=== PATIENT | female | born 1935 | race Two or more races ===

== ENCOUNTER 2019-05-01 09:58 | Inpatient (IN) | payer MEDICARE, OTHER ==
[2019-05-01] VITALS (34 sets, daily range): BP systolic 58–146; BP diastolic 19–108
[~2019-05-01] VITALS: Ht 165.1 cm; Wt 49.0 kg
--- NOTE | 2019-05-01 10:00 | NUR ---
ED Nurse Note: patient brought in by ambulance from [facility] due to abnormal labs. patient is awake, non verbal at this time, placed patient on the monitor. sacral pressure ulcer and left, right trochanter redness noted, unable to take picture at this time due to camera issue. notified charge nurse.
[2019-05-01] MEDS ORDERED: VITAMIN C500 M1 ORAL (10:13)
[2019-05-01] MEDS ORDERED: BENAZEPRIL HCL10 MG ORAL (10:13)
[2019-05-01] MEDS ORDERED: CIPRO500 MG PO (10:13)
[2019-05-01] MEDS ORDERED: MULTIVITAMINS1 EAC8 ORAL (10:13)
[2019-05-01] MEDS ORDERED: ACETAMINOPHEN325 M1 ORAL (10:13)
[2019-05-01] MEDS ORDERED: DOCUSATE SODIU100 MG ORAL (10:13)
[2019-05-01] MEDS ORDERED: AMLODIPINE BESYL5 MG ORAL (10:13)
[2019-05-01] MEDS ORDERED: ASPIR 8181 MG ORAL (10:13)
--- NOTE | 2019-05-01 10:30 | NUR ---
ED Nurse Note: daughter at bedside.
[2019-05-01 10:43] LABS: APPEARANCE,URINE VERY CLOUDY; BILIRUBIN, URINE NEGATIVE (NEGATIVE); GLUCOSE, URINE (UA) NEGATIVE (NEGATIVE); KETONES,URINE NEGATIVE (NEGATIVE); LEUKOCYTE ESTERASE ,URINE 3+ (NEGATIVE); NITRITE,URINE NEGATIVE (NEGATIVE); PH,URINE 8 (4.5-8.0); PROTEIN,URINE 3+ (NEGATIVE); UROBILINOGEN,URINE NORMAL MG/DL (0.0-1.0)
[2019-05-01 10:50] LABS: COLOR,URINE YELLOW
[2019-05-01 10:57] LABS: HEMOGLOBIN 11.2 G/DL (12.0-16.0); MEAN CORPUSCULAR VOLUME 99 FL (80-99); PLATELET COUNT 243 K/UL (150-450); RED BLOOD COUNT 3.53 M/UL (4.20-5.40); WHITE BLOOD COUNT 20.8 K/UL (4.8-10.8)
[2019-05-01 10:59] LABS: ANION GAP 11 mmol/L (5-15); BLOOD UREA NITROGEN 102 mg/dL (7-18); CALCIUM 9.5 MG/DL (8.5-10.1); CARBON DIOXIDE 26 MMOL/L (21-32); CHLORIDE 115 MMOL/L (98-107); CREATININE 1.5 MG/DL (0.55-1.30); POTASSIUM 4.8 MMOL/L (3.5-5.1); SODIUM 151 MMOL/L (136-145)
[2019-05-01] MEDS: cefTRIAXone 1 GM in NS 55 ML IVPB ONE ×2 (11:15→11:18)
[2019-05-01 11:18] LABS: ALANINE AMINOTRANSFERASE 45 U/L (12-78); ALBUMIN 2.6 G/DL (3.4-5.0); ALBUMIN/GLOBULIN RATIO 0.7 (1.0-2.7); ALKALINE PHOSPHATASE 65 U/L (46-116); ASPARTATE AMINO TRANSFERASE 31 U/L (15-37); BILIRUBIN,TOTAL 0.2 MG/DL (0.2-1.0); CKMB 0.5 NG/ML (0.0-3.6); CREATINE KINASE 56 U/L (26-308)
[2019-05-01] MEDS ORDERED: Zolpidem 5mg tab ORAL PRN (12:00)
[2019-05-01] MEDS ORDERED: Morphine Sulfate 2mg/ml Inj(IV/IM USE ONLY) IVP PRN (12:00)
[2019-05-01] MEDS ORDERED: Miralax 17gm pkt ORAL PRN (12:00)
[2019-05-01] MEDS ORDERED: LORazepam Inj 2mg/ml 1ml IV PRN (12:00)
--- NOTE | 2019-05-01 12:29 | Diagnostic Imaging Report ---
Indication: Dyspnea Comparison: None A single view chest radiograph was obtained. Findings: Lungs are clear. No airspace opacities identified. Aorta is enlarged and ectatic. Heart size is normal. Bones are osteopenic. IMPRESSION: No acute findings
[2019-05-01] MEDS ORDERED: LORazepam Inj 2mg/ml 1ml IV ONE (12:30)
--- NOTE | 2019-05-01 14:14 | Diagnostic Imaging Report ---
Indication: Dyspnea Comparison: 05/01/2019 at 10:25 A single view chest radiograph was obtained. Findings: Cardiomediastinal appearance is within normal limits for age. Calcifications in the left aspect of the mediastinum noted once again. The lungs are clear. Pulmonary vascularity is appropriate. Impression: No acute findings. No change
--- NOTE | 2019-05-01 14:25 | NUR ---
ED Nurse Note: patient's BP 102/87, DR. Potter to hold Levophed drip for now.
--- NOTE | 2019-05-01 14:25 | NUR ---
ED Nurse Note: Unable to take wound care photo due to camera issue. KEVIN MARRUFO made aware
--- NOTE | 2019-05-01 14:32 | NUR ---
ED Nurse Note: report given to Rosi RN, endorsed all plan of care to Rosi BOND
--- NOTE | 2019-05-01 14:36 | Emergency Room Report ---
History of Present Illness General Chief Complaint: Abnormal Labs Source: Family Member, Medical Record Present Illness HPI 83-year-old female presents ED for evaluation. Brought in by EMS from [facility] facility for abnormal labs. Had recent blood work which showed elevated BUN/creatinine and elevated white cell count. Patient nonverbal and unable to provide any additional history at this time. No reported chest pain or shortness of breath. No reported nausea or vomiting. No other aggravating relieving factors. No other associated symptoms Allergies: Coded Allergies: No Known Allergies (Unverified , 05/01/19) Patient History Past Medical History: HTN, other - hemiplagia Past Surgical History: none Pertinent Family History: none Social History: Denies: smoking, alcohol use, drug use Now: No Immunizations: UTD Reviewed Nursing Documentation: PMH: Agreed; PSxH: Agreed Nursing Documentation-PMH Hx Hypertension: Yes Hx Cerebrovascular Accident: Yes - hemiplegia,dysphagia Review of Systems All Other Systems: limited Physical Exam Vital Signs Date Time Temp Pulse Resp B/P (MAP) Pulse Ox O2 Delivery O2 Flow Rate FiO2 05/01/19 09:54 97.3 96 16 78/54 (62) 98 Room Air Sp02 EP Interpretation: reviewed, normal General Appearance: cachetic, lethargic Head: normocephalic Eyes: bilateral eye normal inspection, bilateral eye PERRL ENT: normal ENT inspection Neck: normal inspection Respiratory: chest non-tender, lungs clear, normal breath sounds, speaking full sentences Cardiovascular #1: regular rate, rhythm, no edema Gastrointestinal: normal bowel sounds, non tender, soft, non-distended, no guarding, no rebound Rectal: deferred Genitourinary: no CVA tenderness Musculoskeletal: other - contracted extremities Neurologic: other - nonverbal Psychiatric: other - nonverbal Skin: normal color Lymphatic: normal inspection Procedures Critical Care Time Critical Care Time i. I feel this is a highly complex case requiring extensive working including EKG/Rhythm strip, Xray/CT/US, Blood/urine lab work, repeat exams while in ED, and administration of strong opiates/narcotics for pain control, admission to hospital or close patient follow up. Total time: 75 min bedside evaluation and treatment excludes procedures (EKG). Reason for critical care: hypotensive septic shock Possible complications: hypotension, hypertension, MS, shock, arrhythmias, metabolic acidosis, end organ damage, respiratory failure. Interventions: labs, IVFs, EKG, CXR, antibiotics, central line, pressors Course: And brought in for abnormal labs. High white cell count. BUN/ creatinine elevated, lactic elevated. Has UTI. Despite 30 cc/kg fluid bolus patient remains hypotensive. Central line placed. Pressors ordered. Consultations: nursing staff, EMS, family Performed by: Dr Potter Tolerated well condition = critical j. because of unstable vital signs this patient had a condition that could potentially threaten life or limb. I feel this is a critical patient who required my full attention while patient was considered critical. Total Critical Care Time excluding procedures was greater than 75 minutes Central Line Central Line : Consent: Written Central Line Lumen: triple Maximal Sterile Barrier Tech: yes cap, yes mask, yes sterile gown, yes sterile gloves, yes large sterile sheet, yes hand hygiene, yes chlorhexidine prep Central Line Postion: femoral (L) Anesthesia: Lidocaine Complications: none Central Line Post Position: sutured, good blood return, position confirmed w / CXR Attempts: One Patient Tolerated: Well Complications: None Medical Decision Making Diagnostic Impression: Primary Impression: Septic shock Additional Impressions: UTI (urinary tract infection) Qualified Codes: N39.0 - Urinary tract infection, site not specified Renal insufficiency ER Course Hospital Course 83-year-old female presenting to ED with abnormal labs Differential diagnoses include: Pneumonia, UTI, sepsis, dehydration, MS/ unstable angina Clinical course Patient placed on stretcher. On manager monitoring with stable vitals are ED course. After initial history and physical, I ordered labs, IV fluids, EKG, chest x-ray, blood cultures, UA. Labs - BUN/Cr elevated, marked leukocytosis, lactic elevated, UA grossly positive for UTI EKG - NSR, no acute ischemic changes interpreted by me CXR - no acute process Abx given. 30 cc/kg fluid bolus patient remains hypotensive. Initial attempt made for right IJ but unsuccessful. Chest x-ray confirms no pneumothorax. Left femoral central line placed. Pressors started. Case discussed with Dr Macdonald and they agreed to admit patient to their service for further care and support I feel this is a highly complex case requiring extensive working including EKG/ Rhythm strip, Xray/CT/US, Blood/urine lab work, repeat exams while in ED, and administration of strong opiates/narcotics for pain control, admission to hospital or close patient follow up. Diagnosis -septic shock, UTI, renal insufficiency Patient admitted to ICU in critical condition Labs Test 05/01/19 10:14 05/01/19 10:15 05/01/19 11:13 Sodium Level 151 MMOL/L (136-145) Potassium Level 4.8 MMOL/L (3.5-5.1) Chloride Level 115 MMOL/L (98-107) Carbon Dioxide Level 26 MMOL/L (21-32) Anion Gap 11 mmol/L (5-15) Blood Urea Nitrogen 102 mg/dL (7-18) Creatinine 1.5 MG/DL (0.55-1.30) Estimat Glomerular Filtration Rate mL/min (>60) Glucose Level 124 MG/DL (74-106) Lactic Acid Level 2.40 mmol/L (0.4-2.0) 1.90 mmol/L (0.66-2.22) Calcium Level 9.5 MG/DL (8.5-10.1) Total Bilirubin 0.2 MG/DL (0.2-1.0) Aspartate Amino Transf (AST/SGOT) 31 U/L (15-37) Alanine Aminotransferase (ALT/SGPT) 45 U/L (12-78) Alkaline Phosphatase 65 U/L (46-116) Total Creatine Kinase 56 U/L (26-308) Creatine Kinase MB 0.5 NG/ML (0.0-3.6) Creatine Kinase MB Relative Index 0.8 Troponin I 0.014 ng/mL (0.000-0.056) Pro-B-Type Natriuretic Peptide 1425 pg/mL (0-125) Total Protein 6.5 G/DL (6.4-8.2) Albumin 2.6 G/DL (3.4-5.0) Globulin 3.9 g/dL Albumin/Globulin Ratio 0.7 (1.0-2.7) White Blood Count 20.8 K/UL (4.8-10.8) Red Blood Count 3.53 M/UL (4.20-5.40) Hemoglobin 11.2 G/DL (12.0-16.0) Hematocrit 35.0 % (37.0-47.0) Mean Corpuscular Volume 99 FL (80-99) Mean Corpuscular Hemoglobin 31.6 PG (27.0-31.0) Mean Corpuscular Hemoglobin Concent 31.9 G/DL (32.0-36.0) Red Cell Distribution Width 13.0 % (11.6-14.8) Platelet Count 243 K/UL (150-450) Mean Platelet Volume 5.8 FL (6.5-10.1) Neutrophils (%) (Auto) % (45.0-75.0) Lymphocytes (%) (Auto) % (20.0-45.0) Monocytes (%) (Auto) % (1.0-10.0) Eosinophils (%) (Auto) % (0.0-3.0) Basophils (%) (Auto) % (0.0-2.0) Differential Total Cells Counted 100 Neutrophils % (Manual) 76 % (45-75) Lymphocytes % (Manual) 16 % (20-45) Monocytes % (Manual) 7 % (1-10) Eosinophils % (Manual) 0 % (0-3) Basophils % (Manual) 1 % (0-2) Band Neutrophils 0 % (0-8) Platelet Estimate Adequate Platelet Morphology Normal Hypochromasia 1+ Anisocytosis 1+ Erythrocyte Sedimentation Rate 85 MM/HR (0-30) Reticulocyte Count 2.0 % (0.5-2.0) Urine Color Yellow Urine Appearance Very cloudy Urine pH 8 (4.5-8.0) Urine Specific [place] 1.010 (1.005-1.035) Urine Protein 3+ (NEGATIVE) Urine Glucose (UA) Negative (NEGATIVE) Urine Ketones Negative (NEGATIVE) Urine Blood 4+ (NEGATIVE) Urine Nitrite Negative (NEGATIVE) Urine Bilirubin Negative (NEGATIVE) Urine Urobilinogen Normal MG/DL (0.0-1.0) Urine Leukocyte Esterase 3+ (NEGATIVE) Urine RBC 5-10 /HPF (0 - 2) Urine WBC Tntc /HPF (0 - 2) Urine Squamous Epithelial Cells None /LPF (NONE/OCC) Urine Bacteria Many /HPF (NONE) EKG Diagnostic Results Rate: normal Rhythm: NSR ST Segments: no acute changes ASA given to the pt in ED: No Rhythm Strip Diag. Results EP Interpretation: yes Rhythm: NSR, no PVC's, no ectopy Chest X-Ray Diagnostic Results Chest X-Ray Diagnostic Results : Chest X-Ray Ordered: Yes # of Views/Limited/Complete: 1 View Indication: Chest Pain EP Interpretation: Yes Interpretation: no consolidation, no effusion, no pneumothorax, no acute cardiopulmonary disease Impression: No acute disease Electronically Signed by: Electronically signed by Mario Potter MD Last Vital Signs Date Time Temp Pulse Resp B/P (MAP) Pulse Ox O2 Delivery O2 Flow Rate FiO2 05/01/19 10:57 97.3 74 16 98/56 95 Room Air Status: improved Disposition: ADMITTED INPATIENT Condition: Critical Referrals: NON PHYSICIAN (PCP) Mario Potter MD May 01, 2019 14:36
--- NOTE | 2019-05-01 14:37 | NUR ---
ED Nurse Note: DR POON BY THE BEDSIDE
--- NOTE | 2019-05-01 14:51 | Emergency Room Report ---
Sepsis Event Note Evaluation Current Stage of Sepsis: Septic Shock Possible Source: Genitourinary Focused Exam Allergies: Coded Allergies: No Known Allergies (Unverified , 05/01/19) Date Exam Occurred: May 01, 2019 Time Exam Occurred: 10:00 Laboratory Studies Laboratory Tests Test 05/01/19 10:14 05/01/19 10:15 05/01/19 11:13 Sodium Level 151 MMOL/L (136-145) H Potassium Level 4.8 MMOL/L (3.5-5.1) Chloride Level 115 MMOL/L (98-107) H Carbon Dioxide Level 26 MMOL/L (21-32) Anion Gap 11 mmol/L (5-15) Blood Urea Nitrogen 102 mg/dL (7-18) H Creatinine 1.5 MG/DL (0.55-1.30) H Estimat Glomerular Filtration Rate mL/min (>60) Glucose Level 124 MG/DL (74-106) H Lactic Acid Level 2.40 mmol/L (0.4-2.0) H 1.90 mmol/L (0.66-2.22) Calcium Level 9.5 MG/DL (8.5-10.1) Total Bilirubin 0.2 MG/DL (0.2-1.0) Aspartate Amino Transf (AST/SGOT) 31 U/L (15-37) Alanine Aminotransferase (ALT/SGPT) 45 U/L (12-78) Alkaline Phosphatase 65 U/L (46-116) Total Creatine Kinase 56 U/L (26-308) Creatine Kinase MB 0.5 NG/ML (0.0-3.6) Creatine Kinase MB Relative Index 0.8 Troponin I 0.014 ng/mL (0.000-0.056) Pro-B-Type Natriuretic Peptide 1425 pg/mL (0-125) H Total Protein 6.5 G/DL (6.4-8.2) Albumin 2.6 G/DL (3.4-5.0) L Globulin 3.9 g/dL Albumin/Globulin Ratio 0.7 (1.0-2.7) L White Blood Count 20.8 K/UL (4.8-10.8) H Red Blood Count 3.53 M/UL (4.20-5.40) L Hemoglobin 11.2 G/DL (12.0-16.0) L Hematocrit 35.0 % (37.0-47.0) L Mean Corpuscular Volume 99 FL (80-99) Mean Corpuscular Hemoglobin 31.6 PG (27.0-31.0) H Mean Corpuscular Hemoglobin Concent 31.9 G/DL (32.0-36.0) L Red Cell Distribution Width 13.0 % (11.6-14.8) Platelet Count 243 K/UL (150-450) Mean Platelet Volume 5.8 FL (6.5-10.1) L Neutrophils (%) (Auto) % (45.0-75.0) Lymphocytes (%) (Auto) % (20.0-45.0) Monocytes (%) (Auto) % (1.0-10.0) Eosinophils (%) (Auto) % (0.0-3.0) Basophils (%) (Auto) % (0.0-2.0) Differential Total Cells Counted 100 Neutrophils % (Manual) 76 % (45-75) H Lymphocytes % (Manual) 16 % (20-45) L Monocytes % (Manual) 7 % (1-10) Eosinophils % (Manual) 0 % (0-3) Basophils % (Manual) 1 % (0-2) Band Neutrophils 0 % (0-8) Platelet Estimate Adequate Platelet Morphology Normal Hypochromasia 1+ Anisocytosis 1+ Erythrocyte Sedimentation Rate 85 MM/HR (0-30) H Reticulocyte Count 2.0 % (0.5-2.0) Urine Color Yellow Urine Appearance Very cloudy Urine pH 8 (4.5-8.0) Urine Specific [place] 1.010 (1.005-1.035) Urine Protein 3+ (NEGATIVE) H Urine Glucose (UA) Negative (NEGATIVE) Urine Ketones Negative (NEGATIVE) Urine Blood 4+ (NEGATIVE) H Urine Nitrite Negative (NEGATIVE) Urine Bilirubin Negative (NEGATIVE) Urine Urobilinogen Normal MG/DL (0.0-1.0) Urine Leukocyte Esterase 3+ (NEGATIVE) H Urine RBC 5-10 /HPF (0 - 2) H Urine WBC Tntc /HPF (0 - 2) H Urine Squamous Epithelial Cells None /LPF (NONE/OCC) Urine Bacteria Many /HPF (NONE) H Vital Signs Last 24 Hour Vital Signs Date Time Temp Pulse Resp B/P (MAP) Pulse Ox O2 Delivery O2 Flow Rate FiO2 7/5/19 14:30 97.3 80 18 102/87 99 Room Air 05/01/19 10:57 97.3 74 16 98/56 95 Room Air 05/01/19 10:47 97.3 75 16 137/104 94 Room Air 05/01/19 09:54 97.3 96 16 78/54 (62) 98 Room Air Respiratory Exam: No Wheezes Cardiovascular Exam: RRR Capillary Refill: Less Than 2 Seconds Peripheral Pulse: Strong Pulse Location: Femoral Skin Exam: Unremarkable Bedside Monitoring Date bedside monitoring occur: May 01, 2019 Time bedside monitoring occur: 14:50 Passive Leg Raise/Fluid Bolus: Not Fluid Responsive - central line with pressors started Mario Potter MD May 01, 2019 14:51
--- NOTE | 2019-05-01 15:00 | NUR ---
ED Nurse Note: patient transferred to ICU with RN/ KEMAR, patient endorsed to FRANSISCO RN in stable condition. daughter waiting in the waiting room.
--- NOTE | 2019-05-01 15:02 | History & Physical ---
History and Physical History & Physicial Solo Macdonald MD May 01, 2019 15:02
--- NOTE | 2019-05-01 15:15 | NUR ---
NURSE NOTES: received patient form VARUN Calixto. Patient blood pressure 89/62, temp 97.6, SpO2 100% on RA. Patient is alert and oriented times one. She startles to her name but does not respond. Patient bedbound with contracture of the legs and arms. Patient has multiple wounds. Will assess them with wound care nurse. Patient admitted for sepsis secondary to UTI. Mujica was inserted in chcf and replaced with new mjuica at this time using aseptic technique. Patient has right forearm 22G PIV and left forearm 20G PIV that are patent and asymptomatic at this time. Patient has left femoral triple lumen catheter that is patent and saline locked at this time. Dressing change done at this time. Patient has an order for D5W at 150mL/hr, will administer as ordered. Patient's family reported that the patient's mentation is her normal. She is at her baseline at this time. They also reported that the patient is able to take food by mouth in the chcf. Will follow up with speech therapy for swallow evaluation. Patient has history of CVA and could be a silent aspiration risk. Patient not asking for food at this time. Will monitor and stabilize patient and endorse to follow up with speech therapy in the morning. Bed in low position with bed alarm on and call light in reach.
--- NOTE | 2019-05-01 15:25 | Consultation ---
History of Present Illness General Date patient seen: May 01, 2019 Chief Complaint: Abnormal Labs Present Illness HPI 83-year-old female with hx of CVA, hemiplegia, bed bound, custodial resident presented ED for evaluation of abnormal labs. Had recent blood work showed elevated BUN/creatinine and elevated white cell count. Patient nonverbal and unable to provide any additional history at this time. No reported chest pain or shortness of breath. No reported nausea or vomiting. No other aggravating relieving factors. No other associated symptoms. Pt was hypotensive in Er and was started on pressors and transferred to ICU. Allergies: Coded Allergies: No Known Allergies (Unverified , 05/01/19) Medication History Scheduled Amlodipine Besylate* (Amlodipine Besylate*), 5 MG ORAL DAILY, (Reported) Ascorbic Acid* (Vitamin C*), 500 MG ORAL DAILY, (Reported) Aspirin* (Aspir 81*), 81 MG ORAL DAILY, (Reported) Benazepril Hcl* (Benazepril Hcl*), 20 MG ORAL DAILY, (Reported) Ciprofloxacin* (Cipro*), 500 MG PO BID, (Reported) Docusate Sodium* (Docusate Sodium*), 100 MG ORAL TWICE A DAY, (Reported) Multivitamin With Minerals (Multivitamins With Minerals*), 1 TAB ORAL DAILY, ( Reported) Scheduled PRN Acetaminophen* (Acetaminophen 325MG Tablet*), 650 MG ORAL Q6H PRN for Pain Scale (3-5), (Reported) Patient History Healthcare decision maker Resuscitation status Advanced Directive on File No Past Medical/Surgical History Past Medical/Surgical History: (1) History of hypertension (2) History of CVA with residual deficit (3) Advanced dementia (4) Severe malnutrition (5) Decubitus ulcer of sacral region, stage 4 Review of Systems All Other Systems: negative except mentioned in HPI Physical Exam General Appearance: cachetic, thin Lines, tubes and drains: peripheral HEENT: normocephalic, atraumatic Neck: non-tender, normal alignment Respiratory/Chest: chest wall non-tender, lungs clear Cardiovascular/Chest: normal peripheral pulses, normal rate Abdomen: normal bowel sounds, non tender Genitourinary/Rectal: normal genital exam, normal prostate exam Extremities: normal range of motion 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: 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 normal Last 24 Hour Vital Signs Date Time Temp Pulse Resp B/P (MAP) Pulse Ox O2 Delivery O2 Flow Rate FiO2 05/01/19 15:00 97.3 80 18 102/87 99 Room Air 05/01/19 14:30 97.3 80 18 102/87 99 Room Air 05/01/19 10:57 97.3 74 16 98/56 95 Room Air 05/01/19 10:47 97.3 75 16 137/104 94 Room Air 05/01/19 09:54 97.3 96 16 78/54 (62) 98 Room Air Laboratory Tests Test 05/01/19 10:14 05/01/19 10:15 05/01/19 11:13 Sodium Level 151 MMOL/L (136-145) H Potassium Level 4.8 MMOL/L (3.5-5.1) Chloride Level 115 MMOL/L (98-107) H Carbon Dioxide Level 26 MMOL/L (21-32) Anion Gap 11 mmol/L (5-15) Blood Urea Nitrogen 102 mg/dL (7-18) H Creatinine 1.5 MG/DL (0.55-1.30) H Estimat Glomerular Filtration Rate mL/min (>60) Glucose Level 124 MG/DL (74-106) H Lactic Acid Level 2.40 mmol/L (0.4-2.0) H 1.90 mmol/L (0.66-2.22) Calcium Level 9.5 MG/DL (8.5-10.1) Total Bilirubin 0.2 MG/DL (0.2-1.0) Aspartate Amino Transf (AST/SGOT) 31 U/L (15-37) Alanine Aminotransferase (ALT/SGPT) 45 U/L (12-78) Alkaline Phosphatase 65 U/L (46-116) Total Creatine Kinase 56 U/L (26-308) Creatine Kinase MB 0.5 NG/ML (0.0-3.6) Creatine Kinase MB Relative Index 0.8 Troponin I 0.014 ng/mL (0.000-0.056) Pro-B-Type Natriuretic Peptide 1425 pg/mL (0-125) H Total Protein 6.5 G/DL (6.4-8.2) Albumin 2.6 G/DL (3.4-5.0) L Globulin 3.9 g/dL Albumin/Globulin Ratio 0.7 (1.0-2.7) L White Blood Count 20.8 K/UL (4.8-10.8) H Red Blood Count 3.53 M/UL (4.20-5.40) L Hemoglobin 11.2 G/DL (12.0-16.0) L Hematocrit 35.0 % (37.0-47.0) L Mean Corpuscular Volume 99 FL (80-99) Mean Corpuscular Hemoglobin 31.6 PG (27.0-31.0) H Mean Corpuscular Hemoglobin Concent 31.9 G/DL (32.0-36.0) L Red Cell Distribution Width 13.0 % (11.6-14.8) Platelet Count 243 K/UL (150-450) Mean Platelet Volume 5.8 FL (6.5-10.1) L Neutrophils (%) (Auto) % (45.0-75.0) Lymphocytes (%) (Auto) % (20.0-45.0) Monocytes (%) (Auto) % (1.0-10.0) Eosinophils (%) (Auto) % (0.0-3.0) Basophils (%) (Auto) % (0.0-2.0) Differential Total Cells Counted 100 Neutrophils % (Manual) 76 % (45-75) H Lymphocytes % (Manual) 16 % (20-45) L Monocytes % (Manual) 7 % (1-10) Eosinophils % (Manual) 0 % (0-3) Basophils % (Manual) 1 % (0-2) Band Neutrophils 0 % (0-8) Platelet Estimate Adequate Platelet Morphology Normal Hypochromasia 1+ Anisocytosis 1+ Erythrocyte Sedimentation Rate 85 MM/HR (0-30) H Reticulocyte Count 2.0 % (0.5-2.0) Urine Color Yellow Urine Appearance Very cloudy Urine pH 8 (4.5-8.0) Urine Specific [place] 1.010 (1.005-1.035) Urine Protein 3+ (NEGATIVE) H Urine Glucose (UA) Negative (NEGATIVE) Urine Ketones Negative (NEGATIVE) Urine Blood 4+ (NEGATIVE) H Urine Nitrite Negative (NEGATIVE) Urine Bilirubin Negative (NEGATIVE) Urine Urobilinogen Normal MG/DL (0.0-1.0) Urine Leukocyte Esterase 3+ (NEGATIVE) H Urine RBC 5-10 /HPF (0 - 2) H Urine WBC Tntc /HPF (0 - 2) H Urine Squamous Epithelial Cells None /LPF (NONE/OCC) Urine Bacteria Many /HPF (NONE) H Height (Feet): 5 Height (Inches): 2.00 Weight (Pounds): 145 Medications Current Medications Medications (Trade) Dose Ordered Sig/Familia Route PRN Reason Start Time Stop Time Status Last Admin Dose Admin Acetaminophen (Tylenol) 650 mg Q4H PRN ORAL fever 05/01/19 12:00 05/31/19 11:59 Cefepime HCl 500 mg/Dextrose 55 ml @ 110 mls/hr EVERY 12 HOURS IVPB 05/01/19 16:00 05/08/19 15:59 Dextrose 1,000 ml @ 150 mls/hr Q6H40M IV 05/01/19 12:15 05/31/19 12:14 Dextrose (Dextrose 50%) 25 ml Q30M PRN IV Hypoglycemia 05/01/19 12:00 05/31/19 11:59 Dextrose (Dextrose 50%) 50 ml Q30M PRN IV Hypoglycemia 05/01/19 12:15 05/31/19 12:14 Heparin Sodium (Porcine) (Heparin 5000 units/ml) 5,000 units EVERY 12 HOURS SUBQ 05/01/19 21:00 05/31/19 20:59 Lorazepam (Ativan 2mg/ml 1ml) 0.5 mg Q4H PRN IV For Anxiety 05/01/19 12:00 05/08/19 11:59 Morphine Sulfate (Morphine Sulfate) 1 mg Q4H PRN IVP For Pain 05/01/19 12:00 05/08/19 11:59 Norepinephrine Bitartrate 4 mg/ Dextrose 250 ml @ 0 mls/hr Q24H IV 05/01/19 14:00 05/31/19 13:59 Ondansetron HCl (Zofran) 4 mg Q6H PRN IVP Nausea & Vomiting 05/01/19 12:00 05/31/19 11:59 Polyethylene Glycol (Miralax) 17 gm HSPRN PRN ORAL Constipation 05/01/19 12:00 05/31/19 11:59 Zolpidem Tartrate (Ambien) 5 mg HSPRN PRN ORAL Insomnia 05/01/19 12:00 05/08/19 11:59 Assessment/Plan Problem List: (1) Septic shock ICD Codes: A41.9 - Sepsis, unspecified organism; R65.21 - Severe sepsis with septic shock SNOMED: 88001159 (2) ATN (acute tubular necrosis) ICD Codes: N17.0 - Acute kidney failure with tubular necrosis SNOMED: 03529392 (3) Hemiparesis ICD Codes: G81.90 - Hemiplegia, unspecified affecting unspecified side SNOMED: 06048009 (4) History of hypertension ICD Codes: Z86.79 - Personal history of other diseases of the circulatory system SNOMED: 478942553 (5) History of CVA with residual deficit ICD Codes: I69.30 - Unspecified sequelae of cerebral infarction SNOMED: 467109552 (6) Advanced dementia ICD Codes: F03.90 - Unspecified dementia without behavioral disturbance SNOMED: 49567309 Assessment/Plan: IV fluids IV abx check cultures check electrolytes swallow study when better custodial meds reviewed Adilene Nash MD May 01, 2019 15:25
[2019-05-01] MEDS ORDERED: Amikacin Rx to dose MISC PRN (15:30)
--- NOTE | 2019-05-01 15:54 | NUR ---
NURSE NOTES:WOUND CARE N0TES:Pt presented on admission with contractures and multiple pressure injuries. Full thickness sacral pressure injury with undermining .Beefy red granulation at base of wound with an area of 20% soft necrosis along borders and undermined area.No odor noted. Small amt sanguineous exudate noted(L)2cm x (W)2.5cm x (D)1.9cm, undermining clockwise 12-12 by 1.9cm @12 o'clock. Resolving pressure injury R elbow .Base of wound epithelialized -pink and dry.(L)1.5cm x (W)1.6cm. Resolving pressure injury R trochanter .Base of wound has dry ,pink epithelial.edges adherent and flat without erythema or induration(L)2cm x (W)4cm. hyperpigmentation periwound. Hyperpigmentation from previous wound L trochanter. Non-blanchable erythema with fluctuance noted to lateral L heel (L)2.5cm x (W)2.5cm.Periwound without erythema induration or fluctuance. R heel is pink and blanchable. Non-blanchable erythema without fluctuance /induration L lateral 1st metatarsal.(L)0.5cm x (W)1cm Non-blanchable erythema without fluctuance /induration noted L hallux. (L)1cm x (w)1cm. Non-blanchable erythema without induration/fluctuance lateral R foot. Tx.Plan: Cleanse Sacral wound with Saline. Loosely pack with Hydrogel impregnated Plain packing strip.Apply Triad periwound Cover with Optifoam Daily and PRN. Apply Moisture Barrier Paste to R and L trochanters. Cover each site with Optifoam drsg. Change every 3 days and prn. Apply Cavilon Skin Barrier to R and L heels. Cover each heel with Optifoam drsgs. Change every 7 days and prn. Apply Cavilon Skin Barrier to L hallux and L 1st metatarsal. Cover with Optifoam drsg. Change every 7 days and prn. Apply Cavilon Skin Barrier to lateral R foot. Cover with Optifoam drsg. Change every 7 days and prn. APM/YO mattress overlay. Reposition at least every 2hours or as tolerated. Off-load heels with pillow.
[2019-05-01] MEDS: Cefepime HCl 500 MG in D5W 55 ML IVPB SCH (16:25)
[2019-05-01] MEDS ORDERED: Vancomycin 1.25gm Premix IVPB ONE (16:30)
[2019-05-01] MEDS ORDERED: DOPamine 400mg/250ml 250 ML IV SCH (16:45)
--- NOTE | 2019-05-01 16:57 | NUR ---
NURSE NOTES: Dr Nash notified that patient blood pressure was 53/34 and he ordered 2 liter bolus with dopamine drip per protocol. Dopamine started at 20mcg/kg/min.
[2019-05-01 17:43] LABS: APPEARANCE,URINE CLEAR; BILIRUBIN, URINE NEGATIVE (NEGATIVE); COLOR,URINE PALE YELLOW; GLUCOSE, URINE (UA) NEGATIVE (NEGATIVE); KETONES,URINE NEGATIVE (NEGATIVE); LEUKOCYTE ESTERASE ,URINE 3+ (NEGATIVE); NITRITE,URINE NEGATIVE (NEGATIVE); PH,URINE 6 (4.5-8.0); PROTEIN,URINE 1+ (NEGATIVE); UROBILINOGEN,URINE NORMAL MG/DL (0.0-1.0)
--- NOTE | 2019-05-01 17:47 | NUR ---
NURSE NOTES: Dr Macdonald ordered Levophed drip for the patient. Patient went into SVT on dopamine drip. Dopamine stopped immediately. Levophed started at 20mcg/hr.
[2019-05-01 17:53] LABS: INR 1.1 (0.9-1.1)
[2019-05-01 17:59] LABS: % IRON SATURATION 30 % (15-50); IRON 22 ug/dL (50-175); TOTAL IRON BINDING CAPACITY 74 ug/dL (250-450)
--- NOTE | 2019-05-01 18:15 | NUR ---
NURSE NOTES: Levophed decreased to 15mcg/hr. Blood pressure 146/47. Will continue to monitor blood pressure and titrate per protocol.
[2019-05-01] MEDS ORDERED: AMIKACIN IV SCH (18:30)
[2019-05-01] MEDS ORDERED: NS IV SCH (18:30)
[2019-05-01] MEDS: Hydrocortisone 100mg Inj IV SCH (18:33)
[2019-05-01 18:37] LABS: LACTATE DEHYDROGENASE 126 U/L (81-234)
--- NOTE | 2019-05-01 19:00 | NUR ---
HAND-OFF: Report given to VARUN Ruggiero. Patient renal ultrasond just performed. Endorsed to follow up with result. Patient blood pressure 133/71 at this time. Patient not showing any sign of acute distress.
--- NOTE | 2019-05-01 19:00 | NUR ---
NURSE NOTES: Endorsement received from Rosi Stewart RN. Patient on 2 LPM nasal cannula. No SOB.Sinus rhythm on the monitor. Withdraws to pain, no verbal response. With Left femoral TLC, left forearm g20, right forearm g22. On D5W 150ml/hr, Levophed 15mcg/min. Dressings dry and intact.. Head of bed elevated. Bed alarm on. Call light within reach.
--- NOTE | 2019-05-01 20:00 | History and Physical Report ---
DATE OF ADMISSION: 05/01/2019 CHIEF COMPLAINT: Abnormal labs as well as hypotension. HISTORY OF PRESENT ILLNESS: This is an 83-year-old female with past medical history significant for sepsis, urinary tract infection, hemiplegia , acute kidney failure, primary hypertension. She also had cellulitis in the past , cognitive communication deficit, anemia, dementia, weakness who presented to the hospital from nursing facility, [facility] after was noted to have abnormal laboratory with elevated BUN and creatinine. The patient's history is very limited secondary to mental status. She is alert and oriented x0. She is nonverbal and unable to follow commands. Mostly history is taken from the ER chart as well as [facility] diagnosis paperwork. Shortly after initial evaluation in the emergency room, the patient was noted to be severely hypotensive with a blood pressure of 78/54 and WBC of 20.8 and subsequently the patient was admitted to the ICU with septic shock as well as severe hypotension and acute kidney injury with ATN. PAST MEDICAL HISTORY/PAST SURGICAL HISTORY: As above. History of sepsis, functional quadriplegia with a history of hemiplegia in the past, acute kidney failure, cognitive commenting deficit, dysphagia, anemia, dementia, weakness, gait or mobility disorder. MEDICATIONS: Medications at [facility], please refer to medication reconciliation. ALLERGIES: No known drug allergies. SOCIAL HISTORY: long term resident. No smoking, alcohol, or drugs. FAMILY HISTORY: Noncontributory. REVIEW OF SYSTEMS: Mostly limited secondary to the patient's status. No fever or chills was reported. No loss of consciousness. No fall or head trauma. PHYSICAL EXAMINATION: VITAL SIGNS: On admission from the ER, temperature 97.3, pulse of 96, respirations 16, blood pressure 78/54, repeat one was 137/104, again 98/56, saturation is 98. GENERAL: The patient is awake, opens her mouth, responsive to painful stimuli, opens her eyes, however, cannot follow commands. HEAD AND NECK: Pupils are equal and reactive to light. Anicteric. Neck was supple. No JVD. LUNGS: Good air entry. No wheezing or rhonchi. HEART: S1, S2. Regular rhythm. No murmur or gallops. ABDOMEN: Soft, nondistended, nontender. Positive bowel sounds. EXTREMITIES: No cyanosis, clubbing, edema. The patient has muscle atrophy in bilateral lower extremity and cachexia. NEUROLOGIC: Cranial nerves II through XII grossly intact. The patient has contracted lower extremity. Moving upper extremity, left side more than right side. SKIN: Bilateral trochanter stage I ulceration as well as sacral decubitus ulcer stage IV. No discharge was noted. LABORATORY DATA: On admission WBC of 20, hemoglobin 11, hematocrit 35, platelets 245. ESR is 85, reticulocyte count is 2.0. Sodium 151, potassium 4.8, chloride 115, bicarb 26, BUN 102, creatinine 1.5, glucose 124. Lactic acid 2.40, repeat one is 1.9. First troponin 0.014. ProBNP of 1425. Urinalysis, +3 urine protein, +4 blood, negative nitrite, +3 leukocyte, wbc, 5 to 10 rbc, many bacteria. The patient had a chest x-ray showed no acute finding. Lungs are clear. ASSESSMENT: 1. Septic shock, most likely secondary to acute sepsis due to urinary tract infection. 2. Severe cachexia, Severe protein calori malnutrition. 3. Stage IV sacral decubitus ulcer presented on admission. 4. History of essential hypertension, presently hypotensive. 5. Acute kidney injury on chronic renal insufficiency, most likely secondary to severe dehydration and hypovolemia. 6. Advanced dementia. 7. Severe Hypotension most likely combination of septic shock and Dehydration / Hypovolemia. PLAN: Admit the patient to ICU. We will follow up laboratory. Aggressive IV hydration broad-spectrum antibiotics with cefepime. Follow up with culture. DVT prophylaxis, heparin subcutaneous. Consider wound culture as well as wound care consultation. Monitor laboratory in the morning with wound culture. Code status at this time is Full Code per POL. Solo Macdonald M.D. DR: LEYDI JOB#: [id number] CC: ZAK
--- NOTE | 2019-05-01 21:00 | NUR ---
NURSE NOTES: Patient with eyes closed. Appears comfortable. On Levophed 8mcg/min.
[2019-05-01] MEDS: Heparin 5000 units/ml inj SUBQ SCH (21:09)
--- NOTE | 2019-05-01 21:17 | Diagnostic Imaging Report ---
EXAM: US Abdomen Complete CLINICAL HISTORY: ABN LABS, elevated renal function tests TECHNIQUE: Real-time ultrasound of the abdomen (complete) with image documentation. COMPARISON: none FINDINGS: Liver: Unremarkable. No mass. No intrahepatic bile duct dilation. Gallbladder: Unremarkable. No gallstones. Common bile duct: Unremarkable as visualized. No stones. No dilation. Pancreas: Unremarkable as visualized. Kidneys: Right kidney measures 8 x 4.3 x 5.4 cm. There are punctate foci of echogenicity in the right renal cortex that could represent stones. Left kidney measures 9.9 x 5.3 x 5.0 cm. Mild left hydronephrosis and hydroureter.. Spleen: Unremarkable. No splenomegaly. Aorta: Unremarkable. No aneurysm. Inferior vena cava: Unremarkable. Tubes, lines and devices: Urinary bladder contains a Villagomez catheter but bilateral ureteral jets were identified. There is some thickening of the urinary bladder wall and there is any congestive neck curvilinear structure of the right posterolateral urinary bladder that could represent a bladder stone. IMPRESSION: 1. 1. Mild left hydronephrosis and urinary bladder stone with wall thickening of bladder that could represent cystitis or evidence of chronic bladder outlet obstruction. 2. 2. Right nephrolithiasis is also suspected..
--- NOTE | 2019-05-01 23:00 | NUR ---
NURSE NOTES: Patient non verbal, responds to pain. Repositioned as scheduled and PRN
[2019-05-02] VITALS (77 sets, daily range): BP systolic 70–134; BP diastolic 39–81
--- NOTE | 2019-05-02 | NUR ---
NURSE NOTES: SBP at 110mmHg, on Levo 2mcg/min. Turned off at this time. Will continue to monitor.
--- NOTE | 2019-05-02 01:00 | NUR ---
NURSE NOTES: SBP 82 mmHg. Levophed restarted at 2mcg/min
--- NOTE | 2019-05-02 02:00 | NUR ---
NURSE NOTES: Patient on room air, no shortness of breath.
--- NOTE | 2019-05-02 02:30 | NUR ---
NURSE NOTES: With episodes of bradycardia, 50s while asleep. Patient arousable and heart rate goes to 60s.
--- NOTE | 2019-05-02 04:00 | NUR ---
NURSE NOTES: Patient arousable to touch. Able to repeat short words such as "Hi", but mostly mumbles to pain. Bed bath, change of linen done.
--- NOTE | 2019-05-02 05:22 | Pulmonolgy Critical Care Note ---
Critical Care - Asmt/Plan Problems: (1) Septic shock (2) ATN (acute tubular necrosis) (3) History of hypertension (4) UTI (urinary tract infection) (5) Advanced dementia (6) History of CVA with residual deficit (7) Hemiparesis Respiratory: monitor respiratory rate, adjust FIO2 Cardiac: continue to monitor HR/BP Renal: F/U I&O, check electrolytes Infectious Disease: check cultures, continue antibiotics Gastrointestinal: hold feedings Endocrine: monitor blood sugar Hematologic: monitor H/H, transfuse if hgb<8.5 Neurologic: PRN Ativan, PRN Morphine, keep patient comfortable Affect: PRN ativan Notes 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, 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 Discussed with: nurses, consultants, 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 caserclerical manager - Objective Last 24 Hour Vital Signs Date Time Temp Pulse Resp B/P (MAP) Pulse Ox O2 Delivery O2 Flow Rate FiO2 05/02/19 05:11 73/43 05/02/19 04:00 Room Air 05/02/19 04:00 92/50 05/02/19 03:45 58 16 95/46 (62) 100 05/02/19 03:30 63 20 70/39 (49) 100 05/02/19 03:15 67 20 99/58 (72) 99 05/02/19 03:00 53 19 103/57 (72) 99 05/02/19 03:00 103/57 05/02/19 02:45 55 18 96/68 (77) 99 05/02/19 02:30 54 16 86/53 (64) 98 05/02/19 02:15 58 16 85/57 (66) 98 05/02/19 02:00 58 17 100/62 (75) 99 05/02/19 02:00 100/62 05/02/19 01:45 53 16 88/52 (64) 98 05/02/19 01:30 60 18 89/51 (64) 99 05/02/19 01:30 60 18 89/51 (64) 99 05/02/19 01:15 59 19 103/66 (78) 99 05/02/19 01:00 55 16 91/51 (64) 100 05/02/19 00:45 54 15 82/53 (63) 100 05/02/19 00:30 57 15 82/50 (61) 100 7/6/19 00:15 57 15 97/53 (68) 100 05/02/19 00:00 114/51 05/02/19 00:00 97.7 59 16 88/55 (66) 100 05/02/19 00:00 Nasal Cannula 2.0 05/01/19 23:45 57 17 114/51 (72) 100 05/01/19 23:30 57 17 93/58 (70) 100 05/01/19 23:15 59 16 95/56 (69) 100 05/01/19 23:00 59 17 93/51 (65) 100 05/01/19 23:00 93/51 05/01/19 22:45 65 15 99/63 (75) 100 05/01/19 22:30 55 17 107/64 (78) 100 05/01/19 22:15 60 18 104/62 (76) 100 05/01/19 22:00 112/62 05/01/19 22:00 59 18 112/62 (79) 100 05/01/19 21:45 61 17 113/63 (80) 100 05/01/19 21:30 62 16 110/64 (79) 100 05/01/19 21:15 64 15 107/65 (79) 100 05/01/19 21:00 98/66 05/01/19 21:00 66 15 98/66 (77) 100 05/01/19 20:45 61 18 131/65 (87) 100 05/01/19 20:30 60 18 116/52 (73) 99 05/01/19 20:15 64 18 121/63 (82) 99 05/01/19 20:00 Nasal Cannula 2.0 05/01/19 20:00 123/57 05/01/19 20:00 69 05/01/19 20:00 97.9 67 17 123/57 (79) 99 05/01/19 19:45 67 15 113/69 (84) 100 05/01/19 19:30 68 16 111/62 (78) 100 05/01/19 19:15 71 16 106/59 (75) 100 05/01/19 19:00 133/71 05/01/19 19:00 69 16 133/71 (91) 100 69 05/01/19 18:45 73 16 109/46 (67) 100 73 7/5/19 18:30 81 16 83/43 (56) 100 81 05/01/19 18:15 73 15 146/47 (80) 100 73 05/01/19 18:00 145/108 05/01/19 18:00 73 15 130/38 (68) 100 73 05/01/19 17:47 80/49 05/01/19 17:45 78 15 145/108 (120) 100 78 05/01/19 17:30 75 15 58/49 (52) 100 75 05/01/19 17:15 75 15 58/49 (52) 100 75 05/01/19 17:00 85 14 75/19 (37) 100 85 05/01/19 16:57 80/54 05/01/19 16:30 63 14 79/40 (53) 100 63 05/01/19 16:00 68 18 62/41 (48) 100 68 05/01/19 15:30 97.6 76 18 94/57 (69) 100 76 05/01/19 15:30 Room Air 05/01/19 15:00 97.3 80 18 102/87 99 Room Air 05/01/19 14:30 97.3 80 18 102/87 99 Room Air 05/01/19 10:57 97.3 74 16 98/56 95 Room Air 05/01/19 10:47 97.3 75 16 137/104 94 Room Air 05/01/19 09:54 97.3 96 16 78/54 (62) 98 Room Air Status: awake HEENT: atraumatic Neck: full ROM Lungs: clear Heart: HR/BP stable, HR/BP unstable Abdomen: soft, active bowel sounds Extremities: edema Critical Care - Subjective ROS Limited/Unobtainable: Yes Interval Events: on levophed drip Condition: critical I&O: Intake and Output 05/01/19 05/02/19 19:00 07:00 Intake Total 450.00 ml 1458.75 ml Output Total 1125 ml 950 ml Balance -675.00 ml 508.75 ml Intake IV Total 450.00 ml 1458.75 ml Output Urine Total 1125 ml 950 ml CXR: YARED Labs: Laboratory Tests Test 05/01/19 10:14 05/01/19 10:15 05/01/19 11:13 05/01/19 17:14 Sodium Level 151 MMOL/L (136-145) H Potassium Level 4.8 MMOL/L (3.5-5.1) Chloride Level 115 MMOL/L (98-107) H Carbon Dioxide Level 26 MMOL/L (21-32) Anion Gap 11 mmol/L (5-15) Blood Urea Nitrogen 102 mg/dL (7-18) H Creatinine 1.5 MG/DL (0.55-1.30) H Estimat Glomerular Filtration Rate mL/min (>60) Glucose Level 124 MG/DL (74-106) H Lactic Acid Level 2.40 mmol/L (0.4-2.0) H 1.90 mmol/L (0.66-2.22) Calcium Level 9.5 MG/DL (8.5-10.1) Total Bilirubin 0.2 MG/DL (0.2-1.0) Aspartate Amino Transf (AST/SGOT) 31 U/L (15-37) Alanine Aminotransferase (ALT/SGPT) 45 U/L (12-78) Alkaline Phosphatase 65 U/L (46-116) Total Creatine Kinase 56 U/L (26-308) Creatine Kinase MB 0.5 NG/ML (0.0-3.6) Creatine Kinase MB Relative Index 0.8 Troponin I 0.014 ng/mL (0.000-0.056) Pro-B-Type Natriuretic Peptide 1425 pg/mL (0-125) H Total Protein 6.5 G/DL (6.4-8.2) Albumin 2.6 G/DL (3.4-5.0) L Globulin 3.9 g/dL Albumin/Globulin Ratio 0.7 (1.0-2.7) L White Blood Count 20.8 K/UL (4.8-10.8) H Red Blood Count 3.53 M/UL (4.20-5.40) L Hemoglobin 11.2 G/DL (12.0-16.0) L Hematocrit 35.0 % (37.0-47.0) L Mean Corpuscular Volume 99 FL (80-99) Mean Corpuscular Hemoglobin 31.6 PG (27.0-31.0) H Mean Corpuscular Hemoglobin Concent 31.9 G/DL (32.0-36.0) L Red Cell Distribution Width 13.0 % (11.6-14.8) Platelet Count 243 K/UL (150-450) Mean Platelet Volume 5.8 FL (6.5-10.1) L Neutrophils (%) (Auto) % (45.0-75.0) Lymphocytes (%) (Auto) % (20.0-45.0) Monocytes (%) (Auto) % (1.0-10.0) Eosinophils (%) (Auto) % (0.0-3.0) Basophils (%) (Auto) % (0.0-2.0) Differential Total Cells Counted 100 Neutrophils % (Manual) 76 % (45-75) H Lymphocytes % (Manual) 16 % (20-45) L Monocytes % (Manual) 7 % (1-10) Eosinophils % (Manual) 0 % (0-3) Basophils % (Manual) 1 % (0-2) Band Neutrophils 0 % (0-8) Platelet Estimate Adequate Platelet Morphology Normal Hypochromasia 1+ Anisocytosis 1+ Erythrocyte Sedimentation Rate 85 MM/HR (0-30) H Reticulocyte Count 2.0 % (0.5-2.0) Urine Color Yellow Urine Appearance Very cloudy Urine pH 8 (4.5-8.0) Urine Specific [place] 1.010 (1.005-1.035) Urine Protein 3+ (NEGATIVE) H Urine Glucose (UA) Negative (NEGATIVE) Urine Ketones Negative (NEGATIVE) Urine Blood 4+ (NEGATIVE) H Urine Nitrite Negative (NEGATIVE) Urine Bilirubin Negative (NEGATIVE) Urine Urobilinogen Normal MG/DL (0.0-1.0) Urine Leukocyte Esterase 3+ (NEGATIVE) H Urine RBC 5-10 /HPF (0 - 2) H Urine WBC Tntc /HPF (0 - 2) H Urine Squamous Epithelial Cells None /LPF (NONE/OCC) Urine Bacteria Many /HPF (NONE) H Prothrombin Time 11.2 SEC (9.30-11.50) Prothromb Time International Ratio 1.1 (0.9-1.1) Activated Partial Thromboplast Time 98 SEC (23-33) H Uric Acid 3.7 MG/DL (2.6-7.2) Iron Level 22 ug/dL (50-175) L Total Iron Binding Capacity 74 ug/dL (250-450) L Percent Iron Saturation 30 % (15-50) Unsaturated Iron Binding 52 ug/dL (112-346) L Lactate Dehydrogenase 126 U/L (81-234) Carcinoembryonic Antigen Pending Vitamin B12 Level 495 PG/ML (193-986) Folate 5.2 NG/ML (8.6-58.9) L Test 05/01/19 17:18 Urine Color Pale yellow Urine Appearance Clear Urine pH 6 (4.5-8.0) Urine Specific [place] 1.010 (1.005-1.035) Urine Protein 1+ (NEGATIVE) H Urine Glucose (UA) Negative (NEGATIVE) Urine Ketones Negative (NEGATIVE) Urine Blood 4+ (NEGATIVE) H Urine Nitrite Negative (NEGATIVE) Urine Bilirubin Negative (NEGATIVE) Urine Urobilinogen Normal MG/DL (0.0-1.0) Urine Leukocyte Esterase 3+ (NEGATIVE) H Urine RBC 10-15 /HPF (0 - 2) H Urine WBC 5-10 /HPF (0 - 2) H Urine Squamous Epithelial Cells Few /LPF (NONE/OCC) Urine Bacteria Moderate /HPF (NONE) H Urine Eosinophils None seen (NONE SEEN) Urine Osmolality 579 mOsm/kg (429-449) H Urine Random Creatinine Pending Urine Random Microalbumin Pending Urine Random Sodium 51 mmol/L (20-110) Urine Microalbumin/Creatinine Ratio Pending Adilene Nash MD May 02, 2019 05:22
--- NOTE | 2019-05-02 05:29 | NUR ---
NURSE NOTES: Patient was seen and examined by Dr. Nash. Morning lab results seen by the MD. Informed him that patient had an episode of SVT yesterday morning shift while she was on dopamine, now on levophed. With new orders for labs for tomorrow, Deborah rogers. As per him to hold feedings until ST eval was done. Addendum: 05/02/19 at 0535 by EDUARDA TORRES RN NURSE NOTES: Correction: Morning lab results not yet available at this time
[2019-05-02] MEDS ORDERED: Iron Sucrose 200 MG in NS 110 ML IV ONE ×2 (05:30→07:30)
[2019-05-02 05:50] LABS: HEMATOCRIT 26.1 % (37.0-47.0); HEMOGLOBIN 8.3 G/DL (12.0-16.0); MEAN CORPUSCULAR VOLUME 99 FL (80-99); PLATELET COUNT 174 K/UL (150-450); RED BLOOD COUNT 2.65 M/UL (4.20-5.40); RED CELL DISTRIBUTION WIDTH 12.9 % (11.6-14.8); WHITE BLOOD COUNT 11.2 K/UL (4.8-10.8)
[2019-05-02] MEDS: Hydrocortisone 100mg Inj IV SCH ×2 (05:51→14:09)
[2019-05-02 06:07] LABS: PHOSPHORUS 2.3 MG/DL (2.5-4.9)
[2019-05-02 06:33] LABS: ALANINE AMINOTRANSFERASE 31 U/L (12-78); ALBUMIN 1.9 G/DL (3.4-5.0); ALBUMIN/GLOBULIN RATIO 0.7 (1.0-2.7); ALKALINE PHOSPHATASE 51 U/L (46-116); ANION GAP 10 mmol/L (5-15); ASPARTATE AMINO TRANSFERASE 22 U/L (15-37); BILIRUBIN,TOTAL 0.2 MG/DL (0.2-1.0); BLOOD UREA NITROGEN 39 mg/dL (7-18); CALCIUM 7.8 MG/DL (8.5-10.1); CARBON DIOXIDE 22 MMOL/L (21-32); CHLORIDE 115 MMOL/L (98-107); CHOLESTEROL 110 MG/DL (< 200); CREATININE 0.5 MG/DL (0.55-1.30); HDL CHOLESTEROL 22 MG/DL (40-60); POTASSIUM 3.7 MMOL/L (3.5-5.1); SODIUM 147 MMOL/L (136-145); TRIGLYCERIDES 82 MG/DL (30-150)
--- NOTE | 2019-05-02 07:32 | NUR ---
HAND-OFF: Report given to abo Braswell.
--- NOTE | 2019-05-02 07:33 | NUR ---
NURSE NOTES: Patient received lying in bed, asleep, arousable to touch, able to say "Hi". No signs of pain noted. On room air, saturating 100%, no acute respiratory distress, respirations even and unlabored. Right femoral line running D5W at 150 ml/hr, Levophed at 2 mcg/min, asymptomatic, infusing well. Sinus bradycardia on the monitor. Pending 2Decho today. Will continue to monitor the patient.
--- NOTE | 2019-05-02 08:20 | NUR ---
NURSE NOTES: Dr. Nash made aware of hemoglobin from 11.2 to 8.[address] MD [address] in orders. Venofer IV x1 dose was already administered.
[2019-05-02] MEDS: Heparin 5000 units/ml inj SUBQ SCH ×2 (08:35→20:34)
[2019-05-02] MEDS: Cefepime HCl 500 MG in D5W 55 ML IVPB SCH ×2 (08:35→20:32)
--- NOTE | 2019-05-02 08:59 | NUR ---
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 ER CC:ABNORMAL LABS SI:SEPTIC SHOCK . RENAL INSUFFICIENCY VS: BP 137/104, P 96, T 97.4, RR 16, SpO2 94 WBC 20.8, RBC 3.53, H7H 11.2/35.0, Na 151, BUN 102, Cr 1.5, Lactic Acid 2.40 US RENAL: Mild left hydronephrosis and urinary bladder stone. Right nephrolithiasis is also suspected. IS:CEFTRIAXONE 55ml IVPB NS x1L IV LORAZEPAM 1mg IV ADMITTED TO ICU DCP: RETURN TO [facility]
--- NOTE | 2019-05-02 09:00 | NUR ---
NURSE NOTES: Patient fed with breakfast, ate about 40% total of meal, tolerated well.
--- NOTE | 2019-05-02 09:08 | NUR ---
RD ASSESSMENT & RECOMMENDATIONS SEE CARE ACTIVITY FOR COMPLETE ASSESSMENT DAILY ESTIMATED NEEDS: Needs based on Wound, underweight, sepsis/ 43kg 35-40 kcals/kg 9314-8559 total kcals 1.5-2.0 g protein/kg 65-86 g total protein 25-30 mL/kg 3949-6312 total fluid mLs NUTRITION DIAGNOSIS: * Increased kcal/prot intake needs R/T wound healing, underweight status as evidenced by pt admitted w/ stage 4 sacral wound, resolving pressure injury at R elbow and R trochanter, non-blanchable erythema at lateral L heel, L lateral 1st metatarsal, L hallux, lateral R foot, w/pt at 86% IBW, low BMI per guidelines. * Swallowing difficulty R/T dysphagia, h/o CVA as evidenced by pt on pureed moist texture diet, RAMP LEAD eval pending. CURRENT DIET:REGULAR, pureed moist PO DIET RECOMMENDATIONS: Liberalized REGULAR/ texture per RAMP LEAD + Ensure Enlive TID ADDITIONAL RECOMMENDATIONS: * CALIBRATED bedscale wt for accurate CBW, weekly wt monitoring * Wound healing: add MVI w/ min 1 tab QD, Vit C 500mg BID add ZnSO4 220mg QD x 10 days add Jeronimo 1pkt BID * F/up w/ calorie count x 48 hrs * Monitor BGs closely w/ steroidal med, need fo NISS. * Low Na diet w/ PO intake consistently >50% and once BP improved
[2019-05-02] MEDS ORDERED: Iron Sucrose 200 MG in NS 110 ML IVPB ONE (09:45)
[2019-05-02] MEDS ORDERED: D5W IV SCH (11:00)
[2019-05-02] MEDS ORDERED: AMIKACIN IV SCH (11:00)
--- NOTE | 2019-05-02 12:00 | NUR ---
NURSE NOTES: Patient refused to eat lunch at this time. Repositioned. No complains of pain. Will continue to monitor.
[2019-05-02] MEDS ORDERED: Sodium Phosphate 30 MM in NS 275 ML IV ONE (12:45)
--- NOTE | 2019-05-02 12:48 | Consultation ---
Consult Note Consult Note # [id number] Vic Larson MD May 02, 2019 12:48
--- NOTE | 2019-05-02 13:26 | NUR ---
PT Note PT eval completed. Patient is at baseline level of function No skilled PT services recommended at this time. Addendum: 05/02/19 at 1327 by CHAKA APPIAH PT Amended: Links added.
--- NOTE | 2019-05-02 14:55 | NUR ---
NURSE NOTES: Received orders from Dr. Ross to discontinue Levophed and start dopamine MD leanne aware that patient went in SVT previously on medication. Will monitor patient as medication will be initiated.
--- NOTE | 2019-05-02 15:04 | Internal Med Progress Note ---
Subjective Physician Name Solo Macdonald Attending Physician Solo Macdonald MD Current Medications Medications (Trade) Dose Ordered Sig/Familia Route PRN Reason Start Time Stop Time Status Last Admin Dose Admin Acetaminophen (Tylenol) 650 mg Q4H PRN ORAL fever 05/01/19 12:00 05/31/19 11:59 Cefepime HCl 500 mg/Dextrose 55 ml @ 110 mls/hr EVERY 12 HOURS IVPB 05/01/19 16:00 05/08/19 15:59 05/02/19 08:35 Chlorhexidine Gluconate ([place]-Hex 2%) 1 applic DAILY@2000 TOPIC 05/02/19 20:00 06/01/19 19:59 Dextrose 1,000 ml @ 75 mls/hr [id number] IV 05/02/19 12:15 05/31/19 12:14 05/02/19 11:03 Dextrose (Dextrose 50%) 25 ml Q30M PRN IV Hypoglycemia 05/01/19 12:00 05/31/19 11:59 Dextrose (Dextrose 50%) 50 ml Q30M PRN IV Hypoglycemia 05/01/19 12:15 05/31/19 12:14 Dopamine HCl/ Dextrose 250 ml @ 0 mls/hr Q24H IV 05/01/19 16:45 05/31/19 16:44 05/01/19 16:57 Heparin Sodium (Porcine) (Heparin 5000 units/ml) 5,000 units EVERY 12 HOURS SUBQ 05/01/19 21:00 05/31/19 20:59 05/01/19 21:09 Lorazepam (Ativan 2mg/ml 1ml) 0.5 mg Q4H PRN IV For Anxiety 05/01/19 12:00 05/08/19 11:59 Magnesium Sulfate 100 ml @ 100 mls/hr Q1H IVPB 05/02/19 12:45 05/02/19 14:44 05/02/19 14:09 Morphine Sulfate (Morphine Sulfate) 1 mg Q4H PRN IVP For Pain 05/01/19 12:00 05/08/19 11:59 Norepinephrine Bitartrate 4 mg/ Dextrose 250 ml @ 0 mls/hr Q24H IV 05/01/19 18:00 05/31/19 17:59 05/02/19 05:11 Ondansetron HCl (Zofran) 4 mg Q6H PRN IVP Nausea & Vomiting 05/01/19 12:00 05/31/19 11:59 Polyethylene Glycol (Miralax) 17 gm HSPRN PRN ORAL Constipation 05/01/19 12:00 05/31/19 11:59 Sodium Phosphate 30 mm/Sodium Chloride 285 ml @ 47.5 mls/hr ONCE ONCE IV 05/02/19 12:45 05/02/19 18:44 05/02/19 12:01 Zolpidem Tartrate (Ambien) 5 mg HSPRN PRN ORAL Insomnia 05/01/19 12:00 05/08/19 11:59 Allergies: Coded Allergies: No Known Allergies (Unverified , 05/01/19) Subjective In ICU, more Responsive, awake, NAD, bradycardia, WBC: 11.2 Objective Last Vital Signs Date Time Temp Pulse Resp B/P (MAP) Pulse Ox O2 Delivery O2 Flow Rate FiO2 05/02/19 12:00 Room Air 05/02/19 10:00 53 16 96/54 (68) 100 05/02/19 07:30 97.3 05/02/19 00:00 2.0 Laboratory Tests Test 05/01/19 17:14 05/01/19 17:18 05/02/19 04:30 Prothrombin Time 11.2 SEC (9.30-11.50) Prothromb Time International Ratio 1.1 (0.9-1.1) Activated Partial Thromboplast Time 98 SEC (23-33) H Uric Acid 3.7 MG/DL (2.6-7.2) Iron Level 22 ug/dL (50-175) L Total Iron Binding Capacity 74 ug/dL (250-450) L Percent Iron Saturation 30 % (15-50) Unsaturated Iron Binding 52 ug/dL (112-346) L Lactate Dehydrogenase 126 U/L (81-234) Carcinoembryonic Antigen 1.6 ng/mL (0.0-4.7) Vitamin B12 Level 495 PG/ML (193-986) Folate 5.2 NG/ML (8.6-58.9) L Urine Color Pale yellow Urine Appearance Clear Urine pH 6 (4.5-8.0) Urine Specific [place] 1.010 (1.005-1.035) Urine Protein 1+ (NEGATIVE) H Urine Glucose (UA) Negative (NEGATIVE) Urine Ketones Negative (NEGATIVE) Urine Blood 4+ (NEGATIVE) H Urine Nitrite Negative (NEGATIVE) Urine Bilirubin Negative (NEGATIVE) Urine Urobilinogen Normal MG/DL (0.0-1.0) Urine Leukocyte Esterase 3+ (NEGATIVE) H Urine RBC 10-15 /HPF (0 - 2) H Urine WBC 5-10 /HPF (0 - 2) H Urine Squamous Epithelial Cells Few /LPF (NONE/OCC) Urine Bacteria Moderate /HPF (NONE) H Urine Eosinophils None seen (NONE SEEN) Urine Osmolality 579 mOsm/kg (429-449) H Urine Random Creatinine Pending Urine Random Microalbumin Pending Urine Random Sodium 51 mmol/L (20-110) Urine Microalbumin/Creatinine Ratio Pending White Blood Count 11.2 K/UL (4.8-10.8) H Red Blood Count 2.65 M/UL (4.20-5.40) L Hemoglobin 8.3 G/DL (12.0-16.0) L Hematocrit 26.1 % (37.0-47.0) L Mean Corpuscular Volume 99 FL (80-99) Mean Corpuscular Hemoglobin 31.5 PG (27.0-31.0) H Mean Corpuscular Hemoglobin Concent 31.9 G/DL (32.0-36.0) L Red Cell Distribution Width 12.9 % (11.6-14.8) Platelet Count 174 K/UL (150-450) Mean Platelet Volume 5.8 FL (6.5-10.1) L Neutrophils (%) (Auto) % (45.0-75.0) Lymphocytes (%) (Auto) % (20.0-45.0) Monocytes (%) (Auto) % (1.0-10.0) Eosinophils (%) (Auto) % (0.0-3.0) Basophils (%) (Auto) % (0.0-2.0) Differential Total Cells Counted 100 Neutrophils % (Manual) 84 % (45-75) H Lymphocytes % (Manual) 8 % (20-45) L Monocytes % (Manual) 7 % (1-10) Eosinophils % (Manual) 1 % (0-3) Basophils % (Manual) 0 % (0-2) Band Neutrophils 0 % (0-8) Platelet Estimate Adequate Platelet Morphology Normal Macrocytosis 1+ Erythrocyte Sedimentation Rate 34 MM/HR (0-30) H Sodium Level 147 MMOL/L (136-145) H Potassium Level 3.7 MMOL/L (3.5-5.1) Chloride Level 115 MMOL/L (98-107) H Carbon Dioxide Level 22 MMOL/L (21-32) Anion Gap 10 mmol/L (5-15) Blood Urea Nitrogen 39 mg/dL (7-18) H Creatinine 0.5 MG/DL (0.55-1.30) #L Estimat Glomerular Filtration Rate mL/min (>60) Glucose Level 188 MG/DL (74-106) H Hemoglobin A1c 5.5 % (4.3-6.0) Calcium Level 7.8 MG/DL (8.5-10.1) L Phosphorus Level 2.3 MG/DL (2.5-4.9) L Magnesium Level 1.7 MG/DL (1.8-2.4) L Total Bilirubin 0.2 MG/DL (0.2-1.0) Aspartate Amino Transf (AST/SGOT) 22 U/L (15-37) Alanine Aminotransferase (ALT/SGPT) 31 U/L (12-78) Alkaline Phosphatase 51 U/L (46-116) Troponin I 0.013 ng/mL (0.000-0.056) C-Reactive Protein, Quantitative 7.9 mg/dL (0.00-0.90) H Total Protein 4.6 G/DL (6.4-8.2) L Albumin 1.9 G/DL (3.4-5.0) L Globulin 2.7 g/dL Albumin/Globulin Ratio 0.7 (1.0-2.7) L Triglycerides Level 82 MG/DL (30-150) Cholesterol Level 110 MG/DL (< 200) LDL Cholesterol 62 mg/dL (<100) HDL Cholesterol 22 MG/DL (40-60) L Cholesterol/HDL Ratio 5.0 (3.3-4.4) H Thyroid Stimulating Hormone (TSH) 2.135 uiU/mL (0.358-3.740) Microbiology Date/Time Source Procedure Growth Status 05/01/19 17:18 Urine,Clean Catch Urine Culture - Preliminary NO GROWTH Resulted Intake and Output 05/01/19 05/02/19 18:59 06:59 Intake Total 243.75 ml 1683.75 ml Output Total 1000 ml 1275 ml Balance -756.25 ml 408.75 ml IV Total 243.75 ml 1683.75 ml Output Urine Total 1000 ml 1275 ml Objective GENERAL: Awake, opens her mouth, responsive, Cachexia. stimuli, opens her eyes, however, cannot follow commands. HEAD AND NECK: Pupils are equal and reactive to light. Anicteric. Neck supple. No JVD. LUNGS: Good air entry. decrease air at bases, No wheezing or rhonchi. HEART: S1, S2. Regular rhythm. No murmur or gallops. ABDOMEN: Soft, nondistended, nontender. Positive bowel sounds. EXTREMITIES: No cyanosis, clubbing, edema. The patient has muscle atrophy in bilateral lower extremity. Left femoral TLC. NEUROLOGIC: Cranial nerves II through XII grossly intact. contracted lower extremity. Moving upper extremity, right side weakness. SKIN: Bilateral trochanter stage I ulceration as well as sacral decubitus ulcer stage IV. No discharge was noted. Assessment/Plan Assessment/Plan ASSESSMENT: 1. Septic shock, most likely secondary to acute sepsis due to urinary tract infection. 2. Severe cachexia, Severe protein calori malnutrition. 3. Stage IV sacral decubitus ulcer presented on admission. 4. History of essential hypertension, presently hypotensive. 5. Acute kidney injury on chronic renal insufficiency, most likely secondary to severe dehydration and hypovolemia. 6. Advanced dementia. 7. Severe Hypotension most likely combination of septic shock and Dehydration / Hypovolemia. 8. Bilateral hydronephrosis. PLAN: In ICU. Monitor laboratory and cultures IV hydration Antibiotics with cefepime, Amikacin, Vanco IV DVT prophylaxis: heparin subcutaneous. Code status at this time is Full Code per POLST. switch Levophed drip to dopamine Drip. Cardiology consult with Dr. Ross Pulmonary consult Dr. Nash Urology consult with Solo Sierra MD May 02, 2019 15:04
--- NOTE | 2019-05-02 15:05 | Cardiac Electrophysiology PN ---
Subjective Subjective [id number] Objective Last 24 Hour Vital Signs Date Time Temp Pulse Resp B/P (MAP) Pulse Ox O2 Delivery O2 Flow Rate FiO2 05/02/19 12:00 Room Air 05/02/19 10:00 53 16 96/54 (68) 100 05/02/19 10:00 96/54 05/02/19 09:30 56 16 104/67 (79) 99 05/02/19 09:00 117/73 05/02/19 09:00 59 19 117/73 (88) 100 05/02/19 08:30 61 18 124/61 (82) 100 05/02/19 08:00 60 05/02/19 08:00 62 14 118/56 (76) 100 05/02/19 08:00 118/56 05/02/19 08:00 Room Air 05/02/19 07:30 97.3 59 16 117/51 (73) 100 05/02/19 07:15 58 17 95/59 (71) 100 05/02/19 07:00 110/58 05/02/19 07:00 56 15 110/68 (82) 100 05/02/19 06:45 60 16 115/77 (90) 100 05/02/19 06:30 61 16 132/60 (84) 100 05/02/19 06:15 57 16 127/62 (83) 99 05/02/19 06:00 89/54 05/02/19 06:00 56 17 89/54 (66) 99 05/02/19 05:45 59 16 117/55 (75) 100 05/02/19 05:30 54 15 114/56 (75) 100 05/02/19 05:15 52 16 84/50 (61) 100 05/02/19 05:11 73/43 05/02/19 05:00 88/43 05/02/19 05:00 48 16 73/43 (53) 100 05/02/19 04:45 52 15 88/43 (58) 100 05/02/19 04:30 53 15 98/46 (63) 100 05/02/19 04:15 55 19 78/53 (61) 100 05/02/19 04:00 Room Air 05/02/19 04:00 92/50 05/02/19 04:00 98.0 53 17 92/50 (64) 100 05/02/19 04:00 56 05/02/19 03:45 58 16 95/46 (62) 100 05/02/19 03:30 63 20 70/39 (49) 100 05/02/19 03:15 67 20 99/58 (72) 99 05/02/19 03:00 53 19 103/57 (72) 99 05/02/19 03:00 103/57 05/02/19 02:45 55 18 96/68 (77) 99 05/02/19 02:30 54 16 86/53 (64) 98 05/02/19 02:15 58 16 85/57 (66) 98 05/02/19 02:00 58 17 100/62 (75) 99 05/02/19 02:00 100/05/02/19 01:45 53 16 88/52 (64) 98 05/02/19 01:30 60 18 89/51 (64) 99 05/02/19 01:30 60 18 89/51 (64) 99 05/02/19 01:15 59 19 103/66 (78) 99 05/02/19 01:00 55 16 91/51 (64) 100 05/02/19 00:45 54 15 82/53 (63) 100 05/02/19 00:30 57 15 82/50 (61) 100 05/02/19 00:15 57 15 97/53 (68) 100 05/02/19 00:00 114/51 05/02/19 00:00 58 05/02/19 00:00 97.7 59 16 88/55 (66) 100 05/02/19 00:00 Nasal Cannula 2.0 05/01/19 23:45 57 17 114/51 (72) 100 05/01/19 23:30 57 17 93/58 (70) 100 05/01/19 23:15 59 16 95/56 (69) 100 05/01/19 23:00 59 17 93/51 (65) 100 05/01/19 23:00 93/51 05/01/19 22:45 65 15 99/63 (75) 100 05/01/19 22:30 55 17 107/64 (78) 100 05/01/19 22:15 60 18 104/62 (76) 100 05/01/19 22:00 112/62 05/01/19 22:00 59 18 112/62 (79) 100 05/01/19 21:45 61 17 113/63 (80) 100 05/01/19 21:30 62 16 110/64 (79) 100 05/01/19 21:15 64 15 107/65 (79) 100 05/01/19 21:00 98/66 05/01/19 21:00 66 15 98/66 (77) 100 05/01/19 20:45 61 18 131/65 (87) 100 05/01/19 20:30 60 18 116/52 (73) 99 05/01/19 20:15 64 18 121/63 (82) 99 05/01/19 20:00 Nasal Cannula 2.0 05/01/19 20:00 123/57 05/01/19 20:00 69 05/01/19 20:00 97.9 67 17 123/57 (79) 99 05/01/19 19:45 67 15 113/69 (84) 100 05/01/19 19:30 68 16 111/62 (78) 100 05/01/19 19:15 71 16 106/59 (75) 100 05/01/19 19:00 133/71 05/01/19 19:00 69 16 133/71 (91) 100 69 05/01/19 18:45 73 16 109/46 (67) 100 73 05/01/19 18:30 81 16 83/43 (56) 100 81 05/01/19 18:15 73 15 146/47 (80) 100 73 05/01/19 18:00 145/108 05/01/19 18:00 73 15 130/38 (68) 100 73 05/01/19 17:47 80/49 05/01/19 17:45 78 15 145/108 (120) 100 78 05/01/19 17:30 75 15 58/49 (52) 100 75 05/01/19 17:15 75 15 58/49 (52) 100 75 05/01/19 17:00 85 14 75/19 (37) 100 85 05/01/19 16:57 80/54 05/01/19 16:30 63 14 79/40 (53) 100 63 05/01/19 16:00 68 18 62/41 (48) 100 68 05/01/19 15:30 97.6 76 18 94/57 (69) 100 76 05/01/19 15:30 Room Air Intake and Output 05/01/19 05/02/19 18:59 06:59 Intake Total 243.75 ml 1683.75 ml Output Total 1000 ml 1275 ml Balance -756.25 ml 408.75 ml IV Total 243.75 ml 1683.75 ml Output Urine Total 1000 ml 1275 ml Laboratory Tests Test 05/01/19 17:14 05/01/19 17:18 05/02/19 04:30 Prothrombin Time 11.2 SEC (9.30-11.50) Prothromb Time International Ratio 1.1 (0.9-1.1) Activated Partial Thromboplast Time 98 SEC (23-33) H Uric Acid 3.7 MG/DL (2.6-7.2) Iron Level 22 ug/dL (50-175) L Total Iron Binding Capacity 74 ug/dL (250-450) L Percent Iron Saturation 30 % (15-50) Unsaturated Iron Binding 52 ug/dL (112-346) L Lactate Dehydrogenase 126 U/L (81-234) Carcinoembryonic Antigen 1.6 ng/mL (0.0-4.7) Vitamin B12 Level 495 PG/ML (193-986) Folate 5.2 NG/ML (8.6-58.9) L Urine Color Pale yellow Urine Appearance Clear Urine pH 6 (4.5-8.0) Urine Specific [place] 1.010 (1.005-1.035) Urine Protein 1+ (NEGATIVE) H Urine Glucose (UA) Negative (NEGATIVE) Urine Ketones Negative (NEGATIVE) Urine Blood 4+ (NEGATIVE) H Urine Nitrite Negative (NEGATIVE) Urine Bilirubin Negative (NEGATIVE) Urine Urobilinogen Normal MG/DL (0.0-1.0) Urine Leukocyte Esterase 3+ (NEGATIVE) H Urine RBC 10-15 /HPF (0 - 2) H Urine WBC 5-10 /HPF (0 - 2) H Urine Squamous Epithelial Cells Few /LPF (NONE/OCC) Urine Bacteria Moderate /HPF (NONE) H Urine Eosinophils None seen (NONE SEEN) Urine Osmolality 579 mOsm/kg (429-449) H Urine Random Creatinine Pending Urine Random Microalbumin Pending Urine Random Sodium 51 mmol/L (20-110) Urine Microalbumin/Creatinine Ratio Pending White Blood Count 11.2 K/UL (4.8-10.8) H Red Blood Count 2.65 M/UL (4.20-5.40) L Hemoglobin 8.3 G/DL (12.0-16.0) L Hematocrit 26.1 % (37.0-47.0) L Mean Corpuscular Volume 99 FL (80-99) Mean Corpuscular Hemoglobin 31.5 PG (27.0-31.0) H Mean Corpuscular Hemoglobin Concent 31.9 G/DL (32.0-36.0) L Red Cell Distribution Width 12.9 % (11.6-14.8) Platelet Count 174 K/UL (150-450) Mean Platelet Volume 5.8 FL (6.5-10.1) L Neutrophils (%) (Auto) % (45.0-75.0) Lymphocytes (%) (Auto) % (20.0-45.0) Monocytes (%) (Auto) % (1.0-10.0) Eosinophils (%) (Auto) % (0.0-3.0) Basophils (%) (Auto) % (0.0-2.0) Differential Total Cells Counted 100 Neutrophils % (Manual) 84 % (45-75) H Lymphocytes % (Manual) 8 % (20-45) L Monocytes % (Manual) 7 % (1-10) Eosinophils % (Manual) 1 % (0-3) Basophils % (Manual) 0 % (0-2) Band Neutrophils 0 % (0-8) Platelet Estimate Adequate Platelet Morphology Normal Macrocytosis 1+ Erythrocyte Sedimentation Rate 34 MM/HR (0-30) H Sodium Level 147 MMOL/L (136-145) H Potassium Level 3.7 MMOL/L (3.5-5.1) Chloride Level 115 MMOL/L (98-107) H Carbon Dioxide Level 22 MMOL/L (21-32) Anion Gap 10 mmol/L (5-15) Blood Urea Nitrogen 39 mg/dL (7-18) H Creatinine 0.5 MG/DL (0.55-1.30) #L Estimat Glomerular Filtration Rate mL/min (>60) Glucose Level 188 MG/DL (74-106) H Hemoglobin A1c 5.5 % (4.3-6.0) Calcium Level 7.8 MG/DL (8.5-10.1) L Phosphorus Level 2.3 MG/DL (2.5-4.9) L Magnesium Level 1.7 MG/DL (1.8-2.4) L Total Bilirubin 0.2 MG/DL (0.2-1.0) Aspartate Amino Transf (AST/SGOT) 22 U/L (15-37) Alanine Aminotransferase (ALT/SGPT) 31 U/L (12-78) Alkaline Phosphatase 51 U/L (46-116) Troponin I 0.013 ng/mL (0.000-0.056) C-Reactive Protein, Quantitative 7.9 mg/dL (0.00-0.90) H Total Protein 4.6 G/DL (6.4-8.2) L Albumin 1.9 G/DL (3.4-5.0) L Globulin 2.7 g/dL Albumin/Globulin Ratio 0.7 (1.0-2.7) L Triglycerides Level 82 MG/DL (30-150) Cholesterol Level 110 MG/DL (< 200) LDL Cholesterol 62 mg/dL (<100) HDL Cholesterol 22 MG/DL (40-60) L Cholesterol/HDL Ratio 5.0 (3.3-4.4) H Thyroid Stimulating Hormone (TSH) 2.135 uiU/mL (0.358-3.740) Microbiology Date/Time Source Procedure Growth Status 05/01/19 17:18 Urine,Clean Catch Urine Culture - Preliminary NO GROWTH Resulted Florencio Ross MD May 02, 2019 15:04
[2019-05-02] MEDS: DOPamine 400mg/250ml 250 ML IV SCH (15:10)
--- NOTE | 2019-05-02 16:00 | NUR ---
NURSE NOTES: Perineal care provided and wound care done. Patient repositioned and comfortable. placed on sylvester's position for dinner. Patient's family at bedside feeding patient. Aspiration precaution implemented.
--- NOTE | 2019-05-02 16:39 | Consultation ---
History of Present Illness General Date patient seen: May 02, 2019 Chief Complaint: Abnormal Labs Present Illness HPI This is a 83-year-old female with multiple medical abilities who is a [facility] resident that presented with abnormal labs and sepsis. Patient admitted to the intensive care unit for care and management given her sepsis. On admission identified to have multiple wounds requiring care and management. Surgery called to evaluate and assist with care. Patient seen, patient evaluated, chart reviewed. Patient a poor historian and with advanced age unable to cooperate examination. Allergies: Coded Allergies: No Known Allergies (Unverified , 05/01/19) Medication History Scheduled Amlodipine Besylate* (Amlodipine Besylate*), 5 MG ORAL DAILY, (Reported) Ascorbic Acid* (Vitamin C*), 500 MG ORAL DAILY, (Reported) Aspirin* (Aspir 81*), 81 MG ORAL DAILY, (Reported) Benazepril Hcl* (Benazepril Hcl*), 20 MG ORAL DAILY, (Reported) Ciprofloxacin* (Cipro*), 500 MG PO BID, (Reported) Docusate Sodium* (Docusate Sodium*), 100 MG ORAL TWICE A DAY, (Reported) Multivitamin With Minerals (Multivitamins With Minerals*), 1 TAB ORAL DAILY, ( Reported) Scheduled PRN Acetaminophen* (Acetaminophen 325MG Tablet*), 650 MG ORAL Q6H PRN for Pain Scale (3-5), (Reported) Patient History Limited by: medical condition History Provided By: Medical Record, PMD Healthcare decision maker Resuscitation status Full Code Advanced Directive on File No Past Medical/Surgical History Past Medical/Surgical History: (1) Renal insufficiency (2) UTI (urinary tract infection) (3) Septic shock (4) ATN (acute tubular necrosis) (5) Advanced dementia (6) History of CVA with residual deficit (7) Hemiparesis (8) History of hypertension Review of Systems ROS Narrative Unable to obtain given patient's medical condition. Physical Exam General Appearance: mild distress Lines, tubes and drains: peripheral HEENT: atraumatic, anicteric Neck: normal inspection Respiratory/Chest: no respiratory distress, decreased breath sounds Cardiovascular/Chest: tachycardia Abdomen: soft, no organomegaly, no mass Extremities: normal inspection Skin Exam: warm/dry Neurologic: other Last 24 Hour Vital Signs Date Time Temp Pulse Resp B/P (MAP) Pulse Ox O2 Delivery O2 Flow Rate FiO2 05/02/19 16:15 79 19 108/68 (81) 100 05/02/19 16:00 83 20 111/53 (72) 100 05/02/19 16:00 Room Air 05/02/19 15:45 82 21 116/68 (84) 100 05/02/19 15:30 79 20 134/66 (88) 100 05/02/19 15:15 55 19 119/81 (94) 98 05/02/19 15:10 117/68 05/02/19 15:00 57 20 117/68 (84) 100 05/02/19 14:45 60 17 123/59 (80) 99 05/02/19 14:30 53 16 85/51 (62) 100 05/02/19 14:16 59 20 96/63 (74) 98 05/02/19 14:00 58 16 118/57 (77) 100 05/02/19 13:30 63 19 113/65 (81) 100 05/02/19 13:00 62 16 107/66 (80) 95 05/02/19 12:30 60 18 119/54 (75) 100 05/02/19 12:00 97.0 62 19 113/66 (82) 100 05/02/19 12:00 Room Air 05/02/19 12:00 61 05/02/19 11:30 60 18 116/55 (75) 100 05/02/19 11:00 62 20 113/65 (81) 100 05/02/19 10:30 61 17 110/56 (74) 99 05/02/19 10:00 53 16 96/54 (68) 100 05/02/19 10:00 96/54 05/02/19 09:30 56 16 104/67 (79) 99 05/02/19 09:00 117/73 05/02/19 09:00 59 19 117/73 (88) 100 05/02/19 08:30 61 18 124/61 (82) 100 05/02/19 08:00 60 05/02/19 08:00 62 14 118/56 (76) 100 05/02/19 08:00 118/56 05/02/19 08:00 Room Air 05/02/19 07:30 97.3 59 16 117/51 (73) 100 05/02/19 07:15 58 17 95/59 (71) 100 05/02/19 07:00 110/58 05/02/19 07:00 56 15 110/68 (82) 100 05/02/19 06:45 60 16 115/77 (90) 100 05/02/19 06:30 61 16 132/60 (84) 100 05/02/19 06:15 57 16 127/62 (83) 99 05/02/19 06:00 89/54 05/02/19 06:00 56 17 89/54 (66) 99 05/02/19 05:45 59 16 117/55 (75) 100 05/02/19 05:30 54 15 114/56 (75) 100 05/02/19 05:15 52 16 84/50 (61) 100 05/02/19 05:11 73/43 05/02/19 05:00 88/43 05/02/19 05:00 48 16 73/43 (53) 100 05/02/19 04:45 52 15 88/43 (58) 100 05/02/19 04:30 53 15 98/46 (63) 100 05/02/19 04:15 55 19 78/53 (61) 100 05/02/19 04:00 Room Air 05/02/19 04:00 92/50 05/02/19 04:00 98.0 53 17 92/50 (64) 100 05/02/19 04:00 56 05/02/19 03:45 58 16 95/46 (62) 100 05/02/19 03:30 63 20 70/39 (49) 100 05/02/19 03:15 67 20 99/58 (72) 99 05/02/19 03:00 53 19 103/57 (72) 99 05/02/19 03:00 103/57 05/02/19 02:45 55 18 96/68 (77) 99 05/02/19 02:30 54 16 86/53 (64) 98 05/02/19 02:15 58 16 85/57 (66) 98 05/02/19 02:00 58 17 100/62 (75) 99 05/02/19 02:00 100/62 05/02/19 01:45 53 16 88/52 (64) 98 05/02/19 01:30 60 18 89/51 (64) 99 05/02/19 01:30 60 18 89/51 (64) 99 05/02/19 01:15 59 19 103/66 (78) 99 05/02/19 01:00 55 16 91/51 (64) 100 05/02/19 00:45 54 15 82/53 (63) 100 05/02/19 00:30 57 15 82/50 (61) 100 05/02/19 00:15 57 15 97/53 (68) 100 05/02/19 00:00 114/51 05/02/19 00:00 58 05/02/19 00:00 97.7 59 16 88/55 (66) 100 05/02/19 00:00 Nasal Cannula 2.0 05/01/19 23:45 57 17 114/51 (72) 100 05/01/19 23:30 57 17 93/58 (70) 100 05/01/19 23:15 59 16 95/56 (69) 100 05/01/19 23:00 59 17 93/51 (65) 100 05/01/19 23:00 93/51 05/01/19 22:45 65 15 99/63 (75) 100 05/01/19 22:30 55 17 107/64 (78) 100 05/01/19 22:15 60 18 104/62 (76) 100 05/01/19 22:00 112/62 05/01/19 22:00 59 18 112/62 (79) 100 05/01/19 21:45 61 17 113/63 (80) 100 05/01/19 21:30 62 16 110/64 (79) 100 05/01/19 21:15 64 15 107/65 (79) 100 05/01/19 21:00 98/66 05/01/19 21:00 66 15 98/66 (77) 100 05/01/19 20:45 61 18 131/65 (87) 100 05/01/19 20:30 60 18 116/52 (73) 99 05/01/19 20:15 64 18 121/63 (82) 99 05/01/19 20:00 Nasal Cannula 2.0 05/01/19 20:00 123/57 05/01/19 20:00 69 05/01/19 20:00 97.9 67 17 123/57 (79) 99 05/01/19 19:45 67 15 113/69 (84) 100 05/01/19 19:30 68 16 111/62 (78) 100 05/01/19 19:15 71 16 106/59 (75) 100 05/01/19 19:00 133/71 05/01/19 19:00 69 16 133/71 (91) 100 69 05/01/19 18:45 73 16 109/46 (67) 100 73 05/01/19 18:30 81 16 83/43 (56) 100 81 05/01/19 18:15 73 15 146/47 (80) 100 73 05/01/19 18:00 145/108 05/01/19 18:00 73 15 130/38 (68) 100 73 05/01/19 17:47 80/49 05/01/19 17:45 78 15 145/108 (120) 100 78 05/01/19 17:30 75 15 58/49 (52) 100 75 05/01/19 17:15 75 15 58/49 (52) 100 75 05/01/19 17:00 85 14 75/19 (37) 100 85 05/01/19 16:57 80/54 Intake and Output 05/01/19 05/02/19 18:59 06:59 Intake Total 243.75 ml 1683.75 ml Output Total 1000 ml 1275 ml Balance -756.25 ml 408.75 ml IV Total 243.75 ml 1683.75 ml Output Urine Total 1000 ml 1275 ml Laboratory Tests Test 05/01/19 17:14 05/01/19 17:18 05/02/19 04:30 Prothrombin Time 11.2 SEC (9.30-11.50) Prothromb Time International Ratio 1.1 (0.9-1.1) Activated Partial Thromboplast Time 98 SEC (23-33) H Uric Acid 3.7 MG/DL (2.6-7.2) Iron Level 22 ug/dL (50-175) L Total Iron Binding Capacity 74 ug/dL (250-450) L Percent Iron Saturation 30 % (15-50) Unsaturated Iron Binding 52 ug/dL (112-346) L Lactate Dehydrogenase 126 U/L (81-234) Carcinoembryonic Antigen 1.6 ng/mL (0.0-4.7) Vitamin B12 Level 495 PG/ML (193-986) Folate 5.2 NG/ML (8.6-58.9) L Urine Color Pale yellow Urine Appearance Clear Urine pH 6 (4.5-8.0) Urine Specific [place] 1.010 (1.005-1.035) Urine Protein 1+ (NEGATIVE) H Urine Glucose (UA) Negative (NEGATIVE) Urine Ketones Negative (NEGATIVE) Urine Blood 4+ (NEGATIVE) H Urine Nitrite Negative (NEGATIVE) Urine Bilirubin Negative (NEGATIVE) Urine Urobilinogen Normal MG/DL (0.0-1.0) Urine Leukocyte Esterase 3+ (NEGATIVE) H Urine RBC 10-15 /HPF (0 - 2) H Urine WBC 5-10 /HPF (0 - 2) H Urine Squamous Epithelial Cells Few /LPF (NONE/OCC) Urine Bacteria Moderate /HPF (NONE) H Urine Eosinophils None seen (NONE SEEN) Urine Osmolality 579 mOsm/kg (429-449) H Urine Random Creatinine Pending Urine Random Microalbumin Pending Urine Random Sodium 51 mmol/L (20-110) Urine Microalbumin/Creatinine Ratio Pending White Blood Count 11.2 K/UL (4.8-10.8) H Red Blood Count 2.65 M/UL (4.20-5.40) L Hemoglobin 8.3 G/DL (12.0-16.0) L Hematocrit 26.1 % (37.0-47.0) L Mean Corpuscular Volume 99 FL (80-99) Mean Corpuscular Hemoglobin 31.5 PG (27.0-31.0) H Mean Corpuscular Hemoglobin Concent 31.9 G/DL (32.0-36.0) L Red Cell Distribution Width 12.9 % (11.6-14.8) Platelet Count 174 K/UL (150-450) Mean Platelet Volume 5.8 FL (6.5-10.1) L Neutrophils (%) (Auto) % (45.0-75.0) Lymphocytes (%) (Auto) % (20.0-45.0) Monocytes (%) (Auto) % (1.0-10.0) Eosinophils (%) (Auto) % (0.0-3.0) Basophils (%) (Auto) % (0.0-2.0) Differential Total Cells Counted 100 Neutrophils % (Manual) 84 % (45-75) H Lymphocytes % (Manual) 8 % (20-45) L Monocytes % (Manual) 7 % (1-10) Eosinophils % (Manual) 1 % (0-3) Basophils % (Manual) 0 % (0-2) Band Neutrophils 0 % (0-8) Platelet Estimate Adequate Platelet Morphology Normal Macrocytosis 1+ Erythrocyte Sedimentation Rate 34 MM/HR (0-30) H Sodium Level 147 MMOL/L (136-145) H Potassium Level 3.7 MMOL/L (3.5-5.1) Chloride Level 115 MMOL/L (98-107) H Carbon Dioxide Level 22 MMOL/L (21-32) Anion Gap 10 mmol/L (5-15) Blood Urea Nitrogen 39 mg/dL (7-18) H Creatinine 0.5 MG/DL (0.55-1.30) #L Estimat Glomerular Filtration Rate mL/min (>60) Glucose Level 188 MG/DL (74-106) H Hemoglobin A1c 5.5 % (4.3-6.0) Calcium Level 7.8 MG/DL (8.5-10.1) L Phosphorus Level 2.3 MG/DL (2.5-4.9) L Magnesium Level 1.7 MG/DL (1.8-2.4) L Total Bilirubin 0.2 MG/DL (0.2-1.0) Aspartate Amino Transf (AST/SGOT) 22 U/L (15-37) Alanine Aminotransferase (ALT/SGPT) 31 U/L (12-78) Alkaline Phosphatase 51 U/L (46-116) Troponin I 0.013 ng/mL (0.000-0.056) C-Reactive Protein, Quantitative 7.9 mg/dL (0.00-0.90) H Total Protein 4.6 G/DL (6.4-8.2) L Albumin 1.9 G/DL (3.4-5.0) L Globulin 2.7 g/dL Albumin/Globulin Ratio 0.7 (1.0-2.7) L Triglycerides Level 82 MG/DL (30-150) Cholesterol Level 110 MG/DL (< 200) LDL Cholesterol 62 mg/dL (<100) HDL Cholesterol 22 MG/DL (40-60) L Cholesterol/HDL Ratio 5.0 (3.3-4.4) H Thyroid Stimulating Hormone (TSH) 2.135 uiU/mL (0.358-3.740) Microbiology Date/Time Source Procedure Growth Status 05/01/19 17:18 Urine,Clean Catch Urine Culture - Preliminary NO GROWTH Resulted Height (Feet): 5 Height (Inches): 2.00 Weight (Pounds): 94 Medications Current Medications Medications (Trade) Dose Ordered Sig/Familia Route PRN Reason Start Time Stop Time Status Last Admin Dose Admin Acetaminophen (Tylenol) 650 mg Q4H PRN ORAL fever 05/01/19 12:00 05/31/19 11:59 Cefepime HCl 500 mg/Dextrose 55 ml @ 110 mls/hr EVERY 12 HOURS IVPB 05/01/19 16:00 05/08/19 15:59 05/02/19 08:35 Chlorhexidine Gluconate (Montserrat-Hex 2%) 1 applic DAILY@2000 TOPIC 05/02/19 20:00 06/01/19 19:59 Dextrose 1,000 ml @ 75 mls/hr [id number] IV 05/02/19 12:15 05/31/19 12:14 05/02/19 11:03 Dextrose (Dextrose 50%) 25 ml Q30M PRN IV Hypoglycemia 05/01/19 12:00 05/31/19 11:59 Dextrose (Dextrose 50%) 50 ml Q30M PRN IV Hypoglycemia 05/01/19 12:15 05/31/19 12:14 Dopamine HCl/ Dextrose 250 ml @ 0 mls/hr Q24H IV 05/02/19 15:00 05/31/19 16:44 05/02/19 15:10 Heparin Sodium (Porcine) (Heparin 5000 units/ml) 5,000 units EVERY 12 HOURS SUBQ 05/01/19 21:00 05/31/19 20:59 05/01/19 21:09 Lorazepam (Ativan 2mg/ml 1ml) 0.5 mg Q4H PRN IV For Anxiety 05/01/19 12:00 05/08/19 11:59 Morphine Sulfate (Morphine Sulfate) 1 mg Q4H PRN IVP For Pain 05/01/19 12:00 05/08/19 11:59 Ondansetron HCl (Zofran) 4 mg Q6H PRN IVP Nausea & Vomiting 05/01/19 12:00 05/31/19 11:59 Polyethylene Glycol (Miralax) 17 gm HSPRN PRN ORAL Constipation 05/01/19 12:00 05/31/19 11:59 Sodium Phosphate 30 mm/Sodium Chloride 285 ml @ 47.5 mls/hr ONCE ONCE IV 05/02/19 12:45 05/02/19 18:44 05/02/19 12:01 Zolpidem Tartrate (Ambien) 5 mg HSPRN PRN ORAL Insomnia 05/01/19 12:00 05/08/19 11:59 Assessment/Plan Problem List: (1) Decubitus ulcer of sacral region, stage 4 Assessment & Plan: Pt presented on admission with contractures and multiple pressure injuries. Full thickness sacral pressure injury with undermining .Beefy red granulation at base of wound with an area of 20% soft necrosis along borders and undermined area.No odor noted. Small amt sanguineous exudate noted(L)2cm x (W)2.5cm x (D) 1.9cm, undermining clockwise 12-12 by 1.9cm @12 o'clock. Resolving pressure injury R elbow .Base of wound epithelialized -pink and dry.(L )1.5cm x (W)1.6cm. Resolving pressure injury R trochanter .Base of wound has dry ,pink epithelial.edges adherent and flat without erythema or induration(L)2cm x (W) 4cm. hyperpigmentation periwound. Hyperpigmentation from previous wound L trochanter. Non-blanchable erythema with fluctuance noted to lateral L heel (L)2.5cm x (W) 2.5cm.Periwound without erythema induration or fluctuance. R heel is pink and blanchable. Non-blanchable erythema without fluctuance /induration L lateral 1st metatarsal. (L)0.5cm x (W)1cm Non-blanchable erythema without fluctuance /induration noted L hallux. (L)1cm x (w)1cm. Non-blanchable erythema without induration/fluctuance lateral R foot. Tx.Plan: Cleanse Sacral wound with Saline. Loosely pack with Hydrogel impregnated Plain packing strip.Apply Triad periwound Cover with Optifoam Daily and PRN. Apply Moisture Barrier Paste to R and L trochanters. Cover each site with Optifoam drsg. Change every 3 days and prn. Apply Cavilon Skin Barrier to R and L heels. Cover each heel with Optifoam drsgs. Change every 7 days and prn. Apply Cavilon Skin Barrier to L hallux and L 1st metatarsal. Cover with Optifoam drsg. Change every 7 days and prn. Apply Cavilon Skin Barrier to lateral R foot. Cover with Optifoam drsg. Change every 7 days and prn. APM/YO mattress overlay. Reposition at least every 2hours or as tolerated. Off-load heels with pillow. ICD Codes: L89.154 - Pressure ulcer of sacral region, stage 4 SNOMED: 073205056, 663189450 (2) Renal insufficiency ICD Codes: N28.9 - Disorder of kidney and ureter, unspecified; R65.21 - Severe sepsis with septic shock SNOMED: 925152266, 183909477 (3) Septic shock Assessment & Plan: leukocytosis tachycardia anemia hypotension responding well to fluids and abx UTI pending micro cont abx cont with current care will follow with recs thank you ICD Codes: A41.9 - Sepsis, unspecified organism; R65.21 - Severe sepsis with septic shock SNOMED: 23334419 (4) UTI (urinary tract infection) ICD Codes: N39.0 - Urinary tract infection, site not specified SNOMED: 26100022, 064247084 Qualifiers: Qualified Codes: N39.0 - Urinary tract infection, site not specified (5) ATN (acute tubular necrosis) ICD Codes: N17.0 - Acute kidney failure with tubular necrosis SNOMED: 27455928 (6) Advanced dementia ICD Codes: F03.90 - Unspecified dementia without behavioral disturbance SNOMED: 56765797 (7) History of CVA with residual deficit ICD Codes: I69.30 - Unspecified sequelae of cerebral infarction SNOMED: 321521544 (8) Hemiparesis ICD Codes: G81.90 - Hemiplegia, unspecified affecting unspecified side SNOMED: 48194323 (9) History of hypertension ICD Codes: Z86.79 - Personal history of other diseases of the circulatory system SNOMED: 978095249 Carroll Smith May 02, 2019 16:39
[2019-05-02] MEDS ORDERED: Lacri-Lube Opth Oint 3.5gm BOTH EYES ONE (18:00)
[2019-05-02] MEDS ORDERED: Vancomycin 750mg/NS 275ml IVPB SCH ×2 (18:00)
[2019-05-02] MEDS ORDERED: NS 275ml ONE (18:05)
[2019-05-02] MEDS ORDERED: Tubing IV Secondary IV ONE ×2 (18:05)
[2019-05-02 18:10] LABS: BASOPHILS % (AUTO) 0.2 % (0.0-2.0); HEMATOCRIT 28.2 % (37.0-47.0); HEMOGLOBIN 9.5 G/DL (12.0-16.0); LYMPHOCYTES % (AUTO) 13.9 % (20.0-45.0); MEAN CORPUSCULAR VOLUME 93 FL (80-99); MONOCYTES % (AUTO) 1.8 % (1.0-10.0); NEUTROPHILS % (AUTO) 84.1 % (45.0-75.0); PLATELET COUNT 209 K/UL (150-450); RED BLOOD COUNT 3.02 M/UL (4.20-5.40); RED CELL DISTRIBUTION WIDTH 11.7 % (11.6-14.8); WHITE BLOOD COUNT 9.5 K/UL (4.8-10.8)
[2019-05-02 18:27] LABS: ALANINE AMINOTRANSFERASE 36 U/L (12-78); ALBUMIN 2.2 G/DL (3.4-5.0); ALBUMIN/GLOBULIN RATIO 0.8 (1.0-2.7); ALKALINE PHOSPHATASE 58 U/L (46-116); ANION GAP 13 mmol/L (5-15); ASPARTATE AMINO TRANSFERASE 24 U/L (15-37); BILIRUBIN,TOTAL 0.2 MG/DL (0.2-1.0); BLOOD UREA NITROGEN 21 mg/dL (7-18); CALCIUM 8.1 MG/DL (8.5-10.1); CARBON DIOXIDE 21 MMOL/L (21-32); CHLORIDE 108 MMOL/L (98-107); CREATININE 0.5 MG/DL (0.55-1.30); SODIUM 142 MMOL/L (136-145)
[2019-05-02 18:30] LABS: POTASSIUM 2.6 MMOL/L (3.5-5.1)
--- NOTE | 2019-05-02 18:41 | NUR ---
NURSE NOTES: Left a message for Dr. Maldonado regarding potassium 2.6.
--- NOTE | 2019-05-02 19:14 | NUR ---
HAND-OFF: Report given to VARUN Ruggiero.
--- NOTE | 2019-05-02 19:15 | NUR ---
NURSE NOTES: Endorsement received from VARUN Braswell. Opens eyes spontaneously. Uzbek speaking. On room air. No SOB. Sinus rhythm on the monitor. With Left femoral TLC, left forearm g20, right forearm g22. On D5W 75ml/hr, Dopamine 23mcg/kg/min. Dressings dry and intact. Head of bed elevated. Bed alarm on. Call light within reach.
--- NOTE | 2019-05-02 19:15 | Consultation ---
DATE OF CONSULTATION: 05/02/2019 INFECTIOUS DISEASES CONSULTATION CONSULTING PHYSICIAN: Vic Larson M.D. REFERRING PHYSICIAN: 1. Solo Macdonald M.D. 2. Adilene Nash M.D. REASON FOR CONSULTATION: Evaluation of the patient for sepsis, antibiotic management. HISTORY OF PRESENT ILLNESS: The patient is an 83-year-old female with multiple medical problems as listed below, who was brought to the hospital due to hypotension. The patient was admitted to the ICU. At the time of admission, the patient was found to have white blood cells of 20.8. The patient has been started on IV antibiotics and Infectious Disease consultation has been requested for further evaluation of the patient and antibiotic management. PAST MEDICAL HISTORY: 1. Functional quadriplegia. 2. History of dementia. 3. Anemia. 4. History of stage IV sacral decubitus. ALLERGIES: No known drug allergies. SOCIAL HISTORY: The patient lives in a retirement. FAMILY HISTORY: Unavailable. REVIEW OF SYSTEMS: Unobtainable. The patient is unable to provide information. MEDICATIONS: Vancomycin, amikacin, cefepime. PHYSICAL EXAMINATION: VITAL SIGNS: Temperature 97.3, blood pressure 96/54, pulse 53, respiratory rate 16. HEENT: No pale conjunctivae. No icterus. NECK: No lymphadenopathy. CHEST: Clear. HEART: S1, S2. ABDOMEN: Soft. EXTREMITIES: No cyanosis at this time. NEUROLOGIC: Awake, nonverbal. SKIN: The patient has stage IV sacral decubitus (tracking, not infected). LABORATORY AND DIAGNOSTIC DATA: White blood cells 20.8 and today decreased to 11.2, hemoglobin 8.3, platelet 174,000. UA shows 5-10 white blood cells. BUN 39, creatinine 0.9. ALT, AST, and alkaline phosphatase unremarkable. Urine culture, pending. Ultrasound of the kidney showed mild left hydronephrosis and right nephrolithiasis. Chest x-ray, . ASSESSMENT: The patient is an 83-year-old female with: 1. Sepsis. 2. Leukocytosis. 3. Septic shock/hypotension. 4. Probably, the above are due to urinary tract infection in the setting of hydronephrosis. PLAN: 1. We will continue the patient on IV cefepime. Hold amikacin and vancomycin. 2. Monitor CBC. 3. Monitor BMP. 4. Monitor cultures. 5. Monitor chest x-ray. 6. Based on the patient's clinical course and laboratories, we will do further recommendations. Vic Larson M.D. DR: Mohamud JOB#: [id number] CC:
[2019-05-02] MEDS: Dyna-Hex 2% Top Sol 2oz TOPIC SCH (20:04)
[2019-05-02] MEDS ORDERED: Potassium Phosphate 30 MM in NS 275 ML IV SCH (21:00)
--- NOTE | 2019-05-02 21:00 | NUR ---
NURSE NOTES: Patient repositioned. Calm and comfortable.
--- NOTE | 2019-05-02 21:45 | Consultation ---
DATE OF CONSULTATION: 05/02/2019 CARDIOLOGY CONSULTATION CONSULTING PHYSICIAN: Florencio Ross M.D. REFERRING PHYSICIAN: Solo Macdonald M.D. REASON FOR CONSULTATION: Hypotension and bradycardia as well as status post SVT. HISTORY OF PRESENT ILLNESS: The patient is an 83-year-old lady with history of hypertension, sepsis, urinary tract infection, hemiplegia, renal failure as well as history of cellulitis, who was recently at [facility] just about a month ago for worsening of decubitus ulcer. The patient has history of prior stroke 12 years ago with right side hemiplegia and has been bedbound in the last 6 months. The patient was brought in from [facility] after she was noted to have abnormal laboratories with elevated BUN and creatinine. The patient was found to be hypotensive and was admitted to intensive care unit as the blood pressure was 70 and white count was more than 20,000. Initially in the ER, the patient was tachycardic, however, after admission to the ICU, the patient noted to be bradycardic with heart rate in the 40s, sinus bradycardia, and junctional rhythm. At the time of my evaluation, the patient is in ICU and nonverbal. She is not able to provide any information. REVIEW OF SYSTEMS: Cannot be obtained. PAST MEDICAL HISTORY: As mentioned above. FAMILY HISTORY: Noncontributory. SOCIAL HISTORY: She is a long-term resident and has no history of smoking, drinking, or using drugs. PHYSICAL EXAMINATION: VITAL SIGNS: Show blood pressure of 96/54, pulse is 53, respirations 18, and she is afebrile. HEAD AND NECK: Shows no JVD. LUNGS: Coarse rhonchi. CARDIOVASCULAR: Shows regular S1 and S2. Mildly bradycardic. ABDOMEN: Soft. EXTREMITIES: Contracted, no pitting edema, and a triple-lumen in the left femoral vein. LABORATORY AND DIAGNOSTIC DATA: Telemetry strip showed sinus bradycardia in the 50s. Her echocardiogram showed ejection fraction of 60% with mild left ventricular hypertrophy. Her labs show white count initially was 21,000 and down to 11.2, hemoglobin was 11.2 and down to 8.3, and platelet count of 174,000. Sodium is 147, potassium 3.7, BUN of 39, creatinine 0.5, and glucose of 188. ALT, alkaline phosphatase was normal. Troponin is negative. ASSESSMENT AND PLAN: 1. Combination of septic shock and dehydration. The patient's sodium is 147, BUN and creatinine ratio is more than 60. The patient is getting IV fluids. In view of the patient's bradycardia, we will switch Levophed to dopamine. The patient is already on broad-spectrum IV antibiotics as well. Her echocardiogram showed ejection fraction of 60% with no pericardial effusion. 2. Bradycardia. It is sinus bradycardia in the 50s. The patient is off of any sinus-genevieve or AV-genevieve affecting agents. We will switch Levophed to dopamine. 3. Sepsis, on broad-spectrum IV antibiotics. 4. History of CVA with right hemiplegia, currently nonverbal with bilateral lower extremity contraction. 5. Decubitus ulcers. 6. History of hypertension, off antihypertensive at this time in view of septic shock. Thank you very much, Dr. Macdonald, for allowing me to participate in the care of this patient. Please do not hesitate to contact me for any questions regarding my evaluation. Florencio Ross M.D. DR: Bobby JOB#: [id number] CC:
--- NOTE | 2019-05-02 23:00 | NUR ---
NURSE NOTES: Patient was seen and examined by Dr. Portillo, no new order at this time
[2019-05-02] MEDS ORDERED: Isovue-300 100ml vial INJ PRN (23:45)
[2019-05-03] VITALS (56 sets, daily range): BP systolic 98–144; BP diastolic 44–102
--- NOTE | 2019-05-03 | NUR ---
NURSE NOTES: Dr. Portillo back in the ICU, as per him he ordered CT abdomen with and without contrast for tomorrow.
--- NOTE | 2019-05-03 02:00 | NUR ---
NURSE NOTES: Patient asleep. Sinus rhythm. Dopamine at 3mcg/kg/min.
--- NOTE | 2019-05-03 02:15 | Consultation ---
DATE OF CONSULTATION: 05/02/2019 CONSULTING PHYSICIAN: Felice Portillo M.D. REFERRING PHYSICIAN: Solo Macdonald M.D. REASON FOR CONSULTATION: For evaluation of hydronephrosis. HISTORY OF PRESENT ILLNESS: This is an 83-year-old female who was admitted to the hospital because of abnormal laboratories and hypotension. She also has a history of UTIs. She was noted to have elevation of her BUN and creatinine apparently. During workup in the hospital, she was noted to have mild hydronephrosis and Urology evaluation is requested. The patient is for the most part nonverbal, I am not able to get significant history from her. I am not sure if she has any flank pain, however, the nursing staff state that she has been comfortable. She currently has a Villagomez catheter indwelling. The rest of the history was obtained from the chart. PAST MEDICAL HISTORY: Significant for history of hypertension, previous cellulitis, hemiplegia, history of sepsis, history of dysphagia, cognitive impairment, dementia. PAST SURGICAL HISTORY: Unknown. CURRENT MEDICATIONS: Here in the hospital, the patient is on potassium, dopamine, heparin, cefepime, Tylenol, Zofran, and Ambien. ALLERGIES: No known drug allergies. SOCIAL HISTORY: She is a resident of custodial. FAMILY HISTORY: Unable to obtain. REVIEW OF SYSTEMS: Unable to obtain. PHYSICAL EXAMINATION: GENERAL: An elderly female, slightly cachectic, in no acute distress. Essentially nonverbal. VITAL SIGNS: Temperature is 97.5, blood pressure is 102/55, pulse 65, respirations 21. HEENT: Normocephalic. NECK: Supple. ABDOMEN: Soft. : Villagomez is in place. Urine is grossly yellow. EXTREMITIES: She is slightly contracted. LABORATORY DATA: Her BUN is 21, creatinine 0.5, potassium is 2.6. White count 9.5, hemoglobin 9.5, and platelets are 209. INR is 1.1 with PT of 11.2 and PTT 98. UA showed 1+ protein, 10 to 15 rbc's, 5 to 10 wbc's. Her urine cultures negative. DIAGNOSTIC IMAGING STUDIES: The patient had a renal ultrasound, which showed evidence of possible punctate stones of the right kidney. There was also mention of mild left-sided hydronephrosis. IMPRESSION: 1. Mild left-sided hydronephrosis. 2. Urinary retention. 3. Probable neurogenic bladder. 4. Proteinuria. 5. Hematuria. 6. Pyuria. 7. Mild acute kidney injury, which has resolved. 8. Possible nephrolithiasis. PLAN AND DISCUSSION: Again as noted above, the patient did have acute kidney injury, which is improved. She had what appears to be mild left-sided hydronephrosis by ultrasound and however her renal function is stable. At this time, she also was noted to have pyuria and she is to continue with antibiotics as ordered. We will follow up on the results of the urine culture and adjust accordingly. I would recommend obtaining a CT scan of the abdomen and pelvis for further evaluation of the hydronephrosis. Any other recommendations will be based on the findings. I will follow the patient and recommendations will be forthcoming. Thank you, Dr. Macdonald, for asking me to see this patient in consultation. Felice Portillo M.D. DR: JOSÉ MIGUEL JOB#: [id number] CC:
--- NOTE | 2019-05-03 04:00 | NUR ---
NURSE NOTES: Bed bath, oral care, change of linens done. Dressings still dry and intact.
[2019-05-03 05:59] LABS: BASOPHILS % (AUTO) 0.7 % (0.0-2.0); EOSINOPHILS % (AUTO) 0.2 % (0.0-3.0); HEMATOCRIT 30.9 % (37.0-47.0); HEMOGLOBIN 10.2 G/DL (12.0-16.0); LYMPHOCYTES % (AUTO) 29.1 % (20.0-45.0); MEAN CORPUSCULAR VOLUME 96 FL (80-99); MONOCYTES % (AUTO) 3.2 % (1.0-10.0); NEUTROPHILS % (AUTO) 66.9 % (45.0-75.0); PLATELET COUNT 224 K/UL (150-450); RED BLOOD COUNT 3.23 M/UL (4.20-5.40); WHITE BLOOD COUNT 8.4 K/UL (4.8-10.8)
--- NOTE | 2019-05-03 06:00 | NUR ---
NURSE NOTES: Dopamine was decreased to 2mcg/kg/min, BP maintained within normal limits, however goes manuel between 53-55. Dopamine increased back up to 3mcg/kg/min. Will continue to monitor.
--- NOTE | 2019-05-03 06:30 | NUR ---
NURSE NOTES: Patient seen and examined by Dr. Nash with new orders in.
[2019-05-03 06:34] LABS: ALANINE AMINOTRANSFERASE 37 U/L (12-78); ALBUMIN 2.2 G/DL (3.4-5.0); ALBUMIN/GLOBULIN RATIO 0.7 (1.0-2.7); ALKALINE PHOSPHATASE 59 U/L (46-116); ANION GAP 9 mmol/L (5-15); ASPARTATE AMINO TRANSFERASE 21 U/L (15-37); BILIRUBIN,TOTAL 0.2 MG/DL (0.2-1.0); BLOOD UREA NITROGEN 15 mg/dL (7-18); CALCIUM 8.6 MG/DL (8.5-10.1); CARBON DIOXIDE 27 MMOL/L (21-32); CHLORIDE 109 MMOL/L (98-107); CREATININE 0.5 MG/DL (0.55-1.30); LACTATE DEHYDROGENASE 152 U/L (81-234); PHOSPHORUS 3.5 MG/DL (2.5-4.9); POTASSIUM 2.8 MMOL/L (3.5-5.1); SODIUM 145 MMOL/L (136-145)
--- NOTE | 2019-05-03 07:03 | Pulmonolgy Critical Care Note ---
Critical Care - Asmt/Plan Problems: (1) Septic shock (2) ATN (acute tubular necrosis) (3) History of hypertension (4) UTI (urinary tract infection) (5) Advanced dementia (6) History of CVA with residual deficit (7) Hemiparesis Respiratory: monitor respiratory rate, adjust FIO2 Cardiac: continue pressors, continue to monitor HR/BP Renal: F/U I&O, keep IV fluid, check electrolytes, other Infectious Disease: check cultures, continue antibiotics, other - Urine has GNR Gastrointestinal: continue feedings/current rate Endocrine: monitor blood sugar Hematologic: monitor H/H, transfuse if hgb<8.5 Neurologic: PRN Ativan, PRN Morphine, keep patient comfortable Prophylaxis: Protonix, Heparin Disposition: keep in ICU Notes Reviewed: brand marketing coordinator, renal Discussed with: nurses, consultants, rn case manager hospiceassistant store manager - Objective Last 24 Hour Vital Signs Date Time Temp Pulse Resp B/P (MAP) Pulse Ox O2 Delivery O2 Flow Rate FiO2 05/03/19 06:15 64 15 121/58 (79) 100 05/03/19 06:00 113/55 05/03/19 06:00 60 16 113/55 (74) 100 05/03/19 05:45 57 19 98/70 (79) 100 05/03/19 05:30 62 17 124/56 (78) 100 05/03/19 05:15 61 14 106/80 (89) 100 05/03/19 05:00 62 14 118/54 (75) 100 05/03/19 05:00 118/54 05/03/19 04:45 62 14 101/63 (76) 100 05/03/19 04:30 61 14 111/62 (78) 100 05/03/19 04:00 64 05/03/19 04:00 Room Air 05/03/19 04:00 135/77 05/03/19 04:00 98.0 64 17 135/57 (83) 100 05/03/19 03:30 61 17 126/61 (82) 100 05/03/19 03:00 106/44 05/03/19 03:00 64 17 106/44 (64) 100 05/03/19 02:30 69 15 119/65 (83) 96 05/03/19 02:00 65 20 114/73 (87) 100 05/03/19 02:00 114/73 05/03/19 01:30 67 22 129/63 (85) 100 05/03/19 01:00 65 19 122/57 (78) 100 05/03/19 01:00 122/57 05/03/19 00:30 63 19 108/61 (77) 100 05/03/19 00:00 97.9 64 21 108/65 (79) 100 05/03/19 00:00 108/65 05/03/19 00:00 Room Air 05/03/19 00:00 65 05/02/19 23:30 66 23 114/61 (78) 100 05/02/19 23:00 65 20 113/63 (80) 100 05/02/19 23:00 102/55 05/02/19 22:30 65 19 111/63 (79) 100 05/02/19 22:00 65 21 102/55 (71) 100 05/02/19 22:00 101/55 05/02/19 21:45 65 23 98/55 (69) 100 05/02/19 21:30 64 23 100/58 (72) 100 05/02/19 21:15 66 18 97/61 (73) 100 05/02/19 21:00 66 20 121/56 (77) 100 05/02/19 21:00 121/56 05/02/19 20:45 71 22 107/54 (71) 100 05/02/19 20:30 69 23 98/46 (63) 100 05/02/19 20:15 67 27 85/43 (57) 100 05/02/19 20:00 Room Air 05/02/19 20:00 70 05/02/19 20:00 97.5 68 21 103/48 (66) 100 05/02/19 20:00 103/48 05/02/19 19:45 67 20 90/46 (61) 100 05/02/19 19:30 68 20 94/50 (65) 100 05/02/19 19:00 72 23 99/53 (68) 100 05/02/19 19:00 99/53 05/02/19 18:30 73 25 96/57 (70) 100 05/02/19 18:15 71 20 105/54 (71) 100 05/02/19 18:00 107/66 05/02/19 18:00 70 19 107/66 (80) 100 05/02/19 17:45 72 20 103/51 (68) 100 05/02/19 17:30 78 19 93/79 (84) 98 05/02/19 17:15 98 20 98/58 (71) 100 05/02/19 17:00 79 20 105/66 (79) 100 05/02/19 17:00 105/66 05/02/19 16:45 80 19 107/62 (77) 100 05/02/19 16:30 97.7 78 18 93/56 (68) 100 05/02/19 16:15 79 19 108/68 (81) 100 05/02/19 16:00 83 20 111/53 (72) 100 05/02/19 16:00 111/53 05/02/19 16:00 Room Air 05/02/19 16:00 71 05/02/19 15:45 82 21 116/68 (84) 100 05/02/19 15:30 79 20 134/66 (88) 100 05/02/19 15:15 55 19 119/81 (94) 98 05/02/19 15:10 117/68 05/02/19 15:00 57 20 117/68 (84) 100 05/02/19 14:45 60 17 123/59 (80) 99 05/02/19 14:30 53 16 85/51 (62) 100 05/02/19 14:16 59 20 96/63 (74) 98 05/02/19 14:00 58 16 118/57 (77) 100 05/02/19 13:30 63 19 113/65 (81) 100 05/02/19 13:00 62 16 107/66 (80) 95 05/02/19 12:30 60 18 119/54 (75) 100 05/02/19 12:00 97.0 62 19 113/66 (82) 100 05/02/19 12:00 Room Air 05/02/19 12:00 61 05/02/19 11:30 60 18 116/55 (75) 100 05/02/19 11:00 62 20 113/65 (81) 100 05/02/19 10:30 61 17 110/56 (74) 99 05/02/19 10:00 53 16 96/54 (68) 100 05/02/19 10:00 96/54 05/02/19 09:30 56 16 104/67 (79) 99 05/02/19 09:00 117/73 05/02/19 09:00 59 19 117/73 (88) 100 05/02/19 08:30 61 18 124/61 (82) 100 05/02/19 08:00 60 05/02/19 08:00 62 14 118/56 (76) 100 05/02/19 08:00 118/56 05/02/19 08:00 Room Air 05/02/19 07:30 97.3 59 16 117/51 (73) 100 05/02/19 07:15 58 17 95/59 (71) 100 Status: awake Condition: critical, improving HEENT: atraumatic Lungs: clear Heart: HR/BP unstable Abdomen: soft, feeding tube Micro: Microbiology Date/Time Source Procedure Growth Status 05/01/19 10:25 Blood Blood Culture - Preliminary NO GROWTH AFTER 24 HOURS Resulted 05/01/19 10:25 Blood Blood Culture - Preliminary NO GROWTH AFTER 24 HOURS Resulted 05/01/19 10:35 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 Complete 05/01/19 10:35 Rectum - Final NO CARBAPENEM-RESISTANT ENTEROBACTERI... Complete Critical Care - Subjective ROS Limited/Unobtainable: Yes Condition: critical Fluids: d5w 75 cc/hour Drips: dopamin I&O: Intake and Output 05/02/19 05/03/19 19:00 07:00 Intake Total 1368.084 ml 1072.069 ml Output Total 1600 ml 2300 ml Balance -231.916 ml -1227.931 ml Intake Oral 370 ml IV Total 998.084 ml 1072.069 ml Output Urine Total 1600 ml 2300 ml CXR: no changes Labs: Laboratory Tests Test 05/02/19 17:15 05/03/19 05:25 White Blood Count 9.5 K/UL (4.8-10.8) 8.4 K/UL (4.8-10.8) Red Blood Count 3.02 M/UL (4.20-5.40) L 3.23 M/UL (4.20-5.40) L Hemoglobin 9.5 G/DL (12.0-16.0) L 10.2 G/DL (12.0-16.0) L Hematocrit 28.2 % (37.0-47.0) L 30.9 % (37.0-47.0) L Mean Corpuscular Volume 93 FL (80-99) 96 FL (80-99) Mean Corpuscular Hemoglobin 31.4 PG (27.0-31.0) H 31.6 PG (27.0-31.0) H Mean Corpuscular Hemoglobin Concent 33.6 G/DL (32.0-36.0) 33.1 G/DL (32.0-36.0) Red Cell Distribution Width 11.7 % (11.6-14.8) 12.0 % (11.6-14.8) Platelet Count 209 K/UL (150-450) 224 K/UL (150-450) Mean Platelet Volume 6.5 FL (6.5-10.1) 7.1 FL (6.5-10.1) Neutrophils (%) (Auto) 84.1 % (45.0-75.0) H 66.9 % (45.0-75.0) Lymphocytes (%) (Auto) 13.9 % (20.0-45.0) L 29.1 % (20.0-45.0) Monocytes (%) (Auto) 1.8 % (1.0-10.0) 3.2 % (1.0-10.0) Eosinophils (%) (Auto) 0.0 % (0.0-3.0) 0.2 % (0.0-3.0) Basophils (%) (Auto) 0.2 % (0.0-2.0) 0.7 % (0.0-2.0) Sodium Level 142 MMOL/L (136-145) 145 MMOL/L (136-145) Potassium Level 2.6 MMOL/L (3.5-5.1) *L 2.8 MMOL/L (3.5-5.1) L Chloride Level 108 MMOL/L (98-107) H 109 MMOL/L (98-107) H Carbon Dioxide Level 21 MMOL/L (21-32) 27 MMOL/L (21-32) Anion Gap 13 mmol/L (5-15) 9 mmol/L (5-15) Blood Urea Nitrogen 21 mg/dL (7-18) H 15 mg/dL (7-18) Creatinine 0.5 MG/DL (0.55-1.30) L 0.5 MG/DL (0.55-1.30) L Estimat Glomerular Filtration Rate mL/min (>60) mL/min (>60) Glucose Level 129 MG/DL (74-106) H 100 MG/DL (74-106) Calcium Level 8.1 MG/DL (8.5-10.1) L 8.6 MG/DL (8.5-10.1) Total Bilirubin 0.2 MG/DL (0.2-1.0) 0.2 MG/DL (0.2-1.0) Aspartate Amino Transf (AST/SGOT) 24 U/L (15-37) 21 U/L (15-37) Alanine Aminotransferase (ALT/SGPT) 36 U/L (12-78) 37 U/L (12-78) Alkaline Phosphatase 58 U/L (46-116) 59 U/L (46-116) Total Protein 5.0 G/DL (6.4-8.2) L 5.5 G/DL (6.4-8.2) L Albumin 2.2 G/DL (3.4-5.0) L 2.2 G/DL (3.4-5.0) L Globulin 2.8 g/dL 3.3 g/dL Albumin/Globulin Ratio 0.8 (1.0-2.7) L 0.7 (1.0-2.7) L Erythrocyte Sedimentation Rate Pending Reticulocyte Count Pending Phosphorus Level 3.5 MG/DL (2.5-4.9) Magnesium Level 2.1 MG/DL (1.8-2.4) Lactate Dehydrogenase 152 U/L (81-234) Troponin I 0.016 ng/mL (0.000-0.056) Pro-B-Type Natriuretic Peptide 1050 pg/mL (0-125) H Thyroid Stimulating Hormone (TSH) 0.487 uiU/mL (0.358-3.740) Free Thyroxine 0.92 NG/DL (0.76-1.46) Adilene Nash MD May 03, 2019 07:03
--- NOTE | 2019-05-03 07:32 | NUR ---
HAND-OFF: Report given to VARUN Ivan
--- NOTE | 2019-05-03 07:45 | NUR ---
NURSE NOTES: Report received from VARUN Ruggiero. Patient observed to be sleeping initially. Patient was easily awoken by when her name was called. Patient opens eyes spontaneously, responds to verbal commands and is verbal with simple responses. Patient is [place] speaking. When asked how patient was feeling this morning, patient stated "I am cold" in [place]. Patient is alert and oriented. Patient is able to make her needs know verbally however does appear confused at times. Verbal responses are limited. Patient is contracted BLE has 2/5 muscle strength on right UE and 1/5 muscle strength on L UE. Patient is being monitored on the court recording monitor. VS HR 64 BP 114/64, RR 17 SPO2 100% on RA. Patient does not appear in any acute distress and when asked if she is feeling any pain, patient denies any pain. Upon auscultation, lung sounds are clear throughout. Belly sounds are hyperactive in all four quadrants. It was reported that patient has not had a BM. Patient's belly is flat and not distended, however patient is very thin. Patient has a Villagomez catheter draining large amounts of straw colored urine to gravity. Ivanna care has been performed. Patient has a LFem TLC running Dopa 3 mcgs, D5W at 75 ml/hr that is secure and patent. Patient also has LFA 20G and a RFA 20G that are saline locked, patent and intact. Patient has a sacral wound that has a dressing that is dry and intact, and several other wounds with dressings that are dry and intact. Safety measures are in place with the bed locked, in the lowest position, 3 side rails up. Will continue to monitor and follow plan of care.
[2019-05-03] MEDS: Heparin 5000 units/ml inj SUBQ SCH ×2 (08:23→20:22)
--- NOTE | 2019-05-03 08:30 | NUR ---
NURSE NOTES: Patient is a 1:1 feed. Patient ate without any complication. Patient drank all of her apple juice and only 10 ml of her milk. Patient stated that she was not that hungry. Patient ate only 10% of her tray.
--- NOTE | 2019-05-03 09:18 | Urology Progress Note ---
Assessment/Plan Assessment/Plan: 1. Mild left-sided hydronephrosis. 2. Urinary retention. 3. Probable neurogenic bladder. 4. Proteinuria. 5. Hematuria. 6. Pyuria. 7. Mild acute kidney injury, which has resolved. 8. Possible nephrolithiasis. monitor clinically maintain mujica hand irritated and do PRN abx as ordered renal fxn stable f/u on CT scan Subjective Allergies: Coded Allergies: No Known Allergies (Unverified , 05/01/19) Subjective all noted Objective Last 24 Hour Vital Signs Date Time Temp Pulse Resp B/P (MAP) Pulse Ox O2 Delivery O2 Flow Rate FiO2 05/03/19 08:30 67 17 112/58 (76) 99 05/03/19 08:00 65 17 123/72 (89) 100 05/03/19 08:00 Room Air 05/03/19 07:30 64 17 114/62 (79) 100 05/03/19 07:15 62 14 101/79 (86) 100 05/03/19 07:00 62 16 101/75 (84) 100 05/03/19 06:45 59 14 122/61 (81) 100 05/03/19 06:30 61 14 130/55 (80) 100 05/03/19 06:15 64 15 121/58 (79) 100 05/03/19 06:00 113/55 05/03/19 06:00 60 16 113/55 (74) 100 05/03/19 05:45 57 19 98/70 (79) 100 05/03/19 05:30 62 17 124/56 (78) 100 05/03/19 05:15 61 14 106/80 (89) 100 05/03/19 05:00 62 14 118/54 (75) 100 05/03/19 05:00 118/54 05/03/19 04:45 62 14 101/63 (76) 100 05/03/19 04:30 61 14 111/62 (78) 100 05/03/19 04:00 64 05/03/19 04:00 Room Air 05/03/19 04:00 135/77 05/03/19 04:00 98.0 64 17 135/57 (83) 100 05/03/19 03:30 61 17 126/61 (82) 100 05/03/19 03:00 106/44 05/03/19 03:00 64 17 106/44 (64) 100 05/03/19 02:30 69 15 119/65 (83) 96 05/03/19 02:00 65 20 114/73 (87) 100 05/03/19 02:00 114/73 05/03/19 01:30 67 22 129/63 (85) 100 05/03/19 01:00 65 19 122/57 (78) 100 05/03/19 01:00 122/57 05/03/19 00:30 63 19 108/61 (77) 100 05/03/19 00:00 97.9 64 21 108/65 (79) 100 05/03/19 00:00 108/65 05/03/19 00:00 Room Air 05/03/19 00:00 65 05/02/19 23:30 66 23 114/61 (78) 100 05/02/19 23:00 65 20 113/63 (80) 100 05/02/19 23:00 102/55 05/02/19 22:30 65 19 111/63 (79) 100 05/02/19 22:00 65 21 102/55 (71) 100 05/02/19 22:00 101/55 05/02/19 21:45 65 23 98/55 (69) 100 05/02/19 21:30 64 23 100/58 (72) 100 05/02/19 21:15 66 18 97/61 (73) 100 05/02/19 21:00 66 20 121/56 (77) 100 05/02/19 21:00 121/56 05/02/19 20:45 71 22 107/54 (71) 100 05/02/19 20:30 69 23 98/46 (63) 100 05/02/19 20:15 67 27 85/43 (57) 100 05/02/19 20:00 Room Air 05/02/19 20:00 70 05/02/19 20:00 97.5 68 21 103/48 (66) 100 05/02/19 20:00 103/48 05/02/19 19:45 67 20 90/46 (61) 100 05/02/19 19:30 68 20 94/50 (65) 100 05/02/19 19:00 72 23 99/53 (68) 100 05/02/19 19:00 99/53 05/02/19 18:30 73 25 96/57 (70) 100 05/02/19 18:15 71 20 105/54 (71) 100 05/02/19 18:00 107/66 05/02/19 18:00 70 19 107/66 (80) 100 05/02/19 17:45 72 20 103/51 (68) 100 05/02/19 17:30 78 19 93/79 (84) 98 05/02/19 17:15 98 20 98/58 (71) 100 05/02/19 17:00 79 20 105/66 (79) 100 05/02/19 17:00 105/66 05/02/19 16:45 80 19 107/62 (77) 100 05/02/19 16:30 97.7 78 18 93/56 (68) 100 05/02/19 16:15 79 19 108/68 (81) 100 05/02/19 16:00 83 20 111/53 (72) 100 05/02/19 16:00 111/53 05/02/19 16:00 Room Air 05/02/19 16:00 71 05/02/19 15:45 82 21 116/68 (84) 100 05/02/19 15:30 79 20 134/66 (88) 100 05/02/19 15:15 55 19 119/81 (94) 98 05/02/19 15:10 117/68 05/02/19 15:00 57 20 117/68 (84) 100 05/02/19 14:45 60 17 123/59 (80) 99 05/02/19 14:30 53 16 85/51 (62) 100 05/02/19 14:16 59 20 96/63 (74) 98 05/02/19 14:00 58 16 118/57 (77) 100 05/02/19 13:30 63 19 113/65 (81) 100 05/02/19 13:00 62 16 107/66 (80) 95 05/02/19 12:30 60 18 119/54 (75) 100 05/02/19 12:00 97.0 62 19 113/66 (82) 100 05/02/19 12:00 Room Air 05/02/19 12:00 61 05/02/19 11:30 60 18 116/55 (75) 100 05/02/19 11:00 62 20 113/65 (81) 100 05/02/19 10:30 61 17 110/56 (74) 99 05/02/19 10:00 53 16 96/54 (68) 100 05/02/19 10:00 96/54 05/02/19 09:30 56 16 104/67 (79) 99 Intake and Output 05/02/19 05/03/19 19:00 07:00 Intake Total 1368.084 ml 1072.069 ml Output Total 1600 ml 2525 ml Balance -231.916 ml -1452.931 ml Intake Oral 370 ml IV Total 998.084 ml 1072.069 ml Output Urine Total 1600 ml 2525 ml Microbiology Date/Time Source Procedure Growth Status 05/01/19 10:25 Blood Blood Culture - Preliminary NO GROWTH AFTER 24 HOURS Resulted 05/01/19 10:35 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 Complete 05/01/19 17:18 Urine,Clean Catch Urine Culture - Preliminary NO GROWTH AFTER 24 HOURS Resulted 05/01/19 10:35 Rectum VRE Culture - Final NO VANCOMYCIN RESISTANT ENTEROCOCCUS ... Complete 05/01/19 10:35 Rectum - Final NO CARBAPENEM-RESISTANT ENTEROBACTERI... Complete Current Medications Medications (Trade) Dose Ordered Sig/Familia Route PRN Reason Start Time Stop Time Status Last Admin Dose Admin Acetaminophen (Tylenol) 650 mg Q4H PRN ORAL fever 05/01/19 12:00 05/31/19 11:59 Barium Sulfate (Readi-Cat 2) 450 ml NOW PRN ORAL Radiology Procedure 05/02/19 23:45 05/04/19 23:45 Cefepime HCl 500 mg/Dextrose 55 ml @ 110 mls/hr EVERY 12 HOURS IVPB 05/01/19 16:00 05/08/19 15:59 05/02/19 20:32 Chlorhexidine Gluconate (Montserrat-Hex 2%) 1 applic DAILY@2000 TOPIC 05/02/19 20:00 06/01/19 19:59 05/02/19 20:04 Dextrose 1,000 ml @ 75 mls/hr [id number] IV 05/02/19 12:15 05/31/19 12:14 05/03/19 08:05 Dextrose (Dextrose 50%) 25 ml Q30M PRN IV Hypoglycemia 05/01/19 12:00 05/31/19 11:59 Dextrose (Dextrose 50%) 50 ml Q30M PRN IV Hypoglycemia 05/01/19 12:15 05/31/19 12:14 Dopamine HCl/ Dextrose 250 ml @ 0 mls/hr Q24H IV 05/02/19 15:00 05/31/19 16:44 05/02/19 15:10 Heparin Sodium (Porcine) (Heparin 5000 units/ml) 5,000 units EVERY 12 HOURS SUBQ 05/01/19 21:00 05/31/19 20:59 05/03/19 08:23 Iopamidol (Isovue-300 100ml) 100 ml NOW PRN INJ Radiology Procedure 05/02/19 23:45 Lorazepam (Ativan 2mg/ml 1ml) 0.5 mg Q4H PRN IV For Anxiety 05/01/19 12:00 05/08/19 11:59 Morphine Sulfate (Morphine Sulfate) 1 mg Q4H PRN IVP For Pain 05/01/19 12:00 05/08/19 11:59 Ondansetron HCl (Zofran) 4 mg Q6H PRN IVP Nausea & Vomiting 05/01/19 12:00 05/31/19 11:59 Polyethylene Glycol (Miralax) 17 gm HSPRN PRN ORAL Constipation 05/01/19 12:00 05/31/19 11:59 Potassium Chloride 100 ml @ 50 mls/hr Q2H IVPB 05/03/19 08:00 05/03/19 11:59 05/03/19 08:11 Zolpidem Tartrate (Ambien) 5 mg HSPRN PRN ORAL Insomnia 05/01/19 12:00 05/08/19 11:59 Laboratory Tests 05/02/19 17:15: White Blood Count 9.5, Red Blood Count 3.02L, Hemoglobin 9.5L, Hematocrit 28.2L , Mean Corpuscular Volume 93, Mean Corpuscular Hemoglobin 31.4H, Mean Corpuscular Hemoglobin Concent 33.6, Red Cell Distribution Width 11.7, Platelet Count 209, Mean Platelet Volume 6.5, Neutrophils (%) (Auto) 84.1H, Lymphocytes ( %) (Auto) 13.9L, Monocytes (%) (Auto) 1.8, Eosinophils (%) (Auto) 0.0, Basophils (%) (Auto) 0.2, Sodium Level 142, Potassium Level 2.6*L, Chloride Level 108H, Carbon Dioxide Level 21, Anion Gap 13, Blood Urea Nitrogen 21H, Creatinine 0.5L, Estimat Glomerular Filtration Rate , Glucose Level 129H, Calcium Level 8.1L, Total Bilirubin 0.2, Aspartate Amino Transf (AST/SGOT) 24, Alanine Aminotransferase (ALT/SGPT) 36, Alkaline Phosphatase 58, Total Protein 5.0L, Albumin 2.2L, Globulin 2.8, Albumin/Globulin Ratio 0.8L 05/03/19 05:25: White Blood Count 8.4, Red Blood Count 3.23L, Hemoglobin 10.2L, Hematocrit 30.9L , Mean Corpuscular Volume 96, Mean Corpuscular Hemoglobin 31.6H, Mean Corpuscular Hemoglobin Concent 33.1, Red Cell Distribution Width 12.0, Platelet Count 224, Mean Platelet Volume 7.1, Neutrophils (%) (Auto) 66.9, Lymphocytes (% ) (Auto) 29.1, Monocytes (%) (Auto) 3.2, Eosinophils (%) (Auto) 0.2, Basophils ( %) (Auto) 0.7, Sodium Level 145, Potassium Level 2.8L, Chloride Level 109H, Carbon Dioxide Level 27, Anion Gap 9, Blood Urea Nitrogen 15, Creatinine 0.5L, Estimat Glomerular Filtration Rate , Glucose Level 100, Calcium Level 8.6, Total Bilirubin 0.2, Aspartate Amino Transf (AST/SGOT) 21, Alanine Aminotransferase (ALT/SGPT) 37, Alkaline Phosphatase 59, Total Protein 5.5L, Albumin 2.2L, Globulin 3.3, Albumin/Globulin Ratio 0.7L, Erythrocyte Sedimentation Rate 42H, Reticulocyte Count 0.7, Phosphorus Level 3.5, Magnesium Level 2.1, Lactate Dehydrogenase 152, Troponin I 0.016, Pro-B-Type Natriuretic Peptide 1050H, Thyroid Stimulating Hormone (TSH) 0.487, Free Thyroxine 0.92 Height (Feet): 5 Height (Inches): 2.00 Weight (Pounds): 93 Objective exam stable urine grossly yellow, occasional debris CT A/P pending Felice Portillo MD May 03, 2019 09:18
[2019-05-03] MEDS: Cefepime HCl 500 MG in D5W 55 ML IVPB SCH ×2 (09:20→21:26)
--- NOTE | 2019-05-03 10:15 | NUR ---
NURSE NOTES: Patient observed bedside. Patient on 3 mcgs of Dopamine via L Fem TLC and patient is not in any acute distress. Patient is awake and alert. Patient repositioned for comfort. Safety measures in place. Will continue to monitor.
--- NOTE | 2019-05-03 10:48 | NUR ---
NURSE NOTES: Dr Maldonado assessed patient bedside. Added KCL. Wants a total of 60 mEq to be replaced today. Patient spit out her KDUR. Cannot take oral KDUR even with food. Will carry out MD orders.
--- NOTE | 2019-05-03 12:28 | Consultation ---
Consult Note Consult Note consulted for fluid management and abnormal electrolytes examined data reviewed discussed with granulator tender/Plan -Septic shock -ATN (acute tubular necrosis) - Malnutrition -History of hypertension -UTI (urinary tract infection) -Advanced dementia -History of CVA with residual deficit -Hemiparesis Plan: K IV Mag IV PO Folate Cortisol level Jamel Maldonado MD May 03, 2019 12:28
--- NOTE | 2019-05-03 12:30 | NUR ---
NURSE NOTES: Patient observed bedside. Patient is awake and alert. Patient is oriented to self. Patient is resting comfortably in bed watching television. Patient opens eyes spontaneously, responds to verbal commands and is verbal with simple responses. Patient makes needs known in [place]. Patient does appears fearful at times and holds RN hand tightly for comfort. Patient is being monitored on the cardiac monitor technician. VSS. Patient does not appear in any acute distress and when asked if she is feeling any pain, patient denies pain. Patient has a Villagomez catheter draining large amounts of straw colored urine to gravity >200 ml/hour. Patient has a LFem TLC running Dopa 3 mcgs, D5W at 75 ml/hr that is secure and patent with LFA 20G, and RFA 20G that are saline locked. Safety measures are in place with the bed locked, in the lowest position, 3 side rails up. Will continue to monitor and follow plan of care.
--- NOTE | 2019-05-03 13:28 | NUR ---
NURSE NOTES: Per Dr Maldonado patient should get a total of 60 mEq of KCL. Patient rec'd a total of 60. Non administered last dose. The KDUR was not given because patient spit it out. Will waste in the Pyxis.
[2019-05-03] MEDS ORDERED: NS 275ml ONE ×2 (13:30→13:32)
[2019-05-03] MEDS ORDERED: Tubing IV Secondary IV ONE (13:32)
--- NOTE | 2019-05-03 14:25 | Cardiac Electrophysiology PN ---
Assessment/Plan Assessment/Plan 1. Combination of septic shock and dehydration. The patient's sodium is 147, BUN and creatinine ratio is more than 60. The patient is getting IV fluids at 50cc/hr. In view of the patient's bradycardia switched Levophed to dopamine. The patient is already on broad-spectrum IV antibiotics as well. Her echocardiogram showed ejection fraction of 60% with no pericardial effusion. 2. Bradycardia. It is sinus bradycardia in the 50s. The patient is off of any sinus-genevieve or AV-genevieve affecting agents. Will decrease dopamine 3. Sepsis, on broad-spectrum IV antibiotics. 4. History of CVA with right hemiplegia, currently nonverbal with bilateral lower extremity contraction. 5. Decubitus ulcers. 6. History of hypertension, off antihypertensive at this time in view of septic shock. Subjective Subjective In ICU alert in NAD On Dopamine drip Objective Last 24 Hour Vital Signs Date Time Temp Pulse Resp B/P (MAP) Pulse Ox O2 Delivery O2 Flow Rate FiO2 05/03/19 13:00 67 19 105/58 (74) 100 05/03/19 12:30 66 18 109/59 (76) 100 05/03/19 12:00 98.1 68 19 111/62 (78) 100 05/03/19 12:00 Room Air 05/03/19 12:00 68 05/03/19 11:00 65 15 102/56 (71) 100 05/03/19 10:30 67 18 109/55 (73) 100 05/03/19 10:00 70 15 98/64 (75) 100 05/03/19 09:30 71 17 105/65 (78) 100 05/03/19 09:00 98.0 69 16 112/51 (71) 100 05/03/19 09:00 112/51 05/03/19 08:30 67 17 112/58 (76) 99 05/03/19 08:00 65 17 123/72 (89) 100 05/03/19 08:00 114/62 05/03/19 08:00 64 05/03/19 08:00 Room Air 05/03/19 07:30 64 17 114/62 (79) 100 05/03/19 07:15 62 14 101/79 (86) 100 05/03/19 07:00 62 16 101/75 (84) 100 05/03/19 07:00 101/75 05/03/19 06:45 59 14 122/61 (81) 100 05/03/19 06:30 61 14 130/55 (80) 100 05/03/19 06:15 64 15 121/58 (79) 100 05/03/19 06:00 113/55 05/03/19 06:00 60 16 113/55 (74) 100 05/03/19 05:45 57 19 98/70 (79) 100 05/03/19 05:30 62 17 124/56 (78) 100 05/03/19 05:15 61 14 106/80 (89) 100 05/03/19 05:00 62 14 118/54 (75) 100 05/03/19 05:00 118/54 05/03/19 04:45 62 14 101/63 (76) 100 05/03/19 04:30 61 14 111/62 (78) 100 05/03/19 04:00 64 05/03/19 04:00 Room Air 05/03/19 04:00 135/77 05/03/19 04:00 98.0 64 17 135/57 (83) 100 05/03/19 03:30 61 17 126/61 (82) 100 05/03/19 03:00 106/44 05/03/19 03:00 64 17 106/44 (64) 100 05/03/19 02:30 69 15 119/65 (83) 96 05/03/19 02:00 65 20 114/73 (87) 100 05/03/19 02:00 114/73 05/03/19 01:30 67 22 129/63 (85) 100 05/03/19 01:00 65 19 122/57 (78) 100 05/03/19 01:00 122/57 05/03/19 00:30 63 19 108/61 (77) 100 05/03/19 00:00 97.9 64 21 108/65 (79) 100 05/03/19 00:00 108/65 05/03/19 00:00 Room Air 05/03/19 00:00 65 05/02/19 23:30 66 23 114/61 (78) 100 05/02/19 23:00 65 20 113/63 (80) 100 05/02/19 23:00 102/55 7/6/19 22:30 65 19 111/63 (79) 100 05/02/19 22:00 65 21 102/55 (71) 100 05/02/19 22:00 101/55 05/02/19 21:45 65 23 98/55 (69) 100 05/02/19 21:30 64 23 100/58 (72) 100 05/02/19 21:15 66 18 97/61 (73) 100 05/02/19 21:00 66 20 121/56 (77) 100 05/02/19 21:00 121/56 05/02/19 20:45 71 22 107/54 (71) 100 05/02/19 20:30 69 23 98/46 (63) 100 05/02/19 20:15 67 27 85/43 (57) 100 05/02/19 20:00 Room Air 05/02/19 20:00 70 05/02/19 20:00 97.5 68 21 103/48 (66) 100 05/02/19 20:00 103/48 05/02/19 19:45 67 20 90/46 (61) 100 05/02/19 19:30 68 20 94/50 (65) 100 05/02/19 19:00 72 23 99/53 (68) 100 05/02/19 19:00 99/53 05/02/19 18:30 73 25 96/57 (70) 100 05/02/19 18:15 71 20 105/54 (71) 100 05/02/19 18:00 107/66 05/02/19 18:00 70 19 107/66 (80) 100 05/02/19 17:45 72 20 103/51 (68) 100 05/02/19 17:30 78 19 93/79 (84) 98 05/02/19 17:15 98 20 98/58 (71) 100 05/02/19 17:00 79 20 105/66 (79) 100 05/02/19 17:00 105/66 05/02/19 16:45 80 19 107/62 (77) 100 05/02/19 16:30 97.7 78 18 93/56 (68) 100 05/02/19 16:15 79 19 108/68 (81) 100 05/02/19 16:00 83 20 111/53 (72) 100 05/02/19 16:00 111/53 05/02/19 16:00 Room Air 05/02/19 16:00 71 05/02/19 15:45 82 21 116/68 (84) 100 05/02/19 15:30 79 20 134/66 (88) 100 05/02/19 15:15 55 19 119/81 (94) 98 05/02/19 15:10 117/68 05/02/19 15:00 57 20 117/68 (84) 100 05/02/19 14:45 60 17 123/59 (80) 99 05/02/19 14:30 53 16 85/51 (62) 100 05/02/19 14:16 59 20 96/63 (74) 98 Intake and Output 05/02/19 05/03/19 18:59 06:59 Intake Total 1095.787 ml 1351.866 ml Output Total 1380 ml 2700 ml Balance -284.213 ml -1348.134 ml Intake Oral 170 ml 200 ml IV Total 925.787 ml 1151.866 ml Output Urine Total 1380 ml 2700 ml Laboratory Tests Test 05/02/19 17:15 05/03/19 05:25 05/03/19 12:15 White Blood Count 9.5 K/UL (4.8-10.8) 8.4 K/UL (4.8-10.8) Red Blood Count 3.02 M/UL (4.20-5.40) L 3.23 M/UL (4.20-5.40) L Hemoglobin 9.5 G/DL (12.0-16.0) L 10.2 G/DL (12.0-16.0) L Hematocrit 28.2 % (37.0-47.0) L 30.9 % (37.0-47.0) L Mean Corpuscular Volume 93 FL (80-99) 96 FL (80-99) Mean Corpuscular Hemoglobin 31.4 PG (27.0-31.0) H 31.6 PG (27.0-31.0) H Mean Corpuscular Hemoglobin Concent 33.6 G/DL (32.0-36.0) 33.1 G/DL (32.0-36.0) Red Cell Distribution Width 11.7 % (11.6-14.8) 12.0 % (11.6-14.8) Platelet Count 209 K/UL (150-450) 224 K/UL (150-450) Mean Platelet Volume 6.5 FL (6.5-10.1) 7.1 FL (6.5-10.1) Neutrophils (%) (Auto) 84.1 % (45.0-75.0) H 66.9 % (45.0-75.0) Lymphocytes (%) (Auto) 13.9 % (20.0-45.0) L 29.1 % (20.0-45.0) Monocytes (%) (Auto) 1.8 % (1.0-10.0) 3.2 % (1.0-10.0) Eosinophils (%) (Auto) 0.0 % (0.0-3.0) 0.2 % (0.0-3.0) Basophils (%) (Auto) 0.2 % (0.0-2.0) 0.7 % (0.0-2.0) Sodium Level 142 MMOL/L (136-145) 145 MMOL/L (136-145) Potassium Level 2.6 MMOL/L (3.5-5.1) *L 2.8 MMOL/L (3.5-5.1) L Chloride Level 108 MMOL/L (98-107) H 109 MMOL/L (98-107) H Carbon Dioxide Level 21 MMOL/L (21-32) 27 MMOL/L (21-32) Anion Gap 13 mmol/L (5-15) 9 mmol/L (5-15) Blood Urea Nitrogen 21 mg/dL (7-18) H 15 mg/dL (7-18) Creatinine 0.5 MG/DL (0.55-1.30) L 0.5 MG/DL (0.55-1.30) L Estimat Glomerular Filtration Rate mL/min (>60) mL/min (>60) Glucose Level 129 MG/DL (74-106) H 100 MG/DL (74-106) Calcium Level 8.1 MG/DL (8.5-10.1) L 8.6 MG/DL (8.5-10.1) Total Bilirubin 0.2 MG/DL (0.2-1.0) 0.2 MG/DL (0.2-1.0) Aspartate Amino Transf (AST/SGOT) 24 U/L (15-37) 21 U/L (15-37) Alanine Aminotransferase (ALT/SGPT) 36 U/L (12-78) 37 U/L (12-78) Alkaline Phosphatase 58 U/L (46-116) 59 U/L (46-116) Total Protein 5.0 G/DL (6.4-8.2) L 5.5 G/DL (6.4-8.2) L Albumin 2.2 G/DL (3.4-5.0) L 2.2 G/DL (3.4-5.0) L Globulin 2.8 g/dL 3.3 g/dL Albumin/Globulin Ratio 0.8 (1.0-2.7) L 0.7 (1.0-2.7) L Erythrocyte Sedimentation Rate 42 MM/HR (0-30) H Reticulocyte Count 0.7 % (0.5-2.0) Phosphorus Level 3.5 MG/DL (2.5-4.9) Magnesium Level 2.1 MG/DL (1.8-2.4) Lactate Dehydrogenase 152 U/L (81-234) Troponin I 0.016 ng/mL (0.000-0.056) Pro-B-Type Natriuretic Peptide 1050 pg/mL (0-125) H Thyroid Stimulating Hormone (TSH) 0.487 uiU/mL (0.358-3.740) Free Thyroxine 0.92 NG/DL (0.76-1.46) Amikacin Level Peak < 2.5 ug/mL (25.0-35.0) L Microbiology Date/Time Source Procedure Growth Status 05/01/19 10:25 Blood Blood Culture - Preliminary NO GROWTH AFTER 24 HOURS Resulted 05/01/19 10:25 Blood Blood Culture - Preliminary NO GROWTH AFTER 24 HOURS Resulted 05/01/19 10:35 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 Complete 05/01/19 10:35 Rectum - Final NO CARBAPENEM-RESISTANT ENTEROBACTERI... Complete Objective HEAD AND NECK: No JVD. LUNGS: Coarse rhonchi. CARDIOVASCULAR: Shows regular S1 and S2. Mildly bradycardic. ABDOMEN: Soft. EXTREMITIES: Contracted, no pitting edema, and a triple-lumen in the left femoral vein. Florencio Ross MD May 03, 2019 14:25
--- NOTE | 2019-05-03 14:40 | Surgery Progress Note ---
Surgery Progress Note Subjective Additional Comments afebrile, HD stable labs noted exam unchanged Objective Last 24 Hour Vital Signs Date Time Temp Pulse Resp B/P (MAP) Pulse Ox O2 Delivery O2 Flow Rate FiO2 05/03/19 13:00 67 19 105/58 (74) 100 05/03/19 12:30 66 18 109/59 (76) 100 05/03/19 12:00 98.1 68 19 111/62 (78) 100 05/03/19 12:00 Room Air 05/03/19 12:00 68 05/03/19 11:00 65 15 102/56 (71) 100 05/03/19 10:30 67 18 109/55 (73) 100 05/03/19 10:00 70 15 98/64 (75) 100 05/03/19 09:30 71 17 105/65 (78) 100 05/03/19 09:00 98.0 69 16 112/51 (71) 100 05/03/19 09:00 112/51 05/03/19 08:30 67 17 112/58 (76) 99 05/03/19 08:00 65 17 123/72 (89) 100 05/03/19 08:00 114/62 05/03/19 08:00 64 05/03/19 08:00 Room Air 05/03/19 07:30 64 17 114/62 (79) 100 05/03/19 07:15 62 14 101/79 (86) 100 05/03/19 07:00 62 16 101/75 (84) 100 05/03/19 07:00 101/75 05/03/19 06:45 59 14 122/61 (81) 100 05/03/19 06:30 61 14 130/55 (80) 100 05/03/19 06:15 64 15 121/58 (79) 100 05/03/19 06:00 113/55 05/03/19 06:00 60 16 113/55 (74) 100 05/03/19 05:45 57 19 98/70 (79) 100 05/03/19 05:30 62 17 124/56 (78) 100 05/03/19 05:15 61 14 106/80 (89) 100 05/03/19 05:00 62 14 118/54 (75) 100 05/03/19 05:00 118/54 05/03/19 04:45 62 14 101/63 (76) 100 05/03/19 04:30 61 14 111/62 (78) 100 05/03/19 04:00 64 05/03/19 04:00 Room Air 05/03/19 04:00 135/77 05/03/19 04:00 98.0 64 17 135/57 (83) 100 05/03/19 03:30 61 17 126/61 (82) 100 05/03/19 03:00 106/44 05/03/19 03:00 64 17 106/44 (64) 100 05/03/19 02:30 69 15 119/65 (83) 96 05/03/19 02:00 65 20 114/73 (87) 100 05/03/19 02:00 114/73 05/03/19 01:30 67 22 129/63 (85) 100 05/03/19 01:00 65 19 122/57 (78) 100 05/03/19 01:00 122/57 05/03/19 00:30 63 19 108/61 (77) 100 05/03/19 00:00 97.9 64 21 108/65 (79) 100 05/03/19 00:00 108/65 05/03/19 00:00 Room Air 05/03/19 00:00 65 05/02/19 23:30 66 23 114/61 (78) 100 05/02/19 23:00 65 20 113/63 (80) 100 05/02/19 23:00 102/55 05/02/19 22:30 65 19 111/63 (79) 100 05/02/19 22:00 65 21 102/55 (71) 100 05/02/19 22:00 101/55 05/02/19 21:45 65 23 98/55 (69) 100 05/02/19 21:30 64 23 100/58 (72) 100 05/02/19 21:15 66 18 97/61 (73) 100 05/02/19 21:00 66 20 121/56 (77) 100 05/02/19 21:00 121/56 05/02/19 20:45 71 22 107/54 (71) 100 05/02/19 20:30 69 23 98/46 (63) 100 05/02/19 20:15 67 27 85/43 (57) 100 05/02/19 20:00 Room Air 05/02/19 20:00 70 05/02/19 20:00 97.5 68 21 103/48 (66) 100 05/02/19 20:00 103/48 05/02/19 19:45 67 20 90/46 (61) 100 05/02/19 19:30 68 20 94/50 (65) 100 05/02/19 19:00 72 23 99/53 (68) 100 05/02/19 19:00 99/53 05/02/19 18:30 73 25 96/57 (70) 100 05/02/19 18:15 71 20 105/54 (71) 100 05/02/19 18:00 107/66 05/02/19 18:00 70 19 107/66 (80) 100 05/02/19 17:45 72 20 103/51 (68) 100 05/02/19 17:30 78 19 93/79 (84) 98 05/02/19 17:15 98 20 98/58 (71) 100 05/02/19 17:00 79 20 105/66 (79) 100 05/02/19 17:00 105/66 05/02/19 16:45 80 19 107/62 (77) 100 05/02/19 16:30 97.7 78 18 93/56 (68) 100 05/02/19 16:15 79 19 108/68 (81) 100 05/02/19 16:00 83 20 111/53 (72) 100 05/02/19 16:00 111/53 05/02/19 16:00 Room Air 05/02/19 16:00 71 05/02/19 15:45 82 21 116/68 (84) 100 05/02/19 15:30 79 20 134/66 (88) 100 05/02/19 15:15 55 19 119/81 (94) 98 05/02/19 15:10 117/68 05/02/19 15:00 57 20 117/68 (84) 100 05/02/19 14:45 60 17 123/59 (80) 99 I&O Intake and Output 05/02/19 05/03/19 18:59 06:59 Intake Total 1095.787 ml 1351.866 ml Output Total 1380 ml 2700 ml Balance -284.213 ml -1348.134 ml Intake Oral 170 ml 200 ml IV Total 925.787 ml 1151.866 ml Output Urine Total 1380 ml 2700 ml Dressing: saturated Wound: clean Cardiovascular: RSR Respiratory: decreased breath sounds Abdomen: soft, present bowel sounds, non-distended Extremities: no cyanosis, other Laboratory Tests Test 05/02/19 17:15 05/03/19 05:25 05/03/19 12:15 White Blood Count 9.5 K/UL (4.8-10.8) 8.4 K/UL (4.8-10.8) Red Blood Count 3.02 M/UL (4.20-5.40) L 3.23 M/UL (4.20-5.40) L Hemoglobin 9.5 G/DL (12.0-16.0) L 10.2 G/DL (12.0-16.0) L Hematocrit 28.2 % (37.0-47.0) L 30.9 % (37.0-47.0) L Mean Corpuscular Volume 93 FL (80-99) 96 FL (80-99) Mean Corpuscular Hemoglobin 31.4 PG (27.0-31.0) H 31.6 PG (27.0-31.0) H Mean Corpuscular Hemoglobin Concent 33.6 G/DL (32.0-36.0) 33.1 G/DL (32.0-36.0) Red Cell Distribution Width 11.7 % (11.6-14.8) 12.0 % (11.6-14.8) Platelet Count 209 K/UL (150-450) 224 K/UL (150-450) Mean Platelet Volume 6.5 FL (6.5-10.1) 7.1 FL (6.5-10.1) Neutrophils (%) (Auto) 84.1 % (45.0-75.0) H 66.9 % (45.0-75.0) Lymphocytes (%) (Auto) 13.9 % (20.0-45.0) L 29.1 % (20.0-45.0) Monocytes (%) (Auto) 1.8 % (1.0-10.0) 3.2 % (1.0-10.0) Eosinophils (%) (Auto) 0.0 % (0.0-3.0) 0.2 % (0.0-3.0) Basophils (%) (Auto) 0.2 % (0.0-2.0) 0.7 % (0.0-2.0) Sodium Level 142 MMOL/L (136-145) 145 MMOL/L (136-145) Potassium Level 2.6 MMOL/L (3.5-5.1) *L 2.8 MMOL/L (3.5-5.1) L Chloride Level 108 MMOL/L (98-107) H 109 MMOL/L (98-107) H Carbon Dioxide Level 21 MMOL/L (21-32) 27 MMOL/L (21-32) Anion Gap 13 mmol/L (5-15) 9 mmol/L (5-15) Blood Urea Nitrogen 21 mg/dL (7-18) H 15 mg/dL (7-18) Creatinine 0.5 MG/DL (0.55-1.30) L 0.5 MG/DL (0.55-1.30) L Estimat Glomerular Filtration Rate mL/min (>60) mL/min (>60) Glucose Level 129 MG/DL (74-106) H 100 MG/DL (74-106) Calcium Level 8.1 MG/DL (8.5-10.1) L 8.6 MG/DL (8.5-10.1) Total Bilirubin 0.2 MG/DL (0.2-1.0) 0.2 MG/DL (0.2-1.0) Aspartate Amino Transf (AST/SGOT) 24 U/L (15-37) 21 U/L (15-37) Alanine Aminotransferase (ALT/SGPT) 36 U/L (12-78) 37 U/L (12-78) Alkaline Phosphatase 58 U/L (46-116) 59 U/L (46-116) Total Protein 5.0 G/DL (6.4-8.2) L 5.5 G/DL (6.4-8.2) L Albumin 2.2 G/DL (3.4-5.0) L 2.2 G/DL (3.4-5.0) L Globulin 2.8 g/dL 3.3 g/dL Albumin/Globulin Ratio 0.8 (1.0-2.7) L 0.7 (1.0-2.7) L Erythrocyte Sedimentation Rate 42 MM/HR (0-30) H Reticulocyte Count 0.7 % (0.5-2.0) Phosphorus Level 3.5 MG/DL (2.5-4.9) Magnesium Level 2.1 MG/DL (1.8-2.4) Lactate Dehydrogenase 152 U/L (81-234) Troponin I 0.016 ng/mL (0.000-0.056) Pro-B-Type Natriuretic Peptide 1050 pg/mL (0-125) H Thyroid Stimulating Hormone (TSH) 0.487 uiU/mL (0.358-3.740) Free Thyroxine 0.92 NG/DL (0.76-1.46) Amikacin Level Peak < 2.5 ug/mL (25.0-35.0) L Plan Problems: (1) Decubitus ulcer of sacral region, stage 4 Assessment & Plan: Pt presented on admission with contractures and multiple pressure injuries. Full thickness sacral pressure injury with undermining .Beefy red granulation at base of wound with an area of 20% soft necrosis along borders and undermined area.No odor noted. Small amt sanguineous exudate noted(L)2cm x (W)2.5cm x (D) 1.9cm, undermining clockwise 12-12 by 1.9cm @12 o'clock. Resolving pressure injury R elbow .Base of wound epithelialized -pink and dry.(L )1.5cm x (W)1.6cm. Resolving pressure injury R trochanter .Base of wound has dry ,pink epithelial.edges adherent and flat without erythema or induration(L)2cm x (W) 4cm. hyperpigmentation periwound. Hyperpigmentation from previous wound L trochanter. Non-blanchable erythema with fluctuance noted to lateral L heel (L)2.5cm x (W) 2.5cm.Periwound without erythema induration or fluctuance. R heel is pink and blanchable. Non-blanchable erythema without fluctuance /induration L lateral 1st metatarsal. (L)0.5cm x (W)1cm Non-blanchable erythema without fluctuance /induration noted L hallux. (L)1cm x (w)1cm. Non-blanchable erythema without induration/fluctuance lateral R foot. Tx.Plan: Cleanse Sacral wound with Saline. Loosely pack with Hydrogel impregnated Plain packing strip.Apply Triad periwound Cover with Optifoam Daily and PRN. Apply Moisture Barrier Paste to R and L trochanters. Cover each site with Optifoam drsg. Change every 3 days and prn. Apply Cavilon Skin Barrier to R and L heels. Cover each heel with Optifoam drsgs. Change every 7 days and prn. Apply Cavilon Skin Barrier to L hallux and L 1st metatarsal. Cover with Optifoam drsg. Change every 7 days and prn. Apply Cavilon Skin Barrier to lateral R foot. Cover with Optifoam drsg. Change every 7 days and prn. APM/YO mattress overlay. Reposition at least every 2hours or as tolerated. Off-load heels with pillow. (2) Renal insufficiency (3) Septic shock Assessment & Plan: leukocytosis tachycardia anemia hypotension responding well to fluids and abx UTI pending micro cont abx cont with current care will follow with recs thank you (4) UTI (urinary tract infection) (5) ATN (acute tubular necrosis) (6) Advanced dementia (7) History of CVA with residual deficit (8) Hemiparesis (9) History of hypertension Carroll Smith May 03, 2019 14:40
--- NOTE | 2019-05-03 15:19 | Internal Med Progress Note ---
Subjective Physician Name Solo Macdonald Attending Physician Solo Macdonald MD Current Medications Medications (Trade) Dose Ordered Sig/Familia Route PRN Reason Start Time Stop Time Status Last Admin Dose Admin Acetaminophen (Tylenol) 650 mg Q4H PRN ORAL fever 05/01/19 12:00 05/31/19 11:59 Barium Sulfate (Readi-Cat 2) 450 ml NOW PRN ORAL Radiology Procedure 05/02/19 23:45 05/04/19 23:45 Cefepime HCl 500 mg/Dextrose 55 ml @ 110 mls/hr EVERY 12 HOURS IVPB 05/01/19 16:00 05/08/19 15:59 05/03/19 09:20 Chlorhexidine Gluconate (Montserrat-Hex 2%) 1 applic DAILY@2000 TOPIC 05/02/19 20:00 06/01/19 19:59 05/02/19 20:04 Dextrose 1,000 ml @ 50 mls/hr Q20H IV 05/03/19 13:00 06/02/19 12:59 05/03/19 13:07 Dextrose (Dextrose 50%) 25 ml Q30M PRN IV Hypoglycemia 05/01/19 12:00 05/31/19 11:59 Dextrose (Dextrose 50%) 50 ml Q30M PRN IV Hypoglycemia 05/01/19 12:15 05/31/19 12:14 Dopamine HCl/ Dextrose 250 ml @ 0 mls/hr Q24H IV 05/02/19 15:00 05/31/19 16:44 05/02/19 15:10 Famotidine (Pepcid I.v.) 20 mg Q12HR IVP 05/03/19 21:00 06/02/19 20:59 Folic Acid (Folate) 3 mg DAILY ORAL 05/03/19 12:45 06/02/19 12:44 Heparin Sodium (Porcine) (Heparin 5000 units/ml) 5,000 units EVERY 12 HOURS SUBQ 05/01/19 21:00 05/31/19 20:59 05/03/19 08:23 Iopamidol (Isovue-300 100ml) 100 ml NOW PRN INJ Radiology Procedure 05/02/19 23:45 Lorazepam (Ativan 2mg/ml 1ml) 0.5 mg Q4H PRN IV For Anxiety 05/01/19 12:00 05/08/19 11:59 Morphine Sulfate (Morphine Sulfate) 1 mg Q4H PRN IVP For Pain 05/01/19 12:00 05/08/19 11:59 Ondansetron HCl (Zofran) 4 mg Q6H PRN IVP Nausea & Vomiting 05/01/19 12:00 05/31/19 11:59 Polyethylene Glycol (Miralax) 17 gm HSPRN PRN ORAL Constipation 05/01/19 12:00 05/31/19 11:59 Potassium Chloride 100 ml @ 50 mls/hr Q2H IVPB 05/03/19 12:30 05/03/19 16:29 05/03/19 13:11 Zolpidem Tartrate (Ambien) 5 mg HSPRN PRN ORAL Insomnia 05/01/19 12:00 05/08/19 11:59 Allergies: Coded Allergies: No Known Allergies (Unverified , 05/01/19) Subjective In ICU, more Responsive, awake, NAD, bradycardia, WBC: 8.4, K: 2.8 Objective Last Vital Signs Date Time Temp Pulse Resp B/P (MAP) Pulse Ox O2 Delivery O2 Flow Rate FiO2 05/03/19 14:30 69 19 107/55 (72) 100 05/03/19 12:00 98.1 05/03/19 12:00 Room Air 05/02/19 00:00 2.0 Laboratory Tests Test 05/02/19 17:15 05/03/19 05:25 05/03/19 12:15 White Blood Count 9.5 K/UL (4.8-10.8) 8.4 K/UL (4.8-10.8) Red Blood Count 3.02 M/UL (4.20-5.40) L 3.23 M/UL (4.20-5.40) L Hemoglobin 9.5 G/DL (12.0-16.0) L 10.2 G/DL (12.0-16.0) L Hematocrit 28.2 % (37.0-47.0) L 30.9 % (37.0-47.0) L Mean Corpuscular Volume 93 FL (80-99) 96 FL (80-99) Mean Corpuscular Hemoglobin 31.4 PG (27.0-31.0) H 31.6 PG (27.0-31.0) H Mean Corpuscular Hemoglobin Concent 33.6 G/DL (32.0-36.0) 33.1 G/DL (32.0-36.0) Red Cell Distribution Width 11.7 % (11.6-14.8) 12.0 % (11.6-14.8) Platelet Count 209 K/UL (150-450) 224 K/UL (150-450) Mean Platelet Volume 6.5 FL (6.5-10.1) 7.1 FL (6.5-10.1) Neutrophils (%) (Auto) 84.1 % (45.0-75.0) H 66.9 % (45.0-75.0) Lymphocytes (%) (Auto) 13.9 % (20.0-45.0) L 29.1 % (20.0-45.0) Monocytes (%) (Auto) 1.8 % (1.0-10.0) 3.2 % (1.0-10.0) Eosinophils (%) (Auto) 0.0 % (0.0-3.0) 0.2 % (0.0-3.0) Basophils (%) (Auto) 0.2 % (0.0-2.0) 0.7 % (0.0-2.0) Sodium Level 142 MMOL/L (136-145) 145 MMOL/L (136-145) Potassium Level 2.6 MMOL/L (3.5-5.1) *L 2.8 MMOL/L (3.5-5.1) L Chloride Level 108 MMOL/L (98-107) H 109 MMOL/L (98-107) H Carbon Dioxide Level 21 MMOL/L (21-32) 27 MMOL/L (21-32) Anion Gap 13 mmol/L (5-15) 9 mmol/L (5-15) Blood Urea Nitrogen 21 mg/dL (7-18) H 15 mg/dL (7-18) Creatinine 0.5 MG/DL (0.55-1.30) L 0.5 MG/DL (0.55-1.30) L Estimat Glomerular Filtration Rate mL/min (>60) mL/min (>60) Glucose Level 129 MG/DL (74-106) H 100 MG/DL (74-106) Calcium Level 8.1 MG/DL (8.5-10.1) L 8.6 MG/DL (8.5-10.1) Total Bilirubin 0.2 MG/DL (0.2-1.0) 0.2 MG/DL (0.2-1.0) Aspartate Amino Transf (AST/SGOT) 24 U/L (15-37) 21 U/L (15-37) Alanine Aminotransferase (ALT/SGPT) 36 U/L (12-78) 37 U/L (12-78) Alkaline Phosphatase 58 U/L (46-116) 59 U/L (46-116) Total Protein 5.0 G/DL (6.4-8.2) L 5.5 G/DL (6.4-8.2) L Albumin 2.2 G/DL (3.4-5.0) L 2.2 G/DL (3.4-5.0) L Globulin 2.8 g/dL 3.3 g/dL Albumin/Globulin Ratio 0.8 (1.0-2.7) L 0.7 (1.0-2.7) L Erythrocyte Sedimentation Rate 42 MM/HR (0-30) H Reticulocyte Count 0.7 % (0.5-2.0) Phosphorus Level 3.5 MG/DL (2.5-4.9) Magnesium Level 2.1 MG/DL (1.8-2.4) Lactate Dehydrogenase 152 U/L (81-234) Troponin I 0.016 ng/mL (0.000-0.056) Pro-B-Type Natriuretic Peptide 1050 pg/mL (0-125) H Thyroid Stimulating Hormone (TSH) 0.487 uiU/mL (0.358-3.740) Free Thyroxine 0.92 NG/DL (0.76-1.46) Amikacin Level Peak < 2.5 ug/mL (25.0-35.0) L Microbiology Date/Time Source Procedure Growth Status 05/01/19 10:25 Blood Blood Culture - Preliminary NO GROWTH AFTER 24 HOURS Resulted 05/01/19 10:25 Blood Blood Culture - Preliminary NO GROWTH AFTER 24 HOURS Resulted 05/01/19 10:35 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 Complete 05/01/19 10:35 Rectum - Final NO CARBAPENEM-RESISTANT ENTEROBACTERI... Complete Intake and Output 05/02/19 05/03/19 18:59 06:59 Intake Total 1095.787 ml 1351.866 ml Output Total 1380 ml 2700 ml Balance -284.213 ml -1348.134 ml Intake Oral 170 ml 200 ml IV Total 925.787 ml 1151.866 ml Output Urine Total 1380 ml 2700 ml Objective GENERAL: Awake, more responsive, alert, Cachexia, talking. HEAD AND NECK: Pupils are equal and reactive to light. Anicteric. Neck supple. No JVD. LUNGS: Good air entry. decrease air at bases, No wheezing or rhonchi. HEART: S1, S2. Regular rhythm. No murmur or gallops. ABDOMEN: Soft, nondistended, nontender. Positive bowel sounds. EXTREMITIES: No cyanosis, clubbing, edema. The patient has muscle atrophy in bilateral lower extremity. Left femoral TLC. NEUROLOGIC: Cranial nerves II through XII grossly intact. contracted lower extremity. Moving upper extremity, right side weakness. SKIN: Bilateral trochanter stage I ulceration as well as sacral decubitus ulcer stage IV. No discharge was noted. Assessment/Plan Assessment/Plan ASSESSMENT: 1. Septic shock, most likely secondary to acute sepsis due to GNR urinary tract infection. 2. Severe cachexia, Severe protein calori malnutrition. 3. Stage IV sacral decubitus ulcer presented on admission. 4. History of essential hypertension, presently hypotensive. 5. Acute kidney injury on chronic renal insufficiency, most likely secondary to severe dehydration and hypovolemia. 6. Advanced dementia. 7. Severe Hypotension most likely combination of septic shock and Dehydration / Hypovolemia. 8. Bilateral hydronephrosis. 9. Hypokalemia. PLAN: In ICU. Monitor laboratory and cultures Antibiotics: cefepime, DVT prophylaxis: heparin subcutaneous. Code status at this time is Full Code per POLST. wean off dopamine Drip. Cardiology consult with Dr. Ross Pulmonary consult Dr. Nash Urology consult with Dr. Portillo Discuss with family members, Daughter and son, regarding PEG placement, they agreed. will consider PEG placement once more stable. Kcl supplements IVF @ 50 cc/hr Solo Macdonald MD May 03, 2019 15:19
[2019-05-03] MEDS: DOPamine 400mg/250ml 250 ML IV SCH (16:00)
--- NOTE | 2019-05-03 16:05 | NUR ---
NURSE NOTES: Dopa titrated from 3 mcgs to 2 mcgs. BP stable and HR stable. Will monitor closely for bradycardia and hypoTN.
--- NOTE | 2019-05-03 16:15 | NUR ---
NURSE NOTES: Patient observed bedside. Patient is awake, alert and continues to watch television. Patient responds to questions and intermittently follows commands however does appear confused at times. Patient is resting comfortably and does not appear in any acute distress. Patient opens eyes spontaneously and is able to verbally make her needs known in Persian. VSS. Patient has a Villagomez catheter draining large amounts of straw colored urine to gravity. Patient has a LFem TLC running Dopa 2 mcgs down from 3 mcgs and D5W at 50 ml/hr that is secure and patent. Safety measures are in place with the bed locked, in the lowest position, 3 side rails up. Will continue to monitor and follow plan of care.
--- NOTE | 2019-05-03 18:35 | NUR ---
NURSE NOTES: Patient ate her dinner tray. Patient was able to tell me when she was not hungry any longer. Patient liked her Jeronimo. Patient has remained at 2 mcgs at Dopamine and tolerating well. VSS remained stable and is not in any acute distress. Will endorse to the PM RN regarding the CT scan that should be done in the am to continue the calorie count.
--- NOTE | 2019-05-03 19:37 | NUR ---
NURSE NOTES: Received report from VARUN Ivan. Patient is awake and responsive to verbal and tactile stimuli. Able to follow direction and able to make needs known. No acute distress/SOB noted. On room air. LFA 20G SL and RFA 20G SL noted. Left femoral TLC intact and clean running with dopamine drip 2mcg/kg/min. Vital signs stable. Call-light placed in easy reach. Will continue plan of care.
[2019-05-03] MEDS: Dyna-Hex 2% Top Sol 2oz TOPIC SCH (20:22)
--- NOTE | 2019-05-03 21:00 | NUR ---
NURSE NOTES: All due medications given as ordered. No acute distress/SOB noted.
--- NOTE | 2019-05-03 22:04 | NUR ---
NURSE NOTES: Repositioned patient. Call light placed in easy reach.
[2019-05-04] VITALS (42 sets, daily range): BP systolic 89–135; BP diastolic 46–98
--- NOTE | 2019-05-04 | NUR ---
NURSE NOTES: Blood pressure has been stable with dopamine 1mcg/kg/hr. Hold dopamine drip for now. Will continue to monitor.
--- NOTE | 2019-05-04 02:00 | NUR ---
NURSE NOTES: Repositioned patient. vital signs stable.
--- NOTE | 2019-05-04 02:04 | NUR ---
NURSE NOTES: Repositioned patient and central line dressing is changed with sterile technique. Addendum: 05/04/19 at 0210 by ROBERTO FLORES RN Wrong entry.
--- NOTE | 2019-05-04 04:00 | NUR ---
NURSE NOTES: Patient HR drops 56-57. Started dopamine drip @1mcg/kg/hr. Will continue plan of care.
--- NOTE | 2019-05-04 04:10 | NUR ---
NURSE NOTES: Bed bath given and blood is drawn and sent to the lab.
[2019-05-04 05:06] LABS: BASOPHILS % (AUTO) 0.9 % (0.0-2.0); EOSINOPHILS % (AUTO) 1.3 % (0.0-3.0); HEMATOCRIT 26.4 % (37.0-47.0); HEMOGLOBIN 8.7 G/DL (12.0-16.0); LYMPHOCYTES % (AUTO) 31.8 % (20.0-45.0); MEAN CORPUSCULAR VOLUME 95 FL (80-99); MONOCYTES % (AUTO) 5.4 % (1.0-10.0); NEUTROPHILS % (AUTO) 60.6 % (45.0-75.0); PLATELET COUNT 195 K/UL (150-450); RED BLOOD COUNT 2.78 M/UL (4.20-5.40); RED CELL DISTRIBUTION WIDTH 11.9 % (11.6-14.8); WHITE BLOOD COUNT 6.1 K/UL (4.8-10.8)
[2019-05-04 05:56] LABS: ALANINE AMINOTRANSFERASE 68 U/L (12-78); ALBUMIN 2.1 G/DL (3.4-5.0); ALBUMIN/GLOBULIN RATIO 0.8 (1.0-2.7); ALKALINE PHOSPHATASE 56 U/L (46-116); ANION GAP 8 mmol/L (5-15); ASPARTATE AMINO TRANSFERASE 43 U/L (15-37); BILIRUBIN,TOTAL 0.2 MG/DL (0.2-1.0); BLOOD UREA NITROGEN 14 mg/dL (7-18); CALCIUM 8.1 MG/DL (8.5-10.1); CARBON DIOXIDE 26 MMOL/L (21-32); CHLORIDE 103 MMOL/L (98-107); CREATININE 0.6 MG/DL (0.55-1.30); PHOSPHORUS 1.6 MG/DL (2.5-4.9); POTASSIUM 3.7 MMOL/L (3.5-5.1); SODIUM 137 MMOL/L (136-145)
--- NOTE | 2019-05-04 07:10 | NUR ---
NURSE NOTES: Received pt from VARUN Romero. patient is awake, primarily speaks [place] Lankan. Can answer simple yes or no questions and follow simple commands. RA, oxygen saturation 100%, non-labored and even breathing. Bilateral b/s clear. Patient is contracted BLE and BUE. Patient is NPO this morning for CT abdomen w/wo. Bed locked, alarmed and in lowest position. Left femoral TLC running D5W@50ml/hr and Dopamine 1mcg/kg/hr. BP stable, HR 70. LFA 20G and RFA 20G asymptomatic and patent. Dressing on sacral, left heel DTI and left trochanter dressing clean and intact. Will continue plan of care.
--- NOTE | 2019-05-04 08:46 | Urology Progress Note ---
Assessment/Plan Assessment/Plan: 1. Mild left-sided hydronephrosis. 2. Urinary retention. 3. Probable neurogenic bladder. 4. Proteinuria. 5. Hematuria. 6. Pyuria. 7. Mild acute kidney injury, which has resolved. 8. Possible nephrolithiasis. monitor clinically maintain mujica hand irrigate PRN abx as ordered renal fxn stable f/u on CT scan Subjective Allergies: Coded Allergies: No Known Allergies (Unverified , 05/01/19) Subjective all noted Objective Last 24 Hour Vital Signs Date Time Temp Pulse Resp B/P (MAP) Pulse Ox O2 Delivery O2 Flow Rate FiO2 05/04/19 07:00 65 15 104/62 (76) 100 05/04/19 07:00 104/62 05/04/19 06:30 64 15 94/59 (71) 99 05/04/19 06:03 65 16 105/61 (76) 99 05/04/19 06:00 63 16 89/55 (66) 100 05/04/19 06:00 105/61 05/04/19 05:45 66 16 104/56 (72) 100 05/04/19 05:30 63 20 102/58 (73) 100 05/04/19 05:00 75 18 124/63 (83) 100 05/04/19 05:00 108/58 05/04/19 04:30 63 16 106/60 (75) 100 05/04/19 04:15 59 17 102/62 (75) 100 05/04/19 04:00 98.1 59 17 115/62 (79) 100 05/04/19 04:00 Room Air 05/04/19 04:00 102/62 05/04/19 04:00 59 05/04/19 03:30 62 17 108/69 (82) 100 05/04/19 03:00 68 20 127/69 (88) 100 05/04/19 02:30 60 17 135/73 (93) 100 05/04/19 02:00 62 16 133/79 (97) 100 05/04/19 01:30 60 17 121/70 (87) 100 05/04/19 01:00 62 17 126/76 (93) 100 05/04/19 00:45 59 17 125/70 (88) 100 05/04/19 00:30 60 18 120/98 (105) 100 05/04/19 00:15 66 18 133/73 (93) 100 05/04/19 00:00 70 05/04/19 00:00 74 17 126/77 (93) 100 05/04/19 00:00 133/73 05/04/19 00:00 74 17 126/77 (93) 100 05/04/19 00:00 74 17 126/77 (93) 100 05/04/19 00:00 Room Air 05/04/19 00:00 74 17 126/77 (93) 100 05/03/19 23:45 75 19 128/74 (92) 100 05/03/19 23:30 75 18 144/73 (96) 100 05/03/19 23:15 73 16 139/102 (114) 100 05/03/19 23:00 143/84 05/03/19 23:00 73 20 143/84 (103) 100 05/03/19 22:45 74 19 109/85 (93) 100 05/03/19 22:30 70 18 115/82 (93) 100 05/03/19 22:00 70 19 126/84 (98) 100 05/03/19 22:00 138/68 05/03/19 21:30 69 19 122/78 (93) 100 05/03/19 21:00 117/77 05/03/19 21:00 67 19 117/77 (90) 100 05/03/19 20:30 71 19 133/70 (91) 100 05/03/19 20:00 116/77 05/03/19 20:00 Room Air 05/03/19 20:00 98.8 69 18 114/72 (86) 100 05/03/19 20:00 70 05/03/19 19:30 65 18 112/68 (83) 100 05/03/19 19:00 72 19 107/65 (79) 100 05/03/19 19:00 107/65 05/03/19 18:30 73 20 110/63 (79) 100 05/03/19 18:00 73 19 112/69 (83) 100 05/03/19 18:00 112/69 05/03/19 17:30 73 20 114/67 (83) 100 05/03/19 17:00 74 19 124/86 (99) 100 05/03/19 17:00 124/86 05/03/19 16:30 77 20 131/70 (90) 100 05/03/19 16:00 66 05/03/19 16:00 98.0 66 20 110/52 (71) 100 05/03/19 16:00 Room Air 05/03/19 16:00 110/52 05/03/19 16:00 110/52 05/03/19 15:30 68 19 110/46 (67) 100 05/03/19 15:00 105/67 05/03/19 15:00 68 19 102/58 (73) 100 05/03/19 14:30 69 19 107/55 (72) 100 05/03/19 14:00 69 19 104/50 (68) 100 05/03/19 14:00 104/50 05/03/19 13:30 67 19 109/54 (72) 100 05/03/19 13:00 67 19 105/58 (74) 100 05/03/19 13:00 105/58 05/03/19 12:30 66 18 109/59 (76) 100 05/03/19 12:00 98.1 68 19 111/62 (78) 100 05/03/19 12:00 Room Air 05/03/19 12:00 111/62 05/03/19 12:00 68 05/03/19 11:00 65 15 102/56 (71) 100 05/03/19 10:30 67 18 109/55 (73) 100 05/03/19 10:00 107/55 05/03/19 10:00 70 15 98/64 (75) 100 05/03/19 09:30 71 17 105/65 (78) 100 05/03/19 09:00 98.0 69 16 112/51 (71) 100 05/03/19 09:00 112/51 Intake and Output 05/03/19 05/04/19 19:00 07:00 Intake Total 1196.371 ml 667.792 ml Output Total 2245 ml 1400 ml Balance -1048.629 ml -732.208 ml Intake Oral 140 ml IV Total 1056.371 ml 667.792 ml Output Urine Total 2245 ml 1400 ml Microbiology Date/Time Source Procedure Growth Status 05/01/19 10:25 Blood Blood Culture - Preliminary NO GROWTH AFTER 48 HOURS Resulted 05/01/19 10:35 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 Complete 05/01/19 17:18 Urine,Clean Catch Urine Culture - Final NO GROWTH AFTER 48 HOURS Complete 05/01/19 10:35 Rectum VRE Culture - Final NO VANCOMYCIN RESISTANT ENTEROCOCCUS ... Complete 05/01/19 10:35 Rectum - Final NO CARBAPENEM-RESISTANT ENTEROBACTERI... Complete Current Medications Medications (Trade) Dose Ordered Sig/Familia Route PRN Reason Start Time Stop Time Status Last Admin Dose Admin Acetaminophen (Tylenol) 650 mg Q4H PRN ORAL fever 05/01/19 12:00 05/31/19 11:59 Barium Sulfate (Readi-Cat 2) 450 ml NOW PRN ORAL Radiology Procedure 05/02/19 23:45 05/04/19 23:45 Cefepime HCl 500 mg/Dextrose 55 ml @ 110 mls/hr EVERY 12 HOURS IVPB 05/01/19 16:00 05/08/19 15:59 05/03/19 21:26 Chlorhexidine Gluconate (Montserrat-Hex 2%) 1 applic DAILY@2000 TOPIC 05/02/19 20:00 06/01/19 19:59 05/03/19 20:22 Dextrose 1,000 ml @ 50 mls/hr Q20H IV 05/03/19 13:00 06/02/19 12:59 05/03/19 13:07 Dextrose (Dextrose 50%) 25 ml Q30M PRN IV Hypoglycemia 05/01/19 12:00 05/31/19 11:59 Dextrose (Dextrose 50%) 50 ml Q30M PRN IV Hypoglycemia 05/01/19 12:15 05/31/19 12:14 Dopamine HCl/ Dextrose 250 ml @ 0 mls/hr Q24H IV 05/02/19 15:00 05/31/19 16:44 05/02/19 15:10 Famotidine (Pepcid I.v.) 20 mg Q12HR IVP 05/03/19 21:00 06/02/19 20:59 05/03/19 20:22 Folic Acid (Folate) 3 mg DAILY ORAL 05/03/19 12:45 06/02/19 12:44 Heparin Sodium (Porcine) (Heparin 5000 units/ml) 5,000 units EVERY 12 HOURS SUBQ 05/01/19 21:00 05/31/19 20:59 05/03/19 20:22 Iopamidol (Isovue-300 100ml) 100 ml NOW PRN INJ Radiology Procedure 05/02/19 23:45 05/04/19 23:44 Lorazepam (Ativan 2mg/ml 1ml) 0.5 mg Q4H PRN IV For Anxiety 05/01/19 12:00 05/08/19 11:59 Morphine Sulfate (Morphine Sulfate) 1 mg Q4H PRN IVP For Pain 05/01/19 12:00 05/08/19 11:59 Ondansetron HCl (Zofran) 4 mg Q6H PRN IVP Nausea & Vomiting 05/01/19 12:00 05/31/19 11:59 Polyethylene Glycol (Miralax) 17 gm HSPRN PRN ORAL Constipation 05/01/19 12:00 05/31/19 11:59 Potassium Phosphate 30 mm/ Sodium Chloride 285 ml @ 47.5 mls/hr ONCE ONCE IV 05/04/19 10:00 05/04/19 15:59 Zolpidem Tartrate (Ambien) 5 mg HSPRN PRN ORAL Insomnia 05/01/19 12:00 05/08/19 11:59 Laboratory Tests 05/03/19 12:15: Amikacin Level Peak < 2.5L 05/04/19 04:30: White Blood Count 6.1, Red Blood Count 2.78L, Hemoglobin 8.7L, Hematocrit 26.4L , Mean Corpuscular Volume 95, Mean Corpuscular Hemoglobin 31.3H, Mean Corpuscular Hemoglobin Concent 32.9, Red Cell Distribution Width 11.9, Platelet Count 195, Mean Platelet Volume 6.1L, Neutrophils (%) (Auto) 60.6, Lymphocytes ( %) (Auto) 31.8, Monocytes (%) (Auto) 5.4, Eosinophils (%) (Auto) 1.3, Basophils (%) (Auto) 0.9, Erythrocyte Sedimentation Rate 32H, Sodium Level 137, Potassium Level 3.7, Chloride Level 103, Carbon Dioxide Level 26, Anion Gap 8, Blood Urea Nitrogen 14, Creatinine 0.6, Estimat Glomerular Filtration Rate , Glucose Level 82, Uric Acid 2.5L, Calcium Level 8.1L, Phosphorus Level 1.6L, Magnesium Level 1.8, Total Bilirubin 0.2, Aspartate Amino Transf (AST/SGOT) 43H, Alanine Aminotransferase (ALT/SGPT) 68, Alkaline Phosphatase 56, C-Reactive Protein, Quantitative 2.1H, Pro-B-Type Natriuretic Peptide 500H, Total Protein 4.6L, Albumin 2.1L, Globulin 2.5, Albumin/Globulin Ratio 0.8L, Cortisol AM Sample [ Pending] Height (Feet): 5 Height (Inches): 2.00 Weight (Pounds): 90 Objective exam stable urine grossly yellow, occasional debris CT A/P pending Felice Portillo MD May 04, 2019 08:46
--- NOTE | 2019-05-04 09:00 | NUR ---
NURSE NOTES: Dopamine drip turned off, SBP >90, HR 74, no arrhythmia. Urogram scheduled today w/wo contrast at 11:00am.
[2019-05-04] MEDS: Cefepime HCl 500 MG in D5W 55 ML IVPB SCH ×2 (09:27→21:38)
[2019-05-04] MEDS: Heparin 5000 units/ml inj SUBQ SCH ×2 (09:28→20:12)
[2019-05-04] MEDS ORDERED: Potassium Phosphate 30 MM in NS 275 ML IV ONE (10:00)
--- NOTE | 2019-05-04 10:08 | Pulmonolgy Critical Care Note ---
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 Renal: F/U I&O Infectious Disease: check cultures Gastrointestinal: continue feedings/current rate, abdominal imaging Endocrine: monitor blood sugar, check TSH Hematologic: monitor H/H Neurologic: PRN Morphine Prophylaxis: Protonix, Heparin Time Spent (Minutes): 40 Notes Reviewed: renal Discussed with: nurses, consultants, test case developercomplex manager - Objective Last 24 Hour Vital Signs Date Time Temp Pulse Resp B/P (MAP) Pulse Ox O2 Delivery O2 Flow Rate FiO2 05/04/19 08:00 Room Air 05/04/19 07:00 65 15 104/62 (76) 100 05/04/19 07:00 104/62 05/04/19 06:30 64 15 94/59 (71) 99 05/04/19 06:03 65 16 105/61 (76) 99 05/04/19 06:00 63 16 89/55 (66) 100 05/04/19 06:00 105/61 05/04/19 05:45 66 16 104/56 (72) 100 05/04/19 05:30 63 20 102/58 (73) 100 05/04/19 05:00 75 18 124/63 (83) 100 05/04/19 05:00 108/58 05/04/19 04:30 63 16 106/60 (75) 100 05/04/19 04:15 59 17 102/62 (75) 100 05/04/19 04:00 98.1 59 17 115/62 (79) 100 05/04/19 04:00 Room Air 05/04/19 04:00 102/62 05/04/19 04:00 59 05/04/19 03:30 62 17 108/69 (82) 100 05/04/19 03:00 68 20 127/69 (88) 100 05/04/19 02:30 60 17 135/73 (93) 100 05/04/19 02:00 62 16 133/79 (97) 100 05/04/19 01:30 60 17 121/70 (87) 100 05/04/19 01:00 62 17 126/76 (93) 100 05/04/19 00:45 59 17 125/70 (88) 100 05/04/19 00:30 60 18 120/98 (105) 100 05/04/19 00:15 66 18 133/73 (93) 100 05/04/19 00:00 70 05/04/19 00:00 74 17 126/77 (93) 100 05/04/19 00:00 133/73 05/04/19 00:00 74 17 126/77 (93) 100 05/04/19 00:00 74 17 126/77 (93) 100 05/04/19 00:00 Room Air 05/04/19 00:00 74 17 126/77 (93) 100 05/03/19 23:45 75 19 128/74 (92) 100 05/03/19 23:30 75 18 144/73 (96) 100 05/03/19 23:15 73 16 139/102 (114) 100 05/03/19 23:00 143/84 05/03/19 23:00 73 20 143/84 (103) 100 05/03/19 22:45 74 19 109/85 (93) 100 05/03/19 22:30 70 18 115/82 (93) 100 05/03/19 22:00 70 19 126/84 (98) 100 05/03/19 22:00 138/68 05/03/19 21:30 69 19 122/78 (93) 100 05/03/19 21:00 117/77 05/03/19 21:00 67 19 117/77 (90) 100 05/03/19 20:30 71 19 133/70 (91) 100 05/03/19 20:00 116/77 05/03/19 20:00 Room Air 05/03/19 20:00 98.8 69 18 114/72 (86) 100 05/03/19 20:00 70 05/03/19 19:30 65 18 112/68 (83) 100 05/03/19 19:00 72 19 107/65 (79) 100 05/03/19 19:00 107/65 05/03/19 18:30 73 20 110/63 (79) 100 05/03/19 18:00 73 19 112/69 (83) 100 05/03/19 18:00 112/69 05/03/19 17:30 73 20 114/67 (83) 100 05/03/19 17:00 74 19 124/86 (99) 100 05/03/19 17:00 124/86 05/03/19 16:30 77 20 131/70 (90) 100 05/03/19 16:00 66 05/03/19 16:00 98.0 66 20 110/52 (71) 100 05/03/19 16:00 Room Air 05/03/19 16:00 110/52 05/03/19 16:00 110/52 05/03/19 15:30 68 19 110/46 (67) 100 05/03/19 15:00 105/67 05/03/19 15:00 68 19 102/58 (73) 100 05/03/19 14:30 69 19 107/55 (72) 100 05/03/19 14:00 69 19 104/50 (68) 100 05/03/19 14:00 104/50 05/03/19 13:30 67 19 109/54 (72) 100 05/03/19 13:00 67 19 105/58 (74) 100 05/03/19 13:00 105/58 05/03/19 12:30 66 18 109/59 (76) 100 05/03/19 12:00 98.1 68 19 111/62 (78) 100 05/03/19 12:00 Room Air 05/03/19 12:00 111/62 05/03/19 12:00 68 05/03/19 11:00 65 15 102/56 (71) 100 05/03/19 10:30 67 18 109/55 (73) 100 Status: awake Condition: critical HEENT: atraumatic Neck: full ROM Lungs: clear Heart: HR/BP stable Abdomen: soft, non-tender, feeding tube Decubiti: location Micro: Microbiology Date/Time Source Procedure Growth Status 05/01/19 10:25 Blood Blood Culture - Preliminary NO GROWTH AFTER 48 HOURS Resulted 05/01/19 10:25 Blood Blood Culture - Preliminary NO GROWTH AFTER 48 HOURS Resulted 05/01/19 10:35 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 Complete 05/01/19 17:18 Urine,Clean Catch Urine Culture - Final NO GROWTH AFTER 48 HOURS Complete 05/01/19 10:15 Urine,Clean Catch Urine Culture - Final Providencia Stuartii Proteus Mirabilis Complete 05/01/19 10:35 Rectum VRE Culture - Final NO VANCOMYCIN RESISTANT ENTEROCOCCUS ... Complete 05/01/19 10:35 Rectum - Final NO CARBAPENEM-RESISTANT ENTEROBACTERI... Complete Critical Care - Subjective ROS Limited/Unobtainable: No Condition: critical EKG Rhythm: Sinus Rhythm I&O: Intake and Output 05/03/19 05/04/19 19:00 07:00 Intake Total 1196.371 ml 667.792 ml Output Total 2245 ml 1400 ml Balance -1048.629 ml -732.208 ml Intake Oral 140 ml IV Total 1056.371 ml 667.792 ml Output Urine Total 2245 ml 1400 ml Labs: Laboratory Tests Test 05/03/19 12:15 05/04/19 04:30 Amikacin Level Peak < 2.5 ug/mL (25.0-35.0) L White Blood Count 6.1 K/UL (4.8-10.8) Red Blood Count 2.78 M/UL (4.20-5.40) L Hemoglobin 8.7 G/DL (12.0-16.0) L Hematocrit 26.4 % (37.0-47.0) L Mean Corpuscular Volume 95 FL (80-99) Mean Corpuscular Hemoglobin 31.3 PG (27.0-31.0) H Mean Corpuscular Hemoglobin Concent 32.9 G/DL (32.0-36.0) Red Cell Distribution Width 11.9 % (11.6-14.8) Platelet Count 195 K/UL (150-450) Mean Platelet Volume 6.1 FL (6.5-10.1) L Neutrophils (%) (Auto) 60.6 % (45.0-75.0) Lymphocytes (%) (Auto) 31.8 % (20.0-45.0) Monocytes (%) (Auto) 5.4 % (1.0-10.0) Eosinophils (%) (Auto) 1.3 % (0.0-3.0) Basophils (%) (Auto) 0.9 % (0.0-2.0) Erythrocyte Sedimentation Rate 32 MM/HR (0-30) H Sodium Level 137 MMOL/L (136-145) Potassium Level 3.7 MMOL/L (3.5-5.1) Chloride Level 103 MMOL/L (98-107) Carbon Dioxide Level 26 MMOL/L (21-32) Anion Gap 8 mmol/L (5-15) Blood Urea Nitrogen 14 mg/dL (7-18) Creatinine 0.6 MG/DL (0.55-1.30) Estimat Glomerular Filtration Rate mL/min (>60) Glucose Level 82 MG/DL (74-106) Uric Acid 2.5 MG/DL (2.6-7.2) L Calcium Level 8.1 MG/DL (8.5-10.1) L Phosphorus Level 1.6 MG/DL (2.5-4.9) L Magnesium Level 1.8 MG/DL (1.8-2.4) Total Bilirubin 0.2 MG/DL (0.2-1.0) Aspartate Amino Transf (AST/SGOT) 43 U/L (15-37) H Alanine Aminotransferase (ALT/SGPT) 68 U/L (12-78) Alkaline Phosphatase 56 U/L (46-116) C-Reactive Protein, Quantitative 2.1 mg/dL (0.00-0.90) H Pro-B-Type Natriuretic Peptide 500 pg/mL (0-125) H Total Protein 4.6 G/DL (6.4-8.2) L Albumin 2.1 G/DL (3.4-5.0) L Globulin 2.5 g/dL Albumin/Globulin Ratio 0.8 (1.0-2.7) L Cortisol AM Sample Pending Adilene Nash MD May 04, 2019 10:08
--- NOTE | 2019-05-04 10:30 | NUR ---
NURSE NOTES: Obtained consent for IV contrast from son, Shawn Berry. Called Erma Berry (primary contact) but no answer. Obtained telephone consent with VARUN Brenner.
--- NOTE | 2019-05-04 11:30 | NUR ---
NURSE NOTES: Returned from Urogram. patient tolerated well. BP and HR stable, still off dopamine drip. Turned and repositioned. No BM yet. Ordered p200 mattress.
--- NOTE | 2019-05-04 11:39 | NUR ---
RD ASSESSMENT & RECOMMENDATIONS SEE CARE ACTIVITY FOR COMPLETE ASSESSMENT DAILY ESTIMATED NEEDS: Needs based on Wound, underweight, sepsis/ 43kg 35-40 kcals/kg 5328-4907 total kcals 1.5-2.0 g protein/kg 65-86 g total protein 25-30 mL/kg 6347-0976 total fluid mLs NUTRITION DIAGNOSIS: * Increased kcal/prot intake needs R/T wound healing, underweight status as evidenced by pt admitted w/ stage 4 sacral wound, resolving pressure injury at R elbow and R trochanter, non-blanchable erythema at lateral L heel, L lateral 1st metatarsal, L hallux, lateral R foot, w/ pt at 86% IBW, low BMI per guidelines. * Swallowing difficulty R/T dysphagia, h/o CVA as evidenced by pt on pureed moist texture diet, CALENDER RUNNER eval pending. CURRENT DIET:REGULAR, pureed moist + Ensure Enlive TID, + Jeronimo 1pkt BID PO DIET RECOMMENDATIONS: Liberalized REGULAR/ texture per CALENDER RUNNER + Ensure Enlive TID ADDITIONAL RECOMMENDATIONS: * CALIBRATED bedscale wt for accurate CBW, weekly wt monitoring * Wound healing: add MVI w/ min 1 tab QD, Vit C 500mg BID add ZnSO4 220mg QD x 10 days Continue Jeronimo 1pkt BID * Low Na diet w/ PO intake consistently >50% and once BP improved * Monitor lytes, replete as needed (low phos) * Consider appetite stimulant if PO intake remains poor and variable Addendum: 05/04/19 at [address] Victor M count x48 hrs completed. Only 12/31 data available. 05/02 breakfast ~200kcal 5% cream of wheat 60% eggs 150 kcal 40% potatoes 50 kcal lunch: refused dinner: ~309kcal 100% apple juice 80kcal 20% apple sauce 20% Ensure 70kcal 10% Jeronimo 9kcal 100% soup 120kcal 15% total food on plate ~30kcal 05/03 breakfast: 10% per EMR lunch: 25% per EMR dinner: 30% per EMR (Per RN note @ 18:35, "Patient liked her Jeronimo.") ---- RESULT: Inadequate data collected, unable to assess accurate caloric intake of patient in the last 48 hrs. PO intake is poor and variable at this time, pt estimated to consume <50% of est kcal needs per day. Ensure Enlive TID (350kcal/20g prot per bottle) have been added at meals. Jeronimo BID has also been added to help with wound healing. Per RN note from last night, "Patient liked her Jeronimo." Continue to monitor PO intake closely, rec for max encouragement at all meals as pt at increased needs for wound healing.
--- NOTE | 2019-05-04 12:27 | Diagnostic Imaging Report ---
Indication: Abdominal pain, abnormal recent sonogram, history of urinary retention, history of neurogenic bladder, proteinuria, hematuria, recently resolved acute kidney injury Technique: No oral contrast per protocol. Precontrast spiral acquisitions obtained through the abdomen and pelvis. Subsequently, patient given IV nonionic contrast multiphasic spiral acquisitions obtained through the abdomen and pelvis Multiplanar reconstructions were generated. Total dose length product 1925 mGycm. CTDIvol(s) 10, 8, 48, 9, 10, 10 mGy. Radiation dose was minimized using automated exposure control Comparison: Reference made to renal sonogram dated 05/01/2019 Findings: On the precontrast images, there is questionably a faint tiny 1 to 2 mm calculus in the right renal collecting system. No left renal calculi demonstrated. No definite ureteral calculi. There are subcentimeter low-attenuation renal parenchymal lesions bilaterally which are too small to characterize. No renal mass or cyst demonstrated otherwise. The renal collecting systems and ureters are normal in caliber. They opacify normally on the delayed phase images. The bladder is somewhat thick walled but nondistended. Multiple calcifications are seen within the bladder, measuring up to 18 mm long axis dimension. There is a Villagomez catheter within the bladder lumen A small amount of fluid is seen within the pelvis. There is equivocal mild wall thickening of the sigmoid, probably an artifact of under distention. No definite evidence of diverticulosis or diverticulitis. The appendix is definitely visualized, but no findings to suggest acute appendicitis are evident. No small bowel distention. Distal esophagus, stomach, duodenum are unremarkable. There is a slight amount of pericholecystic fluid, but no definite gallbladder wall thickening. No definite gallstones. The liver is unremarkable. There is mild ectasia of the common bile duct, which measures up to 7 mm in diameter, no evidence of downstream obstructive lesion. The pancreas, spleen are unremarkable. The adrenals are somewhat bulky, otherwise unremarkable. There is diffuse mild edema of the subcutaneous fat. There are posterior dependent pulmonary parenchymal atelectatic changes. The bones demonstrate mild degenerative spondylosis changes. Impression: No evidence of obstructive uropathy or hydronephrosis Questionable nonobstructive 1 mm right intrarenal calculus Multiple bladder calculi Bladder wall thickening, may may in part be an artifact of under distention, but the possibility of chronic bladder obstruction or cystitis should be considered Subcentimeter low-attenuation renal lesions, too small to characterize, most likely benign simple cysts. No further follow-up necessary Villagomez catheter Free pelvic fluid, nonspecific but not physiologic in a postmenopausal female Equivocal mild sigmoid wall thickening, probably artifact of under distention but the possibility of colitis should be considered Mild edema of the subcutaneous fat Slight pericholecystic fluid, may be a manifestation of mild anasarca but the possibility of acalculous acute cholecystitis or cholecystitis due to occult stone disease should also be considered Posterior dependent atelectatic changes and mild degenerative spondylosis changes incidentally noted The CT scanner at [facility] is accredited by the [employer] and the scans are performed using protocols designed to limit radiation exposure to as low as reasonably achievable to attain images of sufficient resolution adequate for diagnostic evaluation.
--- NOTE | 2019-05-04 12:57 | NUR ---
REFERRED FOR A SWALLOW EVALUATION FROM DR RAWLS, SEE FULL REPORT TO FOLLOW IN ELECTRICAL AND RADIO AIRCRAFT MECHANIC CARE ACTIVITY SECTION. DYSPHAGIA RISK FACTORS FOR THIS [address] [place]-SPEAKING FEMALE: ACUTE ISSUES: SEPSIS, RENAL INSUFFICIENCY, UTI, LUNGS ARE CLEAR NOW, RR 15 GOODS SATS, BP LOW RELEVANT MEDS: ON PEPCID, MORPHINE, AND ATIVAN. 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 POLST IS BLANK REGARDING ARTIFICIAL NUTRITION PREFERENCES AT SNF ON A PAOLA PUREED AND THIN LIQUID DIET WITH PROTEIN SUPPLEMENTS 3X PER DAY AND BOOST C LIQUIDS WITH POOR INTAKE REFUSED LUNCH///30%. PER RD, UNDERWEIGHT, OK TO LIBERALIZE DIET TO REGULAR TYPE SEND ENSURE ENLIVE ONE CAN TID. ALERT AND IN [facility], SHE IS ABLE TO STATE HER NAME AND THAT SHE WAS BORN IN [facility], DISORIENTED TO PLACE/TIME. VOICE IS BREATHY TO SOFT. INITIAL IMPRESSIONS: S/S OF AT LEAST A MILD-MODERATE ORAL PREP AND OROPHARYNGEAL DYSPHAGIA WITH INCREASED OROPHARYNGEAL TRANSIT TIMES. MILD RIGHT LABIAL WEAKNESS BUT GOOD LIP CLOSURE. TONGUE DEVIATES TO THE LEFT, IS SLOWER, AND IS MODERATELY WEAK TO RESISTANCE ALL DIRECTIONS. VOICE BREATHY TO SOFT AND VOLITIONAL AND COUGH WITH WATER IS WEAK. GIVEN THIN LIQUIDS VIA CUP SEQUENTIAL SIPS ([place] 3 OUNCE SWALLOW SCREEN), SHE COUGHED AFTER THE THIRD SWALLOW AND SIP. GROSSLY FUNCTIONAL SWALLOW BUT MILDLY SLOWER (TENDS TO CHEW LIQUID A FEW SECONDS LIKELY SENSORY AWARENESS DEFICIT) WITH NECTAR THICK WATER VIA CUP (ONE SIP), WITH FAIR HYOLARYNGEAL EXCURSION, AND W/O ORAL RESIDUE NOR OVERT ASPIRATION. GIVEN TSP PUREED, APPEARS TO CHEW LIQUIDS FOR 7-12 SECONDS AND TAKES 1/2 OF THE AMOUNT (RESTRICTS MOUTH OPENING) BUT HAS A GROSSLY FUNCTIONAL SWALLOW W/O ORAL RESIDUE AND OVERT ASPIRATION. HAS SILENT ASPIRATION RISK (DUE TO STROKE AND DEMENTIA DIAGNOSES) BUT LUNGS ARE CLEAR NOW. INTAKE POOR AND VERY SLOW. RECOMMENDATIONS: FOR QUALITY OF LIFE (PATIENT WANTS TO EAT/DRINK BY MOUTH), CONTINUE WITH PO INTAKE OF MOIST PUREED DIET BUT DOWNGRADE TO NECTAR THICK LIQUIDS AND USE POSTED ASPIRATION/REFLUX PRECAUTIONS WITH 1 TO [address], LIBERALIZE DIET (WAS ON PAOLA AT [facility]), SEND HIGH BRAD SUP, AND COMPLETE CALORIE COUNT. COMPLETE MODIFIED BARIUM SWALLOW STUDY TO FURTHER ASSESS SWALLOW, DETERMINE SILENT ASPIRATION RISK/ETIOLOGY, AND ATTEMPT TRIAL TX TECHNIQUES. DYSPHAGIA MANAGEMENT AND TX AND COGNITIVE-COMMUNICATIVE EVAL/TX FOR COMMUNICATION TIPS. CONSIDER ENT TO CHECK VOCAL FOLDS (VOICE IS BREATHY TO SOFT VERSUS JUST RELATED TO REDUCED RESP SUPPORT/CONTROL OR WEAKNESS). D/W DR RAWLS, RN FRANSISCO, AND PATIENT.
--- NOTE | 2019-05-04 13:00 | NUR ---
NURSE NOTES: Encouraged patient to eat lunch but patient refused. Will try again later.
--- NOTE | 2019-05-04 13:04 | NUR ---
Social Service Note RENEA spoke with patient's dgt Linda Berry [phone] who indicates she is the primary contact. Additional contacts are Shawn Berry [phone] (son) and Orlando Leyva [phone] (son). Linda states Lisandro Berry (son) doesn't live in the area. Patient has been a resident of [facility] since 03/2019. Dgt states patient will return to this facility upon discharge. Patient doesn't have an advance directive. RENEA requested POLST from medical records at SNF. Code status addressed. At this time family is requesting full code. Will continue to monitor and assist as needed.
[2019-05-04] MEDS: DOPamine 400mg/250ml 250 ML IV SCH (13:08)
--- NOTE | 2019-05-04 14:55 | Infectious Diseases Prog Note ---
Assessment/Plan Assessment/Plan ASSESSMENT: The patient is an 83-year-old female with: 1. Sepsis. 2. Leukocytosis; resolved 3. Septic shock/hypotension. 2ry to UTI- off pressors now -u/a tnct, nit neg, leuk +3; ucx MDR P. 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 mirabilis (R nitro,otherwise S) -Bcx NTD -CT abd/p: No evidence of obstructive uropathy or hydronephrosis. Questionable nonobstructive 1 mm right intrarenal calculus. Multiple bladder calculi Bladder wall thickening, may may in part be an artifact of under distention, but the possibility of chronic bladder obstruction or cystitis should be considered Subcentimeter low-attenuation renal lesions, too small to characterize, most likely benign simple cysts. No further follow-up necessary.Villagomez catheter. Free pelvic fluid, nonspecific but not physiologic in a postmenopausal female. Equivocal mild sigmoid wall thickening, probably artifact of under distention but the possibility of colitis should be considered. Mild edema of the subcutaneous fat 4. Hydronephrosis -REnal US: 1. Mild left hydronephrosis and urinary bladder stone with wall thickening of bladder that could represent cystitis or evidence of chronic bladder outlet obstruction.. 2. Right nephrolithiasis is also suspected.. - Functional quadriplegia. - History of dementia. -Anemia. - History of stage IV sacral decubitus. PLAN: 1. We will continue the patient on IV cefepime #4 -7/6 SP Amikacin, Vancomycin #2 -7/5 SP Ceftriaxone x1 2. Monitor CBC. 3. Monitor BMP. 4. Monitor cultures. 5. Monitor chest x-ray. 6. Based on the patient's clinical course and laboratories, we will do further recommendations. Subjective Allergies: Coded Allergies: No Known Allergies (Unverified , 05/01/19) Subjective afebrile no leukocytosis off pressors Bx NTD Objective Vital Signs Last 24 Hour Vital Signs Date Time Temp Pulse Resp B/P (MAP) Pulse Ox O2 Delivery O2 Flow Rate FiO2 05/04/19 13:08 123/58 05/04/19 13:00 67 18 123/58 (79) 100 05/04/19 12:00 Room Air 05/04/19 12:00 97.9 71 15 113/61 (78) 100 05/04/19 11:00 64 15 93/46 (62) 100 05/04/19 10:00 64 15 105/61 (76) 100 05/04/19 09:45 66 15 106/64 (78) 100 05/04/19 09:30 68 15 107/61 (76) 100 05/04/19 09:15 67 15 106/67 (80) 100 05/04/19 09:00 70 15 98/63 (75) 100 05/04/19 08:45 65 15 105/57 (73) 100 05/04/19 08:30 68 15 102/52 (69) 100 05/04/19 08:15 70 15 94/63 (73) 100 05/04/19 08:00 67 15 98/62 (74) 100 05/04/19 08:00 Room Air 05/04/19 07:30 98.9 65 15 97/59 (72) 100 05/04/19 07:00 65 15 104/62 (76) 100 05/04/19 07:00 104/62 05/04/19 06:30 64 15 94/59 (71) 99 05/04/19 06:03 65 16 105/61 (76) 99 05/04/19 06:00 63 16 89/55 (66) 100 05/04/19 06:00 105/61 05/04/19 05:45 66 16 104/56 (72) 100 05/04/19 05:30 63 20 102/58 (73) 100 05/04/19 05:00 75 18 124/63 (83) 100 05/04/19 05:00 108/58 05/04/19 04:30 63 16 106/60 (75) 100 05/04/19 04:15 59 17 102/62 (75) 100 05/04/19 04:00 98.1 59 17 115/62 (79) 100 05/04/19 04:00 Room Air 05/04/19 04:00 102/62 05/04/19 04:00 59 05/04/19 03:30 62 17 108/69 (82) 100 05/04/19 03:00 68 20 127/69 (88) 100 05/04/19 02:30 60 17 135/73 (93) 100 05/04/19 02:00 62 16 133/79 (97) 100 05/04/19 01:30 60 17 121/70 (87) 100 05/04/19 01:00 62 17 126/76 (93) 100 05/04/19 00:45 59 17 125/70 (88) 100 05/04/19 00:30 60 18 120/98 (105) 100 05/04/19 00:15 66 18 133/73 (93) 100 05/04/19 00:00 70 05/04/19 00:00 74 17 126/77 (93) 100 05/04/19 00:00 133/73 05/04/19 00:00 74 17 126/77 (93) 100 05/04/19 00:00 74 17 126/77 (93) 100 05/04/19 00:00 Room Air 05/04/19 00:00 74 17 126/77 (93) 100 05/03/19 23:45 75 19 128/74 (92) 100 05/03/19 23:30 75 18 144/73 (96) 100 05/03/19 23:15 73 16 139/102 (114) 100 05/03/19 23:00 143/84 05/03/19 23:00 73 20 143/84 (103) 100 05/03/19 22:45 74 19 109/85 (93) 100 05/03/19 22:30 70 18 115/82 (93) 100 05/03/19 22:00 70 19 126/84 (98) 100 05/03/19 22:00 138/68 05/03/19 21:30 69 19 122/78 (93) 100 05/03/19 21:00 117/77 05/03/19 21:00 67 19 117/77 (90) 100 05/03/19 20:30 71 19 133/70 (91) 100 05/03/19 20:00 116/77 05/03/19 20:00 Room Air 05/03/19 20:00 98.8 69 18 114/72 (86) 100 05/03/19 20:00 70 05/03/19 19:30 65 18 112/68 (83) 100 05/03/19 19:00 72 19 107/65 (79) 100 05/03/19 19:00 107/65 05/03/19 18:30 73 20 110/63 (79) 100 05/03/19 18:00 73 19 112/69 (83) 100 05/03/19 18:00 112/69 05/03/19 17:30 73 20 114/67 (83) 100 05/03/19 17:00 74 19 124/86 (99) 100 05/03/19 17:00 124/86 05/03/19 16:30 77 20 131/70 (90) 100 05/03/19 16:00 66 05/03/19 16:00 98.0 66 20 110/52 (71) 100 05/03/19 16:00 Room Air 05/03/19 16:00 110/52 05/03/19 16:00 110/52 05/03/19 15:30 68 19 110/46 (67) 100 05/03/19 15:00 105/67 05/03/19 15:00 68 19 102/58 (73) 100 Height (Feet): 5 Height (Inches): 2.00 Weight (Pounds): 90 Objective HEENT: No pale conjunctivae. No icterus. NECK: No lymphadenopathy. CHEST: Clear. HEART: S1, S2. ABDOMEN: Soft. EXTREMITIES: No cyanosis at this time. NEUROLOGIC: Awake, nonverbal. SKIN: The patient has stage IV sacral decubitus (tracking, not infected). Microbiology Date/Time Source Procedure Growth Status 05/01/19 17:18 Urine,Clean Catch Urine Culture - Final NO GROWTH AFTER 48 HOURS Complete Laboratory Tests Test 05/04/19 04:30 White Blood Count 6.1 K/UL (4.8-10.8) Red Blood Count 2.78 M/UL (4.20-5.40) L Hemoglobin 8.7 G/DL (12.0-16.0) L Hematocrit 26.4 % (37.0-47.0) L Mean Corpuscular Volume 95 FL (80-99) Mean Corpuscular Hemoglobin 31.3 PG (27.0-31.0) H Mean Corpuscular Hemoglobin Concent 32.9 G/DL (32.0-36.0) Red Cell Distribution Width 11.9 % (11.6-14.8) Platelet Count 195 K/UL (150-450) Mean Platelet Volume 6.1 FL (6.5-10.1) L Neutrophils (%) (Auto) 60.6 % (45.0-75.0) Lymphocytes (%) (Auto) 31.8 % (20.0-45.0) Monocytes (%) (Auto) 5.4 % (1.0-10.0) Eosinophils (%) (Auto) 1.3 % (0.0-3.0) Basophils (%) (Auto) 0.9 % (0.0-2.0) Erythrocyte Sedimentation Rate 32 MM/HR (0-30) H Sodium Level 137 MMOL/L (136-145) Potassium Level 3.7 MMOL/L (3.5-5.1) Chloride Level 103 MMOL/L (98-107) Carbon Dioxide Level 26 MMOL/L (21-32) Anion Gap 8 mmol/L (5-15) Blood Urea Nitrogen 14 mg/dL (7-18) Creatinine 0.6 MG/DL (0.55-1.30) Estimat Glomerular Filtration Rate mL/min (>60) Glucose Level 82 MG/DL (74-106) Uric Acid 2.5 MG/DL (2.6-7.2) L Calcium Level 8.1 MG/DL (8.5-10.1) L Phosphorus Level 1.6 MG/DL (2.5-4.9) L Magnesium Level 1.8 MG/DL (1.8-2.4) Total Bilirubin 0.2 MG/DL (0.2-1.0) Aspartate Amino Transf (AST/SGOT) 43 U/L (15-37) H Alanine Aminotransferase (ALT/SGPT) 68 U/L (12-78) Alkaline Phosphatase 56 U/L (46-116) C-Reactive Protein, Quantitative 2.1 mg/dL (0.00-0.90) H Pro-B-Type Natriuretic Peptide 500 pg/mL (0-125) H Total Protein 4.6 G/DL (6.4-8.2) L Albumin 2.1 G/DL (3.4-5.0) L Globulin 2.5 g/dL Albumin/Globulin Ratio 0.8 (1.0-2.7) L Cortisol AM Sample Pending Current Medications Medications (Trade) Dose Ordered Sig/Familia Route PRN Reason Start Time Stop Time Status Last Admin Dose Admin Acetaminophen (Tylenol) 650 mg Q4H PRN ORAL fever 05/01/19 12:00 05/31/19 11:59 Barium Sulfate (Readi-Cat 2) 450 ml NOW PRN ORAL Radiology Procedure 05/02/19 23:45 05/04/19 23:45 Cefepime HCl 500 mg/Dextrose 55 ml @ 110 mls/hr EVERY 12 HOURS IVPB 05/01/19 16:00 05/08/19 15:59 05/04/19 09:27 Chlorhexidine Gluconate (Montserrat-Hex 2%) 1 applic DAILY@2000 TOPIC 05/02/19 20:00 06/01/19 19:59 05/03/19 20:22 Dextrose 1,000 ml @ 50 mls/hr Q20H IV 05/03/19 13:00 06/02/19 12:59 05/04/19 09:00 Dextrose (Dextrose 50%) 25 ml Q30M PRN IV Hypoglycemia 05/01/19 12:00 05/31/19 11:59 Dextrose (Dextrose 50%) 50 ml Q30M PRN IV Hypoglycemia 05/01/19 12:15 05/31/19 12:14 Dopamine HCl/ Dextrose 250 ml @ 0 mls/hr Q24H IV 05/02/19 15:00 05/31/19 16:44 05/02/19 15:10 Famotidine (Pepcid I.v.) 20 mg Q12HR IVP 05/03/19 21:00 06/02/19 20:59 05/04/19 09:35 Folic Acid (Folate) 3 mg DAILY ORAL 05/03/19 12:45 06/02/19 12:44 05/04/19 09:26 Heparin Sodium (Porcine) (Heparin 5000 units/ml) 5,000 units EVERY 12 HOURS SUBQ 05/01/19 21:00 05/31/19 20:59 05/04/19 09:28 Iopamidol (Isovue-300 100ml) 100 ml NOW PRN INJ Radiology Procedure 05/02/19 23:45 05/04/19 23:44 Lorazepam (Ativan 2mg/ml 1ml) 0.5 mg Q4H PRN IV For Anxiety 05/01/19 12:00 05/08/19 11:59 Morphine Sulfate (Morphine Sulfate) 1 mg Q4H PRN IVP For Pain 05/01/19 12:00 05/08/19 11:59 Ondansetron HCl (Zofran) 4 mg Q6H PRN IVP Nausea & Vomiting 05/01/19 12:00 05/31/19 11:59 Polyethylene Glycol (Miralax) 17 gm HSPRN PRN ORAL Constipation 05/01/19 12:00 05/31/19 11:59 Potassium Phosphate 30 mm/ Sodium Chloride 285 ml @ 47.5 mls/hr ONCE ONCE IV 05/04/19 10:00 05/04/19 15:59 05/04/19 10:13 Zolpidem Tartrate (Ambien) 5 mg HSPRN PRN ORAL Insomnia 05/01/19 12:00 05/08/19 11:59 Luba Freeman M.D. May 04, 2019 14:55
--- NOTE | 2019-05-04 15:38 | NUR ---
NURSE NOTES: Patietn placed on P200 mattress. No BM yet. tolerated 25% of lunch, patient reports not having an appetite. Encouraged patient to eat and drink more. Updated son who is at bedside. HR has been above 60bpm during shift, and SBP >100.
--- NOTE | 2019-05-04 16:08 | Surgery Progress Note ---
Surgery Progress Note Subjective Additional Comments afebrile, HD stable, labs improved CT A/P noted as below Objective Last 24 Hour Vital Signs Date Time Temp Pulse Resp B/P (MAP) Pulse Ox O2 Delivery O2 Flow Rate FiO2 05/04/19 15:00 82 17 106/60 (75) 100 05/04/19 14:00 69 17 99/57 (71) 100 05/04/19 13:08 123/58 05/04/19 13:00 67 18 123/58 (79) 100 05/04/19 12:00 68 05/04/19 12:00 Room Air 05/04/19 12:00 97.9 71 15 113/61 (78) 100 05/04/19 11:00 64 15 93/46 (62) 100 05/04/19 10:00 64 15 105/61 (76) 100 05/04/19 09:45 66 15 106/64 (78) 100 05/04/19 09:30 68 15 107/61 (76) 100 05/04/19 09:15 67 15 106/67 (80) 100 05/04/19 09:00 70 15 98/63 (75) 100 05/04/19 08:45 65 15 105/57 (73) 100 05/04/19 08:30 68 15 102/52 (69) 100 05/04/19 08:15 70 15 94/63 (73) 100 05/04/19 08:00 63 05/04/19 08:00 67 15 98/62 (74) 100 05/04/19 08:00 Room Air 05/04/19 07:30 98.9 65 15 97/59 (72) 100 05/04/19 07:00 65 15 104/62 (76) 100 05/04/19 07:00 104/62 05/04/19 06:30 64 15 94/59 (71) 99 05/04/19 06:03 65 16 105/61 (76) 99 05/04/19 06:00 63 16 89/55 (66) 100 05/04/19 06:00 105/61 05/04/19 05:45 66 16 104/56 (72) 100 05/04/19 05:30 63 20 102/58 (73) 100 05/04/19 05:00 75 18 124/63 (83) 100 05/04/19 05:00 108/58 05/04/19 04:30 63 16 106/60 (75) 100 05/04/19 04:15 59 17 102/62 (75) 100 05/04/19 04:00 98.1 59 17 115/62 (79) 100 05/04/19 04:00 Room Air 05/04/19 04:00 102/62 05/04/19 04:00 59 05/04/19 03:30 62 17 108/69 (82) 100 05/04/19 03:00 68 20 127/69 (88) 100 05/04/19 02:30 60 17 135/73 (93) 100 05/04/19 02:00 62 16 133/79 (97) 100 05/04/19 01:30 60 17 121/70 (87) 100 05/04/19 01:00 62 17 126/76 (93) 100 05/04/19 00:45 59 17 125/70 (88) 100 05/04/19 00:30 60 18 120/98 (105) 100 05/04/19 00:15 66 18 133/73 (93) 100 05/04/19 00:00 70 05/04/19 00:00 74 17 126/77 (93) 100 05/04/19 00:00 133/73 05/04/19 00:00 74 17 126/77 (93) 100 05/04/19 00:00 74 17 126/77 (93) 100 05/04/19 00:00 Room Air 05/04/19 00:00 74 17 126/77 (93) 100 05/03/19 23:45 75 19 128/74 (92) 100 05/03/19 23:30 75 18 144/73 (96) 100 05/03/19 23:15 73 16 139/102 (114) 100 05/03/19 23:00 143/84 05/03/19 23:00 73 20 143/84 (103) 100 05/03/19 22:45 74 19 109/85 (93) 100 05/03/19 22:30 70 18 115/82 (93) 100 05/03/19 22:00 70 19 126/84 (98) 100 05/03/19 22:00 138/68 05/03/19 21:30 69 19 122/78 (93) 100 05/03/19 21:00 117/77 05/03/19 21:00 67 19 117/77 (90) 100 05/03/19 20:30 71 19 133/70 (91) 100 05/03/19 20:00 116/77 05/03/19 20:00 Room Air 05/03/19 20:00 98.8 69 18 114/72 (86) 100 05/03/19 20:00 70 05/03/19 19:30 65 18 112/68 (83) 100 05/03/19 19:00 72 19 107/65 (79) 100 05/03/19 19:00 107/65 05/03/19 18:30 73 20 110/63 (79) 100 05/03/19 18:00 73 19 112/69 (83) 100 05/03/19 18:00 112/69 05/03/19 17:30 73 20 114/67 (83) 100 05/03/19 17:00 74 19 124/86 (99) 100 05/03/19 17:00 124/86 05/03/19 16:30 77 20 131/70 (90) 100 I&O Intake and Output 05/03/19 05/04/19 18:59 06:59 Intake Total 1222.970 ml 670.990 ml Output Total 2290 ml 1280 ml Balance -1067.030 ml -609.010 ml Intake Oral 140 ml IV Total 1082.970 ml 670.990 ml Output Urine Total 2290 ml 1280 ml Dressing: saturated Wound: clean Cardiovascular: RSR Respiratory: clear, decreased breath sounds Abdomen: soft, present bowel sounds, non-distended Extremities: no cyanosis, other Laboratory Tests Test 05/04/19 04:30 White Blood Count 6.1 K/UL (4.8-10.8) Red Blood Count 2.78 M/UL (4.20-5.40) L Hemoglobin 8.7 G/DL (12.0-16.0) L Hematocrit 26.4 % (37.0-47.0) L Mean Corpuscular Volume 95 FL (80-99) Mean Corpuscular Hemoglobin 31.3 PG (27.0-31.0) H Mean Corpuscular Hemoglobin Concent 32.9 G/DL (32.0-36.0) Red Cell Distribution Width 11.9 % (11.6-14.8) Platelet Count 195 K/UL (150-450) Mean Platelet Volume 6.1 FL (6.5-10.1) L Neutrophils (%) (Auto) 60.6 % (45.0-75.0) Lymphocytes (%) (Auto) 31.8 % (20.0-45.0) Monocytes (%) (Auto) 5.4 % (1.0-10.0) Eosinophils (%) (Auto) 1.3 % (0.0-3.0) Basophils (%) (Auto) 0.9 % (0.0-2.0) Erythrocyte Sedimentation Rate 32 MM/HR (0-30) H Sodium Level 137 MMOL/L (136-145) Potassium Level 3.7 MMOL/L (3.5-5.1) Chloride Level 103 MMOL/L (98-107) Carbon Dioxide Level 26 MMOL/L (21-32) Anion Gap 8 mmol/L (5-15) Blood Urea Nitrogen 14 mg/dL (7-18) Creatinine 0.6 MG/DL (0.55-1.30) Estimat Glomerular Filtration Rate mL/min (>60) Glucose Level 82 MG/DL (74-106) Uric Acid 2.5 MG/DL (2.6-7.2) L Calcium Level 8.1 MG/DL (8.5-10.1) L Phosphorus Level 1.6 MG/DL (2.5-4.9) L Magnesium Level 1.8 MG/DL (1.8-2.4) Total Bilirubin 0.2 MG/DL (0.2-1.0) Aspartate Amino Transf (AST/SGOT) 43 U/L (15-37) H Alanine Aminotransferase (ALT/SGPT) 68 U/L (12-78) Alkaline Phosphatase 56 U/L (46-116) C-Reactive Protein, Quantitative 2.1 mg/dL (0.00-0.90) H Pro-B-Type Natriuretic Peptide 500 pg/mL (0-125) H Total Protein 4.6 G/DL (6.4-8.2) L Albumin 2.1 G/DL (3.4-5.0) L Globulin 2.5 g/dL Albumin/Globulin Ratio 0.8 (1.0-2.7) L Cortisol AM Sample Pending Plan Problems: (1) Decubitus ulcer of sacral region, stage 4 Assessment & Plan: Pt presented on admission with contractures and multiple pressure injuries. Full thickness sacral pressure injury with undermining .Beefy red granulation at base of wound with an area of 20% soft necrosis along borders and undermined area.No odor noted. Small amt sanguineous exudate noted(L)2cm x (W)2.5cm x (D) 1.9cm, undermining clockwise 12-12 by 1.9cm @12 o'clock. Resolving pressure injury R elbow .Base of wound epithelialized -pink and dry.(L )1.5cm x (W)1.6cm. Resolving pressure injury R trochanter .Base of wound has dry ,pink epithelial.edges adherent and flat without erythema or induration(L)2cm x (W) 4cm. hyperpigmentation periwound. Hyperpigmentation from previous wound L trochanter. Non-blanchable erythema with fluctuance noted to lateral L heel (L)2.5cm x (W) 2.5cm.Periwound without erythema induration or fluctuance. R heel is pink and blanchable. Non-blanchable erythema without fluctuance /induration L lateral 1st metatarsal. (L)0.5cm x (W)1cm Non-blanchable erythema without fluctuance /induration noted L hallux. (L)1cm x (w)1cm. Non-blanchable erythema without induration/fluctuance lateral R foot. Tx.Plan: Cleanse Sacral wound with Saline. Loosely pack with Hydrogel impregnated Plain packing strip.Apply Triad periwound Cover with Optifoam Daily and PRN. Apply Moisture Barrier Paste to R and L trochanters. Cover each site with Optifoam drsg. Change every 3 days and prn. Apply Cavilon Skin Barrier to R and L heels. Cover each heel with Optifoam drsgs. Change every 7 days and prn. Apply Cavilon Skin Barrier to L hallux and L 1st metatarsal. Cover with Optifoam drsg. Change every 7 days and prn. Apply Cavilon Skin Barrier to lateral R foot. Cover with Optifoam drsg. Change every 7 days and prn. APM/YO mattress overlay. Reposition at least every 2hours or as tolerated. Off-load heels with pillow. (2) Renal insufficiency (3) Septic shock Assessment & Plan: leukocytosis - resolved tachycardia - resolved anemia hypotension - improved responding well to fluids and abx cont abx cont with current care will follow with recs thank you (4) UTI (urinary tract infection) Assessment & Plan: Impression: No evidence of obstructive uropathy or hydronephrosis Questionable nonobstructive 1 mm right intrarenal calculus Multiple bladder calculi Bladder wall thickening, may may in part be an artifact of under distention, but the possibility of chronic bladder obstruction or cystitis should be considered Subcentimeter low-attenuation renal lesions, too small to characterize, most likely benign simple cysts. No further follow-up necessary Villagomez catheter Free pelvic fluid, nonspecific but not physiologic in a postmenopausal female Equivocal mild sigmoid wall thickening, probably artifact of under distention but the possibility of colitis should be considered Mild edema of the subcutaneous fat Slight pericholecystic fluid, may be a manifestation of mild anasarca but the possibility of acalculous acute cholecystitis or cholecystitis due to occult stone disease should also be considered Posterior dependent atelectatic changes and mild degenerative spondylosis changes incidentally noted (5) ATN (acute tubular necrosis) (6) Advanced dementia (7) History of CVA with residual deficit (8) Hemiparesis (9) History of hypertension Carroll Smith May 04, 2019 16:08
--- NOTE | 2019-05-04 16:46 | Nephrology Progress Note ---
Assessment/Plan Problem List: (1) ATN (acute tubular necrosis) (2) Septic shock (3) UTI (urinary tract infection) (4) Severe malnutrition Assessment -Septic shock -ATN (acute tubular necrosis) - Malnutrition -History of hypertension -UTI (urinary tract infection) -Advanced dementia -History of CVA with residual deficit -Hemiparesis Plan Plan: K IV Mag IV PO Folate Cortisol level Subjective ROS Limited/Unobtainable: No Constitutional: Reports: malaise, weakness Objective Objective Last 24 Hour Vital Signs Date Time Temp Pulse Resp B/P (MAP) Pulse Ox O2 Delivery O2 Flow Rate FiO2 05/04/19 16:00 97.8 68 17 105/58 (74) 100 05/04/19 16:00 Room Air 05/04/19 16:00 69 05/04/19 15:00 82 17 106/60 (75) 100 05/04/19 14:00 69 17 99/57 (71) 100 05/04/19 13:08 123/58 05/04/19 13:00 67 18 123/58 (79) 100 05/04/19 12:00 68 05/04/19 12:00 Room Air 05/04/19 12:00 97.9 71 15 113/61 (78) 100 05/04/19 11:00 64 15 93/46 (62) 100 05/04/19 10:00 64 15 105/61 (76) 100 05/04/19 09:45 66 15 106/64 (78) 100 05/04/19 09:30 68 15 107/61 (76) 100 05/04/19 09:15 67 15 106/67 (80) 100 05/04/19 09:00 70 15 98/63 (75) 100 05/04/19 08:45 65 15 105/57 (73) 100 05/04/19 08:30 68 15 102/52 (69) 100 05/04/19 08:15 70 15 94/63 (73) 100 05/04/19 08:00 63 05/04/19 08:00 67 15 98/62 (74) 100 05/04/19 08:00 Room Air 05/04/19 07:30 98.9 65 15 97/59 (72) 100 05/04/19 07:00 65 15 104/62 (76) 100 05/04/19 07:00 104/62 05/04/19 06:30 64 15 94/59 (71) 99 05/04/19 06:03 65 16 105/61 (76) 99 05/04/19 06:00 63 16 89/55 (66) 100 05/04/19 06:00 105/61 05/04/19 05:45 66 16 104/56 (72) 100 05/04/19 05:30 63 20 102/58 (73) 100 05/04/19 05:00 75 18 124/63 (83) 100 05/04/19 05:00 108/58 05/04/19 04:30 63 16 106/60 (75) 100 05/04/19 04:15 59 17 102/62 (75) 100 05/04/19 04:00 98.1 59 17 115/62 (79) 100 05/04/19 04:00 Room Air 05/04/19 04:00 102/62 05/04/19 04:00 59 05/04/19 03:30 62 17 108/69 (82) 100 05/04/19 03:00 68 20 127/69 (88) 100 05/04/19 02:30 60 17 135/73 (93) 100 05/04/19 02:00 62 16 133/79 (97) 100 05/04/19 01:30 60 17 121/70 (87) 100 05/04/19 01:00 62 17 126/76 (93) 100 05/04/19 00:45 59 17 125/70 (88) 100 05/04/19 00:30 60 18 120/98 (105) 100 05/04/19 00:15 66 18 133/73 (93) 100 05/04/19 00:00 70 05/04/19 00:00 74 17 126/77 (93) 100 05/04/19 00:00 133/73 05/04/19 00:00 74 17 126/77 (93) 100 05/04/19 00:00 74 17 126/77 (93) 100 05/04/19 00:00 Room Air 05/04/19 00:00 74 17 126/77 (93) 100 05/03/19 23:45 75 19 128/74 (92) 100 05/03/19 23:30 75 18 144/73 (96) 100 05/03/19 23:15 73 16 139/102 (114) 100 05/03/19 23:00 143/84 05/03/19 23:00 73 20 143/84 (103) 100 05/03/19 22:45 74 19 109/85 (93) 100 05/03/19 22:30 70 18 115/82 (93) 100 05/03/19 22:00 70 19 126/84 (98) 100 05/03/19 22:00 138/68 05/03/19 21:30 69 19 122/78 (93) 100 05/03/19 21:00 117/77 05/03/19 21:00 67 19 117/77 (90) 100 05/03/19 20:30 71 19 133/70 (91) 100 05/03/19 20:00 116/77 05/03/19 20:00 Room Air 05/03/19 20:00 98.8 69 18 114/72 (86) 100 05/03/19 20:00 70 05/03/19 19:30 65 18 112/68 (83) 100 05/03/19 19:00 72 19 107/65 (79) 100 05/03/19 19:00 107/65 05/03/19 18:30 73 20 110/63 (79) 100 05/03/19 18:00 73 19 112/69 (83) 100 05/03/19 18:00 112/69 05/03/19 17:30 73 20 114/67 (83) 100 05/03/19 17:00 74 19 124/86 (99) 100 05/03/19 17:00 124/86 Intake and Output 05/03/19 05/04/19 19:00 07:00 Intake Total 1196.371 ml 667.792 ml Output Total 2245 ml 1400 ml Balance -1048.629 ml -732.208 ml Intake Oral 140 ml IV Total 1056.371 ml 667.792 ml Output Urine Total 2245 ml 1400 ml Laboratory Tests 05/04/19 04:30: White Blood Count 6.1, Red Blood Count 2.78L, Hemoglobin 8.7L, Hematocrit 26.4L , Mean Corpuscular Volume 95, Mean Corpuscular Hemoglobin 31.3H, Mean Corpuscular Hemoglobin Concent 32.9, Red Cell Distribution Width 11.9, Platelet Count 195, Mean Platelet Volume 6.1L, Neutrophils (%) (Auto) 60.6, Lymphocytes ( %) (Auto) 31.8, Monocytes (%) (Auto) 5.4, Eosinophils (%) (Auto) 1.3, Basophils (%) (Auto) 0.9, Erythrocyte Sedimentation Rate 32H, Sodium Level 137, Potassium Level 3.7, Chloride Level 103, Carbon Dioxide Level 26, Anion Gap 8, Blood Urea Nitrogen 14, Creatinine 0.6, Estimat Glomerular Filtration Rate , Glucose Level 82, Uric Acid 2.5L, Calcium Level 8.1L, Phosphorus Level 1.6L, Magnesium Level 1.8, Total Bilirubin 0.2, Aspartate Amino Transf (AST/SGOT) 43H, Alanine Aminotransferase (ALT/SGPT) 68, Alkaline Phosphatase 56, C-Reactive Protein, Quantitative 2.1H, Pro-B-Type Natriuretic Peptide 500H, Total Protein 4.6L, Albumin 2.1L, Globulin 2.5, Albumin/Globulin Ratio 0.8L, Cortisol AM Sample [ Pending] Height (Feet): 5 Height (Inches): 2.00 Weight (Pounds): 90 Cardiovascular: normal rate Abdomen: distended Jamel Maldonado MD May 04, 2019 16:46
--- NOTE | 2019-05-04 18:13 | Cardiac Electrophysiology PN ---
Assessment/Plan Assessment/Plan 1. Combination of septic shock and dehydration. The patient's sodium is 147, BUN and creatinine ratio is more than 60. The patient is getting IV fluids at 50cc/hr. In view of the patient's bradycardia switched Levophed to dopamine. The patient is already on broad-spectrum IV antibiotics as well. Her echocardiogram showed ejection fraction of 60% with no pericardial effusion. 2. Sinus Bradycardia. The patient is off of any sinus-genevieve or AV-genevieve affecting agents. Now off Dopamine 3. Sepsis, on broad-spectrum IV antibiotics. 4. History of CVA with right hemiplegia, currently nonverbal with bilateral lower extremity contraction. 5. Decubitus ulcers. 6. History of hypertension, off antihypertensive 7. Dehydration and poor nutrition, Likely needs PEG DW RN Subjective Subjective In ICU alert in NAD. Dopamine drip DCed at 9 am. Remained stable. Objective Last 24 Hour Vital Signs Date Time Temp Pulse Resp B/P (MAP) Pulse Ox O2 Delivery O2 Flow Rate FiO2 05/04/19 16:00 97.8 68 17 105/58 (74) 100 05/04/19 16:00 Room Air 05/04/19 16:00 69 05/04/19 15:00 82 17 106/60 (75) 100 05/04/19 14:00 69 17 99/57 (71) 100 05/04/19 13:08 123/58 05/04/19 13:00 67 18 123/58 (79) 100 05/04/19 12:00 68 05/04/19 12:00 Room Air 05/04/19 12:00 97.9 71 15 113/61 (78) 100 05/04/19 11:00 64 15 93/46 (62) 100 05/04/19 10:00 64 15 105/61 (76) 100 05/04/19 09:45 66 15 106/64 (78) 100 05/04/19 09:30 68 15 107/61 (76) 100 05/04/19 09:15 67 15 106/67 (80) 100 05/04/19 09:00 70 15 98/63 (75) 100 05/04/19 08:45 65 15 105/57 (73) 100 05/04/19 08:30 68 15 102/52 (69) 100 05/04/19 08:15 70 15 94/63 (73) 100 05/04/19 08:00 63 05/04/19 08:00 67 15 98/62 (74) 100 05/04/19 08:00 Room Air 05/04/19 07:30 98.9 65 15 97/59 (72) 100 05/04/19 07:00 65 15 104/62 (76) 100 05/04/19 07:00 104/62 05/04/19 06:30 64 15 94/59 (71) 99 05/04/19 06:03 65 16 105/61 (76) 99 05/04/19 06:00 63 16 89/55 (66) 100 05/04/19 06:00 105/61 05/04/19 05:45 66 16 104/56 (72) 100 05/04/19 05:30 63 20 102/58 (73) 100 05/04/19 05:00 75 18 124/63 (83) 100 05/04/19 05:00 108/58 05/04/19 04:30 63 16 106/60 (75) 100 05/04/19 04:15 59 17 102/62 (75) 100 05/04/19 04:00 98.1 59 17 115/62 (79) 100 05/04/19 04:00 Room Air 05/04/19 04:00 102/62 05/04/19 04:00 59 05/04/19 03:30 62 17 108/69 (82) 100 05/04/19 03:00 68 20 127/69 (88) 100 05/04/19 02:30 60 17 135/73 (93) 100 05/04/19 02:00 62 16 133/79 (97) 100 05/04/19 01:30 60 17 121/70 (87) 100 05/04/19 01:00 62 17 126/76 (93) 100 05/04/19 00:45 59 17 125/70 (88) 100 05/04/19 00:30 60 18 120/98 (105) 100 05/04/19 00:15 66 18 133/73 (93) 100 05/04/19 00:00 70 05/04/19 00:00 74 17 126/77 (93) 100 05/04/19 00:00 133/73 05/04/19 00:00 74 17 126/77 (93) 100 05/04/19 00:00 74 17 126/77 (93) 100 05/04/19 00:00 Room Air 05/04/19 00:00 74 17 126/77 (93) 100 05/03/19 23:45 75 19 128/74 (92) 100 05/03/19 23:30 75 18 144/73 (96) 100 05/03/19 23:15 73 16 139/102 (114) 100 05/03/19 23:00 143/84 05/03/19 23:00 73 20 143/84 (103) 100 05/03/19 22:45 74 19 109/85 (93) 100 05/03/19 22:30 70 18 115/82 (93) 100 05/03/19 22:00 70 19 126/84 (98) 100 05/03/19 22:00 138/68 05/03/19 21:30 69 19 122/78 (93) 100 05/03/19 21:00 117/77 05/03/19 21:00 67 19 117/77 (90) 100 05/03/19 20:30 71 19 133/70 (91) 100 05/03/19 20:00 116/77 05/03/19 20:00 Room Air 05/03/19 20:00 98.8 69 18 114/72 (86) 100 05/03/19 20:00 70 05/03/19 19:30 65 18 112/68 (83) 100 05/03/19 19:00 72 19 107/65 (79) 100 05/03/19 19:00 107/65 05/03/19 18:30 73 20 110/63 (79) 100 Intake and Output 05/03/19 05/04/19 18:59 06:59 Intake Total 1222.970 ml 670.990 ml Output Total 2290 ml 1280 ml Balance -1067.030 ml -609.010 ml Intake Oral 140 ml IV Total 1082.970 ml 670.990 ml Output Urine Total 2290 ml 1280 ml Laboratory Tests Test 05/04/19 04:30 White Blood Count 6.1 K/UL (4.8-10.8) Red Blood Count 2.78 M/UL (4.20-5.40) L Hemoglobin 8.7 G/DL (12.0-16.0) L Hematocrit 26.4 % (37.0-47.0) L Mean Corpuscular Volume 95 FL (80-99) Mean Corpuscular Hemoglobin 31.3 PG (27.0-31.0) H Mean Corpuscular Hemoglobin Concent 32.9 G/DL (32.0-36.0) Red Cell Distribution Width 11.9 % (11.6-14.8) Platelet Count 195 K/UL (150-450) Mean Platelet Volume 6.1 FL (6.5-10.1) L Neutrophils (%) (Auto) 60.6 % (45.0-75.0) Lymphocytes (%) (Auto) 31.8 % (20.0-45.0) Monocytes (%) (Auto) 5.4 % (1.0-10.0) Eosinophils (%) (Auto) 1.3 % (0.0-3.0) Basophils (%) (Auto) 0.9 % (0.0-2.0) Erythrocyte Sedimentation Rate 32 MM/HR (0-30) H Sodium Level 137 MMOL/L (136-145) Potassium Level 3.7 MMOL/L (3.5-5.1) Chloride Level 103 MMOL/L (98-107) Carbon Dioxide Level 26 MMOL/L (21-32) Anion Gap 8 mmol/L (5-15) Blood Urea Nitrogen 14 mg/dL (7-18) Creatinine 0.6 MG/DL (0.55-1.30) Estimat Glomerular Filtration Rate mL/min (>60) Glucose Level 82 MG/DL (74-106) Uric Acid 2.5 MG/DL (2.6-7.2) L Calcium Level 8.1 MG/DL (8.5-10.1) L Phosphorus Level 1.6 MG/DL (2.5-4.9) L Magnesium Level 1.8 MG/DL (1.8-2.4) Total Bilirubin 0.2 MG/DL (0.2-1.0) Aspartate Amino Transf (AST/SGOT) 43 U/L (15-37) H Alanine Aminotransferase (ALT/SGPT) 68 U/L (12-78) Alkaline Phosphatase 56 U/L (46-116) C-Reactive Protein, Quantitative 2.1 mg/dL (0.00-0.90) H Pro-B-Type Natriuretic Peptide 500 pg/mL (0-125) H Total Protein 4.6 G/DL (6.4-8.2) L Albumin 2.1 G/DL (3.4-5.0) L Globulin 2.5 g/dL Albumin/Globulin Ratio 0.8 (1.0-2.7) L Cortisol AM Sample Pending Objective HEAD AND NECK: No JVD. LUNGS: Coarse rhonchi. CARDIOVASCULAR: Shows regular S1 and S2. Mildly bradycardic. ABDOMEN: Soft. EXTREMITIES: Contracted, no pitting edema, and a triple-lumen in the left femoral vein. Florencio Ross MD May 04, 2019 18:13
--- NOTE | 2019-05-04 19:26 | NUR ---
HAND-OFF: Report given to VARUN Rizvi.
--- NOTE | 2019-05-04 19:36 | Internal Med Progress Note ---
Subjective Physician Name Solo Macdonald Attending Physician Solo Macdonald MD Current Medications Medications (Trade) Dose Ordered Sig/Familia Route PRN Reason Start Time Stop Time Status Last Admin Dose Admin Acetaminophen (Tylenol) 650 mg Q4H PRN ORAL fever 05/01/19 12:00 05/31/19 11:59 Barium Sulfate (Readi-Cat 2) 450 ml NOW PRN ORAL Radiology Procedure 05/02/19 23:45 05/04/19 23:45 Cefepime HCl 500 mg/Dextrose 55 ml @ 110 mls/hr EVERY 12 HOURS IVPB 05/01/19 16:00 05/08/19 15:59 05/04/19 09:27 Chlorhexidine Gluconate (Montserrat-Hex 2%) 1 applic DAILY@2000 TOPIC 05/02/19 20:00 06/01/19 19:59 05/03/19 20:22 Dextrose 1,000 ml @ 50 mls/hr Q20H IV 05/03/19 13:00 06/02/19 12:59 05/04/19 09:00 Dextrose (Dextrose 50%) 25 ml Q30M PRN IV Hypoglycemia 05/01/19 12:00 05/31/19 11:59 Dextrose (Dextrose 50%) 50 ml Q30M PRN IV Hypoglycemia 05/01/19 12:15 05/31/19 12:14 Dopamine HCl/ Dextrose 250 ml @ 0 mls/hr Q24H IV 05/02/19 15:00 05/31/19 16:44 05/02/19 15:10 Famotidine (Pepcid I.v.) 20 mg Q12HR IVP 05/03/19 21:00 06/02/19 20:59 05/04/19 09:35 Folic Acid (Folate) 3 mg DAILY ORAL 05/03/19 12:45 06/02/19 12:44 05/04/19 09:26 Heparin Sodium (Porcine) (Heparin 5000 units/ml) 5,000 units EVERY 12 HOURS SUBQ 05/01/19 21:00 05/31/19 20:59 05/04/19 09:28 Iopamidol (Isovue-300 100ml) 100 ml NOW PRN INJ Radiology Procedure 05/02/19 23:45 05/04/19 23:44 Lorazepam (Ativan 2mg/ml 1ml) 0.5 mg Q4H PRN IV For Anxiety 05/01/19 12:00 05/08/19 11:59 Morphine Sulfate (Morphine Sulfate) 1 mg Q4H PRN IVP For Pain 05/01/19 12:00 05/08/19 11:59 Ondansetron HCl (Zofran) 4 mg Q6H PRN IVP Nausea & Vomiting 05/01/19 12:00 05/31/19 11:59 Polyethylene Glycol (Miralax) 17 gm HSPRN PRN ORAL Constipation 05/01/19 12:00 05/31/19 11:59 Zolpidem Tartrate (Ambien) 5 mg HSPRN PRN ORAL Insomnia 05/01/19 12:00 05/08/19 11:59 Allergies: Coded Allergies: No Known Allergies (Unverified , 05/01/19) Subjective In ICU, Responsive, awake, NAD, Objective Last Vital Signs Date Time Temp Pulse Resp B/P (MAP) Pulse Ox O2 Delivery O2 Flow Rate FiO2 05/04/19 18:00 73 16 98/59 (72) 100 05/04/19 16:00 97.8 05/04/19 16:00 Room Air 05/02/19 00:00 2.0 Laboratory Tests Test 05/04/19 04:30 White Blood Count 6.1 K/UL (4.8-10.8) Red Blood Count 2.78 M/UL (4.20-5.40) L Hemoglobin 8.7 G/DL (12.0-16.0) L Hematocrit 26.4 % (37.0-47.0) L Mean Corpuscular Volume 95 FL (80-99) Mean Corpuscular Hemoglobin 31.3 PG (27.0-31.0) H Mean Corpuscular Hemoglobin Concent 32.9 G/DL (32.0-36.0) Red Cell Distribution Width 11.9 % (11.6-14.8) Platelet Count 195 K/UL (150-450) Mean Platelet Volume 6.1 FL (6.5-10.1) L Neutrophils (%) (Auto) 60.6 % (45.0-75.0) Lymphocytes (%) (Auto) 31.8 % (20.0-45.0) Monocytes (%) (Auto) 5.4 % (1.0-10.0) Eosinophils (%) (Auto) 1.3 % (0.0-3.0) Basophils (%) (Auto) 0.9 % (0.0-2.0) Erythrocyte Sedimentation Rate 32 MM/HR (0-30) H Sodium Level 137 MMOL/L (136-145) Potassium Level 3.7 MMOL/L (3.5-5.1) Chloride Level 103 MMOL/L (98-107) Carbon Dioxide Level 26 MMOL/L (21-32) Anion Gap 8 mmol/L (5-15) Blood Urea Nitrogen 14 mg/dL (7-18) Creatinine 0.6 MG/DL (0.55-1.30) Estimat Glomerular Filtration Rate mL/min (>60) Glucose Level 82 MG/DL (74-106) Uric Acid 2.5 MG/DL (2.6-7.2) L Calcium Level 8.1 MG/DL (8.5-10.1) L Phosphorus Level 1.6 MG/DL (2.5-4.9) L Magnesium Level 1.8 MG/DL (1.8-2.4) Total Bilirubin 0.2 MG/DL (0.2-1.0) Aspartate Amino Transf (AST/SGOT) 43 U/L (15-37) H Alanine Aminotransferase (ALT/SGPT) 68 U/L (12-78) Alkaline Phosphatase 56 U/L (46-116) C-Reactive Protein, Quantitative 2.1 mg/dL (0.00-0.90) H Pro-B-Type Natriuretic Peptide 500 pg/mL (0-125) H Total Protein 4.6 G/DL (6.4-8.2) L Albumin 2.1 G/DL (3.4-5.0) L Globulin 2.5 g/dL Albumin/Globulin Ratio 0.8 (1.0-2.7) L Cortisol AM Sample Pending Intake and Output 05/03/19 05/04/19 18:59 06:59 Intake Total 1222.970 ml 670.990 ml Output Total 2290 ml 1280 ml Balance -1067.030 ml -609.010 ml Intake Oral 140 ml IV Total 1082.970 ml 670.990 ml Output Urine Total 2290 ml 1280 ml Objective GENERAL: Awake, more responsive, alert, Cachexia, talking. HEAD AND NECK: Pupils are equal and reactive to light. Anicteric. Neck supple. No JVD. LUNGS: Good air entry. decrease air at bases, No wheezing or rhonchi. HEART: S1, S2. Regular rhythm. No murmur or gallops. ABDOMEN: Soft, nondistended, nontender. Positive bowel sounds. EXTREMITIES: No cyanosis, clubbing, edema. The patient has muscle atrophy in bilateral lower extremity. Left femoral TLC. NEUROLOGIC: Cranial nerves II through XII grossly intact. contracted lower extremity. Moving upper extremity, right side weakness. SKIN: Bilateral trochanter stage I ulceration as well as sacral decubitus ulcer stage IV. No discharge was noted. Assessment/Plan Assessment/Plan ASSESSMENT: 1. Septic shock, most likely secondary to acute sepsis due to GNR urinary tract infection. 2. Severe cachexia, Severe protein calori malnutrition. 3. Stage IV sacral decubitus ulcer presented on admission. 4. History of essential hypertension, presently hypotensive. 5. Acute kidney injury on chronic renal insufficiency, most likely secondary to severe dehydration and hypovolemia. 6. Advanced dementia. 7. Severe Hypotension most likely combination of septic shock and Dehydration / Hypovolemia. 8. Bilateral hydronephrosis. 9. Hypokalemia. PLAN: In ICU. Monitor laboratory and cultures Antibiotics: cefepime, DVT prophylaxis: heparin subcutaneous. Code status at this time is Full Code per POLST. off dopamine Drip. Cardiology consult with Dr. Ross Pulmonary consult Dr. Nash Urology consult with Dr. Portillo Family members, Daughter and son, agreed with PEG placement. IVF @ 50 cc/hr GI consult for PEG placement may transfer to [facility]. Solo Macdonald MD May 04, 2019 19:36
--- NOTE | 2019-05-04 20:00 | NUR ---
NURSE NOTES: Received pt from Rosi Dubose RN. Patient is awake, primarily speaks Persian. Can answer simple yes or no questions and follow simple commands. On room air while saturating 100%, non-labored and even breathing. Bilateral b/s clear. Patient is contracted BLE and BUE. Patient is on regular diet with modifications. Bed locked, alarmed and in lowest position. Left femoral TLC running D5W@50ml/hr. BP stable, HR 80SR . LFA 20G and RFA 20G asymptomatic and patent. Dressing on sacral, left heel DTI and left trochanter dressing clean and intact. Will continue plan of care.
--- NOTE | 2019-05-04 20:03 | NUR ---
CASE MANAGEMENT: REVIEW SI: SEPSIS . RENAL INSUFFICIENCY T 97.8 HR 68 RR 17 BP 93/55 SAT 100% ROOM AIR H/H 8.7/26.4 URIC ACID 2.5 IS: DOPAMINE GTT CEFEPIME IV Q12HR D5W @50ML/HR ICU STATUS DCP: PATIENT IS FROM [facility]
[2019-05-04] MEDS: Dyna-Hex 2% Top Sol 2oz TOPIC SCH (20:10)
--- NOTE | 2019-05-04 20:11 | NUR ---
NURSE NOTES: Morphine 1mg IVP given for pain of 10/10 Flacc score. Vitals remained stable. Patient temperature noted to be 99.4F
--- NOTE | 2019-05-04 21:00 | NUR ---
NURSE NOTES: Patient repositioned. Oral care provided. Family/Friend at bedside. No acute distress at this time. 109/81, HR 74 SR. Patient is awake and following simple commands.
--- NOTE | 2019-05-04 22:00 | NUR ---
NURSE NOTES: Received patient from ICU Nurse Dmitri BOND. Patient is awake and oriented x2-x3, family at bedside. She is on room air, tolerating well, showing no signs of respiratory distress. Villagomez catheter is patent and draining. Patient has a left side femoral central line, patent and receiving D5W @ 50cc/hr. IV site is Left Forearm 20g and Right Forearm 22g, both IV's are patent and asymptomatic. Bed is locked, placed in lowest position, side rails up x3, bed alarm on, call light within reach. Will continue to monitor.
--- NOTE | 2019-05-04 22:43 | General Progress Note ---
Assessment/Plan Assessment/Plan: GI CONSULT ATSP for PEG placement Full note dictated Message left with family - Will discuss and arrange Thank you Nasim Gates MD Subjective Allergies: Coded Allergies: No Known Allergies (Unverified , 05/01/19) Objective Last 24 Hour Vital Signs Date Time Temp Pulse Resp B/P (MAP) Pulse Ox O2 Delivery O2 Flow Rate FiO2 05/04/19 21:00 77 20 109/81 (90) 100 05/04/19 20:00 99.4 78 21 111/71 (84) 100 05/04/19 20:00 Room Air 05/04/19 20:00 79 05/04/19 19:00 73 20 93/55 (68) 100 05/04/19 18:00 73 16 98/59 (72) 100 05/04/19 17:00 71 17 100/56 (71) 100 05/04/19 16:00 97.8 68 17 105/58 (74) 100 05/04/19 16:00 Room Air 05/04/19 16:00 69 05/04/19 15:00 82 17 106/60 (75) 100 05/04/19 14:00 69 17 99/57 (71) 100 05/04/19 13:08 123/58 05/04/19 13:00 67 18 123/58 (79) 100 05/04/19 12:00 68 05/04/19 12:00 Room Air 05/04/19 12:00 97.9 71 15 113/61 (78) 100 05/04/19 11:00 64 15 93/46 (62) 100 05/04/19 10:00 64 15 105/61 (76) 100 05/04/19 09:45 66 15 106/64 (78) 100 05/04/19 09:30 68 15 107/61 (76) 100 05/04/19 09:15 67 15 106/67 (80) 100 05/04/19 09:00 70 15 98/63 (75) 100 05/04/19 08:45 65 15 105/57 (73) 100 05/04/19 08:30 68 15 102/52 (69) 100 05/04/19 08:15 70 15 94/63 (73) 100 05/04/19 08:00 63 05/04/19 08:00 67 15 98/62 (74) 100 05/04/19 08:00 Room Air 05/04/19 07:30 98.9 65 15 97/59 (72) 100 05/04/19 07:00 65 15 104/62 (76) 100 05/04/19 07:00 104/62 05/04/19 06:30 64 15 94/59 (71) 99 05/04/19 06:03 65 16 105/61 (76) 99 05/04/19 06:00 63 16 89/55 (66) 100 05/04/19 06:00 105/61 05/04/19 05:45 66 16 104/56 (72) 100 05/04/19 05:30 63 20 102/58 (73) 100 05/04/19 05:00 75 18 124/63 (83) 100 05/04/19 05:00 108/58 05/04/19 04:30 63 16 106/60 (75) 100 05/04/19 04:15 59 17 102/62 (75) 100 05/04/19 04:00 98.1 59 17 115/62 (79) 100 05/04/19 04:00 Room Air 05/04/19 04:00 102/62 05/04/19 04:00 59 05/04/19 03:30 62 17 108/69 (82) 100 05/04/19 03:00 68 20 127/69 (88) 100 05/04/19 02:30 60 17 135/73 (93) 100 05/04/19 02:00 62 16 133/79 (97) 100 05/04/19 01:30 60 17 121/70 (87) 100 05/04/19 01:00 62 17 126/76 (93) 100 05/04/19 00:45 59 17 125/70 (88) 100 05/04/19 00:30 60 18 120/98 (105) 100 05/04/19 00:15 66 18 133/73 (93) 100 05/04/19 00:00 70 05/04/19 00:00 74 17 126/77 (93) 100 05/04/19 00:00 133/73 05/04/19 00:00 74 17 126/77 (93) 100 05/04/19 00:00 74 17 126/77 (93) 100 05/04/19 00:00 Room Air 05/04/19 00:00 74 17 126/77 (93) 100 05/03/19 23:45 75 19 128/74 (92) 100 05/03/19 23:30 75 18 144/73 (96) 100 05/03/19 23:15 73 16 139/102 (114) 100 05/03/19 23:00 143/84 05/03/19 23:00 73 20 143/84 (103) 100 05/03/19 22:45 74 19 109/85 (93) 100 Intake and Output 05/03/19 05/04/19 18:59 06:59 Intake Total 1222.970 ml 670.990 ml Output Total 2290 ml 1280 ml Balance -1067.030 ml -609.010 ml Intake Oral 140 ml IV Total 1082.970 ml 670.990 ml Output Urine Total 2290 ml 1280 ml Laboratory Tests 05/04/19 04:30: White Blood Count 6.1, Red Blood Count 2.78L, Hemoglobin 8.7L, Hematocrit 26.4L , Mean Corpuscular Volume 95, Mean Corpuscular Hemoglobin 31.3H, Mean Corpuscular Hemoglobin Concent 32.9, Red Cell Distribution Width 11.9, Platelet Count 195, Mean Platelet Volume 6.1L, Neutrophils (%) (Auto) 60.6, Lymphocytes ( %) (Auto) 31.8, Monocytes (%) (Auto) 5.4, Eosinophils (%) (Auto) 1.3, Basophils (%) (Auto) 0.9, Erythrocyte Sedimentation Rate 32H, Sodium Level 137, Potassium Level 3.7, Chloride Level 103, Carbon Dioxide Level 26, Anion Gap 8, Blood Urea Nitrogen 14, Creatinine 0.6, Estimat Glomerular Filtration Rate , Glucose Level 82, Uric Acid 2.5L, Calcium Level 8.1L, Phosphorus Level 1.6L, Magnesium Level 1.8, Total Bilirubin 0.2, Aspartate Amino Transf (AST/SGOT) 43H, Alanine Aminotransferase (ALT/SGPT) 68, Alkaline Phosphatase 56, C-Reactive Protein, Quantitative 2.1H, Pro-B-Type Natriuretic Peptide 500H, Total Protein 4.6L, Albumin 2.1L, Globulin 2.5, Albumin/Globulin Ratio 0.8L, Cortisol AM Sample [ Pending] Height (Feet): 5 Height (Inches): 2.00 Weight (Pounds): 90 Nasim Gates MD May 04, 2019 22:43
[2019-05-04] MEDS ORDERED: Isovue-300 100ml vial INJ PRN (23:45)
--- NOTE | 2019-05-04 23:45 | Consultation ---
DATE OF CONSULTATION: 05/04/2019 CHIEF COMPLAINT: I was asked to see this patient by Dr. Solo Macdonald for evaluation of gastrostomy tube placement. HISTORY OF PRESENT ILLNESS: The patient is an unfortunate 83-year-old, woman with multiple medical problems who has been admitted with urinary tract infection and sepsis. She was admitted to the intensive care unit for now, was transferred to the direct observation unit. She is verbal, but not very conversant. She has some degree of cognitive dysfunction but most of the information only available from the chart. The patient has been noted to have poor oral intake and is contracted, very debilitated with decubitus ulcerations and therefore the gastrostomy tube consultation was requested. PAST MEDICAL HISTORY: History of urinary tract infection, hemiplegia, dementia, hypertension, cellulitis, anemia, weakness, bedbound state, functional quadriplegia. FAMILY HISTORY: Unavailable. ALLERGIES: None. MEDICATIONS: See chart list for details. SOCIAL HISTORY: The patient has had no recent history of smoking or drinking. REVIEW OF SYSTEMS: Otherwise negative and/or unobtainable. PHYSICAL EXAMINATION: GENERAL: Debilitated woman seen in her room. HEENT: Normocephalic and atraumatic. Dentition was poor. NECK: Supple. CHEST: Coarse breath sounds. CARDIOVASCULAR: Revealed regular rate. ABDOMEN: Soft. Good bowel sounds. No organomegaly. EXTREMITIES: Revealed severe contracture deformities as well decubitus ulcerations. NEUROLOGIC: Notable for dementia, bedbound state, weakness. LABORATORY DATA: Noted. ASSESSMENT: This patient presents with anorexia and poor oral intake in the setting of the contractures, decubitus ulcerations with bedbound state. She can continue to benefit from oral diet for gratification, should she have a normal swallow, but the gastrostomy tube will clearly improve her nutritional state and this apparently already accepted by the family. A message has been left to the patient's son to discuss the matter further and if agreed . In the meantime, the patient should receive decubitus ulceration care, multivitamins, vitamin C, zinc sulfate as well as positional interventions. RECOMMENDATIONS: Per above discussion and per orders written in the chart. Thank you for asking me to participate in care of this patient. Nasim Gates M.D. DR: Preet JOB#: [id number] CC:
[2019-05-05] VITALS: BP 128/74
[2019-05-05 04:00] VITALS: BP 132/70
[2019-05-05 05:49] LABS: BASOPHILS % (AUTO) 0.4 % (0.0-2.0); EOSINOPHILS % (AUTO) 1.5 % (0.0-3.0); HEMOGLOBIN 9.1 G/DL (12.0-16.0); LYMPHOCYTES % (AUTO) 31.5 % (20.0-45.0); MEAN CORPUSCULAR VOLUME 94 FL (80-99); MONOCYTES % (AUTO) 6.8 % (1.0-10.0); NEUTROPHILS % (AUTO) 59.8 % (45.0-75.0); PLATELET COUNT 218 K/UL (150-450); RED BLOOD COUNT 2.89 M/UL (4.20-5.40); RED CELL DISTRIBUTION WIDTH 11.9 % (11.6-14.8); WHITE BLOOD COUNT 7.6 K/UL (4.8-10.8)
[2019-05-05 06:35] LABS: ALANINE AMINOTRANSFERASE 75 U/L (12-78); ALBUMIN 2.2 G/DL (3.4-5.0); ALBUMIN/GLOBULIN RATIO 0.7 (1.0-2.7); ALKALINE PHOSPHATASE 73 U/L (46-116); ANION GAP 7 mmol/L (5-15); ASPARTATE AMINO TRANSFERASE 39 U/L (15-37); BILIRUBIN,TOTAL 0.3 MG/DL (0.2-1.0); BLOOD UREA NITROGEN 10 mg/dL (7-18); CALCIUM 8.4 MG/DL (8.5-10.1); CARBON DIOXIDE 27 MMOL/L (21-32); CHLORIDE 105 MMOL/L (98-107); CREATININE 0.6 MG/DL (0.55-1.30); PHOSPHORUS 2.6 MG/DL (2.5-4.9); POTASSIUM 3.8 MMOL/L (3.5-5.1); SODIUM 139 MMOL/L (136-145)
--- NOTE | 2019-05-05 07:26 | NUR ---
HAND-OFF: Report given to Ruth BOND. Patient in stable condition.
--- NOTE | 2019-05-05 07:27 | NUR ---
NURSE NOTES: Received patient in bed. Awake, on room air, no respiratory distress. Non verbal, no facial grimace.
[2019-05-05 08:00] VITALS: BP 123/62
--- NOTE | 2019-05-05 08:07 | General Progress Note ---
Assessment/Plan Assessment/Plan: Assessment - malnutrition - Decub ulcer - contracted, bed bound - OBS - recent UTI / Sepsis Recommendations - po as tolerated - abx - IVF - PEG in am Subjective Allergies: Coded Allergies: No Known Allergies (Unverified , 05/01/19) Subjective Above noted resting comfortably discussed with son last PM regarding PEG placement Objective Last 24 Hour Vital Signs Date Time Temp Pulse Resp B/P (MAP) Pulse Ox O2 Delivery O2 Flow Rate FiO2 05/05/19 04:00 68 05/05/19 04:00 Room Air 05/05/19 04:00 97.6 68 18 132/70 (90) 100 05/05/19 00:00 Room Air 05/05/19 00:00 97.9 73 20 128/74 (92) 100 05/04/19 23:33 68 05/04/19 22:00 98.1 76 20 105/54 (71) 100 05/04/19 21:00 77 20 109/81 (90) 100 05/04/19 20:39 73 05/04/19 20:00 99.4 78 21 111/71 (84) 100 05/04/19 20:00 Room Air 05/04/19 20:00 79 05/04/19 19:00 73 20 93/55 (68) 100 05/04/19 18:00 73 16 98/59 (72) 100 05/04/19 17:00 71 17 100/56 (71) 100 05/04/19 16:00 97.8 68 17 105/58 (74) 100 05/04/19 16:00 Room Air 05/04/19 16:00 69 05/04/19 15:00 82 17 106/60 (75) 100 05/04/19 14:00 69 17 99/57 (71) 100 05/04/19 13:08 123/58 05/04/19 13:00 67 18 123/58 (79) 100 05/04/19 12:00 68 05/04/19 12:00 Room Air 05/04/19 12:00 97.9 71 15 113/61 (78) 100 05/04/19 11:00 64 15 93/46 (62) 100 05/04/19 10:00 64 15 105/61 (76) 100 05/04/19 09:45 66 15 106/64 (78) 100 05/04/19 09:30 68 15 107/61 (76) 100 05/04/19 09:15 67 15 106/67 (80) 100 05/04/19 09:00 70 15 98/63 (75) 100 05/04/19 08:45 65 15 105/57 (73) 100 05/04/19 08:30 68 15 102/52 (69) 100 05/04/19 08:15 70 15 94/63 (73) 100 Intake and Output 05/04/19 05/05/19 19:00 07:00 Intake Total 561.599 ml 50 ml Output Total 890 ml 1485 ml Balance -328.401 ml -1435 ml Intake Oral 110 ml IV Total 451.599 ml 50 ml Output Urine Total 890 ml 1485 ml Laboratory Tests 05/05/19 04:05: White Blood Count 7.6, Red Blood Count 2.89L, Hemoglobin 9.1L, Hematocrit 27.0L , Mean Corpuscular Volume 94, Mean Corpuscular Hemoglobin 31.6H, Mean Corpuscular Hemoglobin Concent 33.7, Red Cell Distribution Width 11.9, Platelet Count 218, Mean Platelet Volume 5.4L, Neutrophils (%) (Auto) 59.8, Lymphocytes ( %) (Auto) 31.5, Monocytes (%) (Auto) 6.8, Eosinophils (%) (Auto) 1.5, Basophils (%) (Auto) 0.4, Erythrocyte Sedimentation Rate 45H, Activated Partial Thromboplast Time 27, Sodium Level 139, Potassium Level 3.8, Chloride Level 105 , Carbon Dioxide Level 27, Anion Gap 7, Blood Urea Nitrogen 10, Creatinine 0.6, Estimat Glomerular Filtration Rate , Glucose Level 81, Calcium Level 8.4L, Phosphorus Level 2.6, Magnesium Level 1.7L, Total Bilirubin 0.3, Aspartate Amino Transf (AST/SGOT) 39H, Alanine Aminotransferase (ALT/SGPT) 75, Alkaline Phosphatase 73, C-Reactive Protein, Quantitative 1.9H, Total Protein 5.2L, Albumin 2.2L, Globulin 3.0, Albumin/Globulin Ratio 0.7L Height (Feet): 5 Height (Inches): 2.00 Weight (Pounds): 114 Objective Debilitated elderly woman NCAT supple CTA RR abd soft (+) contractures (+) decub Khorrami,Payman MD May 05, 2019 08:07
--- NOTE | 2019-05-05 08:36 | Urology Progress Note ---
Assessment/Plan Assessment/Plan: 1. No hydronephrosis. 2. Urinary retention. 3. Probable neurogenic bladder. 4. Proteinuria. 5. Hematuria. 6. Pyuria. 7. Mild acute kidney injury, which has resolved. 8. Possible nephrolithiasis. 9. Bladder calculi monitor clinically maintain mujica hand irrigate PRN abx as ordered renal fxn stable Subjective Allergies: Coded Allergies: No Known Allergies (Unverified , 05/01/19) Subjective all noted Objective Last 24 Hour Vital Signs Date Time Temp Pulse Resp B/P (MAP) Pulse Ox O2 Delivery O2 Flow Rate FiO2 05/05/19 04:00 68 05/05/19 04:00 Room Air 05/05/19 04:00 97.6 68 18 132/70 (90) 100 05/05/19 00:00 Room Air 05/05/19 00:00 97.9 73 20 128/74 (92) 100 05/04/19 23:33 68 05/04/19 22:00 98.1 76 20 105/54 (71) 100 05/04/19 21:00 77 20 109/81 (90) 100 05/04/19 20:39 73 05/04/19 20:00 99.4 78 21 111/71 (84) 100 05/04/19 20:00 Room Air 05/04/19 20:00 79 05/04/19 19:00 73 20 93/55 (68) 100 05/04/19 18:00 73 16 98/59 (72) 100 05/04/19 17:00 71 17 100/56 (71) 100 05/04/19 16:00 97.8 68 17 105/58 (74) 100 05/04/19 16:00 Room Air 05/04/19 16:00 69 05/04/19 15:00 82 17 106/60 (75) 100 05/04/19 14:00 69 17 99/57 (71) 100 05/04/19 13:08 123/58 05/04/19 13:00 67 18 123/58 (79) 100 05/04/19 12:00 68 05/04/19 12:00 Room Air 05/04/19 12:00 97.9 71 15 113/61 (78) 100 05/04/19 11:00 64 15 93/46 (62) 100 05/04/19 10:00 64 15 105/61 (76) 100 05/04/19 09:45 66 15 106/64 (78) 100 05/04/19 09:30 68 15 107/61 (76) 100 05/04/19 09:15 67 15 106/67 (80) 100 05/04/19 09:00 70 15 98/63 (75) 100 05/04/19 08:45 65 15 105/57 (73) 100 Intake and Output 05/04/19 05/05/19 19:00 07:00 Intake Total 561.599 ml 50 ml Output Total 890 ml 1485 ml Balance -328.401 ml -1435 ml Intake Oral 110 ml IV Total 451.599 ml 50 ml Output Urine Total 890 ml 1485 ml Microbiology Date/Time Source Procedure Growth Status 05/01/19 10:25 Blood Blood Culture - Preliminary NO GROWTH AFTER 72 HOURS Resulted 05/01/19 10:35 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 Complete 05/01/19 17:18 Urine,Clean Catch Urine Culture - Final NO GROWTH AFTER 48 HOURS Complete 05/01/19 10:35 Rectum VRE Culture - Final NO VANCOMYCIN RESISTANT ENTEROCOCCUS ... Complete 05/01/19 10:35 Rectum - Final NO CARBAPENEM-RESISTANT ENTEROBACTERI... Complete Current Medications Medications (Trade) Dose Ordered Sig/Familia Route PRN Reason Start Time Stop Time Status Last Admin Dose Admin Acetaminophen (Tylenol) 650 mg Q4H PRN ORAL fever 05/05/19 00:00 05/31/19 11:59 Barium Sulfate (Readi-Cat 2) 450 ml NOW PRN ORAL Radiology Procedure 05/04/19 23:45 06/03/19 23:44 Cefepime HCl 500 mg/Dextrose 55 ml @ 110 mls/hr EVERY 12 HOURS IVPB 05/05/19 09:00 05/08/19 15:59 Chlorhexidine Gluconate (Montserrat-Hex 2%) 1 applic DAILY@2000 TOPIC 05/05/19 20:00 06/01/19 19:59 Dextrose 1,000 ml @ 50 mls/hr Q20H IV 05/04/19 22:00 06/02/19 12:59 05/04/19 22:30 Dextrose (Dextrose 50%) 25 ml Q30M PRN IV Hypoglycemia 05/04/19 22:30 05/31/19 11:59 Dextrose (Dextrose 50%) 50 ml Q30M PRN IV Hypoglycemia 05/04/19 22:15 05/31/19 12:14 Famotidine (Pepcid I.v.) 20 mg Q12HR IVP 05/05/19 09:00 06/02/19 20:59 Folic Acid (Folate) 3 mg DAILY ORAL 05/05/19 09:00 06/02/19 12:44 Heparin Sodium (Porcine) (Heparin 5000 units/ml) 5,000 units EVERY 12 HOURS SUBQ 05/05/19 09:00 05/31/19 20:59 Iopamidol (Isovue-300 100ml) 100 ml NOW PRN INJ Radiology Procedure 05/04/19 23:45 06/03/19 23:44 Lorazepam (Ativan 2mg/ml 1ml) 0.5 mg Q4H PRN IV For Anxiety 05/05/19 00:00 05/08/19 11:59 Morphine Sulfate (Morphine Sulfate) 1 mg Q4H PRN IVP For Pain 05/05/19 00:00 05/08/19 11:59 Ondansetron HCl (Zofran) 4 mg Q6H PRN IVP Nausea & Vomiting 05/05/19 00:00 05/31/19 11:59 Polyethylene Glycol (Miralax) 17 gm HSPRN PRN ORAL Constipation 05/05/19 12:00 05/31/19 11:59 Zolpidem Tartrate (Ambien) 5 mg HSPRN PRN ORAL Insomnia 05/05/19 12:00 05/08/19 11:59 Laboratory Tests 05/05/19 04:05: White Blood Count 7.6, Red Blood Count 2.89L, Hemoglobin 9.1L, Hematocrit 27.0L , Mean Corpuscular Volume 94, Mean Corpuscular Hemoglobin 31.6H, Mean Corpuscular Hemoglobin Concent 33.7, Red Cell Distribution Width 11.9, Platelet Count 218, Mean Platelet Volume 5.4L, Neutrophils (%) (Auto) 59.8, Lymphocytes ( %) (Auto) 31.5, Monocytes (%) (Auto) 6.8, Eosinophils (%) (Auto) 1.5, Basophils (%) (Auto) 0.4, Erythrocyte Sedimentation Rate 45H, Prothrombin Time [Pending], Prothromb Time International Ratio [Pending], Activated Partial Thromboplast Time 27, Sodium Level 139, Potassium Level 3.8, Chloride Level 105, Carbon Dioxide Level 27, Anion Gap 7, Blood Urea Nitrogen 10, Creatinine 0.6, Estimat Glomerular Filtration Rate , Glucose Level 81, Calcium Level 8.4L, Phosphorus Level 2.6, Magnesium Level 1.7L, Total Bilirubin 0.3, Aspartate Amino Transf ( AST/SGOT) 39H, Alanine Aminotransferase (ALT/SGPT) 75, Alkaline Phosphatase 73, C-Reactive Protein, Quantitative 1.9H, Total Protein 5.2L, Albumin 2.2L, Globulin 3.0, Albumin/Globulin Ratio 0.7L Height (Feet): 5 Height (Inches): 2.00 Weight (Pounds): 114 Objective exam stable urine grossly yellow, occasional debris CT A/P (05/04) noted Felice Portillo MD May 05, 2019 08:36
[2019-05-05 08:55] LABS: INR 0.9 (0.9-1.1)
[2019-05-05] MEDS ORDERED: Cefepime HCl 500 MG in D5W 55 ML IVPB SCH ×2 (09:00→21:00)
[2019-05-05] MEDS ORDERED: Heparin 5000 units/ml inj SUBQ SCH ×2 (09:00→21:00)
--- NOTE | 2019-05-05 10:31 | Infectious Diseases Prog Note ---
Assessment/Plan Assessment/Plan ASSESSMENT: The patient is an 83-year-old female with: 1. Sepsis. 2. Leukocytosis; resolved 3. Septic shock/hypotension. 2ry to UTI- off pressors now -u/a tnct, nit neg, leuk +3; ucx MDR P. 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 mirabilis (R nitro,otherwise S) -Bcx NTD -CT abd/p: No evidence of obstructive uropathy or hydronephrosis. Questionable nonobstructive 1 mm right intrarenal calculus. Multiple bladder calculi Bladder wall thickening, may may in part be an artifact of under distention, but the possibility of chronic bladder obstruction or cystitis should be considered Subcentimeter low-attenuation renal lesions, too small to characterize, most likely benign simple cysts. No further follow-up necessary.Villagomez catheter. Free pelvic fluid, nonspecific but not physiologic in a postmenopausal female. Equivocal mild sigmoid wall thickening, probably artifact of under distention but the possibility of colitis should be considered. Mild edema of the subcutaneous fat 4. Hydronephrosis -REnal US: 1. Mild left hydronephrosis and urinary bladder stone with wall thickening of bladder that could represent cystitis or evidence of chronic bladder outlet obstruction.. 2. Right nephrolithiasis is also suspected.. - Functional quadriplegia. - History of dementia. -Anemia. - History of stage IV sacral decubitus. PLAN: 1. We will continue the patient on IV cefepime #5/7 for UTI -7/6 SP Amikacin, Vancomycin #2 -7/5 SP Ceftriaxone x1 2. Monitor CBC. 3. Monitor BMP. 4. Monitor cultures. 5. Monitor chest x-ray. 6. Based on the patient's clinical course and laboratories, we will do further recommendations. Subjective Allergies: Coded Allergies: No Known Allergies (Unverified , 05/01/19) Subjective afebrile no leukocytosis transferred out of ICU to [facility] Bx NTD Objective Vital Signs Last 24 Hour Vital Signs Date Time Temp Pulse Resp B/P (MAP) Pulse Ox O2 Delivery O2 Flow Rate FiO2 05/05/19 09:51 60 05/05/19 08:00 97.9 65 18 123/62 (82) 99 05/05/19 08:00 Room Air 05/05/19 04:00 68 05/05/19 04:00 Room Air 05/05/19 04:00 97.6 68 18 132/70 (90) 100 05/05/19 00:00 Room Air 05/05/19 00:00 97.9 73 20 128/74 (92) 100 05/04/19 23:33 68 05/04/19 22:00 98.1 76 20 105/54 (71) 100 05/04/19 21:00 77 20 109/81 (90) 100 05/04/19 20:39 73 05/04/19 20:00 99.4 78 21 111/71 (84) 100 05/04/19 20:00 Room Air 05/04/19 20:00 79 05/04/19 19:00 73 20 93/55 (68) 100 05/04/19 18:00 73 16 98/59 (72) 100 05/04/19 17:00 71 17 100/56 (71) 100 05/04/19 16:00 97.8 68 17 105/58 (74) 100 05/04/19 16:00 Room Air 05/04/19 16:00 69 05/04/19 15:00 82 17 106/60 (75) 100 05/04/19 14:00 69 17 99/57 (71) 100 05/04/19 13:08 123/58 05/04/19 13:00 67 18 123/58 (79) 100 05/04/19 12:00 68 05/04/19 12:00 Room Air 05/04/19 12:00 97.9 71 15 113/61 (78) 100 05/04/19 11:00 64 15 93/46 (62) 100 Height (Feet): 5 Height (Inches): 2.00 Weight (Pounds): 114 Objective HEENT: No pale conjunctivae. No icterus. NECK: No lymphadenopathy. CHEST: Clear. HEART: S1, S2. ABDOMEN: Soft. EXTREMITIES: No cyanosis at this time. NEUROLOGIC: Awake, nonverbal. SKIN: The patient has stage IV sacral decubitus (tracking, not infected). Laboratory Tests Test 05/05/19 04:05 White Blood Count 7.6 K/UL (4.8-10.8) Red Blood Count 2.89 M/UL (4.20-5.40) L Hemoglobin 9.1 G/DL (12.0-16.0) L Hematocrit 27.0 % (37.0-47.0) L Mean Corpuscular Volume 94 FL (80-99) Mean Corpuscular Hemoglobin 31.6 PG (27.0-31.0) H Mean Corpuscular Hemoglobin Concent 33.7 G/DL (32.0-36.0) Red Cell Distribution Width 11.9 % (11.6-14.8) Platelet Count 218 K/UL (150-450) Mean Platelet Volume 5.4 FL (6.5-10.1) L Neutrophils (%) (Auto) 59.8 % (45.0-75.0) Lymphocytes (%) (Auto) 31.5 % (20.0-45.0) Monocytes (%) (Auto) 6.8 % (1.0-10.0) Eosinophils (%) (Auto) 1.5 % (0.0-3.0) Basophils (%) (Auto) 0.4 % (0.0-2.0) Erythrocyte Sedimentation Rate 45 MM/HR (0-30) H Prothrombin Time 9.7 SEC (9.30-11.50) Prothromb Time International Ratio 0.9 (0.9-1.1) Activated Partial Thromboplast Time 27 SEC (23-33) Sodium Level 139 MMOL/L (136-145) Potassium Level 3.8 MMOL/L (3.5-5.1) Chloride Level 105 MMOL/L (98-107) Carbon Dioxide Level 27 MMOL/L (21-32) Anion Gap 7 mmol/L (5-15) Blood Urea Nitrogen 10 mg/dL (7-18) Creatinine 0.6 MG/DL (0.55-1.30) Estimat Glomerular Filtration Rate mL/min (>60) Glucose Level 81 MG/DL (74-106) Calcium Level 8.4 MG/DL (8.5-10.1) L Phosphorus Level 2.6 MG/DL (2.5-4.9) Magnesium Level 1.7 MG/DL (1.8-2.4) L Total Bilirubin 0.3 MG/DL (0.2-1.0) Aspartate Amino Transf (AST/SGOT) 39 U/L (15-37) H Alanine Aminotransferase (ALT/SGPT) 75 U/L (12-78) Alkaline Phosphatase 73 U/L (46-116) C-Reactive Protein, Quantitative 1.9 mg/dL (0.00-0.90) H Total Protein 5.2 G/DL (6.4-8.2) L Albumin 2.2 G/DL (3.4-5.0) L Globulin 3.0 g/dL Albumin/Globulin Ratio 0.7 (1.0-2.7) L Current Medications Medications (Trade) Dose Ordered Sig/Familia Route PRN Reason Start Time Stop Time Status Last Admin Dose Admin Acetaminophen (Tylenol) 650 mg Q4H PRN ORAL fever 05/05/19 00:00 05/31/19 11:59 Barium Sulfate (Readi-Cat 2) 450 ml NOW PRN ORAL Radiology Procedure 05/04/19 23:45 06/03/19 23:44 Cefepime HCl 500 mg/Dextrose 55 ml @ 110 mls/hr EVERY 12 HOURS IVPB 05/05/19 09:00 05/08/19 15:59 05/05/19 10:21 Chlorhexidine Gluconate (Montserrat-Hex 2%) 1 applic DAILY@2000 TOPIC 05/05/19 20:00 06/01/19 19:59 Dextrose 1,000 ml @ 50 mls/hr Q20H IV 05/04/19 22:00 06/02/19 12:59 05/04/19 22:30 Dextrose (Dextrose 50%) 25 ml Q30M PRN IV Hypoglycemia 05/04/19 22:30 05/31/19 11:59 Dextrose (Dextrose 50%) 50 ml Q30M PRN IV Hypoglycemia 05/04/19 22:15 05/31/19 12:14 Famotidine (Pepcid I.v.) 20 mg Q12HR IVP 05/05/19 09:00 06/02/19 20:59 05/05/19 08:49 Folic Acid (Folate) 3 mg DAILY ORAL 05/05/19 09:00 06/02/19 12:44 05/05/19 08:49 Heparin Sodium (Porcine) (Heparin 5000 units/ml) 5,000 units EVERY 12 HOURS SUBQ 05/05/19 09:00 05/31/19 20:59 Iopamidol (Isovue-300 100ml) 100 ml NOW PRN INJ Radiology Procedure 05/04/19 23:45 06/03/19 23:44 Lorazepam (Ativan 2mg/ml 1ml) 0.5 mg Q4H PRN IV For Anxiety 05/05/19 00:00 05/08/19 11:59 Morphine Sulfate (Morphine Sulfate) 1 mg Q4H PRN IVP For Pain 05/05/19 00:00 05/08/19 11:59 Ondansetron HCl (Zofran) 4 mg Q6H PRN IVP Nausea & Vomiting 05/05/19 00:00 05/31/19 11:59 Polyethylene Glycol (Miralax) 17 gm HSPRN PRN ORAL Constipation 05/05/19 12:00 05/31/19 11:59 Zolpidem Tartrate (Ambien) 5 mg HSPRN PRN ORAL Insomnia 05/05/19 12:00 05/08/19 11:59 Luba Freeman M.D. May 05, 2019 10:31
--- NOTE | 2019-05-05 11:19 | Pulmonology Progress Note ---
Assessment/Plan Problems: (1) Septic shock (2) ATN (acute tubular necrosis) (3) Hemiparesis (4) History of hypertension (5) History of CVA with residual deficit (6) Advanced dementia Assessment/Plan improving renal failure resolved continue abx new urine culture is negative check electrolytes Subjective ROS Limited/Unobtainable: No Constitutional: Reports: no symptoms HEENT: Repors: no symptoms Respiratory: Reports: no symptoms Allergies: Coded Allergies: No Known Allergies (Unverified , 05/01/19) Objective Last 24 Hour Vital Signs Date Time Temp Pulse Resp B/P (MAP) Pulse Ox O2 Delivery O2 Flow Rate FiO2 05/05/19 09:51 60 05/05/19 08:00 97.9 65 18 123/62 (82) 99 05/05/19 08:00 Room Air 05/05/19 04:00 68 05/05/19 04:00 Room Air 05/05/19 04:00 97.6 68 18 132/70 (90) 100 05/05/19 00:00 Room Air 05/05/19 00:00 97.9 73 20 128/74 (92) 100 05/04/19 23:33 68 05/04/19 22:00 98.1 76 20 105/54 (71) 100 05/04/19 21:00 77 20 109/81 (90) 100 05/04/19 20:39 73 05/04/19 20:00 99.4 78 21 111/71 (84) 100 05/04/19 20:00 Room Air 05/04/19 20:00 79 05/04/19 19:00 73 20 93/55 (68) 100 05/04/19 18:00 73 16 98/59 (72) 100 05/04/19 17:00 71 17 100/56 (71) 100 05/04/19 16:00 97.8 68 17 105/58 (74) 100 05/04/19 16:00 Room Air 05/04/19 16:00 69 05/04/19 15:00 82 17 106/60 (75) 100 05/04/19 14:00 69 17 99/57 (71) 100 05/04/19 13:08 123/58 05/04/19 13:00 67 18 123/58 (79) 100 05/04/19 12:00 68 05/04/19 12:00 Room Air 05/04/19 12:00 97.9 71 15 113/61 (78) 100 Intake and Output 05/04/19 05/05/19 19:00 07:00 Intake Total 561.599 ml 100 ml Output Total 890 ml 1485 ml Balance -328.401 ml -1385 ml Intake Oral 110 ml IV Total 451.599 ml 100 ml Output Urine Total 890 ml 1485 ml General Appearance: cachetic HEENT: normocephalic, atraumatic Respiratory/Chest: chest wall non-tender, lungs clear Breasts: no masses Cardiovascular: normal peripheral pulses Genitourinary: normal external genitalia Extremities: no cyanosis Skin: no rash Laboratory Tests 05/05/19 04:05: White Blood Count 7.6, Red Blood Count 2.89L, Hemoglobin 9.1L, Hematocrit 27.0L , Mean Corpuscular Volume 94, Mean Corpuscular Hemoglobin 31.6H, Mean Corpuscular Hemoglobin Concent 33.7, Red Cell Distribution Width 11.9, Platelet Count 218, Mean Platelet Volume 5.4L, Neutrophils (%) (Auto) 59.8, Lymphocytes ( %) (Auto) 31.5, Monocytes (%) (Auto) 6.8, Eosinophils (%) (Auto) 1.5, Basophils (%) (Auto) 0.4, Erythrocyte Sedimentation Rate 45H, Prothrombin Time 9.7, Prothromb Time International Ratio 0.9, Activated Partial Thromboplast Time 27, Sodium Level 139, Potassium Level 3.8, Chloride Level 105, Carbon Dioxide Level 27, Anion Gap 7, Blood Urea Nitrogen 10, Creatinine 0.6, Estimat Glomerular Filtration Rate , Glucose Level 81, Calcium Level 8.4L, Phosphorus Level 2.6, Magnesium Level 1.7L, Total Bilirubin 0.3, Aspartate Amino Transf (AST/SGOT) 39H , Alanine Aminotransferase (ALT/SGPT) 75, Alkaline Phosphatase 73, C-Reactive Protein, Quantitative 1.9H, Total Protein 5.2L, Albumin 2.2L, Globulin 3.0, Albumin/Globulin Ratio 0.7L Current Medications Medications (Trade) Dose Ordered Sig/Familia Route PRN Reason Start Time Stop Time Status Last Admin Dose Admin Acetaminophen (Tylenol) 650 mg Q4H PRN ORAL fever 05/05/19 00:00 05/31/19 11:59 Barium Sulfate (Readi-Cat 2) 450 ml NOW PRN ORAL Radiology Procedure 05/04/19 23:45 06/03/19 23:44 Cefepime HCl 500 mg/Dextrose 55 ml @ 110 mls/hr EVERY 12 HOURS IVPB 05/05/19 09:00 05/08/19 15:59 05/05/19 10:21 Chlorhexidine Gluconate (Montserrat-Hex 2%) 1 applic DAILY@2000 TOPIC 05/05/19 20:00 06/01/19 19:59 Dextrose 1,000 ml @ 50 mls/hr Q20H IV 05/04/19 22:00 06/02/19 12:59 05/04/19 22:30 Dextrose (Dextrose 50%) 25 ml Q30M PRN IV Hypoglycemia 05/04/19 22:30 05/31/19 11:59 Dextrose (Dextrose 50%) 50 ml Q30M PRN IV Hypoglycemia 05/04/19 22:15 05/31/19 12:14 Famotidine (Pepcid I.v.) 20 mg Q12HR IVP 05/05/19 09:00 06/02/19 20:59 05/05/19 08:49 Folic Acid (Folate) 3 mg DAILY ORAL 05/05/19 09:00 06/02/19 12:44 05/05/19 08:49 Heparin Sodium (Porcine) (Heparin 5000 units/ml) 5,000 units EVERY 12 HOURS SUBQ 05/05/19 09:00 05/31/19 20:59 Iopamidol (Isovue-300 100ml) 100 ml NOW PRN INJ Radiology Procedure 05/04/19 23:45 06/03/19 23:44 Lorazepam (Ativan 2mg/ml 1ml) 0.5 mg Q4H PRN IV For Anxiety 05/05/19 00:00 05/08/19 11:59 Morphine Sulfate (Morphine Sulfate) 1 mg Q4H PRN IVP For Pain 05/05/19 00:00 05/08/19 11:59 Ondansetron HCl (Zofran) 4 mg Q6H PRN IVP Nausea & Vomiting 05/05/19 00:00 05/31/19 11:59 Polyethylene Glycol (Miralax) 17 gm HSPRN PRN ORAL Constipation 05/05/19 12:00 05/31/19 11:59 Zolpidem Tartrate (Ambien) 5 mg HSPRN PRN ORAL Insomnia 05/05/19 12:00 05/08/19 11:59 Adilene Nash MD May 05, 2019 11:19
--- NOTE | 2019-05-05 11:32 | Surgery Progress Note ---
Surgery Progress Note Subjective Additional Comments afebrile HD stable labs improving exam unchanged otherwise stable. Objective Last 24 Hour Vital Signs Date Time Temp Pulse Resp B/P (MAP) Pulse Ox O2 Delivery O2 Flow Rate FiO2 05/05/19 09:51 60 05/05/19 08:00 97.9 65 18 123/62 (82) 99 05/05/19 08:00 Room Air 05/05/19 04:00 68 05/05/19 04:00 Room Air 05/05/19 04:00 97.6 68 18 132/70 (90) 100 05/05/19 00:00 Room Air 05/05/19 00:00 97.9 73 20 128/74 (92) 100 05/04/19 23:33 68 05/04/19 22:00 98.1 76 20 105/54 (71) 100 05/04/19 21:00 77 20 109/81 (90) 100 05/04/19 20:39 73 05/04/19 20:00 99.4 78 21 111/71 (84) 100 05/04/19 20:00 Room Air 05/04/19 20:00 79 05/04/19 19:00 73 20 93/55 (68) 100 05/04/19 18:00 73 16 98/59 (72) 100 05/04/19 17:00 71 17 100/56 (71) 100 05/04/19 16:00 97.8 68 17 105/58 (74) 100 05/04/19 16:00 Room Air 05/04/19 16:00 69 05/04/19 15:00 82 17 106/60 (75) 100 05/04/19 14:00 69 17 99/57 (71) 100 05/04/19 13:08 123/58 05/04/19 13:00 67 18 123/58 (79) 100 05/04/19 12:00 68 05/04/19 12:00 Room Air 05/04/19 12:00 97.9 71 15 113/61 (78) 100 I&O Intake and Output 05/04/19 05/05/19 19:00 07:00 Intake Total 561.599 ml 100 ml Output Total 890 ml 1485 ml Balance -328.401 ml -1385 ml Intake Oral 110 ml IV Total 451.599 ml 100 ml Output Urine Total 890 ml 1485 ml Dressing: saturated Wound: clean Cardiovascular: RSR Respiratory: clear Abdomen: soft, present bowel sounds, non-distended Extremities: no tenderness, no cyanosis, other Laboratory Tests Test 05/05/19 04:05 White Blood Count 7.6 K/UL (4.8-10.8) Red Blood Count 2.89 M/UL (4.20-5.40) L Hemoglobin 9.1 G/DL (12.0-16.0) L Hematocrit 27.0 % (37.0-47.0) L Mean Corpuscular Volume 94 FL (80-99) Mean Corpuscular Hemoglobin 31.6 PG (27.0-31.0) H Mean Corpuscular Hemoglobin Concent 33.7 G/DL (32.0-36.0) Red Cell Distribution Width 11.9 % (11.6-14.8) Platelet Count 218 K/UL (150-450) Mean Platelet Volume 5.4 FL (6.5-10.1) L Neutrophils (%) (Auto) 59.8 % (45.0-75.0) Lymphocytes (%) (Auto) 31.5 % (20.0-45.0) Monocytes (%) (Auto) 6.8 % (1.0-10.0) Eosinophils (%) (Auto) 1.5 % (0.0-3.0) Basophils (%) (Auto) 0.4 % (0.0-2.0) Erythrocyte Sedimentation Rate 45 MM/HR (0-30) H Prothrombin Time 9.7 SEC (9.30-11.50) Prothromb Time International Ratio 0.9 (0.9-1.1) Activated Partial Thromboplast Time 27 SEC (23-33) Sodium Level 139 MMOL/L (136-145) Potassium Level 3.8 MMOL/L (3.5-5.1) Chloride Level 105 MMOL/L (98-107) Carbon Dioxide Level 27 MMOL/L (21-32) Anion Gap 7 mmol/L (5-15) Blood Urea Nitrogen 10 mg/dL (7-18) Creatinine 0.6 MG/DL (0.55-1.30) Estimat Glomerular Filtration Rate mL/min (>60) Glucose Level 81 MG/DL (74-106) Calcium Level 8.4 MG/DL (8.5-10.1) L Phosphorus Level 2.6 MG/DL (2.5-4.9) Magnesium Level 1.7 MG/DL (1.8-2.4) L Total Bilirubin 0.3 MG/DL (0.2-1.0) Aspartate Amino Transf (AST/SGOT) 39 U/L (15-37) H Alanine Aminotransferase (ALT/SGPT) 75 U/L (12-78) Alkaline Phosphatase 73 U/L (46-116) C-Reactive Protein, Quantitative 1.9 mg/dL (0.00-0.90) H Total Protein 5.2 G/DL (6.4-8.2) L Albumin 2.2 G/DL (3.4-5.0) L Globulin 3.0 g/dL Albumin/Globulin Ratio 0.7 (1.0-2.7) L Plan Problems: (1) Decubitus ulcer of sacral region, stage 4 Assessment & Plan: Pt presented on admission with contractures and multiple pressure injuries. Full thickness sacral pressure injury with undermining .Beefy red granulation at base of wound with an area of 20% soft necrosis along borders and undermined area.No odor noted. Small amt sanguineous exudate noted(L)2cm x (W)2.5cm x (D) 1.9cm, undermining clockwise 12-12 by 1.9cm @12 o'clock. Resolving pressure injury R elbow .Base of wound epithelialized -pink and dry.(L )1.5cm x (W)1.6cm. Resolving pressure injury R trochanter .Base of wound has dry ,pink epithelial.edges adherent and flat without erythema or induration(L)2cm x (W) 4cm. hyperpigmentation periwound. Hyperpigmentation from previous wound L trochanter. Non-blanchable erythema with fluctuance noted to lateral L heel (L)2.5cm x (W) 2.5cm.Periwound without erythema induration or fluctuance. R heel is pink and blanchable. Non-blanchable erythema without fluctuance /induration L lateral 1st metatarsal. (L)0.5cm x (W)1cm Non-blanchable erythema without fluctuance /induration noted L hallux. (L)1cm x (w)1cm. Non-blanchable erythema without induration/fluctuance lateral R foot. Tx.Plan: Cleanse Sacral wound with Saline. Loosely pack with Hydrogel impregnated Plain packing strip.Apply Triad periwound Cover with Optifoam Daily and PRN. Apply Moisture Barrier Paste to R and L trochanters. Cover each site with Optifoam drsg. Change every 3 days and prn. Apply Cavilon Skin Barrier to R and L heels. Cover each heel with Optifoam drsgs. Change every 7 days and prn. Apply Cavilon Skin Barrier to L hallux and L 1st metatarsal. Cover with Optifoam drsg. Change every 7 days and prn. Apply Cavilon Skin Barrier to lateral R foot. Cover with Optifoam drsg. Change every 7 days and prn. APM/YO mattress overlay. Reposition at least every 2hours or as tolerated. Off-load heels with pillow. (2) Renal insufficiency (3) Septic shock Assessment & Plan: leukocytosis - resolved tachycardia - resolved anemia hypotension - improved responding well to fluids and abx cont abx cont with current care will follow with recs thank you (4) UTI (urinary tract infection) Assessment & Plan: Impression: No evidence of obstructive uropathy or hydronephrosis Questionable nonobstructive 1 mm right intrarenal calculus Multiple bladder calculi Bladder wall thickening, may may in part be an artifact of under distention, but the possibility of chronic bladder obstruction or cystitis should be considered Subcentimeter low-attenuation renal lesions, too small to characterize, most likely benign simple cysts. No further follow-up necessary Villagomez catheter Free pelvic fluid, nonspecific but not physiologic in a postmenopausal female Equivocal mild sigmoid wall thickening, probably artifact of under distention but the possibility of colitis should be considered Mild edema of the subcutaneous fat Slight pericholecystic fluid, may be a manifestation of mild anasarca but the possibility of acalculous acute cholecystitis or cholecystitis due to occult stone disease should also be considered Posterior dependent atelectatic changes and mild degenerative spondylosis changes incidentally noted (5) ATN (acute tubular necrosis) (6) Advanced dementia (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
--- NOTE | 2019-05-05 11:57 | NUR ---
SWALLOW/SPEECH THERAPY NOTE: SUBJECTIVE: ALERT BUT LEANING TO THE RIGHT. NONVERBAL TODAY EVEN WHEN SPOKEN TO IN [place]. USUALLY ABLE TO SAY HER NAME WHERE SHE IS BORN. OBJECTIVE/ASSESSMENT: GOALS FOR INTAKE NOT MET ONLY 25% AND KALINA NERI, TO COMPLETE A PEG TOMORROW. SHOULD BE ABLE TO HAVE SOME PO FOR ORAL GRATIFICATION ALSO. PATIENT INITIALLY NOT RECEPTIVE TO PO TRIALS WITH BIOMETRICS INSTRUCTOR. LATER SHE TOOK 3 TSP OF NECTAR THICK GLUCERNA WITH GROSSLY FUNCTIONAL BUT SLOWER SWALLOW (OROPHARYNGEAL TRANSIT TIMES 2-3 SECONDS) AND NEEDS EXTRA SWALLOW DUE TO MIN ORAL RESIDUE IN FLOOR OF MOUTH. WITH JELLO, CHEWED AND SWALLOWED 5-7 SECONDS. FAIR HYOLARYNGEAL EXCURSION AND NO OVERT S/S OF ASPIRATION. SINCE SHE STILL HAS SILENT ASPIRATION RISK. VARUN BARAJAS, EDUCATED/TRAINED IN POSTSED ASPIRATION PRECAUTIONS.LEFT MESSAGE WITH FAMILY REGARDING QUESTIONS AND SWALLOWING STATUS. PLAN: CONSIDER MOD BARIUM SWALLOW STUDY IP OR OP IF D/C (DO NOT HOLD UP D/C FOR THIS STUDY). Addendum: 05/05/19 at 1215 by HARDY TRIPATHI BIOMETRICS INSTRUCTOR ADDENDUM: MET WITH FAMILY DELISA AND NANCIE REGARDING PATIENT'S SWALLOWING STATUS. PATIENT ENJOYING HER PUREED [place] BEANS AND PLANTAIN. D/W FAMILY THE NEED FOR PEG SINCE INTAKE VERY POOR. THEY WILL TRY TO BRING IN MORE FOOD SHE LIKES SINCE SHE TENDS TO HAVE FOOD PREFERENCES. REVIEWED POSTED ASPIRATION PRECAUTIONS AND SWALLOWING STRATEGIES.
[2019-05-05 12:00] VITALS: BP 131/68
[2019-05-05] MEDS ORDERED: Zolpidem 5mg tab ORAL PRN ×2 (12:00→15:14)
[2019-05-05] MEDS ORDERED: Miralax 17gm pkt ORAL PRN ×2 (12:00→15:14)
--- NOTE | 2019-05-05 12:25 | Cardiac Electrophysiology PN ---
Assessment/Plan Assessment/Plan 1. Combination of septic shock and dehydration. Off pressors and out of ICU. Resolved with IV fluids The patient is already on broad-spectrum IV antibiotics as well. EF 60% with no pericardial effusion. 2. Sinus Bradycardia. The patient is off of any sinus-genevieve or AV-genevieve affecting agents. Now off Dopamine 3. Sepsis, on broad-spectrum IV antibiotics. 4. History of CVA with right hemiplegia, currently nonverbal with bilateral lower extremity contraction. 5. Decubitus ulcers. 6. History of hypertension, off antihypertensive 7. Dehydration and poor nutrition, PEG pending tomorrow DW RN Subjective Subjective Transferred out of ICU in [facility]. Scheduled for PEG tomorrow. No changes Objective Last 24 Hour Vital Signs Date Time Temp Pulse Resp B/P (MAP) Pulse Ox O2 Delivery O2 Flow Rate FiO2 05/05/19 09:51 60 05/05/19 08:00 97.9 65 18 123/62 (82) 99 05/05/19 08:00 Room Air 05/05/19 04:00 68 05/05/19 04:00 Room Air 05/05/19 04:00 97.6 68 18 132/70 (90) 100 05/05/19 00:00 Room Air 05/05/19 00:00 97.9 73 20 128/74 (92) 100 05/04/19 23:33 68 05/04/19 22:00 98.1 76 20 105/54 (71) 100 05/04/19 21:00 77 20 109/81 (90) 100 05/04/19 20:39 73 05/04/19 20:00 99.4 78 21 111/71 (84) 100 05/04/19 20:00 Room Air 05/04/19 20:00 79 05/04/19 19:00 73 20 93/55 (68) 100 05/04/19 18:00 73 16 98/59 (72) 100 05/04/19 17:00 71 17 100/56 (71) 100 05/04/19 16:00 97.8 68 17 105/58 (74) 100 05/04/19 16:00 Room Air 05/04/19 16:00 69 05/04/19 15:00 82 17 106/60 (75) 100 05/04/19 14:00 69 17 99/57 (71) 100 05/04/19 13:08 123/58 05/04/19 13:00 67 18 123/58 (79) 100 Intake and Output 05/04/19 05/05/19 19:00 07:00 Intake Total 561.599 ml 100 ml Output Total 890 ml 1485 ml Balance -328.401 ml -1385 ml Intake Oral 110 ml IV Total 451.599 ml 100 ml Output Urine Total 890 ml 1485 ml Laboratory Tests Test 05/05/19 04:05 White Blood Count 7.6 K/UL (4.8-10.8) Red Blood Count 2.89 M/UL (4.20-5.40) L Hemoglobin 9.1 G/DL (12.0-16.0) L Hematocrit 27.0 % (37.0-47.0) L Mean Corpuscular Volume 94 FL (80-99) Mean Corpuscular Hemoglobin 31.6 PG (27.0-31.0) H Mean Corpuscular Hemoglobin Concent 33.7 G/DL (32.0-36.0) Red Cell Distribution Width 11.9 % (11.6-14.8) Platelet Count 218 K/UL (150-450) Mean Platelet Volume 5.4 FL (6.5-10.1) L Neutrophils (%) (Auto) 59.8 % (45.0-75.0) Lymphocytes (%) (Auto) 31.5 % (20.0-45.0) Monocytes (%) (Auto) 6.8 % (1.0-10.0) Eosinophils (%) (Auto) 1.5 % (0.0-3.0) Basophils (%) (Auto) 0.4 % (0.0-2.0) Erythrocyte Sedimentation Rate 45 MM/HR (0-30) H Prothrombin Time 9.7 SEC (9.30-11.50) Prothromb Time International Ratio 0.9 (0.9-1.1) Activated Partial Thromboplast Time 27 SEC (23-33) Sodium Level 139 MMOL/L (136-145) Potassium Level 3.8 MMOL/L (3.5-5.1) Chloride Level 105 MMOL/L (98-107) Carbon Dioxide Level 27 MMOL/L (21-32) Anion Gap 7 mmol/L (5-15) Blood Urea Nitrogen 10 mg/dL (7-18) Creatinine 0.6 MG/DL (0.55-1.30) Estimat Glomerular Filtration Rate mL/min (>60) Glucose Level 81 MG/DL (74-106) Calcium Level 8.4 MG/DL (8.5-10.1) L Phosphorus Level 2.6 MG/DL (2.5-4.9) Magnesium Level 1.7 MG/DL (1.8-2.4) L Total Bilirubin 0.3 MG/DL (0.2-1.0) Aspartate Amino Transf (AST/SGOT) 39 U/L (15-37) H Alanine Aminotransferase (ALT/SGPT) 75 U/L (12-78) Alkaline Phosphatase 73 U/L (46-116) C-Reactive Protein, Quantitative 1.9 mg/dL (0.00-0.90) H Total Protein 5.2 G/DL (6.4-8.2) L Albumin 2.2 G/DL (3.4-5.0) L Globulin 3.0 g/dL Albumin/Globulin Ratio 0.7 (1.0-2.7) L Objective HEAD AND NECK: No JVD. LUNGS: Coarse rhonchi. CARDIOVASCULAR: Shows regular S1 and S2. Mildly bradycardic. ABDOMEN: Soft. EXTREMITIES: Contracted, no pitting edema, and a triple-lumen in the left femoral vein. Florencio Ross MD May 05, 2019 12:25
--- NOTE | 2019-05-05 12:33 | Nephrology Progress Note ---
Assessment/Plan Problem List: (1) ATN (acute tubular necrosis) (2) Septic shock (3) UTI (urinary tract infection) (4) Severe malnutrition Assessment -Septic shock -ATN (acute tubular necrosis) - Malnutrition -History of hypertension -UTI (urinary tract infection) -Advanced dementia -History of CVA with residual deficit -Hemiparesis Plan Plan: K IV Mag IV PO Folate Cortisol level Subjective ROS Limited/Unobtainable: No Constitutional: Reports: malaise, weakness Objective Objective Last 24 Hour Vital Signs Date Time Temp Pulse Resp B/P (MAP) Pulse Ox O2 Delivery O2 Flow Rate FiO2 05/05/19 09:51 60 05/05/19 08:00 97.9 65 18 123/62 (82) 99 05/05/19 08:00 Room Air 05/05/19 04:00 68 05/05/19 04:00 Room Air 05/05/19 04:00 97.6 68 18 132/70 (90) 100 05/05/19 00:00 Room Air 05/05/19 00:00 97.9 73 20 128/74 (92) 100 05/04/19 23:33 68 05/04/19 22:00 98.1 76 20 105/54 (71) 100 05/04/19 21:00 77 20 109/81 (90) 100 05/04/19 20:39 73 05/04/19 20:00 99.4 78 21 111/71 (84) 100 05/04/19 20:00 Room Air 05/04/19 20:00 79 05/04/19 19:00 73 20 93/55 (68) 100 05/04/19 18:00 73 16 98/59 (72) 100 05/04/19 17:00 71 17 100/56 (71) 100 05/04/19 16:00 97.8 68 17 105/58 (74) 100 05/04/19 16:00 Room Air 05/04/19 16:00 69 05/04/19 15:00 82 17 106/60 (75) 100 05/04/19 14:00 69 17 99/57 (71) 100 05/04/19 13:08 123/58 05/04/19 13:00 67 18 123/58 (79) 100 Intake and Output 05/04/19 05/05/19 19:00 07:00 Intake Total 561.599 ml 100 ml Output Total 890 ml 1485 ml Balance -328.401 ml -1385 ml Intake Oral 110 ml IV Total 451.599 ml 100 ml Output Urine Total 890 ml 1485 ml Laboratory Tests 05/05/19 04:05: White Blood Count 7.6, Red Blood Count 2.89L, Hemoglobin 9.1L, Hematocrit 27.0L , Mean Corpuscular Volume 94, Mean Corpuscular Hemoglobin 31.6H, Mean Corpuscular Hemoglobin Concent 33.7, Red Cell Distribution Width 11.9, Platelet Count 218, Mean Platelet Volume 5.4L, Neutrophils (%) (Auto) 59.8, Lymphocytes ( %) (Auto) 31.5, Monocytes (%) (Auto) 6.8, Eosinophils (%) (Auto) 1.5, Basophils (%) (Auto) 0.4, Erythrocyte Sedimentation Rate 45H, Prothrombin Time 9.7, Prothromb Time International Ratio 0.9, Activated Partial Thromboplast Time 27, Sodium Level 139, Potassium Level 3.8, Chloride Level 105, Carbon Dioxide Level 27, Anion Gap 7, Blood Urea Nitrogen 10, Creatinine 0.6, Estimat Glomerular Filtration Rate , Glucose Level 81, Calcium Level 8.4L, Phosphorus Level 2.6, Magnesium Level 1.7L, Total Bilirubin 0.3, Aspartate Amino Transf (AST/SGOT) 39H , Alanine Aminotransferase (ALT/SGPT) 75, Alkaline Phosphatase 73, C-Reactive Protein, Quantitative 1.9H, Total Protein 5.2L, Albumin 2.2L, Globulin 3.0, Albumin/Globulin Ratio 0.7L Height (Feet): 5 Height (Inches): 2.00 Weight (Pounds): 114 General Appearance: no apparent distress, lethargic Cardiovascular: normal rate Respiratory/Chest: decreased breath sounds Abdomen: distended Objective no change Jamel Maldonado MD May 05, 2019 12:33
[2019-05-05] MEDS ORDERED: LORazepam Inj 2mg/ml 1ml IV PRN ×2 (15:14)
[2019-05-05] MEDS ORDERED: Morphine Sulfate 2mg/ml Inj(IV/IM USE ONLY) IVP PRN ×2 (15:14)
--- NOTE | 2019-05-05 15:30 | NUR ---
TRANSFER TO FLOOR: Patient transferred to TELEMETRY room 205-2, per DR. RAWLS. Report given to RENA ALFARO RN. Belongings given to RENA ALFARO RN. Family at bedside and informed of transfer.
--- NOTE | 2019-05-05 15:31 | NUR ---
NURSE NOTES: Received patient via gurney, report given by VARUN Miranda. patient is resting in bed in stable condition. AO X 1 with no signs and symptoms of acute distress at this time. Breathing unlabored in room air. IV line intact and running at RX dose. Safety precaution in place; side rails up x2. Family members at bed side. Call Light and bed side table within reach, bed in lowest position, brakes and alarm on at all times. Will continue plan of care.
[2019-05-05 16:00] VITALS: BP 134/77
--- NOTE | 2019-05-05 19:08 | NUR ---
HAND-OFF: Report given to VARUN Mims.
--- NOTE | 2019-05-05 19:10 | NUR ---
Patient received laying in bed alert x1, nonverbal, and breathing room air spontaneously with no signs of acute distress. Patient has bus driver/monitor in place. Bilateral forearm Iv lines patent, dry and intact. Villagomez catheter draining clear yellow urine, collection bag below the patient and off the floor. Safety precautions maintained. Call gillespie within patient's easy reach. Will continue plan of care.
[2019-05-05 20:00] VITALS: BP 137/72
[2019-05-05] MEDS ORDERED: Dyna-Hex 2% Top Sol 2oz TOPIC SCH ×2 (20:00)
--- NOTE | 2019-05-05 23:40 | NUR ---
TRANSFER TO FLOOR: Patient transferred to [facility], per MD Saad. Report given to VARUN Qiu. Belongings and medications given to VARUN Qiu.
--- NOTE | 2019-05-05 23:43 | Internal Med Progress Note ---
Subjective Physician Name Solo Macdonald Attending Physician Solo Macdonald MD Current Medications Medications (Trade) Dose Ordered Sig/Familia Route PRN Reason Start Time Stop Time Status Last Admin Dose Admin Acetaminophen (Tylenol) 650 mg Q4H PRN ORAL fever 05/05/19 15:12 06/04/19 15:11 Barium Sulfate (Readi-Cat 2) 450 ml NOW PRN ORAL Radiology Procedure 05/05/19 23:45 05/06/19 23:44 Cefepime HCl 500 mg/Dextrose 55 ml @ 110 mls/hr EVERY 12 HOURS IVPB 05/05/19 21:00 05/08/19 15:59 05/05/19 21:25 Chlorhexidine Gluconate (Montserrat-Hex 2%) 1 applic DAILY@2000 TOPIC 05/05/19 20:00 06/01/19 19:59 05/05/19 21:24 Dextrose 1,000 ml @ 50 mls/hr Q20H IV 05/05/19 15:15 06/02/19 12:59 05/05/19 16:02 Dextrose (Dextrose 50%) 25 ml Q30M PRN IV Hypoglycemia 05/05/19 15:30 05/31/19 11:59 Dextrose (Dextrose 50%) 50 ml Q30M PRN IV Hypoglycemia 05/05/19 15:15 05/31/19 12:14 Famotidine (Pepcid I.v.) 20 mg Q12HR IVP 05/05/19 21:00 06/02/19 20:59 05/05/19 21:24 Folic Acid (Folate) 3 mg DAILY ORAL 05/06/19 09:00 06/02/19 12:44 Heparin Sodium (Porcine) (Heparin 5000 units/ml) 5,000 units EVERY 12 HOURS SUBQ 05/05/19 21:00 05/31/19 20:59 Iopamidol (Isovue-300 100ml) 100 ml NOW PRN INJ Radiology Procedure 05/05/19 23:45 05/06/19 23:44 Lorazepam (Ativan 2mg/ml 1ml) 0.5 mg Q4H PRN IV For Anxiety 05/05/19 15:14 05/08/19 15:13 Morphine Sulfate (Morphine Sulfate) 1 mg Q4H PRN IVP For Pain 05/05/19 15:14 05/12/19 15:13 Ondansetron HCl (Zofran) 4 mg Q6H PRN IVP Nausea & Vomiting 05/05/19 15:14 06/04/19 15:13 Polyethylene Glycol (Miralax) 17 gm HSPRN PRN ORAL Constipation 05/05/19 15:14 06/04/19 15:13 Zolpidem Tartrate (Ambien) 5 mg HSPRN PRN ORAL Insomnia 05/05/19 15:14 05/12/19 15:13 Allergies: Coded Allergies: No Known Allergies (Unverified , 05/01/19) Subjective transfer to telemetry, awake Responsive, NAD, Objective Last Vital Signs Date Time Temp Pulse Resp B/P (MAP) Pulse Ox O2 Delivery O2 Flow Rate FiO2 05/05/19 21:00 Room Air 05/05/19 20:00 63 05/05/19 20:00 98.0 20 137/72 (93) 98 05/02/19 00:00 2.0 Laboratory Tests Test 05/05/19 04:05 White Blood Count 7.6 K/UL (4.8-10.8) Red Blood Count 2.89 M/UL (4.20-5.40) L Hemoglobin 9.1 G/DL (12.0-16.0) L Hematocrit 27.0 % (37.0-47.0) L Mean Corpuscular Volume 94 FL (80-99) Mean Corpuscular Hemoglobin 31.6 PG (27.0-31.0) H Mean Corpuscular Hemoglobin Concent 33.7 G/DL (32.0-36.0) Red Cell Distribution Width 11.9 % (11.6-14.8) Platelet Count 218 K/UL (150-450) Mean Platelet Volume 5.4 FL (6.5-10.1) L Neutrophils (%) (Auto) 59.8 % (45.0-75.0) Lymphocytes (%) (Auto) 31.5 % (20.0-45.0) Monocytes (%) (Auto) 6.8 % (1.0-10.0) Eosinophils (%) (Auto) 1.5 % (0.0-3.0) Basophils (%) (Auto) 0.4 % (0.0-2.0) Erythrocyte Sedimentation Rate 45 MM/HR (0-30) H Prothrombin Time 9.7 SEC (9.30-11.50) Prothromb Time International Ratio 0.9 (0.9-1.1) Activated Partial Thromboplast Time 27 SEC (23-33) Sodium Level 139 MMOL/L (136-145) Potassium Level 3.8 MMOL/L (3.5-5.1) Chloride Level 105 MMOL/L (98-107) Carbon Dioxide Level 27 MMOL/L (21-32) Anion Gap 7 mmol/L (5-15) Blood Urea Nitrogen 10 mg/dL (7-18) Creatinine 0.6 MG/DL (0.55-1.30) Estimat Glomerular Filtration Rate mL/min (>60) Glucose Level 81 MG/DL (74-106) Calcium Level 8.4 MG/DL (8.5-10.1) L Phosphorus Level 2.6 MG/DL (2.5-4.9) Magnesium Level 1.7 MG/DL (1.8-2.4) L Total Bilirubin 0.3 MG/DL (0.2-1.0) Aspartate Amino Transf (AST/SGOT) 39 U/L (15-37) H Alanine Aminotransferase (ALT/SGPT) 75 U/L (12-78) Alkaline Phosphatase 73 U/L (46-116) C-Reactive Protein, Quantitative 1.9 mg/dL (0.00-0.90) H Total Protein 5.2 G/DL (6.4-8.2) L Albumin 2.2 G/DL (3.4-5.0) L Globulin 3.0 g/dL Albumin/Globulin Ratio 0.7 (1.0-2.7) L Intake and Output 05/04/19 05/05/19 18:59 06:59 Intake Total 611.599 ml 50 ml Output Total 1140 ml 1535 ml Balance -528.401 ml -1485 ml Intake Oral 110 ml IV Total 501.599 ml 50 ml Output Urine Total 1140 ml 1535 ml Objective GENERAL: Awake,responsive, alert, Cachexia, talking. HEAD AND NECK: Pupils are equal and reactive to light. Anicteric. Neck supple. No JVD. LUNGS: Good air entry. decrease air at bases, No wheezing or rhonchi. HEART: S1, S2. Regular rhythm. No murmur or gallops. ABDOMEN: Soft, nondistended, nontender. Positive bowel sounds. EXTREMITIES: No cyanosis, clubbing, edema. The patient has muscle atrophy in bilateral lower extremity. Left femoral TLC. NEUROLOGIC: Cranial nerves II through XII grossly intact. contracted lower extremity. Moving upper extremity, right side weakness. SKIN: Bilateral trochanter stage I ulceration as well as sacral decubitus ulcer stage IV. No discharge was noted. Assessment/Plan Assessment/Plan ASSESSMENT: 1. Septic shock, most likely secondary to acute sepsis due to GNR urinary tract infection. 2. Severe cachexia, Severe protein calori malnutrition. 3. Stage IV sacral decubitus ulcer presented on admission. 4. History of essential hypertension, presently hypotensive. 5. Acute kidney injury on chronic renal insufficiency, most likely secondary to severe dehydration and hypovolemia. 6. Advanced dementia. 7. Severe Hypotension most likely combination of septic shock and Dehydration / Hypovolemia. 8. Bilateral hydronephrosis. 9. Hypokalemia. PLAN: In ICU. Monitor laboratory and cultures Antibiotics: cefepime, DVT prophylaxis: heparin subcutaneous. Code status at this time is Full Code per POLST. off dopamine Drip. Cardiology consult with Dr. Ross Pulmonary consult Dr. Nash Urology consult with Dr. Portillo Family members, Daughter and son, agreed with PEG placement. IVF @ 50 cc/hr GI consult for PEG placement in AM. Solo Macdonald MD May 05, 2019 23:43
[2019-05-05] MEDS ORDERED: Isovue-300 100ml vial INJ PRN (23:45)
--- NOTE | 2019-05-05 23:45 | NUR ---
NURSE NOTES: Received patient in bed, asleep, opens eyes to touch. No s/s distress or pain noted. Villagomez in place. Femoral TLC in place. Bed in lowest position, call light within reach, bed alarm on. Wound care photos taken within 24 hours, dressings dry and intact. Patient will be NPO at midnight. Will continue plan of care.
[2019-05-06] VITALS (10 sets, daily range): BP systolic 111–147; BP diastolic 65–88
[2019-05-06] MEDS ORDERED: Morphine Sulfate 2mg/ml Inj(IV/IM USE ONLY) IVP PRN (03:15)
[2019-05-06] MEDS ORDERED: LORazepam Inj 2mg/ml 1ml IV PRN (03:15)
[2019-05-06] MEDS ORDERED: DiphenhydrAMINE 50mg/ml Inj IVP PRN (06:45)
[2019-05-06] MEDS ORDERED: Midazolam 2mg/2ml Inj IVP PRN (06:45)
[2019-05-06] MEDS ORDERED: fentaNYL 100 mcg/2 mL IV PRN (06:45)
[2019-05-06] MEDS ORDERED: Atropine Inj 1mg/10ml Syr IV PRN (06:45)
--- NOTE | 2019-05-06 06:49 | Anethesia Preoperative Eval ---
Anesthesia Pre-op PMH/ROS General Date of Evaluation: May 06, 2019 Time of Evaluation: 06:45 Anesthesiologist: ghislaine ASA Score: ASA 4 Mallampati Score Class I : Soft palate, uvula, fauces, pillars visible Class II: Soft palate, uvula, fauces visible Class III: Soft palate, base of uvula visible Class IV: Only hard plate visible Mallampati Classification: Class II Surgeon: meghana Diagnosis: dysphagia, severe malnutrition Surgical Procedure: peg placement Anesthesia History: none Family History: no anesthesia problems Allergies: Coded Allergies: No Known Allergies (Unverified , 05/01/19) Medications: see eMAR Patient NPO?: Yes Past Medical History Cardiovascular: Reports: HTN Gastrointestinal/Genitourinary: Reports: other - dysphagia, atn, uti, renal insufficiency Neurologic/Psychiatric: Reports: dementia, CVA, other - hemiparesis Musculoskeletal/Integumentary: Reports: other - contractures bilateral lower extremities Anesthesia Pre-op Phys. Exam Physician Exam Last Vital Signs Date Time Temp Pulse Resp B/P (MAP) Pulse Ox O2 Delivery O2 Flow Rate FiO2 05/06/19 04:00 98.2 73 18 147/88 (107) 99 05/05/19 21:00 Room Air 05/02/19 00:00 2.0 Constitutional: NAD Neurologic: CN 2-12 intact Cardiovascular: RRR Respiratory: CTA Gastrointestinal: S/NT/ND Airway Exam Mallampati Score: Class II MO: limited Neck: decreased rom to lateral rotation TMD: 2fb ROM: limited Teeth: missing Anesthesia Pre-op A/P Labs Labs Test 05/03/19 12:15 05/04/19 04:30 05/05/19 04:05 Amikacin Level Peak < 2.5 ug/mL (25.0-35.0) White Blood Count 6.1 K/UL (4.8-10.8) 7.6 K/UL (4.8-10.8) Red Blood Count 2.78 M/UL (4.20-5.40) 2.89 M/UL (4.20-5.40) Hemoglobin 8.7 G/DL (12.0-16.0) 9.1 G/DL (12.0-16.0) Hematocrit 26.4 % (37.0-47.0) 27.0 % (37.0-47.0) Mean Corpuscular Volume 95 FL (80-99) 94 FL (80-99) Mean Corpuscular Hemoglobin 31.3 PG (27.0-31.0) 31.6 PG (27.0-31.0) Mean Corpuscular Hemoglobin Concent 32.9 G/DL (32.0-36.0) 33.7 G/DL (32.0-36.0) Red Cell Distribution Width 11.9 % (11.6-14.8) 11.9 % (11.6-14.8) Platelet Count 195 K/UL (150-450) 218 K/UL (150-450) Mean Platelet Volume 6.1 FL (6.5-10.1) 5.4 FL (6.5-10.1) Neutrophils (%) (Auto) 60.6 % (45.0-75.0) 59.8 % (45.0-75.0) Lymphocytes (%) (Auto) 31.8 % (20.0-45.0) 31.5 % (20.0-45.0) Monocytes (%) (Auto) 5.4 % (1.0-10.0) 6.8 % (1.0-10.0) Eosinophils (%) (Auto) 1.3 % (0.0-3.0) 1.5 % (0.0-3.0) Basophils (%) (Auto) 0.9 % (0.0-2.0) 0.4 % (0.0-2.0) Erythrocyte Sedimentation Rate 32 MM/HR (0-30) 45 MM/HR (0-30) Sodium Level 137 MMOL/L (136-145) 139 MMOL/L (136-145) Potassium Level 3.7 MMOL/L (3.5-5.1) 3.8 MMOL/L (3.5-5.1) Chloride Level 103 MMOL/L (98-107) 105 MMOL/L (98-107) Carbon Dioxide Level 26 MMOL/L (21-32) 27 MMOL/L (21-32) Anion Gap 8 mmol/L (5-15) 7 mmol/L (5-15) Blood Urea Nitrogen 14 mg/dL (7-18) 10 mg/dL (7-18) Creatinine 0.6 MG/DL (0.55-1.30) 0.6 MG/DL (0.55-1.30) Estimat Glomerular Filtration Rate mL/min (>60) mL/min (>60) Glucose Level 82 MG/DL (74-106) 81 MG/DL (74-106) Uric Acid 2.5 MG/DL (2.6-7.2) Calcium Level 8.1 MG/DL (8.5-10.1) 8.4 MG/DL (8.5-10.1) Phosphorus Level 1.6 MG/DL (2.5-4.9) 2.6 MG/DL (2.5-4.9) Magnesium Level 1.8 MG/DL (1.8-2.4) 1.7 MG/DL (1.8-2.4) Total Bilirubin 0.2 MG/DL (0.2-1.0) 0.3 MG/DL (0.2-1.0) Aspartate Amino Transf (AST/SGOT) 43 U/L (15-37) 39 U/L (15-37) Alanine Aminotransferase (ALT/SGPT) 68 U/L (12-78) 75 U/L (12-78) Alkaline Phosphatase 56 U/L (46-116) 73 U/L (46-116) C-Reactive Protein, Quantitative 2.1 mg/dL (0.00-0.90) 1.9 mg/dL (0.00-0.90) Pro-B-Type Natriuretic Peptide 500 pg/mL (0-125) Total Protein 4.6 G/DL (6.4-8.2) 5.2 G/DL (6.4-8.2) Albumin 2.1 G/DL (3.4-5.0) 2.2 G/DL (3.4-5.0) Globulin 2.5 g/dL 3.0 g/dL Albumin/Globulin Ratio 0.8 (1.0-2.7) 0.7 (1.0-2.7) Cortisol AM Sample 11.7 UG/DL Prothrombin Time 9.7 SEC (9.30-11.50) Prothromb Time International Ratio 0.9 (0.9-1.1) Activated Partial Thromboplast Time 27 SEC (23-33) Studies Pre-op Studies: EKG - sinus rhythm w/ premature atrial complexes Risk Assessment & Plan Assessment: [email or web address] Plan: mac Status Change Before Surgery: No Pre-Antibiotics Drug: na Uyen Tay MD May 06, 2019 06:49
[2019-05-06] MEDS ORDERED: Propofol 200mg/20ml IV ONE (07:00)
[2019-05-06] MEDS ORDERED: Lidocaine 1% MPF 10mg/ml 5ml ONE (07:00)
--- NOTE | 2019-05-06 07:09 | General Progress Note ---
Assessment/Plan Assessment/Plan: Assessment - malnutrition - Decub ulcer - contracted, bed bound - OBS - recent UTI / Sepsis Recommendations - po as tolerated - abx - IVF - add MVI, Vitamin C, ZnSO4 - PEG today Subjective Allergies: Coded Allergies: No Known Allergies (Unverified , 05/01/19) Subjective Above noted resting comfortably NPO for PEG placement Objective Last 24 Hour Vital Signs Date Time Temp Pulse Resp B/P (MAP) Pulse Ox O2 Delivery O2 Flow Rate FiO2 05/06/19 04:00 98.2 73 18 147/88 (107) 99 05/06/19 00:00 98.0 81 20 137/72 (93) 98 05/05/19 21:00 Room Air 05/05/19 20:00 63 05/05/19 20:00 98.0 69 20 137/72 (93) 98 05/05/19 16:00 97.8 70 20 134/77 (96) 99 05/05/19 15:15 68 05/05/19 12:58 64 05/05/19 12:00 98.1 67 20 131/68 (89) 98 05/05/19 12:00 Room Air 05/05/19 09:51 60 05/05/19 08:00 97.9 65 18 123/62 (82) 99 05/05/19 08:00 Room Air Intake and Output 05/05/19 05/06/19 19:00 07:00 Intake Total 355 ml 200 ml Output Total 300 ml 1500 ml Balance 55 ml -1300 ml IV Total 355 ml 200 ml Output Urine Total 300 ml 1500 ml Height (Feet): 5 Height (Inches): 5.00 Weight (Pounds): 108 Objective Debilitated elderly woman NCAT supple CTA RR abd soft (+) contractures (+) vilmaub Nasim Gates MD May 06, 2019 07:09
--- NOTE | 2019-05-06 07:17 | Pre-Procedure Note/Attestation ---
Pre-Procedure Note/Attestation Complete Prior to Procedure Planned Procedure: not applicable Procedure Narrative: EGD PEG Indications for Procedure Pre-Operative Diagnosis: anorexia malnutrition Attestation I attest that I discussed the nature of the procedure; its benefits; risks and complications; and alternatives (and the risks and benefits of such alternatives ), prior to the procedure, with the patient (or the patient's legal patient support representative). I attest that, if there was a reasonable possibility of needing a blood transfusion, the patient (or the patient's legal patient support representative) was given the [facility] standardized written summary, pursuant to the Jorge Lisa Blood Safety Act ([place] Health and Safety Code # 1645, as amended). I attest that I re-evaluated the patient just prior to the surgery and that there has been no change in the patient's H&P, except as documented below: Nasim Gates MD May 06, 2019 07:17
--- NOTE | 2019-05-06 07:18 | NUR ---
HAND-OFF: Report given to EMMIE UGARTE RN.
[2019-05-06] MEDS ORDERED: NS 500ML IVPB ONE (07:19)
--- NOTE | 2019-05-06 07:26 | NUR ---
NURSE NOTES: received report from VARUN Qiu. patient left unit for EGD&PEG placement. will continue to provide plan of care.
--- NOTE | 2019-05-06 07:36 | Brief Operative Note ---
Immediate Post Operative Note Operative Note Chief Complaint: anorexia Pre-op Diagnosis: anorexia malnutrition Procedure: PEG Post-op Diagnosis: PEG Surgeon: Yajaira Anesthesiologist: Hari Parker Anesthesia: MAC Specimen: none Complications: none Condition: stable Fluids: recorded Implant(s) used?: No Nasim Gates MD May 06, 2019 07:36
--- NOTE | 2019-05-06 07:36 | Endoscopy Procedure Note ---
Endoscopy Procedure Note General Indication for Procedure: anorexia Procedures Performed: EGD, PEG Operative Findings/Diagnosis: PEG Specimen: none Pt Tolerated Procedure Well: Yes Estimated Blood Loss: none Anesthesia Anesthesiologist: Hari dunlap Anesthesia: MAC, moderate sedation Medications Medication Given: see anesthesia record Inserted Devices Implant(s) used?: No GI Core Measures 50 yrs or older w/o bx or poly: Not Applicable 10yrs. F/U recommended: Not Applicable If not recommended, why?: Nasim Gates MD May 06, 2019 07:36
--- NOTE | 2019-05-06 08:29 | Urology Progress Note ---
Assessment/Plan Assessment/Plan: 1. No hydronephrosis. 2. Urinary retention. 3. Probable neurogenic bladder. 4. Proteinuria. 5. Hematuria. 6. Pyuria. 7. Mild acute kidney injury, which has resolved. 8. Possible nephrolithiasis. 9. Bladder calculi monitor clinically maintain mujica hand irrigate PRN abx as ordered renal fxn stable f/u on blood cx Subjective Allergies: Coded Allergies: No Known Allergies (Unverified , 05/01/19) Subjective all noted Objective Last 24 Hour Vital Signs Date Time Temp Pulse Resp B/P (MAP) Pulse Ox O2 Delivery O2 Flow Rate FiO2 05/06/19 08:07 97.9 66 20 139/81 100 Nasal Cannula 3 05/06/19 07:55 63 16 140/75 100 Nasal Cannula 3 05/06/19 07:50 64 17 137/73 100 Nasal Cannula 3 05/06/19 07:45 97.7 63 18 131/76 100 Nasal Cannula 3 05/06/19 04:00 98.2 73 18 147/88 (107) 99 05/06/19 00:00 98.0 81 20 137/72 (93) 98 05/05/19 21:00 Room Air 05/05/19 20:00 63 05/05/19 20:00 98.0 69 20 137/72 (93) 98 05/05/19 16:00 97.8 70 20 134/77 (96) 99 05/05/19 15:15 68 05/05/19 12:58 64 05/05/19 12:00 98.1 67 20 131/68 (89) 98 05/05/19 12:00 Room Air 05/05/19 09:51 60 Intake and Output 05/05/19 05/06/19 19:00 07:00 Intake Total 355 ml 200 ml Output Total 300 ml 1500 ml Balance 55 ml -1300 ml IV Total 355 ml 200 ml Output Urine Total 300 ml 1500 ml Microbiology Date/Time Source Procedure Growth Status 05/01/19 10:25 Blood Blood Culture - Preliminary NO GROWTH AFTER 4 DAYS Resulted 05/01/19 10:35 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 Complete 05/01/19 17:18 Urine,Clean Catch Urine Culture - Final NO GROWTH AFTER 48 HOURS Complete 05/01/19 10:35 Rectum VRE Culture - Final NO VANCOMYCIN RESISTANT ENTEROCOCCUS ... Complete 05/01/19 10:35 Rectum - Final NO CARBAPENEM-RESISTANT ENTEROBACTERI... Complete Current Medications Medications (Trade) Dose Ordered Sig/Familia Route PRN Reason Start Time Stop Time Status Last Admin Dose Admin Acetaminophen (Tylenol) 650 mg Q4H PRN ORAL fever 05/06/19 03:15 06/04/19 15:11 Al Hydroxide/Mg Hydroxide (Mylanta) 15 ml Q1H PRN ORAL gi upset 05/06/19 06:45 05/06/19 12:00 Ascorbic Acid (Vitamin C) 500 mg DAILY ORAL 05/06/19 09:00 06/05/19 08:59 Atropine Sulfate (Atropine) 0.5 mg Q5M PRN IV bpm less than 45 05/06/19 06:45 05/06/19 12:00 Barium Sulfate (Readi-Cat 2) 450 ml NOW PRN ORAL Radiology Procedure 05/06/19 23:45 05/07/19 23:44 Cefepime HCl 500 mg/Dextrose 55 ml @ 110 mls/hr EVERY 12 HOURS IVPB 05/06/19 09:00 05/08/19 15:59 Chlorhexidine Gluconate (Montserrat-Hex 2%) 1 applic DAILY@2000 TOPIC 05/06/19 20:00 06/01/19 19:59 Dextrose 1,000 ml @ 75 mls/hr [id number] IV 05/06/19 08:00 06/05/19 07:59 Dextrose (Dextrose 50%) 25 ml Q30M PRN IV Hypoglycemia 05/06/19 00:30 05/31/19 11:59 Dextrose (Dextrose 50%) 50 ml Q30M PRN IV Hypoglycemia 05/06/19 00:45 05/31/19 12:14 Diphenhydramine HCl (Benadryl) 25 mg Q15M PRN IVP Itching 05/06/19 06:45 05/06/19 12:00 Famotidine (Pepcid I.v.) 20 mg Q12HR IVP 05/06/19 09:00 06/02/19 20:59 Fentanyl Citrate (Sublimaze 100 mcg/2 mL) 25 mcg Q10M PRN IV Moderate Pain (Pain Scale 4-6) 05/06/19 06:45 05/06/19 12:00 Folic Acid (Folate) 3 mg DAILY ORAL 05/06/19 09:00 06/02/19 12:44 Heparin Sodium (Porcine) (Heparin 5000 units/ml) 5,000 units EVERY 12 HOURS SUBQ 05/06/19 09:00 05/31/19 20:59 Hydralazine HCl (Apresoline) 5 mg Q30M PRN IV SBP>160 OR___/DBP>90 OR___ 05/06/19 06:45 05/06/19 12:00 Iopamidol (Isovue-300 100ml) 100 ml NOW PRN INJ Radiology Procedure 05/06/19 23:45 05/07/19 23:44 Lorazepam (Ativan 2mg/ml 1ml) 0.5 mg Q4H PRN IV For Anxiety 05/06/19 03:15 05/08/19 15:13 Midazolam HCl (Versed 2mg/2ml vial) 1 mg Q15M PRN IVP For Anxiety 05/06/19 06:45 05/06/19 12:00 Morphine Sulfate (Morphine Sulfate) 1 mg Q4H PRN IVP For Pain 05/06/19 03:15 05/12/19 15:13 Multivitamins (Multivitamins) 1 tab DAILY ORAL 05/06/19 09:00 06/05/19 08:59 Ondansetron HCl (Zofran) 4 mg Q1H PRN IVP Nausea & Vomiting 05/06/19 06:45 05/06/19 12:00 Ondansetron HCl (Zofran) 4 mg Q6H PRN IVP Nausea & Vomiting 05/06/19 03:15 06/04/19 15:13 Polyethylene Glycol (Miralax) 17 gm HSPRN PRN ORAL Constipation 05/06/19 09:00 06/04/19 08:59 Sodium Chloride 1,000 ml @ 10 mls/hr Q24H IVLG 05/06/19 06:44 05/06/19 12:00 Zinc Sulfate (Zinc Sulfate) 220 mg DAILY ORAL 05/06/19 09:00 05/16/19 09:00 Zolpidem Tartrate (Ambien) 5 mg HSPRN PRN ORAL Insomnia 05/06/19 15:15 05/12/19 15:13 Height (Feet): 5 Height (Inches): 5.00 Weight (Pounds): 108 Objective exam stable urine grossly yellow, occasional debris CT A/P (05/04) noted Felice Portillo MD May 06, 2019 08:29
[2019-05-06] MEDS: Heparin 5000 units/ml inj SUBQ SCH ×2 (09:00→21:58)
[2019-05-06] MEDS ORDERED: Miralax 17gm pkt ORAL PRN (09:00)
[2019-05-06] MEDS: Ascorbic Acid 500mg tab ORAL SCH (09:19)
[2019-05-06] MEDS: Zinc Sulfate 220mg cap ORAL SCH (09:19)
[2019-05-06] MEDS: Cefepime HCl 500 MG in D5W 55 ML IVPB SCH ×2 (09:20→21:53)
--- NOTE | 2019-05-06 10:11 | Immediate Post-Op Evaluation ---
Immediate Post-Op Evalulation Immediate Post-Op Evalulation Procedure: egd/peg Date of Evaluation: May 06, 2019 Time of Evaluation: 07:57 IV Fluids: 200ml 0.9ns Blood Products: none Estimated Blood Loss: negligible Blood Pressure Systolic: 131 Blood Pressure Diastolic: 76 Pulse Rate: 63 Respiratory Rate: 18 O2 Sat by Pulse Oximetry: 100 Temperature (Fahrenheit): 97.7 Pain Score (1-10): 0 Nausea: No Vomiting: No Complications none Patient Status: awake, reacts, patent Hydration Status: adequate Drug: Uyen Brown MD May 06, 2019 10:11
--- NOTE | 2019-05-06 10:12 | 48 Hour Post Anesthesia Eval ---
Post Anesthesia Evaluation Procedure: egd/peg Date of Evaluation: May 06, 2019 Time of Evaluation: 07:59 Blood Pressure Systolic: 140 0: 75 Pulse Rate: 63 Respiratory Rate: 18 Temperature (Fahrenheit): 97.7 O2 Sat by Pulse Oximetry: 100 Airway: patent Nausea: No Vomiting: No Pain Intensity: 0 Hydration Status: adequate Cardiopulmonary Status: stable Mental Status/LOC: patient returned to baseline Post-Anesthesia Complications: none Follow-up care needed: N/A Uyen Tay MD May 06, 2019 10:12
--- NOTE | 2019-05-06 10:12 | NUR ---
RD ASSESSMENT & RECOMMENDATIONS SEE CARE ACTIVITY FOR COMPLETE ASSESSMENT DAILY ESTIMATED NEEDS: Needs based on Wound, underweight, sepsis/ 43kg 35-40 kcals/kg 2540-8762 total kcals 1.5-2.0 g protein/kg 65-86 g total protein 25-30 mL/kg 5349-8164 total fluid mLs NUTRITION DIAGNOSIS: * Increased kcal/prot intake needs R/T wound healing, underweight status as evidenced by pt admitted w/ stage 4 sacral wound, resolving pressure injury at R elbow and R trochanter, non-blanchable erythema at lateral L heel, L lateral 1st metatarsal, L hallux, lateral R foot, w/ pt at 86% IBW, low BMI per guidelines. * Swallowing difficulty R/T dysphagia, h/o CVA as evidenced by pt on pureed moist texture diet, now s/p PEG placement today. PO DIET RECOMMENDATIONS-->> Oral grat TBD ENTERAL NUTRITION RECOMMENDATIONS--->>> Glucerna 1.2 @55ml/hr x24 hrs to provide 1320ml, 1584 kcal, 79g pro, 1063ml free H2O - As medically able, initiate new TF glucerna 1.2 @low rate 15ml/hr for 6 hrs. Advance as tolerated 10ml/hr q4-6 hrs to goal rate of 55ml/hr x24 hrs. - Flush per . HOB over 30 degrees. - TF AT GOAL MEETS 100% EST NEEDS AND PROVIDES 37 KCAL/KG, 1.8G PRO/KG. ADDITIONAL RECOMMENDATIONS: * CALIBRATED bedscale wt for accurate CBW, weekly wt monitoring * Wound healing: Vit C 500mg BID - ZnSO4 220mg QD x 10 days - Jeronimo 1pkt BID * DIRECTOR PATIENT ACCOUNTING eval for oral grat if appropriate * Monitor lytes + blood glucose (need for niss) UPDATED BED SCALE WT W/ ADDED P200 MATTRESS + PUMP * *
--- NOTE | 2019-05-06 12:33 | NUR ---
SWALLOW/SPEECH THERAPY NOTE: PATIENT HAD HER PEG PLACED TODAY. SHE IS ALERT BUT DID NOT SPEAK TO HER SON NOR DEHYDROGENATION CONVERTER HELPER IN [place]. PATIENT WILL NOT GET PO FOR ORAL GRATIFICATION TODAY BUT CAN START TOMORROW. WILL HAVE COVERING DEHYDROGENATION CONVERTER HELPER, QUEENIE RHOADES, F/UP WITH DR MAYORGA TO RESTART THE DIET SHE WAS ON PRIOR TO THE PEG PLACEMENT. WILL COMPLETE MODIFIED BARIUM SWALLOW STUDY ON SATURDAY IF SHE IS STILL IN HOSPITAL (OR OUTPT IF SHE IS DISCHARGED). PLAN: ORAL CARE AND PEG FEEDINGS FOR NOW CONTINUE WITH PLAN OF CARE IN SWALLOW EVAL REPORT D/W RN (EMMIE), PATIENT'S SON, AND PATIENT (DID NOT RESPOND VERBALLY).
--- NOTE | 2019-05-06 12:44 | Pulmonology Progress Note ---
Assessment/Plan Problems: (1) Septic shock (2) ATN (acute tubular necrosis) (3) Hemiparesis (4) History of hypertension (5) History of CVA with residual deficit (6) Advanced dementia Assessment/Plan improving renal failure resolved continue abx new urine culture is negative check electrolytes dc planning all meds and notes reviewed Subjective ROS Limited/Unobtainable: No Constitutional: Reports: no symptoms HEENT: Repors: no symptoms Respiratory: Reports: no symptoms Allergies: Coded Allergies: No Known Allergies (Unverified , 05/01/19) Objective Last 24 Hour Vital Signs Date Time Temp Pulse Resp B/P (MAP) Pulse Ox O2 Delivery O2 Flow Rate FiO2 05/06/19 12:00 98.8 71 18 117/65 (82) 96 05/06/19 10:12 63 05/06/19 10:11 63 18 100 05/06/19 09:00 Room Air 05/06/19 08:07 97.9 66 20 139/81 100 Nasal Cannula 3 05/06/19 07:55 63 16 140/75 100 Nasal Cannula 3 05/06/19 07:50 64 17 137/73 100 Nasal Cannula 3 05/06/19 07:45 97.7 63 18 131/76 100 Nasal Cannula 3 05/06/19 04:00 98.2 73 18 147/88 (107) 99 05/06/19 00:00 98.0 81 20 137/72 (93) 98 05/05/19 21:00 Room Air 05/05/19 20:00 63 05/05/19 20:00 98.0 69 20 137/72 (93) 98 05/05/19 16:00 97.8 70 20 134/77 (96) 99 05/05/19 15:15 68 05/05/19 12:58 64 Intake and Output 05/05/19 05/06/19 19:00 07:00 Intake Total 355 ml 200 ml Output Total 300 ml 1500 ml Balance 55 ml -1300 ml IV Total 355 ml 200 ml Output Urine Total 300 ml 1500 ml General Appearance: WD/WN HEENT: normocephalic, atraumatic Respiratory/Chest: chest wall non-tender, lungs clear Breasts: no masses Cardiovascular: normal peripheral pulses, no JVD Abdomen: no organomegaly Genitourinary: normal external genitalia Skin: no rash Current Medications Medications (Trade) Dose Ordered Sig/Familia Route PRN Reason Start Time Stop Time Status Last Admin Dose Admin Acetaminophen (Tylenol) 650 mg Q4H PRN ORAL fever 05/06/19 03:15 06/04/19 15:11 Ascorbic Acid (Vitamin C) 500 mg DAILY ORAL 05/06/19 09:00 06/05/19 08:59 05/06/19 09:19 Barium Sulfate (Readi-Cat 2) 450 ml NOW PRN ORAL Radiology Procedure 05/06/19 23:45 05/07/19 23:44 Cefepime HCl 500 mg/Dextrose 55 ml @ 110 mls/hr EVERY 12 HOURS IVPB 05/06/19 09:00 05/08/19 15:59 05/06/19 09:20 Chlorhexidine Gluconate (Montserrat-Hex 2%) 1 applic DAILY@2000 TOPIC 05/06/19 20:00 06/01/19 19:59 Dextrose 1,000 ml @ 75 mls/hr [id number] IV 05/06/19 08:00 06/05/19 07:59 05/06/19 09:24 Dextrose (Dextrose 50%) 25 ml Q30M PRN IV Hypoglycemia 05/06/19 00:30 05/31/19 11:59 Dextrose (Dextrose 50%) 50 ml Q30M PRN IV Hypoglycemia 05/06/19 00:45 05/31/19 12:14 Famotidine (Pepcid I.v.) 20 mg Q12HR IVP 05/06/19 09:00 06/02/19 20:59 05/06/19 09:19 Folic Acid (Folate) 3 mg DAILY ORAL 05/06/19 09:00 06/02/19 12:44 05/06/19 09:19 Heparin Sodium (Porcine) (Heparin 5000 units/ml) 5,000 units EVERY 12 HOURS SUBQ 05/06/19 09:00 05/31/19 20:59 Iopamidol (Isovue-300 100ml) 100 ml NOW PRN INJ Radiology Procedure 05/06/19 23:45 05/07/19 23:44 Lorazepam (Ativan 2mg/ml 1ml) 0.5 mg Q4H PRN IV For Anxiety 05/06/19 03:15 05/08/19 15:13 Morphine Sulfate (Morphine Sulfate) 1 mg Q4H PRN IVP For Pain 05/06/19 03:15 05/12/19 15:13 Multivitamins (Multivitamins) 1 tab DAILY ORAL 05/06/19 09:00 06/05/19 08:59 05/06/19 09:19 Ondansetron HCl (Zofran) 4 mg Q6H PRN IVP Nausea & Vomiting 05/06/19 03:15 06/04/19 15:13 Polyethylene Glycol (Miralax) 17 gm HSPRN PRN ORAL Constipation 05/06/19 09:00 06/04/19 08:59 Zinc Sulfate (Zinc Sulfate) 220 mg DAILY ORAL 05/06/19 09:00 05/16/19 09:00 05/06/19 09:19 Zolpidem Tartrate (Ambien) 5 mg HSPRN PRN ORAL Insomnia 05/06/19 15:15 05/12/19 15:13 Adilene Nash MD May 06, 2019 12:44
--- NOTE | 2019-05-06 13:04 | Nephrology Progress Note ---
Assessment/Plan Problem List: (1) ATN (acute tubular necrosis) (2) Septic shock (3) UTI (urinary tract infection) (4) Severe malnutrition Assessment -Septic shock -ATN (acute tubular necrosis) - Malnutrition -History of hypertension -UTI (urinary tract infection) -Advanced dementia -History of CVA with residual deficit -Hemiparesis Plan K IV as needed Mag IV PO Folate Cortisol level PEG?? Subjective ROS Limited/Unobtainable: No Constitutional: Reports: malaise Objective Objective Last 24 Hour Vital Signs Date Time Temp Pulse Resp B/P (MAP) Pulse Ox O2 Delivery O2 Flow Rate FiO2 05/06/19 12:00 98.8 71 18 117/65 (82) 96 05/06/19 10:12 63 05/06/19 10:11 63 18 100 05/06/19 09:00 Room Air 05/06/19 08:07 97.9 66 20 139/81 100 Nasal Cannula 3 05/06/19 07:55 63 16 140/75 100 Nasal Cannula 3 05/06/19 07:50 64 17 137/73 100 Nasal Cannula 3 05/06/19 07:45 97.7 63 18 131/76 100 Nasal Cannula 3 05/06/19 04:00 98.2 73 18 147/88 (107) 99 05/06/19 00:00 98.0 81 20 137/72 (93) 98 05/05/19 21:00 Room Air 05/05/19 20:00 63 05/05/19 20:00 98.0 69 20 137/72 (93) 98 05/05/19 16:00 97.8 70 20 134/77 (96) 99 05/05/19 15:15 68 Intake and Output 05/05/19 05/06/19 19:00 07:00 Intake Total 355 ml 200 ml Output Total 300 ml 1500 ml Balance 55 ml -1300 ml IV Total 355 ml 200 ml Output Urine Total 300 ml 1500 ml Height (Feet): 5 Height (Inches): 5.00 Weight (Pounds): 108 General Appearance: no apparent distress Objective no change Jamel Maldonado MD May 06, 2019 13:04
--- NOTE | 2019-05-06 13:26 | Surgery Progress Note ---
Surgery Progress Note Subjective Symptoms: other Objective Last 24 Hour Vital Signs Date Time Temp Pulse Resp B/P (MAP) Pulse Ox O2 Delivery O2 Flow Rate FiO2 05/06/19 12:00 98.8 71 18 117/65 (82) 96 05/06/19 10:12 63 05/06/19 10:11 63 18 100 05/06/19 09:00 Room Air 05/06/19 08:07 97.9 66 20 139/81 100 Nasal Cannula 3 05/06/19 07:55 63 16 140/75 100 Nasal Cannula 3 05/06/19 07:50 64 17 137/73 100 Nasal Cannula 3 05/06/19 07:45 97.7 63 18 131/76 100 Nasal Cannula 3 05/06/19 04:00 98.2 73 18 147/88 (107) 99 05/06/19 00:00 98.0 81 20 137/72 (93) 98 05/05/19 21:00 Room Air 05/05/19 20:00 63 05/05/19 20:00 98.0 69 20 137/72 (93) 98 05/05/19 16:00 97.8 70 20 134/77 (96) 99 05/05/19 15:15 68 I&O Intake and Output 05/05/19 05/06/19 19:00 07:00 Intake Total 355 ml 200 ml Output Total 300 ml 1500 ml Balance 55 ml -1300 ml IV Total 355 ml 200 ml Output Urine Total 300 ml 1500 ml Dressing: saturated Wound: clean Cardiovascular: RSR Respiratory: clear Abdomen: soft, present bowel sounds, other, non-distended Extremities: no cyanosis Plan Problems: (1) Decubitus ulcer of sacral region, stage 4 Assessment & Plan: Pt presented on admission with contractures and multiple pressure injuries. Full thickness sacral pressure injury with undermining .Beefy red granulation at base of wound with an area of 20% soft necrosis along borders and undermined area.No odor noted. Small amt sanguineous exudate noted(L)2cm x (W)2.5cm x (D) 1.9cm, undermining clockwise 12-12 by 1.9cm @12 o'clock. Resolving pressure injury R elbow .Base of wound epithelialized -pink and dry.(L )1.5cm x (W)1.6cm. Resolving pressure injury R trochanter .Base of wound has dry ,pink epithelial.edges adherent and flat without erythema or induration(L)2cm x (W) 4cm. hyperpigmentation periwound. Hyperpigmentation from previous wound L trochanter. Non-blanchable erythema with fluctuance noted to lateral L heel (L)2.5cm x (W) 2.5cm.Periwound without erythema induration or fluctuance. R heel is pink and blanchable. Non-blanchable erythema without fluctuance /induration L lateral 1st metatarsal. (L)0.5cm x (W)1cm Non-blanchable erythema without fluctuance /induration noted L hallux. (L)1cm x (w)1cm. Non-blanchable erythema without induration/fluctuance lateral R foot. Tx.Plan: Cleanse Sacral wound with Saline. Loosely pack with Hydrogel impregnated Plain packing strip.Apply Triad periwound Cover with Optifoam Daily and PRN. Apply Moisture Barrier Paste to R and L trochanters. Cover each site with Optifoam drsg. Change every 3 days and prn. Apply Cavilon Skin Barrier to R and L heels. Cover each heel with Optifoam drsgs. Change every 7 days and prn. Apply Cavilon Skin Barrier to L hallux and L 1st metatarsal. Cover with Optifoam drsg. Change every 7 days and prn. Apply Cavilon Skin Barrier to lateral R foot. Cover with Optifoam drsg. Change every 7 days and prn. APM/YO mattress overlay. Reposition at least every 2hours or as tolerated. Off-load heels with pillow. (2) Renal insufficiency (3) Septic shock Assessment & Plan: leukocytosis - resolved tachycardia - resolved anemia hypotension - improved responding well to fluids and abx cont abx cont with current care will follow with recs thank you (4) UTI (urinary tract infection) Assessment & Plan: Impression: No evidence of obstructive uropathy or hydronephrosis Questionable nonobstructive 1 mm right intrarenal calculus Multiple bladder calculi Bladder wall thickening, may may in part be an artifact of under distention, but the possibility of chronic bladder obstruction or cystitis should be considered Subcentimeter low-attenuation renal lesions, too small to characterize, most likely benign simple cysts. No further follow-up necessary Villagomez catheter Free pelvic fluid, nonspecific but not physiologic in a postmenopausal female Equivocal mild sigmoid wall thickening, probably artifact of under distention but the possibility of colitis should be considered Mild edema of the subcutaneous fat Slight pericholecystic fluid, may be a manifestation of mild anasarca but the possibility of acalculous acute cholecystitis or cholecystitis due to occult stone disease should also be considered Posterior dependent atelectatic changes and mild degenerative spondylosis changes incidentally noted (5) ATN (acute tubular necrosis) (6) Advanced dementia (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
--- NOTE | 2019-05-06 13:49 | NUR ---
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 97.9 HR 66 RR 20 B/P 139/87 NC 3L O2 SAT @ 98% IS: CEFEPIME IV PREVACID IV HEPARIN SUBC MED/SURG STATUS
--- NOTE | 2019-05-06 14:27 | Infectious Diseases Prog Note ---
Assessment/Plan Assessment/Plan ASSESSMENT: The patient is an 83-year-old female with: 1. Sepsis. 2. Leukocytosis; resolved 3. Septic shock/hypotension. 2ry to UTI- off pressors now -u/a tnct, nit neg, leuk +3; ucx MDR P. 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 mirabilis (R nitro,otherwise S) -Bcx NTD -CT abd/p: No evidence of obstructive uropathy or hydronephrosis. Questionable nonobstructive 1 mm right intrarenal calculus. Multiple bladder calculi Bladder wall thickening, may may in part be an artifact of under distention, but the possibility of chronic bladder obstruction or cystitis should be considered Subcentimeter low-attenuation renal lesions, too small to characterize, most likely benign simple cysts. No further follow-up necessary.Villagomez catheter. Free pelvic fluid, nonspecific but not physiologic in a postmenopausal female. Equivocal mild sigmoid wall thickening, probably artifact of under distention but the possibility of colitis should be considered. Mild edema of the subcutaneous fat 4. Hydronephrosis -REnal US: 1. Mild left hydronephrosis and urinary bladder stone with wall thickening of bladder that could represent cystitis or evidence of chronic bladder outlet obstruction.. 2. Right nephrolithiasis is also suspected.. - Functional quadriplegia. - History of dementia. -Anemia. - History of stage IV sacral decubitus. PLAN: 1. We will continue the patient on IV cefepime #6/7 for UTI -7/6 SP Amikacin, Vancomycin #2 -7/5 SP Ceftriaxone x1 2. Monitor CBC. 3. Monitor BMP. 4. Monitor cultures. 5. Monitor chest x-ray. 6. Based on the patient's clinical course and laboratories, we will do further recommendations. Subjective Allergies: Coded Allergies: No Known Allergies (Unverified , 05/01/19) Subjective afebrile no leukocytosis Bx NTD Objective Vital Signs Last 24 Hour Vital Signs Date Time Temp Pulse Resp B/P (MAP) Pulse Ox O2 Delivery O2 Flow Rate FiO2 05/06/19 14:00 18 100 05/06/19 12:00 98.8 71 18 117/65 (82) 96 05/06/19 10:12 63 05/06/19 10:11 63 18 100 05/06/19 09:00 Room Air 05/06/19 08:07 97.9 66 20 139/81 100 Nasal Cannula 3 05/06/19 07:55 63 16 140/75 100 Nasal Cannula 3 05/06/19 07:50 64 17 137/73 100 Nasal Cannula 3 05/06/19 07:45 97.7 63 18 131/76 100 Nasal Cannula 3 05/06/19 04:00 98.2 73 18 147/88 (107) 99 05/06/19 00:00 98.0 81 20 137/72 (93) 98 05/05/19 21:00 Room Air 05/05/19 20:00 63 05/05/19 20:00 98.0 69 20 137/72 (93) 98 05/05/19 16:00 97.8 70 20 134/77 (96) 99 05/05/19 15:15 68 Height (Feet): 5 Height (Inches): 5.00 Weight (Pounds): 108 Objective HEENT: No pale conjunctivae. No icterus. NECK: No lymphadenopathy. CHEST: Clear. HEART: S1, S2. ABDOMEN: Soft. EXTREMITIES: No cyanosis at this time. NEUROLOGIC: Awake, nonverbal. SKIN: The patient has stage IV sacral decubitus (tracking, not infected). Current Medications Medications (Trade) Dose Ordered Sig/Familia Route PRN Reason Start Time Stop Time Status Last Admin Dose Admin Acetaminophen (Tylenol) 650 mg Q4H PRN ORAL fever 05/06/19 03:15 06/04/19 15:11 Ascorbic Acid (Vitamin C) 500 mg DAILY ORAL 05/06/19 09:00 06/05/19 08:59 05/06/19 09:19 Barium Sulfate (Readi-Cat 2) 450 ml NOW PRN ORAL Radiology Procedure 05/06/19 23:45 05/07/19 23:44 Cefepime HCl 500 mg/Dextrose 55 ml @ 110 mls/hr EVERY 12 HOURS IVPB 05/06/19 09:00 05/08/19 15:59 05/06/19 09:20 Chlorhexidine Gluconate (Montserrat-Hex 2%) 1 applic DAILY@2000 TOPIC 05/06/19 20:00 06/01/19 19:59 Dextrose 1,000 ml @ 40 mls/hr Q24H IV 05/06/19 13:30 06/05/19 13:29 05/06/19 13:30 Dextrose (Dextrose 50%) 25 ml Q30M PRN IV Hypoglycemia 05/06/19 00:30 05/31/19 11:59 Dextrose (Dextrose 50%) 50 ml Q30M PRN IV Hypoglycemia 05/06/19 00:45 05/31/19 12:14 Famotidine (Pepcid I.v.) 20 mg Q12HR IVP 05/06/19 09:00 06/02/19 20:59 05/06/19 09:19 Folic Acid (Folate) 3 mg DAILY ORAL 05/06/19 09:00 06/02/19 12:44 05/06/19 09:19 Heparin Sodium (Porcine) (Heparin 5000 units/ml) 5,000 units EVERY 12 HOURS SUBQ 05/06/19 09:00 05/31/19 20:59 Iopamidol (Isovue-300 100ml) 100 ml NOW PRN INJ Radiology Procedure 05/06/19 23:45 05/07/19 23:44 Lorazepam (Ativan 2mg/ml 1ml) 0.5 mg Q4H PRN IV For Anxiety 05/06/19 03:15 05/08/19 15:13 Morphine Sulfate (Morphine Sulfate) 1 mg Q4H PRN IVP For Pain 05/06/19 03:15 05/12/19 15:13 Multivitamins (Multivitamins) 1 tab DAILY ORAL 05/06/19 09:00 06/05/19 08:59 05/06/19 09:19 Ondansetron HCl (Zofran) 4 mg Q6H PRN IVP Nausea & Vomiting 05/06/19 03:15 06/04/19 15:13 Polyethylene Glycol (Miralax) 17 gm HSPRN PRN ORAL Constipation 05/06/19 09:00 06/04/19 08:59 Zinc Sulfate (Zinc Sulfate) 220 mg DAILY ORAL 05/06/19 09:00 05/16/19 09:00 05/06/19 09:19 Zolpidem Tartrate (Ambien) 5 mg HSPRN PRN ORAL Insomnia 05/06/19 15:15 05/12/19 15:13 Luba Freeman M.D. May 06, 2019 14:27
--- NOTE | 2019-05-06 14:27 | Cardiac Electrophysiology PN ---
Assessment/Plan Assessment/Plan 1. Combination of septic shock and dehydration. Off pressors and out of ICU. Resolved with IV fluids The patient is already on broad-spectrum IV antibiotics as well. EF 60% with no pericardial effusion. 2. Sinus Bradycardia. The patient is off of any sinus-genevieve or AV-genevieve affecting agents. Now off Dopamine 3. Sepsis, on broad-spectrum IV antibiotics. 4. History of CVA with right hemiplegia, currently nonverbal with bilateral lower extremity contraction. 5. Decubitus ulcers. 6. History of hypertension, off antihypertensive 7. Dehydration and poor nutrition, S/P PEG today DW RN Subjective Subjective S/P PEG today. Son at bedside. No changes Objective Last 24 Hour Vital Signs Date Time Temp Pulse Resp B/P (MAP) Pulse Ox O2 Delivery O2 Flow Rate FiO2 05/06/19 14:00 18 100 05/06/19 12:00 98.8 71 18 117/65 (82) 96 05/06/19 10:12 63 05/06/19 10:11 63 18 100 05/06/19 09:00 Room Air 05/06/19 08:07 97.9 66 20 139/81 100 Nasal Cannula 3 05/06/19 07:55 63 16 140/75 100 Nasal Cannula 3 05/06/19 07:50 64 17 137/73 100 Nasal Cannula 3 05/06/19 07:45 97.7 63 18 131/76 100 Nasal Cannula 3 05/06/19 04:00 98.2 73 18 147/88 (107) 99 05/06/19 00:00 98.0 81 20 137/72 (93) 98 05/05/19 21:00 Room Air 05/05/19 20:00 63 05/05/19 20:00 98.0 69 20 137/72 (93) 98 05/05/19 16:00 97.8 70 20 134/77 (96) 99 05/05/19 15:15 68 Intake and Output 05/05/19 05/06/19 19:00 07:00 Intake Total 355 ml 200 ml Output Total 300 ml 1500 ml Balance 55 ml -1300 ml IV Total 355 ml 200 ml Output Urine Total 300 ml 1500 ml Objective HEAD AND NECK: No JVD. LUNGS: Coarse rhonchi. CARDIOVASCULAR: Shows regular S1 and S2. Mildly bradycardic. ABDOMEN: Soft.PEG in place EXTREMITIES: Contracted, no pitting edema, and a triple-lumen in the left femoral vein. Florencio Ross MD May 06, 2019 14:27
[2019-05-06] MEDS ORDERED: Zolpidem 5mg tab ORAL PRN (15:15)
[2019-05-06] MEDS ORDERED: NS 275ml ONE (16:11)
--- NOTE | 2019-05-06 18:41 | Internal Med Progress Note ---
Subjective Physician Name Solo Macdonald Attending Physician Solo Macdonald MD Current Medications Medications (Trade) Dose Ordered Sig/Familia Route PRN Reason Start Time Stop Time Status Last Admin Dose Admin Acetaminophen (Tylenol) 650 mg Q4H PRN ORAL fever 05/06/19 03:15 06/04/19 15:11 Ascorbic Acid (Vitamin C) 500 mg DAILY ORAL 05/06/19 09:00 06/05/19 08:59 05/06/19 09:19 Barium Sulfate (Readi-Cat 2) 450 ml NOW PRN ORAL Radiology Procedure 05/06/19 23:45 05/07/19 23:44 Cefepime HCl 500 mg/Dextrose 55 ml @ 110 mls/hr EVERY 12 HOURS IVPB 05/06/19 09:00 05/08/19 15:59 05/06/19 09:20 Chlorhexidine Gluconate (Montserrat-Hex 2%) 1 applic DAILY@2000 TOPIC 05/06/19 20:00 06/01/19 19:59 Dextrose 1,000 ml @ 40 mls/hr Q24H IV 05/06/19 13:30 06/05/19 13:29 05/06/19 13:30 Dextrose (Dextrose 50%) 25 ml Q30M PRN IV Hypoglycemia 05/06/19 00:30 05/31/19 11:59 Dextrose (Dextrose 50%) 50 ml Q30M PRN IV Hypoglycemia 05/06/19 00:45 05/31/19 12:14 Famotidine (Pepcid I.v.) 20 mg Q12HR IVP 05/06/19 09:00 06/02/19 20:59 05/06/19 09:19 Folic Acid (Folate) 3 mg DAILY ORAL 05/06/19 09:00 06/02/19 12:44 05/06/19 09:19 Heparin Sodium (Porcine) (Heparin 5000 units/ml) 5,000 units EVERY 12 HOURS SUBQ 05/06/19 09:00 05/31/19 20:59 Iopamidol (Isovue-300 100ml) 100 ml NOW PRN INJ Radiology Procedure 05/06/19 23:45 05/07/19 23:44 Lorazepam (Ativan 2mg/ml 1ml) 0.5 mg Q4H PRN IV For Anxiety 05/06/19 03:15 05/08/19 15:13 Morphine Sulfate (Morphine Sulfate) 1 mg Q4H PRN IVP For Pain 05/06/19 03:15 05/12/19 15:13 Multivitamins (Multivitamins) 1 tab DAILY ORAL 05/06/19 09:00 06/05/19 08:59 05/06/19 09:19 Ondansetron HCl (Zofran) 4 mg Q6H PRN IVP Nausea & Vomiting 05/06/19 03:15 06/04/19 15:13 Polyethylene Glycol (Miralax) 17 gm HSPRN PRN ORAL Constipation 05/06/19 09:00 06/04/19 08:59 Zinc Sulfate (Zinc Sulfate) 220 mg DAILY ORAL 05/06/19 09:00 05/16/19 09:00 05/06/19 09:19 Zolpidem Tartrate (Ambien) 5 mg HSPRN PRN ORAL Insomnia 05/06/19 15:15 05/12/19 15:13 Allergies: Coded Allergies: No Known Allergies (Unverified , 05/01/19) Subjective Awake, Responsive, NAD, demented, sons at bedside, S/P PEG placement today. Objective Last Vital Signs Date Time Temp Pulse Resp B/P (MAP) Pulse Ox O2 Delivery O2 Flow Rate FiO2 05/06/19 16:00 98.2 70 18 122/74 (90) 96 05/06/19 09:00 Room Air 05/06/19 08:07 3 Intake and Output 05/05/19 05/06/19 19:00 07:00 Intake Total 355 ml 200 ml Output Total 300 ml 1500 ml Balance 55 ml -1300 ml IV Total 355 ml 200 ml Output Urine Total 300 ml 1500 ml Objective GENERAL: Awake,responsive, Cachexia. HEAD AND NECK: Pupils are equal and reactive to light. Anicteric. Neck supple. No JVD. LUNGS: Good air entry. decrease air at bases, No wheezing or rhonchi. HEART: S1, S2. Regular rhythm. No murmur or gallops. ABDOMEN: Soft, nondistended, nontender. Positive bowel sounds, PEG site intact. EXTREMITIES: No cyanosis, clubbing, edema. The patient has muscle atrophy in bilateral lower extremity. Left femoral TLC. NEUROLOGIC: Cranial nerves II through XII grossly intact. contracted lower extremity. Moving upper extremity, right side weakness. SKIN: Bilateral trochanter stage I ulceration as well as sacral decubitus ulcer stage IV. No discharge was noted. Assessment/Plan Assessment/Plan ASSESSMENT: 1. Septic shock, most likely secondary to acute sepsis due to GNR urinary tract infection. 2. Severe cachexia, Severe protein calori malnutrition S/P PEG placement (2018). 3. Stage IV sacral decubitus ulcer presented on admission. 4. History of essential hypertension, presently hypotensive. 5. Acute kidney injury on chronic renal insufficiency, most likely secondary to severe dehydration and hypovolemia. 6. Advanced dementia. 7. Severe Hypotension most likely combination of septic shock and Dehydration / Hypovolemia. 8. Bilateral hydronephrosis. 9. Hypokalemia. PLAN: In ICU. Monitor laboratory and cultures Antibiotics: cefepime, DVT prophylaxis: heparin subcutaneous. Code status at this time is Full Code per POLST. Cardiology consult with Dr. Ross Pulmonary consult Dr. Saad GALEAS Planning to SNF soon. IVF @ 50 cc/hr Solo Macdonald MD May 06, 2019 18:41
--- NOTE | 2019-05-06 19:30 | NUR ---
NURSE NOTES: Received report from VARUN Sharpe. Patient is awake and resting in bed. IVs are intact. HOB raised at 30 degrees. Two side rails up for patient safety. Tolerating G-tube. No signs of respiratory distress. Will continue to monitor.
--- NOTE | 2019-05-06 19:38 | NUR ---
HAND-OFF: Report given to VARUN Watkins.
[2019-05-06] MEDS: Dyna-Hex 2% Top Sol 2oz TOPIC SCH (21:53)
[2019-05-06] MEDS ORDERED: Isovue-300 100ml vial INJ PRN (23:45)
[2019-05-07 04:08] VITALS: BP 118/85
[2019-05-07 06:08] LABS: EOSINOPHILS % (AUTO) 2.1 % (0.0-3.0); HEMATOCRIT 25.4 % (37.0-47.0); HEMOGLOBIN 8.4 G/DL (12.0-16.0); MEAN CORPUSCULAR VOLUME 94 FL (80-99); MONOCYTES % (AUTO) 5.4 % (1.0-10.0); NEUTROPHILS % (AUTO) 62.6 % (45.0-75.0); PLATELET COUNT 283 K/UL (150-450); WHITE BLOOD COUNT 7.6 K/UL (4.8-10.8)
[2019-05-07 06:17] LABS: ALANINE AMINOTRANSFERASE 52 U/L (12-78); ALBUMIN 2.3 G/DL (3.4-5.0); ALBUMIN/GLOBULIN RATIO 0.8 (1.0-2.7); ALKALINE PHOSPHATASE 65 U/L (46-116); ANION GAP 6 mmol/L (5-15); ASPARTATE AMINO TRANSFERASE 21 U/L (15-37); BILIRUBIN,TOTAL 0.4 MG/DL (0.2-1.0); BLOOD UREA NITROGEN 9 mg/dL (7-18); CALCIUM 8.5 MG/DL (8.5-10.1); CARBON DIOXIDE 28 MMOL/L (21-32); CHLORIDE 105 MMOL/L (98-107); CREATININE 0.5 MG/DL (0.55-1.30); PHOSPHORUS 2.3 MG/DL (2.5-4.9); POTASSIUM 3.3 MMOL/L (3.5-5.1); SODIUM 139 MMOL/L (136-145)
--- NOTE | 2019-05-07 07:34 | NUR ---
HAND-OFF: Report given to VARUN Carnes and VARUN Pagan.
--- NOTE | 2019-05-07 07:56 | Urology Progress Note ---
Assessment/Plan Assessment/Plan: 1. No hydronephrosis. 2. Urinary retention. 3. Probable neurogenic bladder. 4. Proteinuria. 5. Hematuria. 6. Pyuria. 7. Mild acute kidney injury, which has resolved. 8. Possible nephrolithiasis. 9. Bladder calculi monitor clinically maintain mujica hand irrigate PRN abx as ordered renal fxn stable Subjective Allergies: Coded Allergies: No Known Allergies (Unverified , 05/01/19) Subjective all noted, looks comfortable Objective Last 24 Hour Vital Signs Date Time Temp Pulse Resp B/P (MAP) Pulse Ox O2 Delivery O2 Flow Rate FiO2 05/07/19 04:08 98.5 80 20 118/85 (96) 99 05/06/19 23:59 98.0 65 20 118/66 (83) 95 05/06/19 21:00 Room Air 05/06/19 20:00 98.0 65 20 111/68 (82) 100 05/06/19 16:00 98.2 70 18 122/74 (90) 96 05/06/19 14:00 18 100 05/06/19 12:00 98.8 71 18 117/65 (82) 96 05/06/19 10:12 63 05/06/19 10:11 63 18 100 05/06/19 09:00 Room Air 05/06/19 08:07 97.9 66 20 139/81 100 Nasal Cannula 3 Intake and Output 05/06/19 05/07/19 19:00 07:00 Intake Total 430 ml 715 ml Output Total 400 ml Balance 430 ml 315 ml Intake Oral 60 ml IV Total 430 ml 655 ml Output Urine Total 400 ml Microbiology Date/Time Source Procedure Growth Status 05/01/19 10:25 Blood Blood Culture - Final NO GROWTH AFTER 5 DAYS Complete 05/01/19 10:35 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 Complete 05/01/19 17:18 Urine,Clean Catch Urine Culture - Final NO GROWTH AFTER 48 HOURS Complete 05/01/19 10:35 Rectum VRE Culture - Final NO VANCOMYCIN RESISTANT ENTEROCOCCUS ... Complete 05/01/19 10:35 Rectum - Final NO CARBAPENEM-RESISTANT ENTEROBACTERI... Complete Current Medications Medications (Trade) Dose Ordered Sig/Familia Route PRN Reason Start Time Stop Time Status Last Admin Dose Admin Acetaminophen (Tylenol) 650 mg Q4H PRN ORAL fever 05/06/19 03:15 06/04/19 15:11 Ascorbic Acid (Vitamin C) 500 mg DAILY ORAL 05/06/19 09:00 06/05/19 08:59 05/06/19 09:19 Barium Sulfate (Readi-Cat 2) 450 ml NOW PRN ORAL Radiology Procedure 05/06/19 23:45 05/07/19 23:44 Cefepime HCl 500 mg/Dextrose 55 ml @ 110 mls/hr EVERY 12 HOURS IVPB 05/06/19 09:00 05/08/19 15:59 05/06/19 21:53 Chlorhexidine Gluconate (Montserrat-Hex 2%) 1 applic DAILY@2000 TOPIC 05/06/19 20:00 06/01/19 19:59 05/06/19 21:53 Dextrose 1,000 ml @ 40 mls/hr Q24H IV 05/06/19 13:30 06/05/19 13:29 05/06/19 13:30 Dextrose (Dextrose 50%) 25 ml Q30M PRN IV Hypoglycemia 05/06/19 00:30 05/31/19 11:59 Dextrose (Dextrose 50%) 50 ml Q30M PRN IV Hypoglycemia 05/06/19 00:45 05/31/19 12:14 Famotidine (Pepcid I.v.) 20 mg Q12HR IVP 05/06/19 09:00 06/02/19 20:59 05/06/19 21:53 Folic Acid (Folate) 3 mg DAILY ORAL 05/06/19 09:00 06/02/19 12:44 05/06/19 09:19 Heparin Sodium (Porcine) (Heparin 5000 units/ml) 5,000 units EVERY 12 HOURS SUBQ 05/06/19 09:00 05/31/19 20:59 05/06/19 21:58 Iopamidol (Isovue-300 100ml) 100 ml NOW PRN INJ Radiology Procedure 05/06/19 23:45 05/07/19 23:44 Lorazepam (Ativan 2mg/ml 1ml) 0.5 mg Q4H PRN IV For Anxiety 05/06/19 03:15 05/08/19 15:13 Morphine Sulfate (Morphine Sulfate) 1 mg Q4H PRN IVP For Pain 05/06/19 03:15 05/12/19 15:13 Multivitamins (Multivitamins) 1 tab DAILY ORAL 05/06/19 09:00 06/05/19 08:59 05/06/19 09:19 Ondansetron HCl (Zofran) 4 mg Q6H PRN IVP Nausea & Vomiting 05/06/19 03:15 06/04/19 15:13 Polyethylene Glycol (Miralax) 17 gm HSPRN PRN ORAL Constipation 05/06/19 09:00 06/04/19 08:59 Zinc Sulfate (Zinc Sulfate) 220 mg DAILY ORAL 05/06/19 09:00 05/16/19 09:00 05/06/19 09:19 Zolpidem Tartrate (Ambien) 5 mg HSPRN PRN ORAL Insomnia 05/06/19 15:15 05/12/19 15:13 Laboratory Tests 05/07/19 05:00: White Blood Count 7.6, Red Blood Count 2.70L, Hemoglobin 8.4L, Hematocrit 25.4L , Mean Corpuscular Volume 94, Mean Corpuscular Hemoglobin 31.2H, Mean Corpuscular Hemoglobin Concent 33.2, Red Cell Distribution Width 12.0, Platelet Count 283, Mean Platelet Volume 6.3L, Neutrophils (%) (Auto) 62.6, Lymphocytes ( %) (Auto) 29.0, Monocytes (%) (Auto) 5.4, Eosinophils (%) (Auto) 2.1, Basophils (%) (Auto) 1.0, Sodium Level 139, Potassium Level 3.3L, Chloride Level 105, Carbon Dioxide Level 28, Anion Gap 6, Blood Urea Nitrogen 9, Creatinine 0.5L, Estimat Glomerular Filtration Rate , Glucose Level 92, Calcium Level 8.5, Phosphorus Level 2.3L, Magnesium Level 2.3, Total Bilirubin 0.4, Aspartate Amino Transf (AST/SGOT) 21, Alanine Aminotransferase (ALT/SGPT) 52, Alkaline Phosphatase 65, Total Protein 5.2L, Albumin 2.3L, Globulin 2.9, Albumin/ Globulin Ratio 0.8L Height (Feet): 5 Height (Inches): 5.00 Weight (Pounds): 106 Objective exam stable urine grossly yellow, occasional debris CT A/P (05/04) noted Felice Portillo MD May 07, 2019 07:56
--- NOTE | 2019-05-07 07:56 | NUR ---
NURSE NOTES: Handoff received from VARUN Trejo. Patient received sleeping in bed, stable with D5NS running at 40ml hour. IV site is clean, dry and intact, bed in locked and low position with side rails x3.
[2019-05-07 08:00] VITALS: BP 139/72
--- NOTE | 2019-05-07 08:28 | General Progress Note ---
Assessment/Plan Assessment/Plan: Assessment - malnutrition, s/p PEG - Decub ulcer - contracted, bed bound - OBS - recent UTI / Sepsis Recommendations - po as tolerated - abx - IVF - MVI, Vitamin C, ZnSO4 - TF today Subjective Allergies: Coded Allergies: No Known Allergies (Unverified , 05/01/19) Subjective Above noted resting comfortably POD #1 s/p PEG Objective Last 24 Hour Vital Signs Date Time Temp Pulse Resp B/P (MAP) Pulse Ox O2 Delivery O2 Flow Rate FiO2 05/07/19 04:08 98.5 80 20 118/85 (96) 99 05/06/19 23:59 98.0 65 20 118/66 (83) 95 05/06/19 21:00 Room Air 05/06/19 20:00 98.0 65 20 111/68 (82) 100 05/06/19 16:00 98.2 70 18 122/74 (90) 96 05/06/19 14:00 18 100 05/06/19 12:00 98.8 71 18 117/65 (82) 96 05/06/19 10:12 63 05/06/19 10:11 63 18 100 05/06/19 09:00 Room Air Intake and Output 05/06/19 05/07/19 19:00 07:00 Intake Total 430 ml 715 ml Output Total 400 ml Balance 430 ml 315 ml Intake Oral 60 ml IV Total 430 ml 655 ml Output Urine Total 400 ml Laboratory Tests 05/07/19 05:00: White Blood Count 7.6, Red Blood Count 2.70L, Hemoglobin 8.4L, Hematocrit 25.4L , Mean Corpuscular Volume 94, Mean Corpuscular Hemoglobin 31.2H, Mean Corpuscular Hemoglobin Concent 33.2, Red Cell Distribution Width 12.0, Platelet Count 283, Mean Platelet Volume 6.3L, Neutrophils (%) (Auto) 62.6, Lymphocytes ( %) (Auto) 29.0, Monocytes (%) (Auto) 5.4, Eosinophils (%) (Auto) 2.1, Basophils (%) (Auto) 1.0, Sodium Level 139, Potassium Level 3.3L, Chloride Level 105, Carbon Dioxide Level 28, Anion Gap 6, Blood Urea Nitrogen 9, Creatinine 0.5L, Estimat Glomerular Filtration Rate , Glucose Level 92, Calcium Level 8.5, Phosphorus Level 2.3L, Magnesium Level 2.3, Total Bilirubin 0.4, Aspartate Amino Transf (AST/SGOT) 21, Alanine Aminotransferase (ALT/SGPT) 52, Alkaline Phosphatase 65, Total Protein 5.2L, Albumin 2.3L, Globulin 2.9, Albumin/ Globulin Ratio 0.8L Height (Feet): 5 Height (Inches): 5.00 Weight (Pounds): 106 Objective Debilitated elderly woman NCAT supple CTA RR abd soft (+) contractures (+) Nasim Nolasco MD May 07, 2019 08:28
[2019-05-07] MEDS: Zinc Sulfate 220mg cap ORAL SCH (08:51)
[2019-05-07] MEDS: Ascorbic Acid 500mg tab ORAL SCH (08:52)
[2019-05-07] MEDS: Heparin 5000 units/ml inj SUBQ SCH ×2 (08:53→20:35)
[2019-05-07] MEDS: Cefepime HCl 500 MG in D5W 55 ML IVPB SCH ×2 (09:43→20:34)
[2019-05-07] MEDS ORDERED: Potassium Phosphate 30 MM in NS 275 ML IV ONE (10:00)
--- NOTE | 2019-05-07 10:37 | Surgery Progress Note ---
Surgery Progress Note Subjective Symptoms: improved, tolerating diet, voiding well, passing flatus, BM Objective Last 24 Hour Vital Signs Date Time Temp Pulse Resp B/P (MAP) Pulse Ox O2 Delivery O2 Flow Rate FiO2 05/07/19 09:00 Room Air 05/07/19 08:00 98.0 80 17 139/72 (94) 95 05/07/19 04:08 98.5 80 20 118/85 (96) 99 05/06/19 23:59 98.0 65 20 118/66 (83) 95 05/06/19 21:00 Room Air 05/06/19 20:00 98.0 65 20 111/68 (82) 100 05/06/19 16:00 98.2 70 18 122/74 (90) 96 05/06/19 14:00 18 100 05/06/19 12:00 98.8 71 18 117/65 (82) 96 I&O Intake and Output 05/06/19 05/07/19 19:00 07:00 Intake Total 430 ml 715 ml Output Total 400 ml Balance 430 ml 315 ml Intake Oral 60 ml IV Total 430 ml 655 ml Output Urine Total 400 ml Dressing: saturated Wound: other Drains: other Cardiovascular: RSR Respiratory: decreased breath sounds Abdomen: soft, present bowel sounds, non-distended Extremities: no tenderness, no cyanosis, other Laboratory Tests Test 05/07/19 05:00 White Blood Count 7.6 K/UL (4.8-10.8) Red Blood Count 2.70 M/UL (4.20-5.40) L Hemoglobin 8.4 G/DL (12.0-16.0) L Hematocrit 25.4 % (37.0-47.0) L Mean Corpuscular Volume 94 FL (80-99) Mean Corpuscular Hemoglobin 31.2 PG (27.0-31.0) H Mean Corpuscular Hemoglobin Concent 33.2 G/DL (32.0-36.0) Red Cell Distribution Width 12.0 % (11.6-14.8) Platelet Count 283 K/UL (150-450) Mean Platelet Volume 6.3 FL (6.5-10.1) L Neutrophils (%) (Auto) 62.6 % (45.0-75.0) Lymphocytes (%) (Auto) 29.0 % (20.0-45.0) Monocytes (%) (Auto) 5.4 % (1.0-10.0) Eosinophils (%) (Auto) 2.1 % (0.0-3.0) Basophils (%) (Auto) 1.0 % (0.0-2.0) Sodium Level 139 MMOL/L (136-145) Potassium Level 3.3 MMOL/L (3.5-5.1) L Chloride Level 105 MMOL/L (98-107) Carbon Dioxide Level 28 MMOL/L (21-32) Anion Gap 6 mmol/L (5-15) Blood Urea Nitrogen 9 mg/dL (7-18) Creatinine 0.5 MG/DL (0.55-1.30) L Estimat Glomerular Filtration Rate mL/min (>60) Glucose Level 92 MG/DL (74-106) Calcium Level 8.5 MG/DL (8.5-10.1) Phosphorus Level 2.3 MG/DL (2.5-4.9) L Magnesium Level 2.3 MG/DL (1.8-2.4) Total Bilirubin 0.4 MG/DL (0.2-1.0) Aspartate Amino Transf (AST/SGOT) 21 U/L (15-37) Alanine Aminotransferase (ALT/SGPT) 52 U/L (12-78) Alkaline Phosphatase 65 U/L (46-116) Total Protein 5.2 G/DL (6.4-8.2) L Albumin 2.3 G/DL (3.4-5.0) L Globulin 2.9 g/dL Albumin/Globulin Ratio 0.8 (1.0-2.7) L Plan Problems: (1) Decubitus ulcer of sacral region, stage 4 Assessment & Plan: Pt presented on admission with contractures and multiple pressure injuries. Full thickness sacral pressure injury with undermining .Beefy red granulation at base of wound with an area of 20% soft necrosis along borders and undermined area.No odor noted. Small amt sanguineous exudate noted(L)2cm x (W)2.5cm x (D) 1.9cm, undermining clockwise 12-12 by 1.9cm @12 o'clock. Resolving pressure injury R elbow .Base of wound epithelialized -pink and dry.(L )1.5cm x (W)1.6cm. Resolving pressure injury R trochanter .Base of wound has dry ,pink epithelial.edges adherent and flat without erythema or induration(L)2cm x (W) 4cm. hyperpigmentation periwound. Hyperpigmentation from previous wound L trochanter. Non-blanchable erythema with fluctuance noted to lateral L heel (L)2.5cm x (W) 2.5cm.Periwound without erythema induration or fluctuance. R heel is pink and blanchable. Non-blanchable erythema without fluctuance /induration L lateral 1st metatarsal. (L)0.5cm x (W)1cm Non-blanchable erythema without fluctuance /induration noted L hallux. (L)1cm x (w)1cm. Non-blanchable erythema without induration/fluctuance lateral R foot. Tx.Plan: Cleanse Sacral wound with Saline. Loosely pack with Hydrogel impregnated Plain packing strip.Apply Triad periwound Cover with Optifoam Daily and PRN. Apply Moisture Barrier Paste to R and L trochanters. Cover each site with Optifoam drsg. Change every 3 days and prn. Apply Cavilon Skin Barrier to R and L heels. Cover each heel with Optifoam drsgs. Change every 7 days and prn. Apply Cavilon Skin Barrier to L hallux and L 1st metatarsal. Cover with Optifoam drsg. Change every 7 days and prn. Apply Cavilon Skin Barrier to lateral R foot. Cover with Optifoam drsg. Change every 7 days and prn. APM/YO mattress overlay. Reposition at least every 2hours or as tolerated. Off-load heels with pillow. (2) Renal insufficiency (3) Septic shock Assessment & Plan: leukocytosis - resolved tachycardia - resolved anemia hypotension - improved responding well to fluids and abx cont abx cont with current care will follow with recs thank you (4) UTI (urinary tract infection) Assessment & Plan: Impression: No evidence of obstructive uropathy or hydronephrosis Questionable nonobstructive 1 mm right intrarenal calculus Multiple bladder calculi Bladder wall thickening, may may in part be an artifact of under distention, but the possibility of chronic bladder obstruction or cystitis should be considered Subcentimeter low-attenuation renal lesions, too small to characterize, most likely benign simple cysts. No further follow-up necessary Villagomez catheter Free pelvic fluid, nonspecific but not physiologic in a postmenopausal female Equivocal mild sigmoid wall thickening, probably artifact of under distention but the possibility of colitis should be considered Mild edema of the subcutaneous fat Slight pericholecystic fluid, may be a manifestation of mild anasarca but the possibility of acalculous acute cholecystitis or cholecystitis due to occult stone disease should also be considered Posterior dependent atelectatic changes and mild degenerative spondylosis changes incidentally noted (5) ATN (acute tubular necrosis) (6) Advanced dementia (7) History of CVA with residual deficit (8) Hemiparesis (9) History of hypertension Carroll Smith May 07, 2019 10:37
--- NOTE | 2019-05-07 11:46 | Pulmonology Progress Note ---
Assessment/Plan Problems: (1) Septic shock (2) ATN (acute tubular necrosis) (3) Hemiparesis (4) History of hypertension (5) History of CVA with residual deficit (6) Advanced dementia Assessment/Plan improving gtube placed yesterday renal failure resolved continue abx new urine culture is negative check electrolytes dc planning all meds and notes reviewed Subjective ROS Limited/Unobtainable: No Constitutional: Reports: no symptoms HEENT: Repors: no symptoms Respiratory: Reports: no symptoms Allergies: Coded Allergies: No Known Allergies (Unverified , 05/01/19) Objective Last 24 Hour Vital Signs Date Time Temp Pulse Resp B/P (MAP) Pulse Ox O2 Delivery O2 Flow Rate FiO2 05/07/19 09:00 Room Air 05/07/19 08:00 98.0 80 17 139/72 (94) 95 05/07/19 04:08 98.5 80 20 118/85 (96) 99 05/06/19 23:59 98.0 65 20 118/66 (83) 95 05/06/19 21:00 Room Air 05/06/19 20:00 98.0 65 20 111/68 (82) 100 05/06/19 16:00 98.2 70 18 122/74 (90) 96 05/06/19 14:00 18 100 05/06/19 12:00 98.8 71 18 117/65 (82) 96 Intake and Output 05/06/19 05/07/19 19:00 07:00 Intake Total 430 ml 715 ml Output Total 400 ml Balance 430 ml 315 ml Intake Oral 60 ml IV Total 430 ml 655 ml Output Urine Total 400 ml General Appearance: cachetic HEENT: atraumatic, anicteric Respiratory/Chest: chest wall non-tender, normal breath sounds Cardiovascular: normal peripheral pulses, normal rate Abdomen: normal bowel sounds Genitourinary: normal external genitalia Extremities: no clubbing Laboratory Tests 05/07/19 05:00: White Blood Count 7.6, Red Blood Count 2.70L, Hemoglobin 8.4L, Hematocrit 25.4L , Mean Corpuscular Volume 94, Mean Corpuscular Hemoglobin 31.2H, Mean Corpuscular Hemoglobin Concent 33.2, Red Cell Distribution Width 12.0, Platelet Count 283, Mean Platelet Volume 6.3L, Neutrophils (%) (Auto) 62.6, Lymphocytes ( %) (Auto) 29.0, Monocytes (%) (Auto) 5.4, Eosinophils (%) (Auto) 2.1, Basophils (%) (Auto) 1.0, Sodium Level 139, Potassium Level 3.3L, Chloride Level 105, Carbon Dioxide Level 28, Anion Gap 6, Blood Urea Nitrogen 9, Creatinine 0.5L, Estimat Glomerular Filtration Rate , Glucose Level 92, Calcium Level 8.5, Phosphorus Level 2.3L, Magnesium Level 2.3, Total Bilirubin 0.4, Aspartate Amino Transf (AST/SGOT) 21, Alanine Aminotransferase (ALT/SGPT) 52, Alkaline Phosphatase 65, Total Protein 5.2L, Albumin 2.3L, Globulin 2.9, Albumin/ Globulin Ratio 0.8L Current Medications Medications (Trade) Dose Ordered Sig/Familia Route PRN Reason Start Time Stop Time Status Last Admin Dose Admin Acetaminophen (Tylenol) 650 mg Q4H PRN ORAL fever 05/06/19 03:15 06/04/19 15:11 Ascorbic Acid (Vitamin C) 500 mg DAILY ORAL 05/06/19 09:00 06/05/19 08:59 05/07/19 08:52 Barium Sulfate (Readi-Cat 2) 450 ml NOW PRN ORAL Radiology Procedure 05/06/19 23:45 05/07/19 23:44 Cefepime HCl 500 mg/Dextrose 55 ml @ 110 mls/hr EVERY 12 HOURS IVPB 05/06/19 09:00 05/08/19 15:59 05/07/19 09:43 Chlorhexidine Gluconate (Montserrat-Hex 2%) 1 applic DAILY@2000 TOPIC 05/06/19 20:00 06/01/19 19:59 05/06/19 21:53 Dextrose 1,000 ml @ 40 mls/hr Q24H IV 05/06/19 13:30 06/05/19 13:29 05/07/19 08:54 Dextrose (Dextrose 50%) 25 ml Q30M PRN IV Hypoglycemia 05/06/19 00:30 05/31/19 11:59 Dextrose (Dextrose 50%) 50 ml Q30M PRN IV Hypoglycemia 05/06/19 00:45 05/31/19 12:14 Famotidine (Pepcid I.v.) 20 mg Q12HR IVP 05/06/19 09:00 06/02/19 20:59 05/07/19 08:52 Folic Acid (Folate) 3 mg DAILY ORAL 05/06/19 09:00 06/02/19 12:44 05/07/19 08:52 Heparin Sodium (Porcine) (Heparin 5000 units/ml) 5,000 units EVERY 12 HOURS SUBQ 05/06/19 09:00 05/31/19 20:59 05/07/19 08:53 Iopamidol (Isovue-300 100ml) 100 ml NOW PRN INJ Radiology Procedure 05/06/19 23:45 05/07/19 23:44 Lorazepam (Ativan 2mg/ml 1ml) 0.5 mg Q4H PRN IV For Anxiety 05/06/19 03:15 05/08/19 15:13 Morphine Sulfate (Morphine Sulfate) 1 mg Q4H PRN IVP For Pain 05/06/19 03:15 05/12/19 15:13 Multivitamins (Multivitamins) 1 tab DAILY ORAL 05/06/19 09:00 06/05/19 08:59 05/07/19 08:51 Ondansetron HCl (Zofran) 4 mg Q6H PRN IVP Nausea & Vomiting 05/06/19 03:15 06/04/19 15:13 Polyethylene Glycol (Miralax) 17 gm HSPRN PRN ORAL Constipation 05/06/19 09:00 06/04/19 08:59 Potassium Phosphate 30 mm/ Sodium Chloride 285 ml @ 47.5 mls/hr ONCE ONCE IV 05/07/19 10:00 05/07/19 15:59 05/07/19 09:43 Zinc Sulfate (Zinc Sulfate) 220 mg DAILY ORAL 05/06/19 09:00 05/16/19 09:00 05/07/19 08:51 Zolpidem Tartrate (Ambien) 5 mg HSPRN PRN ORAL Insomnia 05/06/19 15:15 05/12/19 15:13 Adilene Nash MD May 07, 2019 11:46
[2019-05-07 12:00] VITALS: BP 99/65
[2019-05-07] MEDS ORDERED: Sodium Phosphate 30 MM in NS 275 ML IV ONE (12:45)
--- NOTE | 2019-05-07 14:13 | NUR ---
NURSE NOTES: Patient received potassium phosphate this AM. Dr. Nash notified. New order received.
[2019-05-07 16:00] VITALS: BP 119/79
--- NOTE | 2019-05-07 16:22 | NUR ---
SPEECH PATHOLOGY: S: PATIENT SEEN AT BEDSIDE. SHE WAS ALERT, BUT NON/VERBAL DURING THIS VISIT. NON/ORAL FEEDING MANAGEMENT IN PLACE VIA PEG, NPO O: DYSPHAGIA/SWALLOW TX A: SON PRESENT FOR FAMILY EDUCATION. EXPLAINED THAT MEALTIME PROTOCOL POSTED MAY VARY PENDING FINDINGS OF VIDEO SWALLOW STUDY. VFSS PLANNED FOR AM 7/12 PER SON, PATIENT HAS NOT BEEN ASKING FOR P.O. INTAKE ORAL CARE PROVIDED FROM [facility] MACHINE OPERATOR PATIENT'S ORAL MUCOSA MOIST/CLEAR P: CONTINUE PER POC.
--- NOTE | 2019-05-07 17:01 | Cardiac Electrophysiology PN ---
Assessment/Plan Assessment/Plan 1. Combination of septic shock and dehydration. Resolved with IV fluids and broad-spectrum IV antibiotics EF 60% with no pericardial effusion. 2. Sinus Bradycardia off of any sinus-genevieve or AV-genevieve affecting agents. 3. Sepsis, on broad-spectrum IV antibiotics. 4. History of CVA with right hemiplegia, currently nonverbal with bilateral lower extremity contraction. 5. Decubitus ulcers. 6. History of hypertension, off antihypertensive 7. Dehydration and poor nutrition, S/P PEG 05/06/19 MAULIK RN Subjective Subjective S/P PEG yesterday. Son at bedside. No changes. PEG feeding still pending. Objective Last 24 Hour Vital Signs Date Time Temp Pulse Resp B/P (MAP) Pulse Ox O2 Delivery O2 Flow Rate FiO2 05/07/19 16:00 98.1 68 17 119/79 (92) 98 05/07/19 12:00 96.1 79 18 99/65 (76) 99 05/07/19 09:00 Room Air 05/07/19 08:00 98.0 80 17 139/72 (94) 95 05/07/19 04:08 98.5 80 20 118/85 (96) 99 05/06/19 23:59 98.0 65 20 118/66 (83) 95 05/06/19 21:00 Room Air 05/06/19 20:00 98.0 65 20 111/68 (82) 100 Intake and Output 05/06/19 05/07/19 19:00 07:00 Intake Total 430 ml 715 ml Output Total 400 ml Balance 430 ml 315 ml Intake Oral 60 ml IV Total 430 ml 655 ml Output Urine Total 400 ml Laboratory Tests Test 05/07/19 05:00 White Blood Count 7.6 K/UL (4.8-10.8) Red Blood Count 2.70 M/UL (4.20-5.40) L Hemoglobin 8.4 G/DL (12.0-16.0) L Hematocrit 25.4 % (37.0-47.0) L Mean Corpuscular Volume 94 FL (80-99) Mean Corpuscular Hemoglobin 31.2 PG (27.0-31.0) H Mean Corpuscular Hemoglobin Concent 33.2 G/DL (32.0-36.0) Red Cell Distribution Width 12.0 % (11.6-14.8) Platelet Count 283 K/UL (150-450) Mean Platelet Volume 6.3 FL (6.5-10.1) L Neutrophils (%) (Auto) 62.6 % (45.0-75.0) Lymphocytes (%) (Auto) 29.0 % (20.0-45.0) Monocytes (%) (Auto) 5.4 % (1.0-10.0) Eosinophils (%) (Auto) 2.1 % (0.0-3.0) Basophils (%) (Auto) 1.0 % (0.0-2.0) Sodium Level 139 MMOL/L (136-145) Potassium Level 3.3 MMOL/L (3.5-5.1) L Chloride Level 105 MMOL/L (98-107) Carbon Dioxide Level 28 MMOL/L (21-32) Anion Gap 6 mmol/L (5-15) Blood Urea Nitrogen 9 mg/dL (7-18) Creatinine 0.5 MG/DL (0.55-1.30) L Estimat Glomerular Filtration Rate mL/min (>60) Glucose Level 92 MG/DL (74-106) Calcium Level 8.5 MG/DL (8.5-10.1) Phosphorus Level 2.3 MG/DL (2.5-4.9) L Magnesium Level 2.3 MG/DL (1.8-2.4) Total Bilirubin 0.4 MG/DL (0.2-1.0) Aspartate Amino Transf (AST/SGOT) 21 U/L (15-37) Alanine Aminotransferase (ALT/SGPT) 52 U/L (12-78) Alkaline Phosphatase 65 U/L (46-116) Total Protein 5.2 G/DL (6.4-8.2) L Albumin 2.3 G/DL (3.4-5.0) L Globulin 2.9 g/dL Albumin/Globulin Ratio 0.8 (1.0-2.7) L Objective HEAD AND NECK: No JVD. LUNGS: Coarse rhonchi. CARDIOVASCULAR: Shows regular S1 and S2. Mildly bradycardic. ABDOMEN: Soft.PEG in place EXTREMITIES: Contracted, no pitting edema, and a triple-lumen in the left femoral vein. Florencio Ross MD May 07, 2019 17:01
--- NOTE | 2019-05-07 17:08 | Infectious Diseases Prog Note ---
Assessment/Plan Assessment/Plan ASSESSMENT: The patient is an 83-year-old female with: 1. Sepsis. 2. Leukocytosis; resolved 3. Septic shock/hypotension. 2ry to UTI- SP -u/a tnct, nit neg, leuk +3; ucx MDR P. 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 mirabilis (R nitro,otherwise S) -Bcx Neg -CT abd/p: No evidence of obstructive uropathy or hydronephrosis. Questionable nonobstructive 1 mm right intrarenal calculus. Multiple bladder calculi Bladder wall thickening, may may in part be an artifact of under distention, but the possibility of chronic bladder obstruction or cystitis should be considered Subcentimeter low-attenuation renal lesions, too small to characterize, most likely benign simple cysts. No further follow-up necessary.Villagomez catheter. Free pelvic fluid, nonspecific but not physiologic in a postmenopausal female. Equivocal mild sigmoid wall thickening, probably artifact of under distention but the possibility of colitis should be considered. Mild edema of the subcutaneous fat 4. Hydronephrosis -REnal US: 1. Mild left hydronephrosis and urinary bladder stone with wall thickening of bladder that could represent cystitis or evidence of chronic bladder outlet obstruction.. 2. Right nephrolithiasis is also suspected.. - Functional quadriplegia. - History of dementia. -Anemia. - History of stage IV sacral decubitus. PLAN: 1. We will continue the patient on IV cefepime #7/7 for UTI -7/6 SP Amikacin, Vancomycin #2 -7/5 SP Ceftriaxone x1 2. Monitor CBC. 3. Monitor BMP. 4. Monitor cultures. 5. Monitor chest x-ray. 6. Based on the patient's clinical course and laboratories, we will do further recommendations. Subjective Allergies: Coded Allergies: No Known Allergies (Unverified , 05/01/19) Subjective afebrile no leukocytosis Bx Neg Objective Vital Signs Last 24 Hour Vital Signs Date Time Temp Pulse Resp B/P (MAP) Pulse Ox O2 Delivery O2 Flow Rate FiO2 05/07/19 16:00 98.1 68 17 119/79 (92) 98 05/07/19 12:00 96.1 79 18 99/65 (76) 99 05/07/19 09:00 Room Air 05/07/19 08:00 98.0 80 17 139/72 (94) 95 05/07/19 04:08 98.5 80 20 118/85 (96) 99 05/06/19 23:59 98.0 65 20 118/66 (83) 95 05/06/19 21:00 Room Air 05/06/19 20:00 98.0 65 20 111/68 (82) 100 Height (Feet): 5 Height (Inches): 5.00 Weight (Pounds): 106 Objective HEENT: No pale conjunctivae. No icterus. NECK: No lymphadenopathy. CHEST: Clear. HEART: S1, S2. ABDOMEN: Soft. EXTREMITIES: No cyanosis at this time. NEUROLOGIC: Awake, nonverbal. SKIN: The patient has stage IV sacral decubitus (tracking, not infected). Laboratory Tests Test 05/07/19 05:00 White Blood Count 7.6 K/UL (4.8-10.8) Red Blood Count 2.70 M/UL (4.20-5.40) L Hemoglobin 8.4 G/DL (12.0-16.0) L Hematocrit 25.4 % (37.0-47.0) L Mean Corpuscular Volume 94 FL (80-99) Mean Corpuscular Hemoglobin 31.2 PG (27.0-31.0) H Mean Corpuscular Hemoglobin Concent 33.2 G/DL (32.0-36.0) Red Cell Distribution Width 12.0 % (11.6-14.8) Platelet Count 283 K/UL (150-450) Mean Platelet Volume 6.3 FL (6.5-10.1) L Neutrophils (%) (Auto) 62.6 % (45.0-75.0) Lymphocytes (%) (Auto) 29.0 % (20.0-45.0) Monocytes (%) (Auto) 5.4 % (1.0-10.0) Eosinophils (%) (Auto) 2.1 % (0.0-3.0) Basophils (%) (Auto) 1.0 % (0.0-2.0) Sodium Level 139 MMOL/L (136-145) Potassium Level 3.3 MMOL/L (3.5-5.1) L Chloride Level 105 MMOL/L (98-107) Carbon Dioxide Level 28 MMOL/L (21-32) Anion Gap 6 mmol/L (5-15) Blood Urea Nitrogen 9 mg/dL (7-18) Creatinine 0.5 MG/DL (0.55-1.30) L Estimat Glomerular Filtration Rate mL/min (>60) Glucose Level 92 MG/DL (74-106) Calcium Level 8.5 MG/DL (8.5-10.1) Phosphorus Level 2.3 MG/DL (2.5-4.9) L Magnesium Level 2.3 MG/DL (1.8-2.4) Total Bilirubin 0.4 MG/DL (0.2-1.0) Aspartate Amino Transf (AST/SGOT) 21 U/L (15-37) Alanine Aminotransferase (ALT/SGPT) 52 U/L (12-78) Alkaline Phosphatase 65 U/L (46-116) Total Protein 5.2 G/DL (6.4-8.2) L Albumin 2.3 G/DL (3.4-5.0) L Globulin 2.9 g/dL Albumin/Globulin Ratio 0.8 (1.0-2.7) L Current Medications Medications (Trade) Dose Ordered Sig/Familia Route PRN Reason Start Time Stop Time Status Last Admin Dose Admin Acetaminophen (Tylenol) 650 mg Q4H PRN ORAL fever 05/06/19 03:15 06/04/19 15:11 Ascorbic Acid (Vitamin C) 500 mg DAILY ORAL 05/06/19 09:00 06/05/19 08:59 05/07/19 08:52 Barium Sulfate (Readi-Cat 2) 450 ml NOW PRN ORAL Radiology Procedure 05/06/19 23:45 05/07/19 23:44 Cefepime HCl 500 mg/Dextrose 55 ml @ 110 mls/hr EVERY 12 HOURS IVPB 05/06/19 09:00 05/08/19 15:59 05/07/19 09:43 Chlorhexidine Gluconate (Montserrat-Hex 2%) 1 applic DAILY@2000 TOPIC 05/06/19 20:00 06/01/19 19:59 05/06/19 21:53 Dextrose 1,000 ml @ 40 mls/hr Q24H IV 05/06/19 13:30 06/05/19 13:29 05/07/19 08:54 Dextrose (Dextrose 50%) 25 ml Q30M PRN IV Hypoglycemia 05/06/19 00:30 05/31/19 11:59 Dextrose (Dextrose 50%) 50 ml Q30M PRN IV Hypoglycemia 05/06/19 00:45 05/31/19 12:14 Famotidine (Pepcid I.v.) 20 mg Q12HR IVP 05/06/19 09:00 06/02/19 20:59 05/07/19 08:52 Folic Acid (Folate) 3 mg DAILY ORAL 05/06/19 09:00 06/02/19 12:44 05/07/19 08:52 Heparin Sodium (Porcine) (Heparin 5000 units/ml) 5,000 units EVERY 12 HOURS SUBQ 05/06/19 09:00 05/31/19 20:59 05/07/19 08:53 Iopamidol (Isovue-300 100ml) 100 ml NOW PRN INJ Radiology Procedure 05/06/19 23:45 05/07/19 23:44 Lorazepam (Ativan 2mg/ml 1ml) 0.5 mg Q4H PRN IV For Anxiety 05/06/19 03:15 05/08/19 15:13 Morphine Sulfate (Morphine Sulfate) 1 mg Q4H PRN IVP For Pain 05/06/19 03:15 05/12/19 15:13 Multivitamins (Multivitamins) 1 tab DAILY ORAL 05/06/19 09:00 06/05/19 08:59 05/07/19 08:51 Ondansetron HCl (Zofran) 4 mg Q6H PRN IVP Nausea & Vomiting 05/06/19 03:15 06/04/19 15:13 Polyethylene Glycol (Miralax) 17 gm HSPRN PRN ORAL Constipation 05/06/19 09:00 06/04/19 08:59 Sodium Phosphate 30 mm/Sodium Chloride 285 ml @ 47.5 mls/hr ONCE ONCE IV 05/07/19 12:45 05/07/19 18:44 05/07/19 15:45 Zinc Sulfate (Zinc Sulfate) 220 mg DAILY ORAL 05/06/19 09:00 05/16/19 09:00 05/07/19 08:51 Zolpidem Tartrate (Ambien) 5 mg HSPRN PRN ORAL Insomnia 05/06/19 15:15 05/12/19 15:13 Luba Freeman M.D. May 07, 2019 17:08
--- NOTE | 2019-05-07 17:32 | Nephrology Progress Note ---
Assessment/Plan Problem List: (1) ATN (acute tubular necrosis) (2) Septic shock (3) UTI (urinary tract infection) (4) Severe malnutrition Assessment -Septic shock -ATN (acute tubular necrosis) - Malnutrition -History of hypertension -UTI (urinary tract infection) -Advanced dementia -History of CVA with residual deficit -Hemiparesis Plan K IV as needed Mag IV PO Folate Cortisol level PEG?? Subjective ROS Limited/Unobtainable: No Constitutional: Reports: malaise Objective Objective Last 24 Hour Vital Signs Date Time Temp Pulse Resp B/P (MAP) Pulse Ox O2 Delivery O2 Flow Rate FiO2 05/07/19 16:00 98.1 68 17 119/79 (92) 98 05/07/19 12:00 96.1 79 18 99/65 (76) 99 05/07/19 09:00 Room Air 05/07/19 08:00 98.0 80 17 139/72 (94) 95 05/07/19 04:08 98.5 80 20 118/85 (96) 99 05/06/19 23:59 98.0 65 20 118/66 (83) 95 05/06/19 21:00 Room Air 05/06/19 20:00 98.0 65 20 111/68 (82) 100 Intake and Output 05/06/19 05/07/19 19:00 07:00 Intake Total 430 ml 715 ml Output Total 400 ml Balance 430 ml 315 ml Intake Oral 60 ml IV Total 430 ml 655 ml Output Urine Total 400 ml Laboratory Tests 05/07/19 05:00: White Blood Count 7.6, Red Blood Count 2.70L, Hemoglobin 8.4L, Hematocrit 25.4L , Mean Corpuscular Volume 94, Mean Corpuscular Hemoglobin 31.2H, Mean Corpuscular Hemoglobin Concent 33.2, Red Cell Distribution Width 12.0, Platelet Count 283, Mean Platelet Volume 6.3L, Neutrophils (%) (Auto) 62.6, Lymphocytes ( %) (Auto) 29.0, Monocytes (%) (Auto) 5.4, Eosinophils (%) (Auto) 2.1, Basophils (%) (Auto) 1.0, Sodium Level 139, Potassium Level 3.3L, Chloride Level 105, Carbon Dioxide Level 28, Anion Gap 6, Blood Urea Nitrogen 9, Creatinine 0.5L, Estimat Glomerular Filtration Rate , Glucose Level 92, Calcium Level 8.5, Phosphorus Level 2.3L, Magnesium Level 2.3, Total Bilirubin 0.4, Aspartate Amino Transf (AST/SGOT) 21, Alanine Aminotransferase (ALT/SGPT) 52, Alkaline Phosphatase 65, Total Protein 5.2L, Albumin 2.3L, Globulin 2.9, Albumin/ Globulin Ratio 0.8L Height (Feet): 5 Height (Inches): 5.00 Weight (Pounds): 106 General Appearance: no apparent distress Objective no change Jamel Maldonado MD May 07, 2019 17:32
[2019-05-07] MEDS ORDERED: Tubing IV Secondary IV ONE (19:18)
[2019-05-07] MEDS ORDERED: NS 275ml ONE (19:18)
--- NOTE | 2019-05-07 19:32 | NUR ---
NURSE NOTES: Received patient awake, follows simple command, resting in bed, relatives at bedside.
--- NOTE | 2019-05-07 19:34 | NUR ---
HAND-OFF: Report given to VARUN Olivo.
[2019-05-07 20:00] VITALS: BP 117/73
[2019-05-07] MEDS: Dyna-Hex 2% Top Sol 2oz TOPIC SCH (20:34)
--- NOTE | 2019-05-08 | Internal Med Progress Note ---
Subjective Physician Name Solo Macdonald Attending Physician Solo Macdonald MD Current Medications Medications (Trade) Dose Ordered Sig/Familia Route PRN Reason Start Time Stop Time Status Last Admin Dose Admin Acetaminophen (Tylenol) 650 mg Q4H PRN ORAL fever 05/06/19 03:15 06/04/19 15:11 Ascorbic Acid (Vitamin C) 500 mg DAILY ORAL 05/06/19 09:00 06/05/19 08:59 05/07/19 08:52 Cefepime HCl 500 mg/Dextrose 55 ml @ 110 mls/hr EVERY 12 HOURS IVPB 05/06/19 09:00 05/08/19 15:59 05/07/19 20:34 Chlorhexidine Gluconate (Montserrat-Hex 2%) 1 applic DAILY@2000 TOPIC 05/06/19 20:00 06/01/19 19:59 05/07/19 20:34 Dextrose 1,000 ml @ 40 mls/hr Q24H IV 05/06/19 13:30 06/05/19 13:29 05/07/19 08:54 Dextrose (Dextrose 50%) 25 ml Q30M PRN IV Hypoglycemia 05/06/19 00:30 05/31/19 11:59 Dextrose (Dextrose 50%) 50 ml Q30M PRN IV Hypoglycemia 05/06/19 00:45 05/31/19 12:14 Famotidine (Pepcid I.v.) 20 mg Q12HR IVP 05/06/19 09:00 06/02/19 20:59 05/07/19 20:34 Folic Acid (Folate) 3 mg DAILY ORAL 05/06/19 09:00 06/02/19 12:44 05/07/19 08:52 Heparin Sodium (Porcine) (Heparin 5000 units/ml) 5,000 units EVERY 12 HOURS SUBQ 05/06/19 09:00 05/31/19 20:59 05/07/19 20:35 Lorazepam (Ativan 2mg/ml 1ml) 0.5 mg Q4H PRN IV For Anxiety 05/06/19 03:15 05/08/19 15:13 Morphine Sulfate (Morphine Sulfate) 1 mg Q4H PRN IVP For Pain 05/06/19 03:15 05/12/19 15:13 Multivitamins (Multivitamins) 1 tab DAILY ORAL 05/06/19 09:00 06/05/19 08:59 05/07/19 08:51 Ondansetron HCl (Zofran) 4 mg Q6H PRN IVP Nausea & Vomiting 05/06/19 03:15 06/04/19 15:13 Polyethylene Glycol (Miralax) 17 gm HSPRN PRN ORAL Constipation 05/06/19 09:00 06/04/19 08:59 Zinc Sulfate (Zinc Sulfate) 220 mg DAILY ORAL 05/06/19 09:00 05/16/19 09:00 05/07/19 08:51 Zolpidem Tartrate (Ambien) 5 mg HSPRN PRN ORAL Insomnia 05/06/19 15:15 05/12/19 15:13 Allergies: Coded Allergies: No Known Allergies (Unverified , 05/01/19) Subjective Awake, Responsive, NAD, demented. Objective Last Vital Signs Date Time Temp Pulse Resp B/P (MAP) Pulse Ox O2 Delivery O2 Flow Rate FiO2 05/07/19 21:07 Room Air 05/07/19 20:00 98.9 72 16 117/73 (88) 97 05/06/19 08:07 3 Laboratory Tests Test 05/07/19 05:00 White Blood Count 7.6 K/UL (4.8-10.8) Red Blood Count 2.70 M/UL (4.20-5.40) L Hemoglobin 8.4 G/DL (12.0-16.0) L Hematocrit 25.4 % (37.0-47.0) L Mean Corpuscular Volume 94 FL (80-99) Mean Corpuscular Hemoglobin 31.2 PG (27.0-31.0) H Mean Corpuscular Hemoglobin Concent 33.2 G/DL (32.0-36.0) Red Cell Distribution Width 12.0 % (11.6-14.8) Platelet Count 283 K/UL (150-450) Mean Platelet Volume 6.3 FL (6.5-10.1) L Neutrophils (%) (Auto) 62.6 % (45.0-75.0) Lymphocytes (%) (Auto) 29.0 % (20.0-45.0) Monocytes (%) (Auto) 5.4 % (1.0-10.0) Eosinophils (%) (Auto) 2.1 % (0.0-3.0) Basophils (%) (Auto) 1.0 % (0.0-2.0) Sodium Level 139 MMOL/L (136-145) Potassium Level 3.3 MMOL/L (3.5-5.1) L Chloride Level 105 MMOL/L (98-107) Carbon Dioxide Level 28 MMOL/L (21-32) Anion Gap 6 mmol/L (5-15) Blood Urea Nitrogen 9 mg/dL (7-18) Creatinine 0.5 MG/DL (0.55-1.30) L Estimat Glomerular Filtration Rate mL/min (>60) Glucose Level 92 MG/DL (74-106) Calcium Level 8.5 MG/DL (8.5-10.1) Phosphorus Level 2.3 MG/DL (2.5-4.9) L Magnesium Level 2.3 MG/DL (1.8-2.4) Total Bilirubin 0.4 MG/DL (0.2-1.0) Aspartate Amino Transf (AST/SGOT) 21 U/L (15-37) Alanine Aminotransferase (ALT/SGPT) 52 U/L (12-78) Alkaline Phosphatase 65 U/L (46-116) Total Protein 5.2 G/DL (6.4-8.2) L Albumin 2.3 G/DL (3.4-5.0) L Globulin 2.9 g/dL Albumin/Globulin Ratio 0.8 (1.0-2.7) L Intake and Output 05/07/19 05/08/19 19:00 07:00 Intake Total 40 ml 480 ml Output Total 2450 ml Balance -2410 ml 480 ml IV Total 40 ml 480 ml Output Urine Total 2450 ml Objective GENERAL: Awake,responsive, Cachexia. HEAD AND NECK: Pupils are equal and reactive to light. Anicteric. Neck supple. No JVD. LUNGS: Good air entry. decrease air at bases, No wheezing or rhonchi. HEART: S1, S2. Regular rhythm. No murmur or gallops. ABDOMEN: Soft, nondistended, nontender. Positive bowel sounds, PEG site intact. EXTREMITIES: No cyanosis, clubbing, edema. The patient has muscle atrophy in bilateral lower extremity. Left femoral TLC. NEUROLOGIC: Cranial nerves II through XII grossly intact. contracted lower extremity. Moving upper extremity, right side weakness. SKIN: Bilateral trochanter stage I ulceration as well as sacral decubitus ulcer stage IV. No discharge was noted. Assessment/Plan Assessment/Plan ASSESSMENT: 1. Septic shock, most likely secondary to acute sepsis due to GNR urinary tract infection. 2. Severe cachexia, Severe protein calori malnutrition S/P PEG placement (2018). 3. Stage IV sacral decubitus ulcer presented on admission. 4. History of essential hypertension, presently hypotensive. 5. Acute kidney injury on chronic renal insufficiency, most likely secondary to severe dehydration and hypovolemia. 6. Advanced dementia. 7. Severe Hypotension most likely combination of septic shock and Dehydration / Hypovolemia. 8. Bilateral hydronephrosis. 9. Hypokalemia. PLAN: In ICU. Monitor laboratory and cultures Antibiotics: cefepime, DVT prophylaxis: heparin subcutaneous. Code status at this time is Full Code per POLST. Cardiology consult with Dr. Ross Pulmonary consult Dr. Saad GALEAS Planning to SNF in AM IVF @ 50 cc/hr Kcl supplement Solo Macdonald MD May 08, 2019 00:00
[2019-05-08 00:14] VITALS: BP 125/74
[2019-05-08 04:11] VITALS: BP 136/76
--- NOTE | 2019-05-08 07:06 | NUR ---
HAND-OFF: Report given to Trice Olivera RN/VARUN Jefferson.
--- NOTE | 2019-05-08 07:32 | NUR ---
NURSE NOTES: Handoff received from VARUN MIDDLETON.
[2019-05-08 08:00] VITALS: BP 134/95
[2019-05-08] MEDS: Ascorbic Acid 500mg tab ORAL SCH (08:29)
[2019-05-08] MEDS: Zinc Sulfate 220mg cap ORAL SCH (08:29)
[2019-05-08] MEDS: Heparin 5000 units/ml inj SUBQ SCH (08:34)
[2019-05-08] MEDS: Cefepime HCl 500 MG in D5W 55 ML IVPB SCH (10:05)
--- NOTE | 2019-05-08 10:30 | Operative Note - Dictated ---
DATE OF OPERATION: 05/06/2019 GASTROENTEROLOGY PROCEDURE REPORT PROCEDURE: Upper gastrointestinal endoscopy with gastrostomy tube placement. SURGEON: Nasim Gates M.D. ANESTHESIA: Please see the separate anesthesiologist notes for details. ANESTHESIOLOGIST: Uyen Trivedi M.D. PRE-ENDOSCOPIC DIAGNOSES: Anorexia, malnutrition. POST-ENDOSCOPIC DIAGNOSIS: Status gastrostomy tube placement. DESCRIPTION OF PROCEDURE: The procedure, its risks, indications, alternatives, and possible complications were explained and informed consent was obtained. The patient was then sedated in supine position and a diagnostic upper endoscope was introduced through oropharynx and advanced to the duodenum. The endoscope was then gradually withdrawn. The mucosa examined carefully. Examination of the upper gastrointestinal mucosa did not reveal any significant pathology. The location for placement of the gastrostomy tube was identified by palpation and transillumination techniques. The outside skin was sterilely prepared, anesthetized, and incised and the trocar needle was used to place the gastrostomy tube using the standard pull technique. The position was verified endoscopically. The endoscope was removed. The patient was sent to recovery in good condition. COMPLICATIONS: None. RECOMMENDATIONS: 1. Observe overnight. 2. IV fluids. 3. Gastrostomy tube care. 4. Begin diet tomorrow. Nasim Gates M.D. DR: ASUNCION JOB#: [id number] CC:
--- NOTE | 2019-05-08 10:31 | Urology Progress Note ---
Assessment/Plan Assessment/Plan: 1. No hydronephrosis. 2. Urinary retention. 3. Probable neurogenic bladder. 4. Proteinuria. 5. Hematuria. 6. Pyuria. 7. Mild acute kidney injury, which has resolved. 8. Possible nephrolithiasis. 9. Bladder calculi monitor clinically mujica indwelling hand irrigate PRN abx as ordered renal fxn stable voiding trial at some point? Subjective Allergies: Coded Allergies: No Known Allergies (Unverified , 05/01/19) Subjective all noted, looks comfortable Objective Last 24 Hour Vital Signs Date Time Temp Pulse Resp B/P (MAP) Pulse Ox O2 Delivery O2 Flow Rate FiO2 05/08/19 09:00 Room Air 05/08/19 08:00 97.9 76 20 134/95 (108) 97 05/08/19 04:11 98.3 75 16 136/76 (96) 96 05/08/19 00:14 99.0 78 16 125/74 (91) 95 05/07/19 21:07 Room Air 05/07/19 20:00 98.9 72 16 117/73 (88) 97 05/07/19 16:00 98.1 68 17 119/79 (92) 98 05/07/19 12:00 96.1 79 18 99/65 (76) 99 Intake and Output 05/07/19 05/08/19 19:00 07:00 Intake Total 40 ml 800 ml Output Total 2450 ml 600 ml Balance -2410 ml 200 ml IV Total 40 ml 800 ml Output Urine Total 2450 ml 600 ml Microbiology Date/Time Source Procedure Growth Status 05/01/19 10:25 Blood Blood Culture - Final NO GROWTH AFTER 5 DAYS Complete 05/01/19 10:35 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 Complete 05/01/19 17:18 Urine,Clean Catch Urine Culture - Final NO GROWTH AFTER 48 HOURS Complete 05/01/19 10:35 Rectum VRE Culture - Final NO VANCOMYCIN RESISTANT ENTEROCOCCUS ... Complete 05/01/19 10:35 Rectum - Final NO CARBAPENEM-RESISTANT ENTEROBACTERI... Complete Current Medications Medications (Trade) Dose Ordered Sig/Familia Route PRN Reason Start Time Stop Time Status Last Admin Dose Admin Acetaminophen (Tylenol) 650 mg Q4H PRN ORAL fever 05/06/19 03:15 06/04/19 15:11 Ascorbic Acid (Vitamin C) 500 mg DAILY ORAL 05/06/19 09:00 06/05/19 08:59 05/08/19 08:29 Cefepime HCl 500 mg/Dextrose 55 ml @ 110 mls/hr EVERY 12 HOURS IVPB 05/06/19 09:00 05/08/19 15:59 05/08/19 10:05 Chlorhexidine Gluconate (Montserrat-Hex 2%) 1 applic DAILY@2000 TOPIC 05/06/19 20:00 06/01/19 19:59 05/07/19 20:34 Dextrose 1,000 ml @ 40 mls/hr Q24H IV 05/06/19 13:30 06/05/19 13:29 05/07/19 08:54 Dextrose (Dextrose 50%) 25 ml Q30M PRN IV Hypoglycemia 05/06/19 00:30 05/31/19 11:59 Dextrose (Dextrose 50%) 50 ml Q30M PRN IV Hypoglycemia 05/06/19 00:45 05/31/19 12:14 Famotidine (Pepcid I.v.) 20 mg Q12HR IVP 05/06/19 09:00 06/02/19 20:59 05/08/19 08:35 Folic Acid (Folate) 3 mg DAILY ORAL 05/06/19 09:00 06/02/19 12:44 05/08/19 08:32 Heparin Sodium (Porcine) (Heparin 5000 units/ml) 5,000 units EVERY 12 HOURS SUBQ 05/06/19 09:00 05/31/19 20:59 05/08/19 08:34 Lorazepam (Ativan 2mg/ml 1ml) 0.5 mg Q4H PRN IV For Anxiety 05/06/19 03:15 05/08/19 15:13 Morphine Sulfate (Morphine Sulfate) 1 mg Q4H PRN IVP For Pain 05/06/19 03:15 05/12/19 15:13 Multivitamins (Multivitamins) 1 tab DAILY ORAL 05/06/19 09:00 06/05/19 08:59 05/08/19 08:29 Ondansetron HCl (Zofran) 4 mg Q6H PRN IVP Nausea & Vomiting 05/06/19 03:15 06/04/19 15:13 Polyethylene Glycol (Miralax) 17 gm HSPRN PRN ORAL Constipation 05/06/19 09:00 06/04/19 08:59 Zinc Sulfate (Zinc Sulfate) 220 mg DAILY ORAL 05/06/19 09:00 05/16/19 09:00 05/08/19 08:29 Zolpidem Tartrate (Ambien) 5 mg HSPRN PRN ORAL Insomnia 05/06/19 15:15 05/12/19 15:13 Height (Feet): 5 Height (Inches): 5.00 Weight (Pounds): 108 Objective exam stable urine grossly yellow, occasional debris CT A/P (05/04) noted Felice Portillo MD May 08, 2019 10:31
--- NOTE | 2019-05-08 10:59 | NUR ---
NURSE NOTES: Patient off unit for ST video study.
[2019-05-08 12:00] VITALS: BP 123/71
--- NOTE | 2019-05-08 12:37 | NUR ---
COMPUTER SCIENTIST NOTE CASE MANAGEMENT CONSULT NOTED FOR DC PLANNING. FAXED OVER REFERRAL TO [facility] FOLLOW UP. Addendum: 05/08/19 at 1332 by Nafisa Kohler LVN PATIENT ACCEPTED TO ROOM 4B
--- NOTE | 2019-05-08 12:43 | Pulmonology Progress Note ---
Assessment/Plan Problems: (1) Septic shock (2) ATN (acute tubular necrosis) (3) Hemiparesis (4) History of hypertension (5) History of CVA with residual deficit (6) Advanced dementia Assessment/Plan improving no new complains renal failure resolved continue abx new urine culture is negative check electrolytes dc planning all meds and notes reviewed Subjective ROS Limited/Unobtainable: No Constitutional: Reports: no symptoms HEENT: Repors: no symptoms Allergies: Coded Allergies: No Known Allergies (Unverified , 05/01/19) Objective Last 24 Hour Vital Signs Date Time Temp Pulse Resp B/P (MAP) Pulse Ox O2 Delivery O2 Flow Rate FiO2 05/08/19 09:00 Room Air 05/08/19 08:00 97.9 76 20 134/95 (108) 97 05/08/19 04:11 98.3 75 16 136/76 (96) 96 05/08/19 00:14 99.0 78 16 125/74 (91) 95 05/07/19 21:07 Room Air 05/07/19 20:00 98.9 72 16 117/73 (88) 97 05/07/19 16:00 98.1 68 17 119/79 (92) 98 Intake and Output 05/07/19 05/08/19 19:00 07:00 Intake Total 40 ml 800 ml Output Total 2450 ml 600 ml Balance -2410 ml 200 ml IV Total 40 ml 800 ml Output Urine Total 2450 ml 600 ml General Appearance: cachetic HEENT: normocephalic, atraumatic Respiratory/Chest: chest wall non-tender, lungs clear Cardiovascular: normal peripheral pulses, normal rate Abdomen: normal bowel sounds, soft, non tender Genitourinary: normal external genitalia Extremities: no clubbing Skin: no rash Neurologic/Psychiatric: contract runner II-XII grossly normal, normal mood/affect Current Medications Medications (Trade) Dose Ordered Sig/Familia Route PRN Reason Start Time Stop Time Status Last Admin Dose Admin Acetaminophen (Tylenol) 650 mg Q4H PRN ORAL fever 05/06/19 03:15 06/04/19 15:11 Ascorbic Acid (Vitamin C) 500 mg DAILY ORAL 05/06/19 09:00 06/05/19 08:59 05/08/19 08:29 Cefepime HCl 500 mg/Dextrose 55 ml @ 110 mls/hr EVERY 12 HOURS IVPB 7/10/19 09:00 05/08/19 15:59 05/08/19 10:05 Chlorhexidine Gluconate (Montserrat-Hex 2%) 1 applic DAILY@2000 TOPIC 05/06/19 20:00 06/01/19 19:59 05/07/19 20:34 Dextrose 1,000 ml @ 40 mls/hr Q24H IV 05/06/19 13:30 06/05/19 13:29 05/07/19 08:54 Dextrose (Dextrose 50%) 25 ml Q30M PRN IV Hypoglycemia 05/06/19 00:30 05/31/19 11:59 Dextrose (Dextrose 50%) 50 ml Q30M PRN IV Hypoglycemia 05/06/19 00:45 05/31/19 12:14 Famotidine (Pepcid I.v.) 20 mg Q12HR IVP 05/06/19 09:00 06/02/19 20:59 05/08/19 08:35 Folic Acid (Folate) 3 mg DAILY ORAL 05/06/19 09:00 06/02/19 12:44 05/08/19 08:32 Heparin Sodium (Porcine) (Heparin 5000 units/ml) 5,000 units EVERY 12 HOURS SUBQ 05/06/19 09:00 05/31/19 20:59 05/08/19 08:34 Lorazepam (Ativan 2mg/ml 1ml) 0.5 mg Q4H PRN IV For Anxiety 05/06/19 03:15 05/08/19 15:13 Morphine Sulfate (Morphine Sulfate) 1 mg Q4H PRN IVP For Pain 05/06/19 03:15 05/12/19 15:13 Multivitamins (Multivitamins) 1 tab DAILY ORAL 05/06/19 09:00 06/05/19 08:59 05/08/19 08:29 Ondansetron HCl (Zofran) 4 mg Q6H PRN IVP Nausea & Vomiting 05/06/19 03:15 06/04/19 15:13 Polyethylene Glycol (Miralax) 17 gm HSPRN PRN ORAL Constipation 05/06/19 09:00 06/04/19 08:59 Zinc Sulfate (Zinc Sulfate) 220 mg DAILY ORAL 05/06/19 09:00 05/16/19 09:00 05/08/19 08:29 Zolpidem Tartrate (Ambien) 5 mg HSPRN PRN ORAL Insomnia 05/06/19 15:15 05/12/19 15:13 Adilene Nash MD May 08, 2019 12:43
--- NOTE | 2019-05-08 12:57 | NUR ---
NURSE NOTES: Patient returned to unit at [address] video. No s/s distress. Will continue to monitor.
--- NOTE | 2019-05-08 12:58 | NUR ---
NURSE NOTES: Tube feeding started at 1000. Feeding started at 30ml/hr per Dr. Gates's order. HOB is elevated. Will continue to monitor.
--- NOTE | 2019-05-08 13:01 | NUR ---
NOTE: MODIFIED BARIUM SWALLOW STUDY COMPLETED, SEE FULL REPORT TO FOLLOW IN CARE ACTIVITY SECTION. 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 THIN LIQUIDS NO ASP/LARYNGEAL PENETRATION (LP) WITH TSP X2 TRACE LP WITH CUP ABOVE VOCAL FOLDS WITH EJECTION DUE TO LATE SWALLOW AND CLOSURE OF LARYNGEAL VESTIBULE. DEEP LP TO LEVEL OF VOCAL FOLDS VERSUS TRACE ASPIRATION WITH SLIGHT COUGH BEFORE THE SWALLOW DUE TO DELAYED SWALLOW AND LATE CLOSURE OF LARYNGEAL VESTIBULE. ADDITIONAL RISK OF ASPIRATION AFTER THE SWALLOW DUE TO OROPHARYNGEAL DYSMOTILITY AND RESIDUE (MIN) THAT USUALLY CLEARS WITH CUES TO SWALLOW AGAIN (NOT ALWAYS COMPLETED BY PATIENT) NECTAR THICK LIQUIDS NO ASPIRATION BUT HAS RISK IF PRECAUTIONS NOT FOLLOWED. WITH TSP, CUP, STRAW SEQUENTIAL HAD TRACE LP ABOVE VOCAL FOLDS AND BEFORE THE SWALLOW WITH EJECTION (PROBLEMS DUE TO SAME DEFICITS NOTED ABOVE. RISK FOR ASP/LP ALSO PRESENT DUE TO OROPHARYNGEAL DYSMOTILITY/RESIDUE (MIN). SOMETIMES WILL HOLD BOLUS IN MOUTH AND HAVE MIN TONGUE MOVEMENT (ORAL APRAXIA / ORAL AWARENESS ISSUES) HONEY THICK AND PUREED TSP NO ASP/LP BUT HAS RISK MOSTLY DUE TO OROPHARYNGEAL DYSMOTILITY/RESIDUE AFTER THE SWALLOW MORE RESIDUE WITH PUREED (MILD) AND TAKE LONGER FOR ORAL PREP AND ORAL PHASE OF THE SWALLOW (REDUCED AP TONGUE MOVEMENT AND STRENGTH AND ORAL APRAXIA). OTHER DEFICITS NOTED: ORAL PREP (ORAL APRAXIA ORAL AWARENESS REDUCED SENSATION OF RESIDUE) Oral Impairment Lip Closure ON THE LEFT Tongue Control Bolus escobedo/lingual motion Oral residue Init. pharyngeal swallow Pharyngeal Impairment Laryngeal elevation (LE) Ant. hyoid excursion Laryng vestibular closure Pharyngeal stripping wave Pharyngeal esophageal segment Opening Tongue base retraction Pharyngeal residue Decrease pharyn sensation grossly functional esophageal phase in lateral (some limitations of view due to shoulder obstruction) BENEFITS FROM MORE TIME, SMALL SIPS, NECTAR CUP ONE AT A TIME SAFEST, NO STRAW, DID NOT DO CHIN TUCK, EXTRA HARD SWALLOW WOULD NOT AND DID NOT FOLLOW COMMANDS FOR EFFORTFUL BREATH HOLD, TRUDY MANUEVER, AND CHIN TUCK RECOMMENDATION: CONTINUE WITH PEG FEEDINGS AND INITIATE ORAL GRAT DIET OF PUREED AND NECTAR THICK LIQUIDS FOR NOW WITH POSTED AND UPDATED ASPIRATION AND REFLUX PRECAUTIONS AND ONE TO ONE FEEDING. DYSPHAGIA MANAGEMENT AND TX AND COG-COM EVAL/TX WITH OTOLOGIST AT SNF, CONSIDER UPGRADE TO THIN LIQUIDS (TSP/SMALL SIP VERSUS PROVALE CUP) AND MECH SOFT GROUND WHEN INDICATED AND ALLOW FOODS OF PREFERENCE. REFER TO ENT FOR VOCAL FOLDS (BREATHY VOICE) AND TORUS PALATINUS. WORK WITH RD ON INCREASING PO INTAKE AND DECREASING PEG FEEDINGS. D/W PATIENT, RN, FAMILY, AND
--- NOTE | 2019-05-08 13:32 | Nephrology Progress Note ---
Assessment/Plan Problem List: (1) ATN (acute tubular necrosis) (2) Septic shock (3) UTI (urinary tract infection) (4) Severe malnutrition Assessment -Septic shock -ATN (acute tubular necrosis) - Malnutrition -History of hypertension -UTI (urinary tract infection) -Advanced dementia -History of CVA with residual deficit -Hemiparesis Plan K IV as needed Mag IV PO Folate Cortisol level PEG?? Subjective ROS Limited/Unobtainable: No Constitutional: Reports: malaise, weakness Objective Objective Last 24 Hour Vital Signs Date Time Temp Pulse Resp B/P (MAP) Pulse Ox O2 Delivery O2 Flow Rate FiO2 05/08/19 09:00 Room Air 05/08/19 08:00 97.9 76 20 134/95 (108) 97 05/08/19 04:11 98.3 75 16 136/76 (96) 96 05/08/19 00:14 99.0 78 16 125/74 (91) 95 05/07/19 21:07 Room Air 05/07/19 20:00 98.9 72 16 117/73 (88) 97 05/07/19 16:00 98.1 68 17 119/79 (92) 98 Intake and Output 05/07/19 05/08/19 19:00 07:00 Intake Total 40 ml 800 ml Output Total 2450 ml 600 ml Balance -2410 ml 200 ml IV Total 40 ml 800 ml Output Urine Total 2450 ml 600 ml Height (Feet): 5 Height (Inches): 5.00 Weight (Pounds): 108 General Appearance: no apparent distress Cardiovascular: normal rate Respiratory/Chest: decreased breath sounds Abdomen: distended Objective no change Jamel Maldonado MD May 08, 2019 13:32
--- NOTE | 2019-05-08 13:44 | Infectious Diseases Prog Note ---
Assessment/Plan Assessment/Plan ASSESSMENT: The patient is an 83-year-old female with: 1. Sepsis. 2. Leukocytosis; resolved 3. Septic shock/hypotension. 2ry to UTI- SP -u/a tnct, nit neg, leuk +3; ucx MDR P. 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 mirabilis (R nitro,otherwise S) -Bcx Neg -CT abd/p: No evidence of obstructive uropathy or hydronephrosis. Questionable nonobstructive 1 mm right intrarenal calculus. Multiple bladder calculi Bladder wall thickening, may may in part be an artifact of under distention, but the possibility of chronic bladder obstruction or cystitis should be considered Subcentimeter low-attenuation renal lesions, too small to characterize, most likely benign simple cysts. No further follow-up necessary.Villagomez catheter. Free pelvic fluid, nonspecific but not physiologic in a postmenopausal female. Equivocal mild sigmoid wall thickening, probably artifact of under distention but the possibility of colitis should be considered. Mild edema of the subcutaneous fat 4. Hydronephrosis -REnal US: 1. Mild left hydronephrosis and urinary bladder stone with wall thickening of bladder that could represent cystitis or evidence of chronic bladder outlet obstruction.. 2. Right nephrolithiasis is also suspected.. - Functional quadriplegia. - History of dementia. -Anemia. - History of stage IV sacral decubitus. PLAN: 1. D/c IV cefepime #8/7 for UTI and monitor off abx -7/6 SP Amikacin, Vancomycin #2 -7/5 SP Ceftriaxone x1 2. Monitor CBC. 3. Monitor BMP. 4. Monitor cultures. 5. Monitor chest x-ray. 6. Based on the patient's clinical course and laboratories, we will do further recommendations. Subjective Allergies: Coded Allergies: No Known Allergies (Unverified , 05/01/19) Subjective afebrile no leukocytosis discharge planning Objective Vital Signs Last 24 Hour Vital Signs Date Time Temp Pulse Resp B/P (MAP) Pulse Ox O2 Delivery O2 Flow Rate FiO2 05/08/19 09:00 Room Air 05/08/19 08:00 97.9 76 20 134/95 (108) 97 05/08/19 04:11 98.3 75 16 136/76 (96) 96 05/08/19 00:14 99.0 78 16 125/74 (91) 95 05/07/19 21:07 Room Air 05/07/19 20:00 98.9 72 16 117/73 (88) 97 05/07/19 16:00 98.1 68 17 119/79 (92) 98 Height (Feet): 5 Height (Inches): 5.00 Weight (Pounds): 108 Objective HEENT: No pale conjunctivae. No icterus. NECK: No lymphadenopathy. CHEST: Clear. HEART: S1, S2. ABDOMEN: Soft. EXTREMITIES: No cyanosis at this time. NEUROLOGIC: Awake, nonverbal. SKIN: The patient has stage IV sacral decubitus (tracking, not infected). Current Medications Medications (Trade) Dose Ordered Sig/Familia Route PRN Reason Start Time Stop Time Status Last Admin Dose Admin Acetaminophen (Tylenol) 650 mg Q4H PRN ORAL fever 05/06/19 03:15 06/04/19 15:11 Ascorbic Acid (Vitamin C) 500 mg DAILY ORAL 05/06/19 09:00 06/05/19 08:59 05/08/19 08:29 Cefepime HCl 500 mg/Dextrose 55 ml @ 110 mls/hr EVERY 12 HOURS IVPB 05/06/19 09:00 05/08/19 15:59 05/08/19 10:05 Chlorhexidine Gluconate (Montserrat-Hex 2%) 1 applic DAILY@2000 TOPIC 05/06/19 20:00 06/01/19 19:59 05/07/19 20:34 Dextrose 1,000 ml @ 40 mls/hr Q24H IV 05/06/19 13:30 06/05/19 13:29 05/07/19 08:54 Dextrose (Dextrose 50%) 25 ml Q30M PRN IV Hypoglycemia 05/06/19 00:30 05/31/19 11:59 Dextrose (Dextrose 50%) 50 ml Q30M PRN IV Hypoglycemia 05/06/19 00:45 05/31/19 12:14 Famotidine (Pepcid I.v.) 20 mg Q12HR IVP 05/06/19 09:00 06/02/19 20:59 05/08/19 08:35 Folic Acid (Folate) 3 mg DAILY ORAL 05/06/19 09:00 06/02/19 12:44 05/08/19 08:32 Heparin Sodium (Porcine) (Heparin 5000 units/ml) 5,000 units EVERY 12 HOURS SUBQ 05/06/19 09:00 05/31/19 20:59 05/08/19 08:34 Lorazepam (Ativan 2mg/ml 1ml) 0.5 mg Q4H PRN IV For Anxiety 05/06/19 03:15 05/08/19 15:13 Morphine Sulfate (Morphine Sulfate) 1 mg Q4H PRN IVP For Pain 05/06/19 03:15 05/12/19 15:13 Multivitamins (Multivitamins) 1 tab DAILY ORAL 05/06/19 09:00 06/05/19 08:59 05/08/19 08:29 Ondansetron HCl (Zofran) 4 mg Q6H PRN IVP Nausea & Vomiting 05/06/19 03:15 06/04/19 15:13 Polyethylene Glycol (Miralax) 17 gm HSPRN PRN ORAL Constipation 05/06/19 09:00 06/04/19 08:59 Zinc Sulfate (Zinc Sulfate) 220 mg DAILY ORAL 05/06/19 09:00 05/16/19 09:00 05/08/19 08:29 Zolpidem Tartrate (Ambien) 5 mg HSPRN PRN ORAL Insomnia 05/06/19 15:15 05/12/19 15:13 Luba Freeman M.D. May 08, 2019 13:44
--- NOTE | 2019-05-08 14:11 | Surgery Progress Note ---
Surgery Progress Note Subjective Symptoms: improved Additional Comments eating more tube feeds going family at bedside Objective Last 24 Hour Vital Signs Date Time Temp Pulse Resp B/P (MAP) Pulse Ox O2 Delivery O2 Flow Rate FiO2 05/08/19 12:00 98.0 77 19 123/71 (88) 98 05/08/19 09:00 Room Air 05/08/19 08:00 97.9 76 20 134/95 (108) 97 05/08/19 04:11 98.3 75 16 136/76 (96) 96 05/08/19 00:14 99.0 78 16 125/74 (91) 95 05/07/19 21:07 Room Air 05/07/19 20:00 98.9 72 16 117/73 (88) 97 05/07/19 16:00 98.1 68 17 119/79 (92) 98 I&O Intake and Output 05/07/19 05/08/19 19:00 07:00 Intake Total 40 ml 800 ml Output Total 2450 ml 600 ml Balance -2410 ml 200 ml IV Total 40 ml 800 ml Output Urine Total 2450 ml 600 ml Dressing: dry Wound: clean Drains: other Cardiovascular: RSR Respiratory: clear Abdomen: soft, non-tender, present bowel sounds Extremities: no tenderness, no cyanosis Plan Problems: (1) Decubitus ulcer of sacral region, stage 4 Assessment & Plan: Pt presented on admission with contractures and multiple pressure injuries. Full thickness sacral pressure injury with undermining .Beefy red granulation at base of wound with an area of 20% soft necrosis along borders and undermined area.No odor noted. Small amt sanguineous exudate noted(L)2cm x (W)2.5cm x (D) 1.9cm, undermining clockwise 12-12 by 1.9cm @12 o'clock. Resolving pressure injury R elbow .Base of wound epithelialized -pink and dry.(L )1.5cm x (W)1.6cm. Resolving pressure injury R trochanter .Base of wound has dry ,pink epithelial.edges adherent and flat without erythema or induration(L)2cm x (W) 4cm. hyperpigmentation periwound. Hyperpigmentation from previous wound L trochanter. Non-blanchable erythema with fluctuance noted to lateral L heel (L)2.5cm x (W) 2.5cm.Periwound without erythema induration or fluctuance. R heel is pink and blanchable. Non-blanchable erythema without fluctuance /induration L lateral 1st metatarsal. (L)0.5cm x (W)1cm Non-blanchable erythema without fluctuance /induration noted L hallux. (L)1cm x (w)1cm. Non-blanchable erythema without induration/fluctuance lateral R foot. Tx.Plan: Cleanse Sacral wound with Saline. Loosely pack with Hydrogel impregnated Plain packing strip.Apply Triad periwound Cover with Optifoam Daily and PRN. Apply Moisture Barrier Paste to R and L trochanters. Cover each site with Optifoam drsg. Change every 3 days and prn. Apply Cavilon Skin Barrier to R and L heels. Cover each heel with Optifoam drsgs. Change every 7 days and prn. Apply Cavilon Skin Barrier to L hallux and L 1st metatarsal. Cover with Optifoam drsg. Change every 7 days and prn. Apply Cavilon Skin Barrier to lateral R foot. Cover with Optifoam drsg. Change every 7 days and prn. APM/YO mattress overlay. Reposition at least every 2hours or as tolerated. Off-load heels with pillow. (2) Renal insufficiency (3) Septic shock Assessment & Plan: leukocytosis - resolved tachycardia - resolved anemia hypotension - improved responding well to fluids and abx cont abx cont with current care will follow with recs thank you (4) UTI (urinary tract infection) Assessment & Plan: Impression: No evidence of obstructive uropathy or hydronephrosis Questionable nonobstructive 1 mm right intrarenal calculus Multiple bladder calculi Bladder wall thickening, may may in part be an artifact of under distention, but the possibility of chronic bladder obstruction or cystitis should be considered Subcentimeter low-attenuation renal lesions, too small to characterize, most likely benign simple cysts. No further follow-up necessary Villagomez catheter Free pelvic fluid, nonspecific but not physiologic in a postmenopausal female Equivocal mild sigmoid wall thickening, probably artifact of under distention but the possibility of colitis should be considered Mild edema of the subcutaneous fat Slight pericholecystic fluid, may be a manifestation of mild anasarca but the possibility of acalculous acute cholecystitis or cholecystitis due to occult stone disease should also be considered Posterior dependent atelectatic changes and mild degenerative spondylosis changes incidentally noted (5) ATN (acute tubular necrosis) (6) Advanced dementia (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
--- NOTE | 2019-05-08 15:18 | Cardiology Report ---
APPROVED REPORT EXAM: Two-dimensional and M-mode echocardiogram with Doppler and color Doppler. INDICATION Left ventricular function M-Mode DIMENSIONS IVSd1.7 (0.7-1.1cm)Left Atrium (MM)2.9 (1.6-4.0cm) LVDd3.7 (3.5-5.6cm)Aortic Root3.6 (2.0-3.7cm) PWd1.2 (0.7-1.1cm)Aortic Cusp Exc.1.8 (1.5-2.0cm) LVDs2.0 (2.5-4.0cm) PWs1.7 cm Normal left ventricular chamber size, systolic function and wall motion. Left ventricular ejection fraction estimated to be 60 %. Mild ventricular hypertrophy. No evidence of pericardial effusion. All other cardiac chamber sizes are within normal limits. Focal aortic valve sclerosis with adequate cusp excursion. Thickened mitral valve leaflets with normal excursion. Mitral annulus and aortic root calcification. Pulmonic valve not well visualized. Normal tricuspid valve structure. IVC is normal in size with physiological collapse. A color flow and spectral Doppler study was performed and revealed: Moderate aortic regurgitation. Mild to moderate mitral regurgitation. Mitral diastolic velocities suggest mild left ventricular diastolic dysfunction (Grade I). Trace tricuspid regurgitation. Tricuspid systolic velocities suggests peak right ventricular systolic pressure of 14 mmHg. No pulmonic regurgitation present.
[2019-05-08 16:00] VITALS: BP 119/66
--- NOTE | 2019-05-08 16:20 | Cardiology Report ---
APPROVED REPORT EKG Measurement Heart [id number] Sinus rhythm with premature atrial complexes Otherwise normal ECG
[2019-05-08] MEDS ORDERED: ZINC SULFATE220 M1 ORAL (17:15)
--- NOTE | 2019-05-08 17:17 | Internal Med Progress Note ---
Subjective Physician Name Solo Macdonald Attending Physician Solo Macdonald MD Current Medications Medications (Trade) Dose Ordered Sig/Familia Route PRN Reason Start Time Stop Time Status Last Admin Dose Admin Acetaminophen (Tylenol) 650 mg Q4H PRN ORAL fever 05/06/19 03:15 06/04/19 15:11 Ascorbic Acid (Vitamin C) 500 mg DAILY ORAL 05/06/19 09:00 06/05/19 08:59 05/08/19 08:29 Chlorhexidine Gluconate (Montserrat-Hex 2%) 1 applic DAILY@2000 TOPIC 05/06/19 20:00 06/01/19 19:59 05/07/19 20:34 Dextrose 1,000 ml @ 40 mls/hr Q24H IV 05/06/19 13:30 06/05/19 13:29 05/08/19 13:45 Dextrose (Dextrose 50%) 25 ml Q30M PRN IV Hypoglycemia 05/06/19 00:30 05/31/19 11:59 Dextrose (Dextrose 50%) 50 ml Q30M PRN IV Hypoglycemia 05/06/19 00:45 05/31/19 12:14 Famotidine (Pepcid I.v.) 20 mg Q12HR IVP 05/06/19 09:00 06/02/19 20:59 05/08/19 08:35 Folic Acid (Folate) 3 mg DAILY ORAL 05/06/19 09:00 06/02/19 12:44 05/08/19 08:32 Heparin Sodium (Porcine) (Heparin 5000 units/ml) 5,000 units EVERY 12 HOURS SUBQ 05/06/19 09:00 05/31/19 20:59 05/08/19 08:34 Morphine Sulfate (Morphine Sulfate) 1 mg Q4H PRN IVP For Pain 05/06/19 03:15 05/12/19 15:13 Multivitamins (Multivitamins) 1 tab DAILY ORAL 05/06/19 09:00 06/05/19 08:59 05/08/19 08:29 Ondansetron HCl (Zofran) 4 mg Q6H PRN IVP Nausea & Vomiting 05/06/19 03:15 06/04/19 15:13 Polyethylene Glycol (Miralax) 17 gm HSPRN PRN ORAL Constipation 05/06/19 09:00 06/04/19 08:59 Zinc Sulfate (Zinc Sulfate) 220 mg DAILY ORAL 05/06/19 09:00 05/16/19 09:00 05/08/19 08:29 Zolpidem Tartrate (Ambien) 5 mg HSPRN PRN ORAL Insomnia 05/06/19 15:15 05/12/19 15:13 Allergies: Coded Allergies: No Known Allergies (Unverified , 05/01/19) Subjective Awake, Responsive, NAD, demented, son at the bedside. Objective Last Vital Signs Date Time Temp Pulse Resp B/P (MAP) Pulse Ox O2 Delivery O2 Flow Rate FiO2 05/08/19 12:00 98.0 77 19 123/71 (88) 98 05/08/19 09:00 Room Air 05/06/19 08:07 3 Intake and Output 05/07/19 05/08/19 19:00 07:00 Intake Total 40 ml 800 ml Output Total 2450 ml 600 ml Balance -2410 ml 200 ml IV Total 40 ml 800 ml Output Urine Total 2450 ml 600 ml Objective GENERAL: Awake,responsive, Cachexia. HEAD AND NECK: Pupils are equal and reactive to light. Anicteric. Neck supple. No JVD. LUNGS: Good air entry. decrease air at bases, No wheezing or rhonchi. HEART: S1, S2. Regular rhythm. No murmur or gallops. ABDOMEN: Soft, nondistended, nontender. Positive bowel sounds, PEG site intact. EXTREMITIES: No cyanosis, clubbing, edema. The patient has muscle atrophy in bilateral lower extremity. Left femoral TLC. NEUROLOGIC: Cranial nerves II through XII grossly intact. contracted lower extremity. Moving upper extremity, right side weakness. SKIN: Bilateral trochanter stage I ulceration as well as sacral decubitus ulcer stage IV. No discharge was noted. Assessment/Plan Assessment/Plan ASSESSMENT: 1. Septic shock, most likely secondary to acute sepsis due to GNR urinary tract infection. 2. Severe cachexia, Severe protein calori malnutrition S/P PEG placement (2018). 3. Stage IV sacral decubitus ulcer presented on admission. 4. History of essential hypertension --> hypotensive. 5. Acute kidney injury on chronic renal insufficiency, most likely secondary to severe dehydration and hypovolemia. 6. Advanced dementia. 7. Severe Hypotension most likely combination of septic shock and Dehydration / Hypovolemia. 8. Bilateral hydronephrosis. 9. Hypokalemia. 10. Functional quadriplegia. PLAN: In medical Unit. Monitor laboratory and cultures Antibiotics: ADAL cefepime, DVT prophylaxis: heparin subcutaneous. Code status at this time is Full Code per POLST. Cardiology consult with Dr. Ross Pulmonary consult Dr. Saad GALEAS Planning to SNF today. IVF @ 50 cc/hr Solo Macdonald MD May 08, 2019 17:17
--- NOTE | 2019-05-08 17:21 | NUR ---
DISCHARGE DISPOSITION: PLEASE READ PATIENT TO BE DISCHARGED TO [facility] [place] [address] [facility] [address] T: [phone]>>> CALL FOR REPORT [facility] ETA 1930 LEFT FOR SON MARCIA TURCIOS [phone]
--- NOTE | 2019-05-08 17:40 | Cardiac Electrophysiology PN ---
Assessment/Plan Assessment/Plan 1. Septic shock and dehydration. Resolved with IV fluids and broad-spectrum IV antibiotics EF 60% with no pericardial effusion. 2. Sinus Bradycardia off of any sinus-genevivee or AV-genevieve affecting agents. 3. Sepsis, on broad-spectrum IV antibiotics. 4. History of CVA with right hemiplegia, currently nonverbal with bilateral lower extremity contraction. 5. Decubitus ulcers. 6. History of hypertension, off antihypertensive 7. Dehydration and poor nutrition, S/P PEG 05/06/19 DW RN and son Subjective Subjective S/P PEG . Son at bedside. No changes. PEG feeding started. DC planning to SNIF today Objective Last 24 Hour Vital Signs Date Time Temp Pulse Resp B/P (MAP) Pulse Ox O2 Delivery O2 Flow Rate FiO2 05/08/19 12:00 98.0 77 19 123/71 (88) 98 05/08/19 09:00 Room Air 05/08/19 08:00 97.9 76 20 134/95 (108) 97 05/08/19 04:11 98.3 75 16 136/76 (96) 96 05/08/19 00:14 99.0 78 16 125/74 (91) 95 05/07/19 21:07 Room Air 05/07/19 20:00 98.9 72 16 117/73 (88) 97 Intake and Output 05/07/19 05/08/19 19:00 07:00 Intake Total 40 ml 800 ml Output Total 2450 ml 600 ml Balance -2410 ml 200 ml IV Total 40 ml 800 ml Output Urine Total 2450 ml 600 ml Objective HEAD AND NECK: No JVD. LUNGS: Coarse rhonchi. CARDIOVASCULAR: Regular S1 and S2. ABDOMEN: Soft.PEG in place EXTREMITIES: Contracted, no pitting edema, and a triple-lumen in the left femoral vein. Florencio Ross MD May 08, 2019 17:39
--- NOTE | 2019-05-08 18:06 | General Progress Note ---
Assessment/Plan Assessment/Plan: Assessment - malnutrition, s/p PEG - Decub ulcer - contracted, bed bound - OBS - recent UTI / Sepsis Recommendations - po as tolerated - abx - IVF - MVI, Vitamin C, ZnSO4 - TF today Subjective Allergies: Coded Allergies: No Known Allergies (Unverified , 05/01/19) Subjective Above noted resting comfortably POD #2 s/p PEG Objective Last 24 Hour Vital Signs Date Time Temp Pulse Resp B/P (MAP) Pulse Ox O2 Delivery O2 Flow Rate FiO2 05/08/19 12:00 98.0 77 19 123/71 (88) 98 05/08/19 09:00 Room Air 05/08/19 08:00 97.9 76 20 134/95 (108) 97 05/08/19 04:11 98.3 75 16 136/76 (96) 96 05/08/19 00:14 99.0 78 16 125/74 (91) 95 05/07/19 21:07 Room Air 05/07/19 20:00 98.9 72 16 117/73 (88) 97 Intake and Output 05/07/19 05/08/19 19:00 07:00 Intake Total 40 ml 800 ml Output Total 2450 ml 600 ml Balance -2410 ml 200 ml IV Total 40 ml 800 ml Output Urine Total 2450 ml 600 ml Height (Feet): 5 Height (Inches): 5.00 Weight (Pounds): 108 Objective Debilitated elderly woman NCAT supple CTA RR abd soft, (+) GT (+) contractures (+) decub Nasim Gates MD May 08, 2019 18:06
--- NOTE | 2019-05-08 19:35 | NUR ---
HAND-OFF: Report given to VARUN Brenner. Report also given to Elsy at [facility]. IV removed. PICC line removed. Wound photos taken and uploaded. Discharge packet ready for ambulance personnel.
[2019-05-08] MEDS ORDERED: Tubing IV Secondary IV ONE (20:59)
--- NOTE | 2019-05-08 21:00 | NUR ---
NURSE NOTES: Patient picked up by [facility] to [facility]. G-tube in place, mujica catheter in place. VSS.
--- NOTE | 2019-05-09 12:09 | Diagnostic Imaging Report ---
Indication: Dysphagia Procedure and findings: Real-time fluoroscopic imaging performed in a lateral projection in conjunction with the speech pathologist evaluation. Variable consistencies of barium given per mouth. Findings: Significant abnormalities of both oral and pharyngeal phases of swallowing are demonstrated. Total fluoroscopic time: 168 seconds. No definite aspiration or laryngeal penetration identified with thin, nectar, honey consistencies. Abnormal video swallow. Please refer to speech pathology evaluation for more information.
--- NOTE | 2019-05-10 11:04 | Discharge Summary ---
Discharge Summary Discharge Summary _ DATE OF ADMISSION: 05/01/2019 DATE OF DISCHARGE: 05/08/2019 DISCHARGED BY: Dr. Macdonald REASON FOR ADMISSION: 83 years old female with past medical history of sepsis, urinary tract infection , essential hypertension, acute kidney failure, cellulitis, anemia, dementia, CVA with residual hemiplegia, presented from the [facility] facility with abnormal laboratory work: elevated BUN and creatinine. Patient by herself was unable to provide any history due to mental status. In addition , she was nonverbal and unable to follow commands. Shortly after initial evaluation in emergency department , patient was found to be severely hypotensive with blood pressure 78/54 and significant leukocytosis WBC 20.8. Urinalysis was grossly positive for UTI. Patient subsequently admitted to ICU with diagnoses of septic shock, sepsis, UTI , and acute kidney injury with acute tubular necrosis. CONSULTANTS: dental mold maker Dr. Coyne pulmonary Dr. Nash ID specialist Dr. Larson GI specialist dr. Pitts drawing hand Dr. Maldonado surgery Dr. Smith urology [facility] COURSE: Patient admitted to ICU. Patient started on aggressive intravenous hydration and broad-spectrum antibiotics. Hemodynamic status was closely monitored. Patient required pressor for hemodynamic support. Veterinary Practice Manager followed. Pressors titrated to keep mean arterial blood pressure above 65. Echocardiogram revealed ejection fraction of 60% with mild left ventricular hypertrophy. No evidence of wall motion abnormality. No evidence of pericardial effusion. Right ventricular systolic pressure of 14. Serial troponin were negative. EKG revealed no acute ischemic changes. Patient was ruled out for acute DE. Patient eventually was able to be weaned from pressors. Hemodynamic status was closely monitored. Patient also initially noted to be in sinus bradycardia. Patient was off any sinus genevieve or AV node affecting agents. Bradycardia resolved. Lipid panel stable. DVT prophylaxis provided. Supplemental oxygen titrated as needed to keep pulse oximetry above 92%. Pulmonary toilet provided as needed. Strict aspiration precaution maintained. Antibiotic provided as per ID specialist recommendation. Urine culture revealed Providencia and Proteus. Blood culture were negative. Repeated urine culture showed no growth. Patient completed treatment for UTI. No fever no leukocytosis. ID specialist recommended to monitor patient off antibiotics and observe closely. GI specialist followed. Patient had cachexia with BMI 18, anorexia, and subsequently high nutritional risk as per teacher of the deaf assessment . Bedside swallow evaluation revealed evidence of dysphagia. Silent aspiration risk due to stroke and dementia , and very slow and poor intake. Patient subsequently undergone video swallow evaluation, which revealed abnormal results: significant abnormality of both oral and pharyngeal phases of swallowing was demonstrated. Patient subsequently undergone EGD and PEG placement as per family wishes. Gastrostomy tube care provided. Patient started on tube feeding formula in the morning as per teacher of the deaf recommendation and advanced to goal rate. Nutritional recommendation regarding protein supplements implemented in plan of care. Strict aspiration and reflux precautions were maintained. Line Maintainer Section followed. Renal ultrasound demonstrated mild left hydronephrosis and urinary bladder stone with wall thickening of bladder , that could represent cystitis or evidence of chronic bladder outlet obstruction. Right nephrolithiasis also suspected. Renal parameters and electrolytes were closely monitored. Electrolytes/potassium and magnesium/ further corrected as needed. Nephrotoxins were avoided. Prior to discharge creatinine from 1.5 down to 0.5 , and BUN from initial 102 down to 9. According to drawing hand, patient had acute tubular necrosis due to septic shock , which resolved. Surgeon followed for present on admission sacral decubitus ulcer stage IV. Wound care provided as per surgeon recommendation. Patient also noted to have multiply pressure injuries, including right elbow, right trochanter, right heel, left heel. Continue wound care at the facility as per surgeon recommendation. Supportive care provided. Bowel regimen instituted. GI prophylaxis provided. Hemoglobin and hematocrit were closely monitored with goal to keep hemoglobin above 7. Prior to discharge hemoglobin 8.4, hematocrit 25.4. Anemia work-up revealed evidence of anemia of chronic disease. Also noted low folate level. Patient started on folic acid replacement. Patient clinically stabilized and was ready for discharge to retirement facility for continuation of care FINAL DIAGNOSES: Septic shock-resolved Sepsis due to UTI UTI with Proteus and Providencia-s/p treatment Stage IV sacral decubitus ulcer , present on admission Severe cachexia Protein calorie malnutrition History of hypertension with current hypotension ( due to shock) Acute kidney injury due to acute tubular necrosis on chronic renal insufficiency (most likely secondary to severe dehydration and hypovolemia due to shock) Advanced dementia Severe hypotension , most likely combination of septic shock and dehydration/ hypovolemia Bilateral hydronephrosis History of CVA with right hemiplegia status post EGD and PEG placement 05/06/2019 Functional quadriplegia Anemia of chronic disease. Folate deficiency DISCHARGE MEDICATIONS: See Medication Reconciliation list. DISCHARGE INSTRUCTIONS: Patient was discharged to the retirement facility. Follow up with medical doctor at the facility. I have been assigned to dictate discharge summary for this account. I was not involved in the patient's management. Aida Wu NP May 10, 2019 11:04
== END 2019-05-08 21:00 | DRG 871 ==
LOC: EDBD 09:58 → EMR 10:40 → 2E 10:42 → EDBEDREQ 11:16 → EDBEDREQSVC 12:38 → EDBEDREQTM 12:38 → EDBEDREQ 12:38 → ICU 14:11 → 2W 05-04 21:58 → 2E 05-05 15:37 → 4E 05-05 23:55
PROC: 06HN33Z Insertion of Infusion Device into Left Femoral Vein, Percutaneous Approach (ICD-10-PCS; principal; 2019-05-01)
PROC: 0DJ08ZZ Inspection of Upper Intestinal Tract, Via Natural or Artificial Opening Endoscopic (ICD-10-PCS; 2019-05-06 07:25)
PROC: 0DH63UZ Insertion of Feeding Device into Stomach, Percutaneous Approach (ICD-10-PCS; 2019-05-06 07:25)
DX: A41.9 Sepsis, unspecified organism (principal); L89.154 Pressure ulcer of sacral region, stage 4; R65.21 Severe sepsis with septic shock; N17.0 Acute kidney failure with tubular necrosis; E43 Unspecified severe protein-calorie malnutrition; R53.2 Functional quadriplegia; N39.0 Urinary tract infection, site not specified; N13.30 Unspecified hydronephrosis; I69.959 Hemiplegia and hemiparesis following unspecified cerebrovascular disease affecting unspecified side; E86.0 Dehydration; Z68.20 Body mass index [BMI] 20.0-20.9, adult; R33.9 Retention of urine, unspecified; N31.9 Neuromuscular dysfunction of bladder, unspecified; I10 Essential (primary) hypertension; F03.90 Unspecified dementia, unspecified severity, without behavioral disturbance, psychotic disturbance, mood disturbance, and anxiety; E86.1 Hypovolemia; R00.1 Bradycardia, unspecified; G31.84 Mild cognitive impairment of uncertain or unknown etiology; R31.9 Hematuria, unspecified; Z74.01 Bed confinement status; E87.6 Hypokalemia; E53.8 Deficiency of other specified B group vitamins; B96.4 Proteus (mirabilis) (morganii) as the cause of diseases classified elsewhere; R13.10 Dysphagia, unspecified; D64.9 Anemia, unspecified
CPT/HCPCS: 36415; 71045; 74178; 74230; 76770; 80053; 80061; 80150; 81001; 81003; 82043; 82378; 82533; 82550; 82553; 82607; 82746; 83036; 83540; 83550; 83605; 83615; 83735; 83880; 83935; 84100; 84300; 84439; 84443; 84484; 84550; 85007; 85025; 85044; 85060; 85610; 85651; 85730; 86140; 87040; 87081; 87086; 87181; 89050; 93005; 93306; 94003; 94150; 96361; 96365; 99291; 99292; J8499

== ENCOUNTER 2019-06-21 21:08 | Inpatient (IN) | payer MEDICARE, OTHER ==
[~2019-06-21] VITALS: Ht 157.5 cm; Wt 62.1 kg
[~2019-06-21 21:08] MED LIST: ACETAMINOPHEN325 M1 ORAL; AMLODIPINE BESYL5 MG ORAL; ASPIR 8181 MG ORAL; BENAZEPRIL HCL10 MG ORAL; CIPRO500 MG PO; DOCUSATE SODIU100 MG ORAL; MULTIVITAMINS1 EAC8 ORAL; VITAMIN C500 M1 ORAL; ZINC SULFATE220 M1 ORAL
[2019-06-21 21:15] VITALS: BP 97/70
[2019-06-21] MEDS ORDERED: Acetaminophen 650 MG SUPP RECTAL ONE ×2 (21:15→21:19)
[2019-06-21] MEDS ORDERED: Sodium Chloride 1,400 ML IVLG ONE (21:15)
--- NOTE | 2019-06-21 21:15 | NUR ---
ED Nurse Note: Patient faby RA 30 from [facility], c/o fever for 2 days, at time of arrival patient presents with a temp of 103.3 rectal, patient is nonverbal however is eyes are PERRLA, patient able to track staff. patient presents with multiple wounds primarily in lower ascral area as well as wounds on her right foot. patient is hot to touch, tachycardic at 125, EMS states that at time of arrival at [facility], o2 sat was 88%. patient was placed on a nonrebreather, satting at 100%. IV started on right forearm 18 gauge, will wait for further orders
--- NOTE | 2019-06-21 21:17 | Emergency Room Report ---
History of Present Illness General Chief Complaint: Fever Source: Medical Record, EMS Present Illness HPI This is an 83-year-old female who was a senior care patient. She has a history of previous CVA with hemiplegia. She presents with chief complaint of fever and shortness of breath. Onset for last 2 days. Fever of 103 at the senior care. Per EMS, her oxygenation was 89% on room air so they put her on oxygen. Patient sound congested. Mental status appear to be at baseline. She is bedbound with a feeding tube. No history from this patient because of her condition and nonverbal state. History is from senior care note and EMS. Allergies: Coded Allergies: No Known Allergies (Unverified , 05/01/19) Patient History Past Medical History: see triage record, old chart reviewed, HTN, CVA/TIA Past Surgical History: other Pertinent Family History: none Social History: Denies: smoking Now: No Immunizations: UTD Reviewed Nursing Documentation: PMH: Agreed; PSxH: Agreed Nursing Documentation-PMH Hx Hypertension: Yes Hx Cancer: No Hx Gastrointestinal Problems: No Hx Cerebrovascular Accident: Yes - hemiplegia,dysphagia Review of Systems Constitutional: Reports: fever, weakness Respiratory: Reports: cough, shortness of breath All Other Systems: limited - Secondary to condition Physical Exam Vital Signs Date Time Temp Pulse Resp B/P (MAP) Pulse Ox O2 Delivery O2 Flow Rate FiO2 06/21/19 21:10 130 20 111/91 (98) 98 Room Air Vitals with hypoxia. Also with fever. Room air 90%. Sp02 EP Interpretation: abnormal General Appearance: moderate distress, cachetic, Chronically Ill Head: normocephalic, atraumatic Eyes: bilateral eye PERRL, bilateral eye EOMI ENT: hearing grossly normal, dry mucus membranes Neck: full range of motion, supple, no meningismus Respiratory: chest non-tender, respiratory distress, rhonchi Cardiovascular #1: regular rate, rhythm, no murmur, tachycardia Gastrointestinal: normal bowel sounds, non tender, no mass, no organomegaly, no bruit, non-distended, other - G-tube intact Musculoskeletal: back normal, other - Contracted Psychiatric: mood/affect normal Procedures Critical Care Time Critical Care Time Critical care is mandated in this patient who presented with sepsis secondary to UTI and pneumonia. Patient require my urgent intervention to attenuate the risks of metabolic collapse which may lead to cardiovascular collapse and . Critical care time is 35 minutes excluding any reportable procedure. Critical care time included evaluation, multiple reevaluation, looking at old charts, interpreting laboratory and diagnostic data, discussing case with patient and family and consultants, and charting. Medical Decision Making Diagnostic Impression: Primary Impression: Sepsis Qualified Codes: A41.9 - Sepsis, unspecified organism Additional Impressions: HCAP (healthcare-associated pneumonia) Urinary tract infection Qualified Codes: N30.00 - Acute cystitis without hematuria ER Course Patient presents with severe sepsis secondary to UTI and pneumonia. Wide spectrum antibiotics given. Blood pressure improved. Heart rate improved. It for IV fluids and IV antibiotics. I contacted Dr. Macdonald for admission. Sepsis reevaluation VS: Improved heart rate and blood pressure. General: Improved mental status HEENT: Normocephalic Cardiovascular: Regular rate and rhythm Lungs: Improved air movement Abdomen: Soft Extremity: No edema Skin: No mottling Capillary refills: Less than 2 seconds Lab Results Impression Labs with elevated lactic acid EKG Diagnostic Results Rate: tachycardiac Rhythm: NSR ST Segments: no acute changes Rhythm Strip Diag. Results EP Interpretation: yes Rate: 110 Rhythm: NSR, no PVC's, no ectopy Chest X-Ray Diagnostic Results Chest X-Ray Diagnostic Results : Chest X-Ray Ordered: Yes # of Views/Limited/Complete: 1 View Indication: Shortness of Breath EP Interpretation: Yes Interpretation: no effusion, no pneumothorax, other - Retrocardiac infiltrate Impression: Other - retrocardiac infiltrate Electronically Signed by: Jerry Phelan MD Last Vital Signs Date Time Temp Pulse Resp B/P (MAP) Pulse Ox O2 Delivery O2 Flow Rate FiO2 06/21/19 21:10 130 20 111/91 (98) 98 Room Air Status: improved Disposition: ADMITTED INPATIENT Condition: Serious Jerry Phelan MD Jun 21, 2019 21:17
--- NOTE | 2019-06-21 21:20 | NUR ---
ED Nurse Note: Patient presents with 2 pressure ulcers on the lower sacral area as well as on the inner aspect of right foot. patient also presents with redness throughout her buttocks area as well as a skin tear located on the right buttocks area as well as both her feet bilaterally
[2019-06-21 21:44] LABS: HEMATOCRIT 41.6 % (37.0-47.0); HEMOGLOBIN 13.4 G/DL (12.0-16.0); MEAN CORPUSCULAR VOLUME 96 FL (80-99); PLATELET COUNT 351 K/UL (150-450); RED BLOOD COUNT 4.34 M/UL (4.20-5.40); RED CELL DISTRIBUTION WIDTH 13.2 % (11.6-14.8); WHITE BLOOD COUNT 11.7 K/UL (4.8-10.8)
[2019-06-21] MEDS ORDERED: Cefepime HCl 1 GM in D5W 55 ML IVPB ONE (21:45)
[2019-06-21 21:46] LABS: BILIRUBIN, URINE NEGATIVE (NEGATIVE); GLUCOSE, URINE (UA) NEGATIVE (NEGATIVE); KETONES,URINE NEGATIVE (NEGATIVE); LEUKOCYTE ESTERASE ,URINE 3+ (NEGATIVE); NITRITE,URINE POSITIVE (NEGATIVE); PH,URINE 9 (4.5-8.0); PROTEIN,URINE 4+ (NEGATIVE); UROBILINOGEN,URINE NORMAL MG/DL (0.0-1.0)
[2019-06-21 21:50] LABS: COLOR,URINE YELLOW
[2019-06-21 21:51] LABS: APPEARANCE,URINE SLIGHTLY CLOUDY
[2019-06-21] MEDS ORDERED: Cefepime 1gm vial ONE (21:52)
[2019-06-21 21:57] LABS: ANION GAP 13 mmol/L (5-15); BLOOD UREA NITROGEN 55 mg/dL (7-18); CARBON DIOXIDE 27 MMOL/L (21-32); CHLORIDE 101 MMOL/L (98-107); CREATININE 1.2 MG/DL (0.55-1.30); POTASSIUM 5.2 MMOL/L (3.5-5.1); SODIUM 140 MMOL/L (136-145)
[2019-06-21 22:10] LABS: ALANINE AMINOTRANSFERASE 46 U/L (12-78); ALBUMIN 3.3 G/DL (3.4-5.0); ALBUMIN/GLOBULIN RATIO 0.8 (1.0-2.7); ALKALINE PHOSPHATASE 129 U/L (46-116); ASPARTATE AMINO TRANSFERASE 34 U/L (15-37); BILIRUBIN,TOTAL 0.6 MG/DL (0.2-1.0); CKMB 1.5 NG/ML (0.0-3.6); CREATINE KINASE 137 U/L (26-308)
--- NOTE | 2019-06-21 22:18 | NUR ---
ED Nurse Note: Wound care photos updated
[2019-06-21 22:29] VITALS: BP 109/59
--- NOTE | 2019-06-21 22:35 | NUR ---
Boris farmer in ED - 06/21/19 at 2253 by MARISABEL ED Nurse Note: Changed patient's mujica, patient presents with hematuria with an output of 350mL
--- NOTE | 2019-06-21 22:36 | NUR ---
ED Nurse Note: Changed patient's mujica, patient presents with hematuria with an output of 200mL
--- NOTE | 2019-06-21 23:53 | NUR ---
ED Nurse Note: 3rd lactic acid sent
[2019-06-21 23:57] VITALS: BP 111/69
[2019-06-22] MEDS ORDERED: DiphenhydrAMINE 50mg/ml Inj ONE (00:56)
[2019-06-22] MEDS ORDERED: Haloperidol 5mg/ml Inj ONE (00:56)
--- NOTE | 2019-06-22 01:45 | NUR ---
TRANSFER TO FLOOR: Patient transferred to SDU as ordered, per Dr. Macdonald. Report given to VARUN Mas
[2019-06-22 02:00] VITALS: BP 97/66
--- NOTE | 2019-06-22 02:10 | NUR ---
NURSE NOTES: Pt is transferred to the unit via [facility]. A/O x1, open eyes but non-verbal. On room air with no signs of sob. SR with cardiac cath lab radiology technologist. Abd soft and round. IV on R FA 18G, running NS bolus. Bed in the lowest position. Side rails up x3. Will continue to monitor.
--- NOTE | 2019-06-22 02:15 | NUR ---
NURSE NOTES: pt has f/c, urine noted to be hematuria with sediments and clots. Multiple rashes around chest area. R forearm multiple open scars. R upper thigh open scar. Pressure ulcers noted to be: Sacral- unstagable, 2x3cm open wound with red, purple color around wound. L trochanter- 4x3cm, partial thickness, open red wound L lower medial leg, 5x2cm, partial thickness, open red wound. R trochanter- 4x5cm, partial thickness open red wound. R buttocks 4x4cm, partial thickenss, open red wound. R first metatarsal, unstagable, 3x3cm black on the center of wound, purple, red,brown skin color around the wound. picture taken and will be uploaded. belonging checked, noted white color stone earing.
[2019-06-22 04:00] VITALS: BP 106/64
--- NOTE | 2019-06-22 04:00 | NUR ---
NURSE NOTES: Observed pt sleeping in the bed. No acute distress noted at this time. SR on sliver former. Bed bath given. Reposition done. Will continue to monitor.
--- NOTE | 2019-06-22 04:00 | NUR ---
NURSE NOTES: Left message to regarding admitting orders. awaiting call back.
--- NOTE | 2019-06-22 06:00 | NUR ---
NURSE NOTES: Left a message to regarding admitting orders. Awaiting call back.
--- NOTE | 2019-06-22 07:39 | NUR ---
HAND-OFF: Report given to VARUN Jovel. Observed pt lying in the bed. No acute distress noted at this time.
[2019-06-22 08:00] VITALS: BP 104/66
--- NOTE | 2019-06-22 08:10 | NUR ---
NURSE NOTES: received pt in the bed, nonverbal, vital signs stable, no co pain, contracted, no SOB, GT clump, multiple decub, dressing dry and intact, bed in low position, HOB elevated.
[2019-06-22] MEDS ORDERED: Miralax 17gm pkt ORAL PRN (08:15)
[2019-06-22] MEDS ORDERED: Morphine Sulfate 2mg/ml Inj(IV/IM USE ONLY) IVP PRN ×3 (08:15→17:15)
[2019-06-22] MEDS ORDERED: Acetaminophen 650mg/20.3ml GT PRN ×3 (08:15→17:15)
[2019-06-22] MEDS ORDERED: Albuterol/Ipratropium 3ml neb HHN PRN ×3 (08:15→17:15)
[2019-06-22] MEDS ORDERED: Miralax 17gm pkt GT PRN ×2 (08:30→15:45)
[2019-06-22] MEDS ORDERED: Ascorbic Acid 500mg tab GT SCH (09:00)
[2019-06-22] MEDS ORDERED: Heparin 5000 units/ml inj SUBQ SCH ×2 (09:00→21:00)
[2019-06-22] MEDS ORDERED: D5 1/2NS 1,000 ML IV SCH (09:00)
[2019-06-22] MEDS ORDERED: Cefepime HCl 1 GM in D5W 55 ML IVPB SCH (09:00)
[2019-06-22] MEDS ORDERED: Benazepril 10mg tab GT SCH (09:00)
[2019-06-22] MEDS ORDERED: Zinc Sulfate 220mg cap GT SCH ×2 (09:00→18:00)
[2019-06-22] MEDS ORDERED: Aspirin Baby 81mg GT SCH (09:00)
[2019-06-22 09:33] LABS: HEMATOCRIT 28.7 % (37.0-47.0); HEMOGLOBIN 9.4 G/DL (12.0-16.0); MEAN CORPUSCULAR VOLUME 96 FL (80-99); PLATELET COUNT 230 K/UL (150-450); RED BLOOD COUNT 2.99 M/UL (4.20-5.40); RED CELL DISTRIBUTION WIDTH 13.4 % (11.6-14.8)
[2019-06-22 09:36] LABS: WHITE BLOOD COUNT 23.6 K/UL (4.8-10.8)
[2019-06-22 09:52] LABS: ALANINE AMINOTRANSFERASE 33 U/L (12-78); ALBUMIN 2.1 G/DL (3.4-5.0); ALBUMIN/GLOBULIN RATIO 0.7 (1.0-2.7); ALKALINE PHOSPHATASE 60 U/L (46-116); ANION GAP 7 mmol/L (5-15); ASPARTATE AMINO TRANSFERASE 36 U/L (15-37); BILIRUBIN,TOTAL 0.4 MG/DL (0.2-1.0); BLOOD UREA NITROGEN 41 mg/dL (7-18); CALCIUM 8.2 MG/DL (8.5-10.1); CARBON DIOXIDE 24 MMOL/L (21-32); CHLORIDE 113 MMOL/L (98-107); CREATININE 0.7 MG/DL (0.55-1.30); PHOSPHORUS 3.6 MG/DL (2.5-4.9); POTASSIUM 4.3 MMOL/L (3.5-5.1); SODIUM 144 MMOL/L (136-145)
[2019-06-22] MEDS ORDERED: Vancomycin 1 GM in D5W 275 ML IVPB ONE (10:00)
[2019-06-22] MEDS ORDERED: Amikacin Rx to dose MISC PRN ×3 (10:00→17:15)
--- NOTE | 2019-06-22 10:00 | NUR ---
NURSE NOTES: WBC 23.6, dr. Nash aware, wound nurse saw pt, dressing changed.
--- NOTE | 2019-06-22 10:15 | Consultation ---
History of Present Illness General Date patient seen: Jun 22, 2019 Chief Complaint: Fever Present Illness HPI 83-year-old female with hx of HTN, CVA/TIA, Gtube feeding, bed bound, detention patient, on verge of life and , brought to Er with CC of fever and shortness of breath for last 2 days. Per EMS, her oxygenation was 89% on room air so they put her on oxygen. Pt was diagnosed to have sepsis and admitted to [facility] for further management. I had a conversation with the daughter , who is stating that all of pts sons, a total of 6 want her to be full code including chest compression and cardiac shock in case she has a cardiac arrest. Allergies: Coded Allergies: No Known Allergies (Unverified , 05/01/19) Medication History Scheduled Ascorbic Acid* (Vitamin C*), 500 MG ORAL DAILY, (Reported) Aspirin* (Aspir 81*), 81 MG ORAL DAILY, (Reported) Benazepril Hcl* (Benazepril Hcl*), 20 MG ORAL DAILY, (Reported) Docusate Sodium* (Docusate Sodium*), 100 MG ORAL TWICE A DAY, (Reported) Multivitamin With Minerals (Multivitamins With Minerals*), 1 TAB ORAL DAILY, ( Reported) Zinc Sulfate (Zinc Sulfate*), 220 MG ORAL DAILY Scheduled PRN Acetaminophen* (Acetaminophen 325MG Tablet*), 650 MG ORAL Q6H PRN for Pain Scale (3-5), (Reported) Patient History Healthcare decision maker Resuscitation status Full Code Advanced Directive on File No Past Medical/Surgical History Past Medical/Surgical History: (1) Severe protein-calorie malnutrition (2) History of hypertension (3) History of CVA with residual deficit (4) Hemiparesis (5) Advanced dementia Review of Systems All Other Systems: negative except mentioned in HPI Physical Exam General Appearance: WD/WN HEENT: normocephalic, atraumatic Neck: non-tender, normal alignment Respiratory/Chest: chest wall non-tender, lungs clear Breasts: no masses Cardiovascular/Chest: normal peripheral pulses Abdomen: normal bowel sounds, non tender Genitourinary/Rectal: normal genital exam, normal rectal exam Extremities: normal range of motion, non-tender Skin Exam: normal pigmentation Last 24 Hour Vital Signs Date Time Temp Pulse Resp B/P (MAP) Pulse Ox O2 Delivery O2 Flow Rate FiO2 06/22/19 09:00 104/66 06/22/19 08:00 100.4 100 20 104/66 (79) 96 06/22/19 04:00 Room Air 06/22/19 04:00 95 06/22/19 04:00 98.6 96 20 106/64 (78) 97 06/22/19 03:23 95 06/22/19 02:09 107 06/22/19 02:00 99.0 102 20 97/66 (76) 97 06/22/19 01:48 Room Air 06/22/19 01:45 99.1 103 20 111/68 99 Room Air 06/21/19 23:57 99.2 105 23 111/69 100 Room Air 06/21/19 22:29 99.2 112 23 109/59 97 Room Air 06/21/19 21:51 99.1 06/21/19 21:15 103.3 125 30 97/70 98 Room Air 06/21/19 21:15 130 30 Room Air 06/21/19 21:10 103.3 130 20 111/91 (98) 98 Room Air Intake and Output 06/21/19 06/22/19 19:00 07:00 Intake Total 5000 ml Output Total 900 ml Balance 4100 ml Intake IV Total 5000 ml Output Urine Total 900 ml Laboratory Tests Test 06/21/19 21:30 06/21/19 22:25 06/21/19 23:45 06/22/19 00:45 White Blood Count 11.7 K/UL (4.8-10.8) H Red Blood Count 4.34 M/UL (4.20-5.40) Hemoglobin 13.4 G/DL (12.0-16.0) Hematocrit 41.6 % (37.0-47.0) Mean Corpuscular Volume 96 FL (80-99) Mean Corpuscular Hemoglobin 31.0 PG (27.0-31.0) Mean Corpuscular Hemoglobin Concent 32.3 G/DL (32.0-36.0) Red Cell Distribution Width 13.2 % (11.6-14.8) Platelet Count 351 K/UL (150-450) Mean Platelet Volume 5.9 FL (6.5-10.1) L Neutrophils (%) (Auto) % (45.0-75.0) Lymphocytes (%) (Auto) % (20.0-45.0) Monocytes (%) (Auto) % (1.0-10.0) Eosinophils (%) (Auto) % (0.0-3.0) Basophils (%) (Auto) % (0.0-2.0) Differential Total Cells Counted 100 Neutrophils % (Manual) 83 % (45-75) H Lymphocytes % (Manual) 6 % (20-45) L Monocytes % (Manual) 1 % (1-10) Eosinophils % (Manual) 0 % (0-3) Basophils % (Manual) 0 % (0-2) Band Neutrophils 10 % (0-8) H Platelet Estimate Adequate Platelet Morphology Normal Red Blood Cell Morphology Normal Urine Color Yellow Urine Appearance Slightly cloudy Urine pH 9 (4.5-8.0) Urine Specific [place] 1.010 (1.005-1.035) Urine Protein 4+ (NEGATIVE) H Urine Glucose (UA) Negative (NEGATIVE) Urine Ketones Negative (NEGATIVE) Urine Blood Negative (NEGATIVE) Urine Nitrite Positive (NEGATIVE) H Urine Bilirubin Negative (NEGATIVE) Urine Urobilinogen Normal MG/DL (0.0-1.0) Urine Leukocyte Esterase 3+ (NEGATIVE) H Urine RBC 2-4 /HPF (0 - 2) H Urine WBC 5-10 /HPF (0 - 2) H Urine Squamous Epithelial Cells Few /LPF (NONE/OCC) Urine Uric Acid Crystals Few /LPF (NONE) H Urine Triple Phosphate Crystals Few /LPF (NONE) H Urine Amorphous Sediment Few /LPF (NONE) H Urine Bacteria Many /HPF (NONE) H Sodium Level 140 MMOL/L (136-145) Potassium Level 5.2 MMOL/L (3.5-5.1) H Chloride Level 101 MMOL/L (98-107) Carbon Dioxide Level 27 MMOL/L (21-32) Anion Gap 13 mmol/L (5-15) Blood Urea Nitrogen 55 mg/dL (7-18) H Creatinine 1.2 MG/DL (0.55-1.30) Estimat Glomerular Filtration Rate mL/min (>60) Glucose Level 100 MG/DL (74-106) Lactic Acid Level 5.80 mmol/L (0.4-2.0) H 4.80 mmol/L (0.66-2.22) H 4.90 mmol/L (0.4-2.0) H 5.40 mmol/L (0.66-2.22) H Calcium Level 10.0 MG/DL (8.5-10.1) Total Bilirubin 0.6 MG/DL (0.2-1.0) Aspartate Amino Transf (AST/SGOT) 34 U/L (15-37) Alanine Aminotransferase (ALT/SGPT) 46 U/L (12-78) Alkaline Phosphatase 129 U/L (46-116) H Total Creatine Kinase 137 U/L (26-308) Creatine Kinase MB 1.5 NG/ML (0.0-3.6) Creatine Kinase MB Relative Index 1.0 Troponin I 0.038 ng/mL (0.000-0.056) Total Protein 7.4 G/DL (6.4-8.2) Albumin 3.3 G/DL (3.4-5.0) L Globulin 4.1 g/dL Albumin/Globulin Ratio 0.8 (1.0-2.7) L Test 06/22/19 09:15 White Blood Count 23.6 K/UL (4.8-10.8) #*H Red Blood Count 2.99 M/UL (4.20-5.40) L Hemoglobin 9.4 G/DL (12.0-16.0) L Hematocrit 28.7 % (37.0-47.0) #L Mean Corpuscular Volume 96 FL (80-99) Mean Corpuscular Hemoglobin 31.4 PG (27.0-31.0) H Mean Corpuscular Hemoglobin Concent 32.7 G/DL (32.0-36.0) Red Cell Distribution Width 13.4 % (11.6-14.8) Platelet Count 230 K/UL (150-450) Mean Platelet Volume 6.8 FL (6.5-10.1) Neutrophils (%) (Auto) % (45.0-75.0) Lymphocytes (%) (Auto) % (20.0-45.0) Monocytes (%) (Auto) % (1.0-10.0) Eosinophils (%) (Auto) % (0.0-3.0) Basophils (%) (Auto) % (0.0-2.0) Neutrophils % (Manual) Pending Lymphocytes % (Manual) Pending Platelet Estimate Pending Platelet Morphology Pending Sodium Level 144 MMOL/L (136-145) Potassium Level 4.3 MMOL/L (3.5-5.1) Chloride Level 113 MMOL/L (98-107) H Carbon Dioxide Level 24 MMOL/L (21-32) Anion Gap 7 mmol/L (5-15) Blood Urea Nitrogen 41 mg/dL (7-18) H Creatinine 0.7 MG/DL (0.55-1.30) Estimat Glomerular Filtration Rate mL/min (>60) Glucose Level 89 MG/DL (74-106) Lactic Acid Level Pending Calcium Level 8.2 MG/DL (8.5-10.1) L Phosphorus Level 3.6 MG/DL (2.5-4.9) Magnesium Level 1.9 MG/DL (1.8-2.4) Total Bilirubin 0.4 MG/DL (0.2-1.0) Aspartate Amino Transf (AST/SGOT) 36 U/L (15-37) Alanine Aminotransferase (ALT/SGPT) 33 U/L (12-78) Alkaline Phosphatase 60 U/L (46-116) Total Protein 5.0 G/DL (6.4-8.2) #L Albumin 2.1 G/DL (3.4-5.0) L Globulin 2.9 g/dL Albumin/Globulin Ratio 0.7 (1.0-2.7) L Microbiology Date/Time Source Procedure Growth Status 06/21/19 22:30 Rectum Received Height (Feet): 5 Height (Inches): 2.00 Weight (Pounds): 136 Medications Current Medications Medications (Trade) Dose Ordered Sig/Familia Route PRN Reason Start Time Stop Time Status Last Admin Dose Admin Acetaminophen (Tylenol) 650 mg Q6H PRN GT Mild Pain/Temp > 100.5 06/22/19 08:15 07/22/19 08:14 Albuterol/ Ipratropium (Albuterol/ Ipratropium) 3 ml Q4H PRN HHN Shortness of Breath 06/22/19 08:15 06/27/19 08:14 Ascorbic Acid (Vitamin C) 500 mg DAILY GT 06/22/19 09:00 07/22/19 08:59 06/22/19 09:41 Aspirin (ASA) 81 mg DAILY GT 06/22/19 09:00 07/22/19 08:59 06/22/19 09:42 Benazepril HCl (Lotensin) 20 mg DAILY GT 06/22/19 09:00 07/22/19 08:59 Cefepime HCl 1 gm/ Dextrose 110 ml @ 220 mls/hr Q24H IVPB 06/22/19 21:00 06/29/19 20:59 Dextrose/Sodium Chloride 1,000 ml @ 75 mls/hr [id number] IV 06/22/19 09:00 07/22/19 08:59 06/22/19 09:48 Heparin Sodium (Porcine) (Heparin 5000 units/ml) 5,000 units EVERY 12 HOURS SUBQ 06/22/19 09:00 07/22/19 08:59 06/22/19 09:46 Morphine Sulfate (Morphine Sulfate) 2 mg Q4H PRN IVP Moderate Pain (Pain Scale 4-6) 06/22/19 08:15 06/29/19 08:14 Ondansetron HCl (Zofran) 4 mg Q6H PRN IVP Nausea & Vomiting 06/22/19 08:15 07/22/19 08:14 Phenazopyridine HCl (Pyridium) 100 mg DAILY PRN GT dysuria 06/22/19 08:30 07/22/19 08:14 Polyethylene Glycol (Miralax) 17 gm DAILYPRN PRN GT Constipation 06/22/19 08:30 07/22/19 08:14 Temazepam (Restoril) 15 mg HSPRN PRN GT Insomnia 06/22/19 08:45 06/29/19 08:14 Vancomycin HCl 750 mg/Sodium Chloride 275 ml @ 183.333 mls/hr Q24H IVPB 06/23/19 10:00 06/28/19 09:59 Vancomycin HCl 1 gm/Dextrose 275 ml @ 183.3 mls/ hr ONCE ONCE IVPB 06/22/19 10:00 06/22/19 11:30 06/22/19 09:48 Zinc Sulfate (Zinc Sulfate) 220 mg BID GT 06/22/19 09:00 07/22/19 08:59 06/22/19 09:40 Assessment/Plan Problem List: (1) Sepsis ICD Codes: A41.9 - Sepsis, unspecified organism SNOMED: 51931961 Qualifiers: Qualified Codes: A41.9 - Sepsis, unspecified organism (2) Decubitus ulcer of sacral region, stage 4 ICD Codes: L89.154 - Pressure ulcer of sacral region, stage 4 SNOMED: 721078108, 314137724 (3) Hemiparesis ICD Codes: G81.90 - Hemiplegia, unspecified affecting unspecified side SNOMED: 68517508 (4) Severe protein-calorie malnutrition ICD Codes: E43 - Unspecified severe protein-calorie malnutrition SNOMED: 093009435, 726758381, 095092608 (5) Advanced dementia ICD Codes: F03.90 - Unspecified dementia without behavioral disturbance SNOMED: 57469857 (6) History of CVA with residual deficit ICD Codes: I69.30 - Unspecified sequelae of cerebral infarction SNOMED: 296218162 (7) History of hypertension ICD Codes: Z86.79 - Personal history of other diseases of the circulatory system SNOMED: 735055293 (8) Feeding by G-tube ICD Codes: Z93.1 - Gastrostomy status SNOMED: 165949533, 810966027, 792075623 Assessment/Plan: kevin culture broad spectrum IV abx check electrolytes f/u on Lactic acid level gutbe feeding dvt prophylaxis symptomatic treatment Adilene Nash MD Jun 22, 2019 10:15
--- NOTE | 2019-06-22 10:30 | NUR ---
NURSE NOTES: Villagomez catheter with pink urine, dr. Nash aware.
[2019-06-22 12:00] VITALS: BP 109/66
[2019-06-22] MEDS ORDERED: Amikacin 750 MG in NS 110 ML IV SCH (12:00)
--- NOTE | 2019-06-22 12:18 | NUR ---
CASE MANAGEMENT: INITIAL REVIEW 83 YO F ANUJA FROM [facility] CONV CC: FEVER PMHx: CVA. HEMIPLEGIA. SOB. GTUBE. HTN. SI:SEPSIS. UTI. T 103.3 HR 130 RR 20 B/P 111/91 SATS 98% ON RA WBC 11.7 K 5.2 BUN 55 ALP 129 IS: NS BOLUS X1 ACETAMINOPHEN REC X1 CEFEPIME IV X1 LEVAQUIN IV X1 PATIENT ADMITTED TO SDU 06/21/2019 @ 0720 DCP: PATIENT TO BE DISCHARGED TO SNF ONCE MEDICALLY CLEARED. PLAN OF CARE: VENOUS DUPLEX ID CONSULT Addendum: 06/23/19 at 1733 by Selma Botello CM INTERQUAL MET
--- NOTE | 2019-06-22 12:54 | NUR ---
NURSE NOTES:WOUND CARE NOTES:Pt presented on admission with contractures and multiple pressure injuries. Full thickness sacral pressure injury (L)2cm x (W)1.5cm. Base of wound 90% viable ,10% necrotic along borders. Bone is palpable. (+) epibole. Edges are dark with surrounding hyperpigmentation. Small amt non-odorous brown exudate noted.(L)2cm x (W)1.5cm. Partial thickness pressure injury R trochanter. Base of wound is moist/viable. Edges are macerated. Small amt non-odorous serous exudate. (L)1cm x (W)2.5cm. Intact serous blister noted to R ischium (L)1.5cm x (W)1.5cm. Second pressure injury R ischium inferior but in close proximity to blister. Base of wound is moist -viable. Edges are macerated.non-blanchable erythema without induration periwound.(L)3.5cm x (W)3cm. Hyperpigmentation from previous wound L trochanter/L Hip. Partially opened serous blister medial L tibia. Base of wound is moist viable with 50% skin flap. Small amt non-odorous serous exudate noted. DTPI medial R foot. Base of wound is maroon and fluctuant.(L)1.9cm x (W)2.3cm. Full thickness ulcer R hallux. Base of wound is a 100% necrotic. Erythematous Borders and periwound. Mild odor noted.No exudate noted. (L)1.7cm x (W)2cm. Maroon discoloration that is fluctuant at the base with red and indurated margins noted to L achilles/L heel.(L)3cm x (W)1.5cm. Tx.Plan: Cleanse wounds R trochanter and R Ischium with Saline. Apply Therahoney.Apply Moisture Barrier Paste periwound. Cover each wound with Optifoam drsg. Change every 3 days and prn. Cleanse Sacral wound with saline. Apply Therahoney. Apply Moisture Barrier Paste periwound. Cover with Optifoam Drsg. Change every 3 days and prn. Cleanse wound R hallux with Saline.Apply Therahoney. Apply Cavilon Skin Barrier periwound. Cover with ABD pad. Wrap with kerlix Daily and prn. Cleanse wound medial L tibia with Saline. Apply Therahoney. Apply Cavilon periwound. Cover with Optifoam drsg every 3 days and prn..Apply Cavilon Skin Barrier to L achilles/L heel. Cover with Optifoam drsg. Change every 7 Days and prn. Apply Cavilon Skin Barrier to distal/lateral R foot. Cover with Optifoam drsg. Change every 7 days and prn. Reposition at least every 2hours or as tolerated. APM/YO mattress overlay. Off-load heel with pillow. Place pillow between knees.
[2019-06-22 13:11] LABS: APPEARANCE,URINE SLIGHTLY CLOUDY; BILIRUBIN, URINE NEGATIVE (NEGATIVE); GLUCOSE, URINE (UA) NEGATIVE (NEGATIVE); KETONES,URINE 1+ (NEGATIVE); LEUKOCYTE ESTERASE ,URINE 3+ (NEGATIVE); NITRITE,URINE POSITIVE (NEGATIVE); PH,URINE 7 (4.5-8.0); PROTEIN,URINE 4+ (NEGATIVE); UROBILINOGEN,URINE NORMAL MG/DL (0.0-1.0)
[2019-06-22 13:20] LABS: COLOR,URINE RED
--- NOTE | 2019-06-22 15:15 | Consultation ---
History of Present Illness General Date patient seen: Jun 22, 2019 Chief Complaint: Fever Present Illness HPI 83-year-old female with multiple medical comorbidities who is a assisted present resident presented to [facility] emergency department with respiratory insufficiency and fevers for few days. Patient was admitted for a septic work-up care and management. On admission identified to have multiple decubitus ulcers requiring care and management. Patient with severe protein calorie malnutrition ulcer requiring improved care. Surgery called to evaluate and assist with care. Patient seen, patient evaluated, chart reviewed. Allergies: Coded Allergies: No Known Allergies (Unverified , 05/01/19) Medication History Scheduled Ascorbic Acid* (Vitamin C*), 500 MG ORAL DAILY, (Reported) Aspirin* (Aspir 81*), 81 MG ORAL DAILY, (Reported) Benazepril Hcl* (Benazepril Hcl*), 20 MG ORAL DAILY, (Reported) Docusate Sodium* (Docusate Sodium*), 100 MG ORAL TWICE A DAY, (Reported) Multivitamin With Minerals (Multivitamins With Minerals*), 1 TAB ORAL DAILY, ( Reported) Zinc Sulfate (Zinc Sulfate*), 220 MG ORAL DAILY Scheduled PRN Acetaminophen* (Acetaminophen 325MG Tablet*), 650 MG ORAL Q6H PRN for Pain Scale (3-5), (Reported) Patient History Limited by: medical condition History Provided By: Medical Record, PMD Healthcare decision maker Resuscitation status Full Code Advanced Directive on File No Past Medical/Surgical History Past Medical/Surgical History: (1) Feeding by G-tube (2) ATN (acute tubular necrosis) (3) Advanced dementia (4) History of CVA with residual deficit (5) Hemiparesis (6) History of hypertension (7) Decubitus ulcer of sacral region, stage 4 (8) HCAP (healthcare-associated pneumonia) (9) Severe protein-calorie malnutrition (10) Urinary tract infection (11) Sepsis Review of Systems ROS Narrative cannot obtain given medical condition Physical Exam General Appearance: no apparent distress Lines, tubes and drains: peripheral HEENT: mucous membranes moist Neck: normal inspection Respiratory/Chest: decreased breath sounds Cardiovascular/Chest: normal rate Abdomen: soft, no organomegaly, no mass, feeding tube Extremities: slow capillary refill, other Skin Exam: warm/dry Last 24 Hour Vital Signs Date Time Temp Pulse Resp B/P (MAP) Pulse Ox O2 Delivery O2 Flow Rate FiO2 8/26/19 12:00 99.6 88 24 109/66 (80) 97 06/22/19 12:00 Room Air 06/22/19 12:00 96 06/22/19 09:00 104/66 06/22/19 08:00 Room Air 06/22/19 08:00 98 06/22/19 08:00 100.4 100 20 104/66 (79) 96 06/22/19 04:00 Room Air 06/22/19 04:00 95 06/22/19 04:00 98.6 96 20 106/64 (78) 97 06/22/19 03:23 95 06/22/19 02:09 107 06/22/19 02:00 99.0 102 20 97/66 (76) 97 06/22/19 01:48 Room Air 06/22/19 01:45 99.1 103 20 111/68 99 Room Air 06/21/19 23:57 99.2 105 23 111/69 100 Room Air 06/21/19 22:29 99.2 112 23 109/59 97 Room Air 06/21/19 21:51 99.1 06/21/19 21:15 103.3 125 30 97/70 98 Room Air 06/21/19 21:15 130 30 Room Air 06/21/19 21:10 103.3 130 20 111/91 (98) 98 Room Air Intake and Output 06/21/19 06/22/19 19:00 07:00 Intake Total 5000 ml Output Total 900 ml Balance 4100 ml Intake IV Total 5000 ml Output Urine Total 900 ml Laboratory Tests Test 06/21/19 21:30 06/21/19 22:25 06/21/19 23:45 06/22/19 00:45 White Blood Count 11.7 K/UL (4.8-10.8) H Red Blood Count 4.34 M/UL (4.20-5.40) Hemoglobin 13.4 G/DL (12.0-16.0) Hematocrit 41.6 % (37.0-47.0) Mean Corpuscular Volume 96 FL (80-99) Mean Corpuscular Hemoglobin 31.0 PG (27.0-31.0) Mean Corpuscular Hemoglobin Concent 32.3 G/DL (32.0-36.0) Red Cell Distribution Width 13.2 % (11.6-14.8) Platelet Count 351 K/UL (150-450) Mean Platelet Volume 5.9 FL (6.5-10.1) L Neutrophils (%) (Auto) % (45.0-75.0) Lymphocytes (%) (Auto) % (20.0-45.0) Monocytes (%) (Auto) % (1.0-10.0) Eosinophils (%) (Auto) % (0.0-3.0) Basophils (%) (Auto) % (0.0-2.0) Differential Total Cells Counted 100 Neutrophils % (Manual) 83 % (45-75) H Lymphocytes % (Manual) 6 % (20-45) L Monocytes % (Manual) 1 % (1-10) Eosinophils % (Manual) 0 % (0-3) Basophils % (Manual) 0 % (0-2) Band Neutrophils 10 % (0-8) H Platelet Estimate Adequate Platelet Morphology Normal Red Blood Cell Morphology Normal Urine Color Yellow Urine Appearance Slightly cloudy Urine pH 9 (4.5-8.0) Urine Specific [place] 1.010 (1.005-1.035) Urine Protein 4+ (NEGATIVE) H Urine Glucose (UA) Negative (NEGATIVE) Urine Ketones Negative (NEGATIVE) Urine Blood Negative (NEGATIVE) Urine Nitrite Positive (NEGATIVE) H Urine Bilirubin Negative (NEGATIVE) Urine Urobilinogen Normal MG/DL (0.0-1.0) Urine Leukocyte Esterase 3+ (NEGATIVE) H Urine RBC 2-4 /HPF (0 - 2) H Urine WBC 5-10 /HPF (0 - 2) H Urine Squamous Epithelial Cells Few /LPF (NONE/OCC) Urine Uric Acid Crystals Few /LPF (NONE) H Urine Triple Phosphate Crystals Few /LPF (NONE) H Urine Amorphous Sediment Few /LPF (NONE) H Urine Bacteria Many /HPF (NONE) H Sodium Level 140 MMOL/L (136-145) Potassium Level 5.2 MMOL/L (3.5-5.1) H Chloride Level 101 MMOL/L (98-107) Carbon Dioxide Level 27 MMOL/L (21-32) Anion Gap 13 mmol/L (5-15) Blood Urea Nitrogen 55 mg/dL (7-18) H Creatinine 1.2 MG/DL (0.55-1.30) Estimat Glomerular Filtration Rate mL/min (>60) Glucose Level 100 MG/DL (74-106) Lactic Acid Level 5.80 mmol/L (0.4-2.0) H 4.80 mmol/L (0.66-2.22) H 4.90 mmol/L (0.4-2.0) H 5.40 mmol/L (0.66-2.22) H Calcium Level 10.0 MG/DL (8.5-10.1) Total Bilirubin 0.6 MG/DL (0.2-1.0) Aspartate Amino Transf (AST/SGOT) 34 U/L (15-37) Alanine Aminotransferase (ALT/SGPT) 46 U/L (12-78) Alkaline Phosphatase 129 U/L (46-116) H Total Creatine Kinase 137 U/L (26-308) Creatine Kinase MB 1.5 NG/ML (0.0-3.6) Creatine Kinase MB Relative Index 1.0 Troponin I 0.038 ng/mL (0.000-0.056) Total Protein 7.4 G/DL (6.4-8.2) Albumin 3.3 G/DL (3.4-5.0) L Globulin 4.1 g/dL Albumin/Globulin Ratio 0.8 (1.0-2.7) L Test 06/22/19 09:15 06/22/19 12:00 White Blood Count 23.6 K/UL (4.8-10.8) #*H Red Blood Count 2.99 M/UL (4.20-5.40) L Hemoglobin 9.4 G/DL (12.0-16.0) L Hematocrit 28.7 % (37.0-47.0) #L Mean Corpuscular Volume 96 FL (80-99) Mean Corpuscular Hemoglobin 31.4 PG (27.0-31.0) H Mean Corpuscular Hemoglobin Concent 32.7 G/DL (32.0-36.0) Red Cell Distribution Width 13.4 % (11.6-14.8) Platelet Count 230 K/UL (150-450) Mean Platelet Volume 6.8 FL (6.5-10.1) Neutrophils (%) (Auto) % (45.0-75.0) Lymphocytes (%) (Auto) % (20.0-45.0) Monocytes (%) (Auto) % (1.0-10.0) Eosinophils (%) (Auto) % (0.0-3.0) Basophils (%) (Auto) % (0.0-2.0) Differential Total Cells Counted 100 Neutrophils % (Manual) 80 % (45-75) H Lymphocytes % (Manual) 9 % (20-45) L Monocytes % (Manual) 3 % (1-10) Eosinophils % (Manual) 0 % (0-3) Basophils % (Manual) 0 % (0-2) Band Neutrophils 8 % (0-8) Platelet Estimate Adequate Platelet Morphology Normal Hypochromasia 1+ Sodium Level 144 MMOL/L (136-145) Potassium Level 4.3 MMOL/L (3.5-5.1) Chloride Level 113 MMOL/L (98-107) H Carbon Dioxide Level 24 MMOL/L (21-32) Anion Gap 7 mmol/L (5-15) Blood Urea Nitrogen 41 mg/dL (7-18) H Creatinine 0.7 MG/DL (0.55-1.30) Estimat Glomerular Filtration Rate mL/min (>60) Glucose Level 89 MG/DL (74-106) Lactic Acid Level 1.70 mmol/L (0.4-2.0) Calcium Level 8.2 MG/DL (8.5-10.1) L Phosphorus Level 3.6 MG/DL (2.5-4.9) Magnesium Level 1.9 MG/DL (1.8-2.4) Total Bilirubin 0.4 MG/DL (0.2-1.0) Aspartate Amino Transf (AST/SGOT) 36 U/L (15-37) Alanine Aminotransferase (ALT/SGPT) 33 U/L (12-78) Alkaline Phosphatase 60 U/L (46-116) Total Protein 5.0 G/DL (6.4-8.2) #L Albumin 2.1 G/DL (3.4-5.0) L Globulin 2.9 g/dL Albumin/Globulin Ratio 0.7 (1.0-2.7) L Urine Color Red Urine Appearance Slightly cloudy Urine pH 7 (4.5-8.0) Urine Specific [place] 1.010 (1.005-1.035) Urine Protein 4+ (NEGATIVE) H Urine Glucose (UA) Negative (NEGATIVE) Urine Ketones 1+ (NEGATIVE) H Urine Blood 5+ (NEGATIVE) H Urine Nitrite Positive (NEGATIVE) H Urine Bilirubin Negative (NEGATIVE) Urine Urobilinogen Normal MG/DL (0.0-1.0) Urine Leukocyte Esterase 3+ (NEGATIVE) H Urine RBC Tntc /HPF (0 - 2) H Urine WBC 15-20 /HPF (0 - 2) H Urine Squamous Epithelial Cells Few /LPF (NONE/OCC) Urine Bacteria Moderate /HPF (NONE) H Microbiology Date/Time Source Procedure Growth Status 06/21/19 21:30 Blood Blood Culture - Preliminary Resulted 06/21/19 21:15 Blood Blood Culture - Preliminary Resulted 06/21/19 22:30 Rectum Received Height (Feet): 5 Height (Inches): 2.00 Weight (Pounds): 136 Medications Current Medications Medications (Trade) Dose Ordered Sig/Familia Route PRN Reason Start Time Stop Time Status Last Admin Dose Admin Acetaminophen (Tylenol) 650 mg Q6H PRN GT Mild Pain/Temp > 100.5 06/22/19 08:15 07/22/19 08:14 Albuterol/ Ipratropium (Albuterol/ Ipratropium) 3 ml Q4H PRN HHN Shortness of Breath 06/22/19 08:15 06/27/19 08:14 Amikacin Protocol (Amikacin pharmacy to dose) 1 ea DAILY PRN MISC Per rx protocol 06/22/19 10:00 07/22/19 09:59 Amikacin Sulfate 750 mg/Sodium Chloride 113 ml @ 113 mls/hr Q36H IV 06/22/19 12:00 06/29/19 11:59 06/22/19 12:46 Ascorbic Acid (Vitamin C) 500 mg DAILY GT 06/22/19 09:00 07/22/19 08:59 06/22/19 09:41 Aspirin (ASA) 81 mg DAILY GT 06/22/19 09:00 07/22/19 08:59 06/22/19 09:42 Benazepril HCl (Lotensin) 20 mg DAILY GT 06/22/19 09:00 07/22/19 08:59 Cefepime HCl 1 gm/ Dextrose 110 ml @ 220 mls/hr Q24H IVPB 06/22/19 21:00 06/29/19 20:59 Dextrose/Sodium Chloride 1,000 ml @ 75 mls/hr [id number] IV 06/22/19 09:00 07/22/19 08:59 06/22/19 09:48 Heparin Sodium (Porcine) (Heparin 5000 units/ml) 5,000 units EVERY 12 HOURS SUBQ 06/22/19 09:00 07/22/19 08:59 06/22/19 09:46 Morphine Sulfate (Morphine Sulfate) 2 mg Q4H PRN IVP Moderate Pain (Pain Scale 4-6) 06/22/19 08:15 06/29/19 08:14 Ondansetron HCl (Zofran) 4 mg Q6H PRN IVP Nausea & Vomiting 06/22/19 08:15 07/22/19 08:14 Phenazopyridine HCl (Pyridium) 100 mg DAILY PRN GT dysuria 06/22/19 08:30 07/22/19 08:14 Polyethylene Glycol (Miralax) 17 gm DAILYPRN PRN GT Constipation 06/22/19 08:30 07/22/19 08:14 Temazepam (Restoril) 15 mg HSPRN PRN GT Insomnia 06/22/19 08:45 06/29/19 08:14 Vancomycin HCl 750 mg/Sodium Chloride 275 ml @ 183.333 mls/hr Q24H IVPB 06/23/19 10:00 06/28/19 09:59 Zinc Sulfate (Zinc Sulfate) 220 mg BID GT 06/22/19 09:00 07/22/19 08:59 06/22/19 09:40 Assessment/Plan Problem List: (1) Decubitus ulcer of sacral region, stage 4 Assessment & Plan: Pt presented on admission with contractures and multiple pressure injuries. Full thickness sacral pressure injury (L)2cm x (W)1.5cm. Base of wound 90% viable ,10% necrotic along borders. Bone is palpable. (+) epibole. Edges are dark with surrounding hyperpigmentation. Small amt non-odorous brown exudate noted.(L)2cm x (W)1.5cm. Partial thickness pressure injury R trochanter. Base of wound is moist/viable. Edges are macerated. Small amt non-odorous serous exudate. (L)1cm x (W)2.5cm. Intact serous blister noted to R ischium (L)1.5cm x (W)1.5cm. Second pressure injury R ischium inferior but in close proximity to blister. Base of wound is moist -viable. Edges are macerated.non-blanchable erythema without induration periwound.(L)3.5cm x (W)3cm. Hyperpigmentation from previous wound L trochanter/L Hip. Partially opened serous blister medial L tibia. Base of wound is moist viable with 50% skin flap. Small amt non-odorous serous exudate noted. DTPI medial R foot. Base of wound is maroon and fluctuant.(L)1.9cm x (W)2.3cm. Full thickness ulcer R hallux. Base of wound is a 100% necrotic. Erythematous Borders and periwound. Mild odor noted.No exudate noted. (L)1.7cm x (W)2cm. Maroon discoloration that is fluctuant at the base with red and indurated margins noted to L achilles/L heel.(L)3cm x (W)1.5cm. Tx.Plan: Cleanse wounds R trochanter and R Ischium with Saline. Apply Therahoney.Apply Moisture Barrier Paste periwound. Cover each wound with Optifoam drsg. Change every 3 days and prn. Cleanse Sacral wound with saline. Apply Therahoney. Apply Moisture Barrier Paste periwound. Cover with Optifoam Drsg. Change every 3 days and prn. Cleanse wound R hallux with Saline.Apply Therahoney. Apply Cavilon Skin Barrier periwound. Cover with ABD pad. Wrap with kerlix Daily and prn. Cleanse wound medial L tibia with Saline. Apply Therahoney. Apply Cavilon periwound. Cover with Optifoam drsg every 3 days and prn. Apply [place] Skin Barrier to L achilles/L heel. Cover with Optifoam drsg. Change every 7 Days and prn. Apply [place] Skin Barrier to distal/lateral R foot. Cover with Optifoam drsg. Change every 7 days and prn. Reposition at least every 2hours or as tolerated. APM/YO mattress overlay. Off-load heel with pillow. Place pillow between knees. ICD Codes: L89.154 - Pressure ulcer of sacral region, stage 4 SNOMED: 580917882, 096736704 (2) Sepsis Assessment & Plan: leukocytosis anemia lactic acidosis respiratory insufficiency labs noted micro pending on IV abx resuscitation IV fluids AM labs AM cxr will follow with recs ICD Codes: A41.9 - Sepsis, unspecified organism SNOMED: 16528769 Qualifiers: Qualified Codes: A41.9 - Sepsis, unspecified organism (3) Severe protein-calorie malnutrition ICD Codes: E43 - Unspecified severe protein-calorie malnutrition SNOMED: 082898634, 707584594, 437838336 (4) Feeding by G-tube ICD Codes: Z93.1 - Gastrostomy status SNOMED: 016531138, 383248121, [id number] Carroll Smith Jun 22, 2019 15:15
[2019-06-22 16:00] VITALS: BP 90/57
[2019-06-22] MEDS: D5 1/2NS 1,000 ML IV SCH (17:15)
--- NOTE | 2019-06-22 17:35 | NUR ---
NURSE NOTES: pt transferred to 4E as ordered, condition stable, family aware, report given to ASHLEY BOND.
[2019-06-22] MEDS: Zinc Sulfate 220mg cap GT SCH (18:10)
--- NOTE | 2019-06-22 18:56 | History & Physical ---
History and Physical History & Physicial Dictated for Int Med-Dr Macdonald no. [id number]. Osbaldo Pope MD Jun 22, 2019 18:56
--- NOTE | 2019-06-22 19:07 | Consultation ---
History of Present Illness General Date patient seen: Jun 22, 2019 Chief Complaint: Fever Present Illness HPI 83 y/o F with hx of HTN, CVA/TIA w/ hemiplegia, Gtube feeding, malnutrition, bed bound, multiple decubiti ulcers, care home resident presented to ED on with few days of fevers and respiratory insufficiency. Patient was hypoxic to 89% at [facility] per EMS. Fever up to 103 at [facility]. Allergies: Coded Allergies: No Known Allergies (Unverified , 05/01/19) Medication History Scheduled Ascorbic Acid* (Vitamin C*), 500 MG ORAL DAILY, (Reported) Aspirin* (Aspir 81*), 81 MG ORAL DAILY, (Reported) Benazepril Hcl* (Benazepril Hcl*), 20 MG ORAL DAILY, (Reported) Docusate Sodium* (Docusate Sodium*), 100 MG ORAL TWICE A DAY, (Reported) Multivitamin With Minerals (Multivitamins With Minerals*), 1 TAB ORAL DAILY, ( Reported) Zinc Sulfate (Zinc Sulfate*), 220 MG ORAL DAILY Scheduled PRN Acetaminophen* (Acetaminophen 325MG Tablet*), 650 MG ORAL Q6H PRN for Pain Scale (3-5), (Reported) Patient History Healthcare decision maker Resuscitation status Full Code Advanced Directive on File No Patient History Narrative Pmhx: as above Shx: Denies: smoking Fhx: non contributory Review of Systems All Other Systems: negative except mentioned in HPI Physical Exam Physical Exam Narrative General Appearance: no apparent distress Lines, tubes and drains: peripheral HEENT: mucous membranes moist Neck: normal inspection Respiratory/Chest: decreased breath sounds Cardiovascular/Chest: normal rate Abdomen: soft, no organomegaly, no mass, feeding tube Extremities: slow capillary refill, other Skin Exam: warm/dry Last 24 Hour Vital Signs Date Time Temp Pulse Resp B/P (MAP) Pulse Ox O2 Delivery O2 Flow Rate FiO2 06/22/19 16:47 99.6 06/22/19 16:00 98.2 102 24 90/57 (68) 94 06/22/19 16:00 Room Air 06/22/19 16:00 101 06/22/19 12:00 99.6 88 24 109/66 (80) 97 06/22/19 12:00 Room Air 06/22/19 12:00 96 06/22/19 09:00 104/66 06/22/19 08:00 Room Air 06/22/19 08:00 98 06/22/19 08:00 100.4 100 20 104/66 (79) 96 06/22/19 04:00 Room Air 06/22/19 04:00 95 06/22/19 04:00 98.6 96 20 106/64 (78) 97 06/22/19 03:23 95 06/22/19 02:09 107 06/22/19 02:00 99.0 102 20 97/66 (76) 97 06/22/19 01:48 Room Air 06/22/19 01:45 99.1 103 20 111/68 99 Room Air 06/21/19 23:57 99.2 105 23 111/69 100 Room Air 06/21/19 22:29 99.2 112 23 109/59 97 Room Air 06/21/19 21:51 99.1 06/21/19 21:15 103.3 125 30 97/70 98 Room Air 06/21/19 21:15 130 30 Room Air 06/21/19 21:10 103.3 130 20 111/91 (98) 98 Room Air Intake and Output 06/21/19 06/22/19 18:59 06:59 Intake Total 5000 ml Output Total 900 ml Balance 4100 ml IV Total 5000 ml Output Urine Total 900 ml Laboratory Tests Test 06/21/19 21:30 06/21/19 22:25 06/21/19 23:45 06/22/19 00:45 White Blood Count 11.7 K/UL (4.8-10.8) H Red Blood Count 4.34 M/UL (4.20-5.40) Hemoglobin 13.4 G/DL (12.0-16.0) Hematocrit 41.6 % (37.0-47.0) Mean Corpuscular Volume 96 FL (80-99) Mean Corpuscular Hemoglobin 31.0 PG (27.0-31.0) Mean Corpuscular Hemoglobin Concent 32.3 G/DL (32.0-36.0) Red Cell Distribution Width 13.2 % (11.6-14.8) Platelet Count 351 K/UL (150-450) Mean Platelet Volume 5.9 FL (6.5-10.1) L Neutrophils (%) (Auto) % (45.0-75.0) Lymphocytes (%) (Auto) % (20.0-45.0) Monocytes (%) (Auto) % (1.0-10.0) Eosinophils (%) (Auto) % (0.0-3.0) Basophils (%) (Auto) % (0.0-2.0) Differential Total Cells Counted 100 Neutrophils % (Manual) 83 % (45-75) H Lymphocytes % (Manual) 6 % (20-45) L Monocytes % (Manual) 1 % (1-10) Eosinophils % (Manual) 0 % (0-3) Basophils % (Manual) 0 % (0-2) Band Neutrophils 10 % (0-8) H Platelet Estimate Adequate Platelet Morphology Normal Red Blood Cell Morphology Normal Urine Color Yellow Urine Appearance Slightly cloudy Urine pH 9 (4.5-8.0) Urine Specific [place] 1.010 (1.005-1.035) Urine Protein 4+ (NEGATIVE) H Urine Glucose (UA) Negative (NEGATIVE) Urine Ketones Negative (NEGATIVE) Urine Blood Negative (NEGATIVE) Urine Nitrite Positive (NEGATIVE) H Urine Bilirubin Negative (NEGATIVE) Urine Urobilinogen Normal MG/DL (0.0-1.0) Urine Leukocyte Esterase 3+ (NEGATIVE) H Urine RBC 2-4 /HPF (0 - 2) H Urine WBC 5-10 /HPF (0 - 2) H Urine Squamous Epithelial Cells Few /LPF (NONE/OCC) Urine Uric Acid Crystals Few /LPF (NONE) H Urine Triple Phosphate Crystals Few /LPF (NONE) H Urine Amorphous Sediment Few /LPF (NONE) H Urine Bacteria Many /HPF (NONE) H Sodium Level 140 MMOL/L (136-145) Potassium Level 5.2 MMOL/L (3.5-5.1) H Chloride Level 101 MMOL/L (98-107) Carbon Dioxide Level 27 MMOL/L (21-32) Anion Gap 13 mmol/L (5-15) Blood Urea Nitrogen 55 mg/dL (7-18) H Creatinine 1.2 MG/DL (0.55-1.30) Estimat Glomerular Filtration Rate mL/min (>60) Glucose Level 100 MG/DL (74-106) Lactic Acid Level 5.80 mmol/L (0.4-2.0) H 4.80 mmol/L (0.66-2.22) H 4.90 mmol/L (0.4-2.0) H 5.40 mmol/L (0.66-2.22) H Calcium Level 10.0 MG/DL (8.5-10.1) Total Bilirubin 0.6 MG/DL (0.2-1.0) Aspartate Amino Transf (AST/SGOT) 34 U/L (15-37) Alanine Aminotransferase (ALT/SGPT) 46 U/L (12-78) Alkaline Phosphatase 129 U/L (46-116) H Total Creatine Kinase 137 U/L (26-308) Creatine Kinase MB 1.5 NG/ML (0.0-3.6) Creatine Kinase MB Relative Index 1.0 Troponin I 0.038 ng/mL (0.000-0.056) Total Protein 7.4 G/DL (6.4-8.2) Albumin 3.3 G/DL (3.4-5.0) L Globulin 4.1 g/dL Albumin/Globulin Ratio 0.8 (1.0-2.7) L Test 06/22/19 09:15 06/22/19 12:00 White Blood Count 23.6 K/UL (4.8-10.8) #*H Red Blood Count 2.99 M/UL (4.20-5.40) L Hemoglobin 9.4 G/DL (12.0-16.0) L Hematocrit 28.7 % (37.0-47.0) #L Mean Corpuscular Volume 96 FL (80-99) Mean Corpuscular Hemoglobin 31.4 PG (27.0-31.0) H Mean Corpuscular Hemoglobin Concent 32.7 G/DL (32.0-36.0) Red Cell Distribution Width 13.4 % (11.6-14.8) Platelet Count 230 K/UL (150-450) Mean Platelet Volume 6.8 FL (6.5-10.1) Neutrophils (%) (Auto) % (45.0-75.0) Lymphocytes (%) (Auto) % (20.0-45.0) Monocytes (%) (Auto) % (1.0-10.0) Eosinophils (%) (Auto) % (0.0-3.0) Basophils (%) (Auto) % (0.0-2.0) Differential Total Cells Counted 100 Neutrophils % (Manual) 80 % (45-75) H Lymphocytes % (Manual) 9 % (20-45) L Monocytes % (Manual) 3 % (1-10) Eosinophils % (Manual) 0 % (0-3) Basophils % (Manual) 0 % (0-2) Band Neutrophils 8 % (0-8) Platelet Estimate Adequate Platelet Morphology Normal Hypochromasia 1+ Sodium Level 144 MMOL/L (136-145) Potassium Level 4.3 MMOL/L (3.5-5.1) Chloride Level 113 MMOL/L (98-107) H Carbon Dioxide Level 24 MMOL/L (21-32) Anion Gap 7 mmol/L (5-15) Blood Urea Nitrogen 41 mg/dL (7-18) H Creatinine 0.7 MG/DL (0.55-1.30) Estimat Glomerular Filtration Rate mL/min (>60) Glucose Level 89 MG/DL (74-106) Lactic Acid Level 1.70 mmol/L (0.4-2.0) Calcium Level 8.2 MG/DL (8.5-10.1) L Phosphorus Level 3.6 MG/DL (2.5-4.9) Magnesium Level 1.9 MG/DL (1.8-2.4) Total Bilirubin 0.4 MG/DL (0.2-1.0) Aspartate Amino Transf (AST/SGOT) 36 U/L (15-37) Alanine Aminotransferase (ALT/SGPT) 33 U/L (12-78) Alkaline Phosphatase 60 U/L (46-116) Total Protein 5.0 G/DL (6.4-8.2) #L Albumin 2.1 G/DL (3.4-5.0) L Globulin 2.9 g/dL Albumin/Globulin Ratio 0.7 (1.0-2.7) L Hepatitis B Surface Antibody, Quant Pending Hepatitis C Antibody Pending HIV (1&2) Antibody Rapid Negative (NEGATIVE) Urine Color Red Urine Appearance Slightly cloudy Urine pH 7 (4.5-8.0) Urine Specific [place] 1.010 (1.005-1.035) Urine Protein 4+ (NEGATIVE) H Urine Glucose (UA) Negative (NEGATIVE) Urine Ketones 1+ (NEGATIVE) H Urine Blood 5+ (NEGATIVE) H Urine Nitrite Positive (NEGATIVE) H Urine Bilirubin Negative (NEGATIVE) Urine Urobilinogen Normal MG/DL (0.0-1.0) Urine Leukocyte Esterase 3+ (NEGATIVE) H Urine RBC Tntc /HPF (0 - 2) H Urine WBC 15-20 /HPF (0 - 2) H Urine Squamous Epithelial Cells Few /LPF (NONE/OCC) Urine Bacteria Moderate /HPF (NONE) H Microbiology Date/Time Source Procedure Growth Status 06/21/19 21:30 Blood Blood Culture - Preliminary Resulted 06/21/19 21:15 Blood Blood Culture - Preliminary Resulted 06/21/19 22:30 Rectum Received Height (Feet): 5 Height (Inches): 2.00 Weight (Pounds): 136 Medications Current Medications Medications (Trade) Dose Ordered Sig/Familia Route PRN Reason Start Time Stop Time Status Last Admin Dose Admin Acetaminophen (Tylenol) 650 mg Q6H PRN GT Mild Pain/Temp > 100.5 06/22/19 17:15 07/22/19 17:14 Albuterol/ Ipratropium (Albuterol/ Ipratropium) 3 ml Q4H PRN HHN Shortness of Breath 06/22/19 17:15 06/27/19 17:14 Amikacin Protocol (Amikacin pharmacy to dose) 1 ea DAILY PRN MISC Per rx protocol 06/22/19 17:15 07/22/19 17:14 Amikacin Sulfate 750 mg/Sodium Chloride 113 ml @ 113 mls/hr Q36H IV 06/24/19 00:00 07/01/19 00:00 Ascorbic Acid (Vitamin C) 500 mg DAILY GT 06/23/19 09:00 07/23/19 08:59 Aspirin (ASA) 81 mg DAILY GT 06/23/19 09:00 07/23/19 08:59 Benazepril HCl (Lotensin) 20 mg DAILY GT 06/23/19 09:00 07/23/19 08:59 Cefepime HCl 1 gm/ Dextrose 110 ml @ 220 mls/hr Q24H IVPB 06/22/19 21:00 06/29/19 20:59 Dextrose/Sodium Chloride 1,000 ml @ 75 mls/hr [id number] IV 06/22/19 17:15 07/22/19 08:59 Heparin Sodium (Porcine) (Heparin 5000 units/ml) 5,000 units EVERY 12 HOURS SUBQ 06/22/19 21:00 07/22/19 20:59 Morphine Sulfate (Morphine Sulfate) 2 mg Q4H PRN IVP Moderate Pain (Pain Scale 4-6) 06/22/19 17:15 06/29/19 17:14 Ondansetron HCl (Zofran) 4 mg Q6H PRN IVP Nausea & Vomiting 06/22/19 17:15 07/22/19 17:14 Phenazopyridine HCl (Pyridium) 100 mg DAILYPRN PRN GT dysuria 06/23/19 17:15 07/22/19 17:14 Polyethylene Glycol (Miralax) 17 gm DAILYPRN PRN GT Constipation 06/23/19 17:15 07/22/19 17:14 Temazepam (Restoril) 15 mg HSPRN PRN GT Insomnia 06/22/19 21:00 06/29/19 20:59 Vancomycin HCl 750 mg/Sodium Chloride 275 ml @ 183.333 mls/hr Q24H IVPB 06/23/19 10:00 06/28/19 09:59 Zinc Sulfate (Zinc Sulfate) 220 mg BID GT 06/22/19 18:00 07/22/19 17:59 06/22/19 18:10 Assessment/Plan Assessment/Plan: Abx: IV Vancomycin 06/22- Amikacin 06/22- Cefepime x1 06/21 Levaquin x1 06/21 Assessment: Sepsis 2ry to UTI and bacteremia- r/o PNA -06/21 2/4 GPC , 2/4 GNR -u/a wbc 10-15, nit +, leuk +3; ucx p -CXR p Fever; improving Leukocytosis; worsened Dyspnea/hypoxia Lactic acidosis, SP ABRAM, improved HTN CVA/TIA w/ hemiplegia Gtube feeding malnutrition bed bound multiple decubiti ulcers care home resident Plan: -Continue empiric IV Vancomycin and AMikacin #2 and add MEropenem pending cultures -f/u cx -Monitor CBC/CMP, temperatures -f/u repeat Bcx x2 -f/u CXR -2d Echo Thank you for this consultation. Will continue to follow along with you. Discussed with Luba Leroy M.D. Jun 22, 2019 19:07
--- NOTE | 2019-06-22 19:59 | NUR ---
HAND-OFF: Report given to Maya BOND.
--- NOTE | 2019-06-22 19:59 | NUR ---
NURSE NOTES: Received report from VARUN Morin. Patient is in bed and sleeping. On room air with no signs of distress or SOB. Catheter intact and draining pinkish urine. Dr Nash aware per AM nurse. Both IVs are intact; Left FA running D5 1/2 NS at 75 ml/hr. G-tube feed running at 30 cc/hr with a goal of 65 ml/hr. Bed locked and in lowest position. Bed alarm on. Call light in reach. Will continue to monitor the patient.
[2019-06-22 20:00] VITALS: BP 90/53
[2019-06-22] MEDS ORDERED: Cefepime HCl 1 GM in D5W 110 ML IVPB SCH ×6 (21:00)
[2019-06-22] MEDS: Heparin 5000 units/ml inj SUBQ SCH (21:00)
[2019-06-22] MEDS: Meropenem 1 GM in NS 55 ML IVPB SCH (21:21)
--- NOTE | 2019-06-22 22:00 | NUR ---
Tube feeding at 30cc at beginning of shift. Increased to 40cc at 2100. Patient tolerating well. No residual. Will continue to monitor.
[2019-06-23] VITALS: BP 83/48
[2019-06-23] MEDS: D5 1/2NS 1,000 ML IV SCH ×2 (01:43→17:22)
[2019-06-23 03:46] VITALS: BP 88/51
--- NOTE | 2019-06-23 04:00 | NUR ---
NURSE NOTES: Increased tube feed rate to 50 cc/hr at 0300. Patient tolerating well with no residual.
[2019-06-23 07:20] LABS: HEMATOCRIT 28.7 % (37.0-47.0); HEMOGLOBIN 9.4 G/DL (12.0-16.0); MEAN CORPUSCULAR VOLUME 96 FL (80-99); PLATELET COUNT 191 K/UL (150-450); RED CELL DISTRIBUTION WIDTH 13.1 % (11.6-14.8); WHITE BLOOD COUNT 15.8 K/UL (4.8-10.8)
[2019-06-23 07:33] LABS: ALANINE AMINOTRANSFERASE 39 U/L (12-78); ALBUMIN 2.1 G/DL (3.4-5.0); ALBUMIN/GLOBULIN RATIO 0.7 (1.0-2.7); ALKALINE PHOSPHATASE 76 U/L (46-116); ANION GAP 11 mmol/L (5-15); ASPARTATE AMINO TRANSFERASE 51 U/L (15-37); BILIRUBIN,TOTAL 0.3 MG/DL (0.2-1.0); BLOOD UREA NITROGEN 29 mg/dL (7-18); CALCIUM 8.3 MG/DL (8.5-10.1); CARBON DIOXIDE 22 MMOL/L (21-32); CHLORIDE 111 MMOL/L (98-107); CREATININE 0.5 MG/DL (0.55-1.30); POTASSIUM 3.3 MMOL/L (3.5-5.1); SODIUM 144 MMOL/L (136-145)
[2019-06-23 08:00] VITALS: BP 108/67
--- NOTE | 2019-06-23 08:06 | NUR ---
HAND-OFF: Report given to VARUN Engle.
--- NOTE | 2019-06-23 08:10 | NUR ---
NURSE NOTES: Patient awake, alert x1, Estonian speaking; on room air, no sing of distress and shortness of breath; no sing of chest pain; bilateral lower and upper extrimities contracted; Villagomez in place drains hematuria; IV LFA 22G D51/2NS running at 75cc; RFA 18 dressing soiled will change it; side rails up x3, breaks engaged, bed at lowest position; will keep monitoring.
[2019-06-23] MEDS: Ascorbic Acid 500mg tab GT SCH (08:44)
[2019-06-23] MEDS: Aspirin Baby 81mg GT SCH (08:44)
[2019-06-23] MEDS: Zinc Sulfate 220mg cap GT SCH ×2 (08:44→17:22)
[2019-06-23] MEDS: Meropenem 1 GM in NS 55 ML IVPB SCH ×2 (08:45→20:13)
[2019-06-23] MEDS: Benazepril 10mg tab GT SCH (08:47)
[2019-06-23] MEDS: Heparin 5000 units/ml inj SUBQ SCH ×2 (08:47→20:07)
[2019-06-23] MEDS ORDERED: Ascorbic Acid 500mg tab GT SCH (09:00)
[2019-06-23] MEDS ORDERED: Aspirin Baby 81mg GT SCH (09:00)
[2019-06-23] MEDS ORDERED: Benazepril 10mg tab GT SCH (09:00)
[2019-06-23] MEDS ORDERED: Vancomycin 750mg/NS 275ml IVPB SCH ×2 (10:00)
[2019-06-23] MEDS: Vancomycin 750 MG in NS 275 ML IVPB SCH (10:00)
--- NOTE | 2019-06-23 10:58 | Cardiology Report ---
APPROVED REPORT EXAM: Two-dimensional and M-mode echocardiogram with Doppler and color Doppler. INDICATION [employer] M-Mode DIMENSIONS IVSd1.3 (0.7-1.1cm)Left Atrium (MM)3.6 (1.6-4.0cm) LVDd3.8 (3.5-5.6cm)Aortic Root3.2 (2.0-3.7cm) PWd1.0 (0.7-1.1cm)Aortic Cusp Exc.1.6 (1.5-2.0cm) LVDs2.3 (2.5-4.0cm) PWs0.9 cm Technically difficult study due to patient's postion. Normal left ventricular chamber size, systolic function and wall motion , however the disal septal endocardium is not fully visualized Left ventricular ejection fraction estimated to be 65-70%. Mild left ventricular hypertrophy. No evidence of pericardial effusion. All other cardiac chamber sizes are within normal limits. Focal aortic valve sclerosis with adequate cusp excursion. Thickened mitral valve leaflets with normal excursion. Mitral annulus and mild aortic root calcification. Pulmonic valve not well visualized. Normal tricuspid valve structure. IVC at normal size without physiologic collapse. A color flow and spectral Doppler study was performed and revealed: Trivial aortic regurgitation. Mild mitral regurgitation. Mitral diastolic velocities suggest mild left ventricular diastolic dysfunction (Grade I ). Mild tricuspid regurgitation. Tricuspid systolic velocities suggests peak right ventricular systolic pressure of 21 mmHg. No pulmonic regurgitation present.
[2019-06-23 12:00] VITALS: BP 120/70
--- NOTE | 2019-06-23 12:14 | Pulmonology Progress Note ---
Assessment/Plan Problems: (1) Sepsis (2) Decubitus ulcer of sacral region, stage 4 (3) Hemiparesis (4) Severe protein-calorie malnutrition (5) Advanced dementia (6) History of CVA with residual deficit (7) History of hypertension (8) Feeding by G-tube Assessment/Plan BC are positive for GNB again wbc lower continue antibiotics monitor BP aspiration precaution Pt needs to be DNR and comfort care, but family insisting on "full code" Subjective ROS Limited/Unobtainable: No Constitutional: Reports: no symptoms HEENT: Repors: no symptoms Respiratory: Reports: no symptoms Allergies: Coded Allergies: No Known Allergies (Unverified , 05/01/19) Objective Last 24 Hour Vital Signs Date Time Temp Pulse Resp B/P (MAP) Pulse Ox O2 Delivery O2 Flow Rate FiO2 06/23/19 12:00 Room Air 06/23/19 08:07 87 18 95 Room Air 06/23/19 08:00 Room Air 06/23/19 08:00 98.5 96 18 108/67 (81) 99 06/23/19 04:00 Room Air 06/23/19 03:46 97.0 76 17 88/51 (63) 98 06/23/19 00:00 Room Air 06/23/19 00:00 97.0 84 17 83/48 (60) 96 06/22/19 20:37 102 22 94 Room Air 06/22/19 20:00 Room Air 06/22/19 20:00 97.0 102 18 90/53 (65) 95 06/22/19 16:47 99.6 06/22/19 16:00 98.2 102 24 90/57 (68) 94 06/22/19 16:00 Room Air 06/22/19 16:00 101 Intake and Output 06/22/19 06/23/19 19:00 07:00 Intake Total 515 ml 995 ml Output Total 650 ml Balance -135 ml 995 ml Intake Free Water 50 ml 100 ml IV Total 375 ml 375 ml Tube Feeding 90 ml 520 ml Output Urine Total 650 ml # Bowel Movements 1 General Appearance: WD/WN HEENT: normocephalic, atraumatic Respiratory/Chest: chest wall non-tender, lungs clear Breasts: no masses Cardiovascular: normal peripheral pulses Abdomen: normal bowel sounds, soft, non tender Genitourinary: normal external genitalia Skin: no rash, no lesions Microbiology Date/Time Source Procedure Growth Status 06/22/19 09:15 Blood Blood Culture - Preliminary Resulted 06/22/19 09:05 Blood Blood Culture - Preliminary Resulted 06/21/19 21:30 Blood Blood Culture - Preliminary Gram Negative Bacillus 1 Resulted 06/21/19 21:15 Blood Blood Culture - Preliminary Gram Negative Bacillus 1 Resulted 06/21/19 22:30 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 Complete 06/22/19 12:00 Urine,Clean Catch Urine Culture - Preliminary Resulted 06/21/19 21:30 Urine,Clean Catch Urine Culture - Preliminary Gram Negative Bacillus 1 Resulted 06/21/19 22:30 Rectum Received Laboratory Tests 06/23/19 00:10: Random Amikacin Level 10.8 06/23/19 05:30: White Blood Count 15.8H, Red Blood Count 3.00L, Hemoglobin 9.4L, Hematocrit 28.7L, Mean Corpuscular Volume 96, Mean Corpuscular Hemoglobin 31.4H, Mean Corpuscular Hemoglobin Concent 32.7, Red Cell Distribution Width 13.1, Platelet Count 191, Mean Platelet Volume 6.9, Neutrophils (%) (Auto) , Lymphocytes (%) ( Auto) , Monocytes (%) (Auto) , Eosinophils (%) (Auto) , Basophils (%) (Auto) , Differential Total Cells Counted 100, Neutrophils % (Manual) 87H, Lymphocytes % (Manual) 7L, Monocytes % (Manual) 4, Eosinophils % (Manual) 2, Basophils % ( Manual) 0, Band Neutrophils 0, Platelet Estimate Adequate, Platelet Morphology Normal, Erythrocyte Sedimentation Rate 57H, Sodium Level 144, Potassium Level 3.3L, Chloride Level 111H, Carbon Dioxide Level 22, Anion Gap 11, Blood Urea Nitrogen 29H, Creatinine 0.5L, Estimat Glomerular Filtration Rate , Glucose Level 121H, Lactic Acid Level 1.60, Calcium Level 8.3L, Phosphorus Level 2.0L, Magnesium Level 1.8, Total Bilirubin 0.3, Aspartate Amino Transf (AST/SGOT) 51H , Alanine Aminotransferase (ALT/SGPT) 39, Alkaline Phosphatase 76, C-Reactive Protein, Quantitative 39.6H, Total Protein 5.2L, Albumin 2.1L, Globulin 3.1, Albumin/Globulin Ratio 0.7L Current Medications Medications (Trade) Dose Ordered Sig/Familia Route PRN Reason Start Time Stop Time Status Last Admin Dose Admin Acetaminophen (Tylenol) 650 mg Q6H PRN GT Mild Pain/Temp > 100.5 06/22/19 17:15 07/22/19 17:14 Albuterol/ Ipratropium (Albuterol/ Ipratropium) 3 ml Q4H PRN HHN Shortness of Breath 06/22/19 17:15 06/27/19 17:14 Amikacin Protocol (Amikacin pharmacy to dose) 1 ea DAILY PRN MISC Per rx protocol 06/22/19 17:15 07/22/19 17:14 Amikacin Sulfate 750 mg/Sodium Chloride 113 ml @ 113 mls/hr Q36H IV 06/24/19 00:00 07/01/19 00:00 Ascorbic Acid (Vitamin C) 500 mg DAILY GT 06/23/19 09:00 07/23/19 08:59 06/23/19 08:44 Aspirin (ASA) 81 mg DAILY GT 06/23/19 09:00 07/23/19 08:59 06/23/19 08:44 Benazepril HCl (Lotensin) 20 mg DAILY GT 06/23/19 09:00 07/23/19 08:59 Dextrose/Sodium Chloride 1,000 ml @ 75 mls/hr [id number] IV 06/22/19 17:15 07/22/19 08:59 06/23/19 01:43 Heparin Sodium (Porcine) (Heparin 5000 units/ml) 5,000 units EVERY 12 HOURS SUBQ 06/22/19 21:00 07/22/19 20:59 Meropenem 1 gm/ Sodium Chloride 55 ml @ 110 mls/hr Q12HR IVPB 06/22/19 21:00 06/27/19 20:59 06/23/19 08:45 Morphine Sulfate (Morphine Sulfate) 2 mg Q4H PRN IVP Moderate Pain (Pain Scale 4-6) 06/22/19 17:15 06/29/19 17:14 Ondansetron HCl (Zofran) 4 mg Q6H PRN IVP Nausea & Vomiting 06/22/19 17:15 07/22/19 17:14 Phenazopyridine HCl (Pyridium) 100 mg DAILYPRN PRN GT dysuria 06/23/19 17:15 07/22/19 17:14 Polyethylene Glycol (Miralax) 17 gm DAILYPRN PRN GT Constipation 06/23/19 17:15 07/22/19 17:14 Temazepam (Restoril) 15 mg HSPRN PRN GT Insomnia 06/22/19 21:00 06/29/19 20:59 Vancomycin HCl 750 mg/Sodium Chloride 275 ml @ 183.333 mls/hr Q24H IVPB 06/23/19 10:00 06/28/19 09:59 06/23/19 10:00 Zinc Sulfate (Zinc Sulfate) 220 mg BID GT 06/22/19 18:00 07/22/19 17:59 06/23/19 08:44 Adilene Nash MD Jun 23, 2019 12:14
--- NOTE | 2019-06-23 13:28 | Surgery Progress Note ---
Surgery Progress Note Subjective Additional Comments no acute events comfortable stable pending blood cultures Objective Last 24 Hour Vital Signs Date Time Temp Pulse Resp B/P (MAP) Pulse Ox O2 Delivery O2 Flow Rate FiO2 06/23/19 12:00 Room Air 06/23/19 12:00 98.7 64 7 120/70 (87) 97 06/23/19 08:07 87 18 95 Room Air 06/23/19 08:00 Room Air 06/23/19 08:00 98.5 96 18 108/67 (81) 99 06/23/19 04:00 Room Air 06/23/19 03:46 97.0 76 17 88/51 (63) 98 06/23/19 00:00 Room Air 06/23/19 00:00 97.0 84 17 83/48 (60) 96 06/22/19 20:37 102 22 94 Room Air 06/22/19 20:00 Room Air 06/22/19 20:00 97.0 102 18 90/53 (65) 95 06/22/19 16:47 99.6 06/22/19 16:00 98.2 102 24 90/57 (68) 94 06/22/19 16:00 Room Air 06/22/19 16:00 101 I&O Intake and Output 06/22/19 06/23/19 19:00 07:00 Intake Total 515 ml 995 ml Output Total 650 ml Balance -135 ml 995 ml Intake Free Water 50 ml 100 ml IV Total 375 ml 375 ml Tube Feeding 90 ml 520 ml Output Urine Total 650 ml # Bowel Movements 1 Dressing: other Wound: other Drains: other Cardiovascular: RSR Respiratory: clear Abdomen: soft, non-tender, present bowel sounds, non-distended Extremities: no cyanosis Laboratory Tests Test 06/23/19 00:10 06/23/19 05:30 Random Amikacin Level 10.8 ug/mL White Blood Count 15.8 K/UL (4.8-10.8) H Red Blood Count 3.00 M/UL (4.20-5.40) L Hemoglobin 9.4 G/DL (12.0-16.0) L Hematocrit 28.7 % (37.0-47.0) L Mean Corpuscular Volume 96 FL (80-99) Mean Corpuscular Hemoglobin 31.4 PG (27.0-31.0) H Mean Corpuscular Hemoglobin Concent 32.7 G/DL (32.0-36.0) Red Cell Distribution Width 13.1 % (11.6-14.8) Platelet Count 191 K/UL (150-450) Mean Platelet Volume 6.9 FL (6.5-10.1) Neutrophils (%) (Auto) % (45.0-75.0) Lymphocytes (%) (Auto) % (20.0-45.0) Monocytes (%) (Auto) % (1.0-10.0) Eosinophils (%) (Auto) % (0.0-3.0) Basophils (%) (Auto) % (0.0-2.0) Differential Total Cells Counted 100 Neutrophils % (Manual) 87 % (45-75) H Lymphocytes % (Manual) 7 % (20-45) L Monocytes % (Manual) 4 % (1-10) Eosinophils % (Manual) 2 % (0-3) Basophils % (Manual) 0 % (0-2) Band Neutrophils 0 % (0-8) Platelet Estimate Adequate Platelet Morphology Normal Erythrocyte Sedimentation Rate 57 MM/HR (0-30) H Sodium Level 144 MMOL/L (136-145) Potassium Level 3.3 MMOL/L (3.5-5.1) L Chloride Level 111 MMOL/L (98-107) H Carbon Dioxide Level 22 MMOL/L (21-32) Anion Gap 11 mmol/L (5-15) Blood Urea Nitrogen 29 mg/dL (7-18) H Creatinine 0.5 MG/DL (0.55-1.30) L Estimat Glomerular Filtration Rate mL/min (>60) Glucose Level 121 MG/DL (74-106) H Lactic Acid Level 1.60 mmol/L (0.4-2.0) Calcium Level 8.3 MG/DL (8.5-10.1) L Phosphorus Level 2.0 MG/DL (2.5-4.9) L Magnesium Level 1.8 MG/DL (1.8-2.4) Total Bilirubin 0.3 MG/DL (0.2-1.0) Aspartate Amino Transf (AST/SGOT) 51 U/L (15-37) H Alanine Aminotransferase (ALT/SGPT) 39 U/L (12-78) Alkaline Phosphatase 76 U/L (46-116) C-Reactive Protein, Quantitative 39.6 mg/dL (0.00-0.90) H Total Protein 5.2 G/DL (6.4-8.2) L Albumin 2.1 G/DL (3.4-5.0) L Globulin 3.1 g/dL Albumin/Globulin Ratio 0.7 (1.0-2.7) L Plan Problems: (1) Decubitus ulcer of sacral region, stage 4 Assessment & Plan: Pt presented on admission with contractures and multiple pressure injuries. Full thickness sacral pressure injury (L)2cm x (W)1.5cm. Base of wound 90% viable ,10% necrotic along borders. Bone is palpable. (+) epibole. Edges are dark with surrounding hyperpigmentation. Small amt non-odorous brown exudate noted.(L)2cm x (W)1.5cm. Partial thickness pressure injury R trochanter. Base of wound is moist/viable. Edges are macerated. Small amt non-odorous serous exudate. (L)1cm x (W)2.5cm. Intact serous blister noted to R ischium (L)1.5cm x (W)1.5cm. Second pressure injury R ischium inferior but in close proximity to blister. Base of wound is moist -viable. Edges are macerated.non-blanchable erythema without induration periwound.(L)3.5cm x (W)3cm. Hyperpigmentation from previous wound L trochanter/L Hip. Partially opened serous blister medial L tibia. Base of wound is moist viable with 50% skin flap. Small amt non-odorous serous exudate noted. DTPI medial R foot. Base of wound is maroon and fluctuant.(L)1.9cm x (W)2.3cm. Full thickness ulcer R hallux. Base of wound is a 100% necrotic. Erythematous Borders and periwound. Mild odor noted.No exudate noted. (L)1.7cm x (W)2cm. Maroon discoloration that is fluctuant at the base with red and indurated margins noted to L achilles/L heel.(L)3cm x (W)1.5cm. Tx.Plan: Cleanse wounds R trochanter and R Ischium with Saline. Apply Therahoney.Apply Moisture Barrier Paste periwound. Cover each wound with Optifoam drsg. Change every 3 days and prn. Cleanse Sacral wound with saline. Apply Therahoney. Apply Moisture Barrier Paste periwound. Cover with Optifoam Drsg. Change every 3 days and prn. Cleanse wound R hallux with Saline.Apply Therahoney. Apply Cavilon Skin Barrier periwound. Cover with ABD pad. Wrap with kerlix Daily and prn. Cleanse wound medial L tibia with Saline. Apply Therahoney. Apply Cavilon periwound. Cover with Optifoam drsg every 3 days and prn. Apply Cavilon Skin Barrier to L achilles/L heel. Cover with Optifoam drsg. Change every 7 Days and prn. Apply Cavilon Skin Barrier to distal/lateral R foot. Cover with Optifoam drsg. Change every 7 days and prn. Reposition at least every 2hours or as tolerated. APM/YO mattress overlay. Off-load heel with pillow. Place pillow between knees. (2) Sepsis Assessment & Plan: leukocytosis anemia lactic acidosis respiratory insufficiency labs noted micro pending on IV abx resuscitation IV fluids AM labs AM cxr will follow with recs (3) Severe protein-calorie malnutrition (4) Feeding by G-tube Carroll Smith Jun 23, 2019 13:28
--- NOTE | 2019-06-23 13:30 | Infectious Diseases Prog Note ---
Assessment/Plan Assessment/Plan Assessment: Sepsis 2ry to UTI and bacteremia- r/o PNA -06/21 4/ GNR; 06/22 BCx / GNR -u/a wbc 10-15, nit +, leuk +3; ucx >100K GNR -CXR p -2d Echo: no vegetations Fever; improving Leukocytosis; worsened, now improving Dyspnea/hypoxia Lactic acidosis, SP ABRAM, SP HTN CVA/TIA w/ hemiplegia Gtube feeding malnutrition bed bound multiple decubiti ulcers fdc resident Plan: -Continue empiric IV Vancomycin and AMikacin #3 and add MEropenem #2 (abx d #3) pending cultures -06/22 SP Cefepime #2 -06/21 SP Levaquin x1 -f/u cx -Monitor CBC/CMP, temperatures -repeat Bcx x2 -f/u CXR; still not uploaded Thank you for this consultation. Will continue to follow along with you. Discussed with RN Subjective Allergies: Coded Allergies: No Known Allergies (Unverified , 05/01/19) Subjective afebrile >24hrs leukocytosis improving remains bacteremic Objective Vital Signs Last 24 Hour Vital Signs Date Time Temp Pulse Resp B/P (MAP) Pulse Ox O2 Delivery O2 Flow Rate FiO2 06/23/19 12:00 Room Air 06/23/19 12:00 98.7 64 7 120/70 (87) 97 06/23/19 08:07 87 18 95 Room Air 06/23/19 08:00 Room Air 06/23/19 08:00 98.5 96 18 108/67 (81) 99 06/23/19 04:00 Room Air 06/23/19 03:46 97.0 76 17 88/51 (63) 98 06/23/19 00:00 Room Air 06/23/19 00:00 97.0 84 17 83/48 (60) 96 06/22/19 20:37 102 22 94 Room Air 06/22/19 20:00 Room Air 06/22/19 20:00 97.0 102 18 90/53 (65) 95 06/22/19 16:47 99.6 06/22/19 16:00 98.2 102 24 90/57 (68) 94 06/22/19 16:00 Room Air 06/22/19 16:00 101 Height (Feet): 5 Height (Inches): 2.00 Weight (Pounds): 136 Objective General Appearance: no apparent distress Lines, tubes and drains: peripheral HEENT: mucous membranes moist Neck: normal inspection Respiratory/Chest: decreased breath sounds Cardiovascular/Chest: normal rate Abdomen: soft, no organomegaly, no mass, feeding tube Extremities: slow capillary refill, other Skin Exam: warm/dry Microbiology Date/Time Source Procedure Growth Status 06/22/19 09:15 Blood Blood Culture - Preliminary Resulted 06/22/19 09:05 Blood Blood Culture - Preliminary Resulted 06/21/19 21:30 Blood Blood Culture - Preliminary Gram Negative Bacillus 1 Resulted 06/21/19 21:15 Blood Blood Culture - Preliminary Gram Negative Bacillus 1 Resulted 06/21/19 22:30 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 Complete 06/22/19 12:00 Urine,Clean Catch Urine Culture - Preliminary Resulted 06/21/19 21:30 Urine,Clean Catch Urine Culture - Preliminary Gram Negative Bacillus 1 Resulted 06/21/19 22:30 Rectum Received Laboratory Tests Test 06/23/19 00:10 06/23/19 05:30 Random Amikacin Level 10.8 ug/mL White Blood Count 15.8 K/UL (4.8-10.8) H Red Blood Count 3.00 M/UL (4.20-5.40) L Hemoglobin 9.4 G/DL (12.0-16.0) L Hematocrit 28.7 % (37.0-47.0) L Mean Corpuscular Volume 96 FL (80-99) Mean Corpuscular Hemoglobin 31.4 PG (27.0-31.0) H Mean Corpuscular Hemoglobin Concent 32.7 G/DL (32.0-36.0) Red Cell Distribution Width 13.1 % (11.6-14.8) Platelet Count 191 K/UL (150-450) Mean Platelet Volume 6.9 FL (6.5-10.1) Neutrophils (%) (Auto) % (45.0-75.0) Lymphocytes (%) (Auto) % (20.0-45.0) Monocytes (%) (Auto) % (1.0-10.0) Eosinophils (%) (Auto) % (0.0-3.0) Basophils (%) (Auto) % (0.0-2.0) Differential Total Cells Counted 100 Neutrophils % (Manual) 87 % (45-75) H Lymphocytes % (Manual) 7 % (20-45) L Monocytes % (Manual) 4 % (1-10) Eosinophils % (Manual) 2 % (0-3) Basophils % (Manual) 0 % (0-2) Band Neutrophils 0 % (0-8) Platelet Estimate Adequate Platelet Morphology Normal Erythrocyte Sedimentation Rate 57 MM/HR (0-30) H Sodium Level 144 MMOL/L (136-145) Potassium Level 3.3 MMOL/L (3.5-5.1) L Chloride Level 111 MMOL/L (98-107) H Carbon Dioxide Level 22 MMOL/L (21-32) Anion Gap 11 mmol/L (5-15) Blood Urea Nitrogen 29 mg/dL (7-18) H Creatinine 0.5 MG/DL (0.55-1.30) L Estimat Glomerular Filtration Rate mL/min (>60) Glucose Level 121 MG/DL (74-106) H Lactic Acid Level 1.60 mmol/L (0.4-2.0) Calcium Level 8.3 MG/DL (8.5-10.1) L Phosphorus Level 2.0 MG/DL (2.5-4.9) L Magnesium Level 1.8 MG/DL (1.8-2.4) Total Bilirubin 0.3 MG/DL (0.2-1.0) Aspartate Amino Transf (AST/SGOT) 51 U/L (15-37) H Alanine Aminotransferase (ALT/SGPT) 39 U/L (12-78) Alkaline Phosphatase 76 U/L (46-116) C-Reactive Protein, Quantitative 39.6 mg/dL (0.00-0.90) H Total Protein 5.2 G/DL (6.4-8.2) L Albumin 2.1 G/DL (3.4-5.0) L Globulin 3.1 g/dL Albumin/Globulin Ratio 0.7 (1.0-2.7) L Current Medications Medications (Trade) Dose Ordered Sig/Familia Route PRN Reason Start Time Stop Time Status Last Admin Dose Admin Acetaminophen (Tylenol) 650 mg Q6H PRN GT Mild Pain/Temp > 100.5 06/22/19 17:15 07/22/19 17:14 Albuterol/ Ipratropium (Albuterol/ Ipratropium) 3 ml Q4H PRN HHN Shortness of Breath 06/22/19 17:15 06/27/19 17:14 Amikacin Protocol (Amikacin pharmacy to dose) 1 ea DAILY PRN MISC Per rx protocol 06/22/19 17:15 07/22/19 17:14 Amikacin Sulfate 750 mg/Sodium Chloride 113 ml @ 113 mls/hr Q36H IV 06/24/19 00:00 07/01/19 00:00 Ascorbic Acid (Vitamin C) 500 mg DAILY GT 06/23/19 09:00 07/23/19 08:59 06/23/19 08:44 Aspirin (ASA) 81 mg DAILY GT 06/23/19 09:00 07/23/19 08:59 06/23/19 08:44 Benazepril HCl (Lotensin) 20 mg DAILY GT 06/23/19 09:00 07/23/19 08:59 Dextrose/Sodium Chloride 1,000 ml @ 75 mls/hr [id number] IV 06/22/19 17:15 07/22/19 08:59 06/23/19 01:43 Heparin Sodium (Porcine) (Heparin 5000 units/ml) 5,000 units EVERY 12 HOURS SUBQ 06/22/19 21:00 07/22/19 20:59 Meropenem 1 gm/ Sodium Chloride 55 ml @ 110 mls/hr Q12HR IVPB 06/22/19 21:00 06/27/19 20:59 06/23/19 08:45 Morphine Sulfate (Morphine Sulfate) 2 mg Q4H PRN IVP Moderate Pain (Pain Scale 4-6) 06/22/19 17:15 06/29/19 17:14 Ondansetron HCl (Zofran) 4 mg Q6H PRN IVP Nausea & Vomiting 06/22/19 17:15 07/22/19 17:14 Phenazopyridine HCl (Pyridium) 100 mg DAILYPRN PRN GT dysuria 06/23/19 17:15 07/22/19 17:14 Polyethylene Glycol (Miralax) 17 gm DAILYPRN PRN GT Constipation 06/23/19 17:15 07/22/19 17:14 Temazepam (Restoril) 15 mg HSPRN PRN GT Insomnia 06/22/19 21:00 06/29/19 20:59 Vancomycin HCl 750 mg/Sodium Chloride 275 ml @ 183.333 mls/hr Q24H IVPB 06/23/19 10:00 06/28/19 09:59 06/23/19 10:00 Zinc Sulfate (Zinc Sulfate) 220 mg BID GT 06/22/19 18:00 07/22/19 17:59 06/23/19 08:44 Luba Freeman M.D. Jun 23, 2019 13:30
--- NOTE | 2019-06-23 13:37 | Diagnostic Imaging Report ---
Indication: Dyspnea Comparison: 05/01/2019 A single view chest radiograph was obtained. Findings: Cardiomediastinal appearance is within normal limits for age. The lungs are clear. Pulmonary vascularity is appropriate. The diaphragmatic contour is smooth and costophrenic angles are sharp. No pleural effusions are identified. The bones are unremarkable. Impression: No acute findings
--- NOTE | 2019-06-23 14:05 | NUR ---
RD ASSESSMENT & RECOMMENDATIONS SEE CARE ACTIVITY FOR COMPLETE ASSESSMENT DAILY ESTIMATED NEEDS: Needs based on Wound, underweight, sepsis/ 41kg 35-40 kcals/kg 6147-9190 total kcals 1.5-2.0 g protein/kg 62-82 g total protein 25-30 mL/kg 0937-0246 total fluid mLs NUTRITION DIAGNOSIS: * Increased kcal/prot intake needs R/T wound healing, underweight status as evidenced by pt admitted w/ multiple wounds including stage 4 sacral wound, BMI of 17.1. * Swallowing difficulty R/T dysphagia, h/o CVA as evidenced by s/p recent PEG placement, on GT feeding. CURRENT TF:Osmolite 1.2 @ 65ml/hr x 24 hrs PO DIET RECOMMENDATIONS: Oral grat as appropriate -> liberalized regular/ texture per [employer] ENTERAL NUTRITION RECOMMENDATIONS: Osmolite 1.2 @ 55ml/hr x 24 hrs to provide 1320ml, 1584kcal, 73g prog, 1082ml freew ater - Decrease goal rate to 55ml/hr x 24 hrs- meets 100% est kcal/prot needs (Provides 38kcal/1.8g prot per kg actual body wt) - Flush per HOB over 30 degrees. ADDITIONAL RECOMMENDATIONS: * CALIBRATED bedscale wt for accurate CBW, weekly wt monitoring -> bed with P200 mattress + Pump * Wound healing: Continue Vit C and ZnSO4. : Add Jeronimo 1pkt BID * [employer] eval for oral grat if appropriate: pt on oral grat of pureed/NTL RNFA * Monitor lytes daily, replete as needed .
[2019-06-23 16:00] VITALS: BP 127/73
--- NOTE | 2019-06-23 16:56 | History and Physical Report ---
DATE OF ADMISSION: 06/21/2019 CHIEF COMPLAINT: The patient is an 83-year-old female, who presents with a chief complaint of fever and shortness of breath. HISTORY OF PRESENT ILLNESS: The patient was admitted to [facility] from 05/01/2019 to 05/08/2019. The patient was diagnosed with sepsis secondary to urinary tract infection. The patient is a resident of [facility]. According to staff, at [facility], the patient became short of breath yesterday on 06/21/2019. The patient was also noted to have fever. [facility] stated her oxygen saturation was 89% on room air. Much of the history and physical is obtained from the patient's chart. The patient herself is nonverbal. The patient presented to [place] emergency room. The patient is admitted with hypoxemia to rule out pneumonia versus sepsis. REVIEW OF SYSTEMS: Unable to assess secondary to the patient's mental status. PAST MEDICAL HISTORY: Significant for: 1. History of cerebrovascular accident. 2. Result of right hemiplegia. 3. Dysphagia, status post PEG placement. 4. Alzheimer dementia. 5. Hypertension. 6. Stage IV decubitus ulcer. PAST SURGICAL HISTORY: Significant for PEG placement on 05/06/2019. CURRENT MEDICATIONS: 1. Tylenol 650 mg per G-tube q.6 h. p.r.n. 2. Vitamin C 500 mg per G-tube daily. 3. Aspirin 81 mg per G-tube daily. 4. Benazepril 20 mg per G-tube daily. 5. Multivitamin 1 tablet per G-tube daily. 6. Zinc sulfate 220 mg per G-tube daily. ALLERGIES: No known drug allergies. SOCIAL HISTORY: The patient is resident of [facility]. The patient denies tobacco or alcohol use. PHYSICAL EXAMINATION: VITAL SIGNS: Temperature 103.3 degrees Fahrenheit, pulse 130, respiratory rate 20, blood pressure 97/70. GENERALLY: The patient is well-nourished female, who is nonverbal. HEENT: Eyes, pupils are equal and responsive to light and accommodation. Extraocular movements are intact. NECK: Supple without lymphadenopathy. CHEST: Decreased breath sounds at bilateral bases with cracles otherwise without wheezing or rales. CARDIOVASCULAR: Regular rhythm and rate. S1 and S2 are normal without murmurs, rubs, or gallops. ABDOMEN: Soft, nontender, and nondistended. Positive bowel sounds. No evidence of hepatosplenomegaly. Currently, no rebound or guarding noted. EXTREMITIES: Negative for clubbing, cyanosis, or edema. RECTAL/GENITAL: Not performed. NEUROLOGIC: Cranial nerves II through XII are grossly intact without focal deficits. Motor strength is 5/5 bilaterally. Deep tendon reflexes are 2+ plantar. DIAGNOSTIC DATA: Chest x-ray was reported as retrocardiac infiltrate. LABORATORY STUDIES: WBC 11.7, hemoglobin 13.4, hematocrit 41.6, platelets 351,000. Sodium 140, potassium 5.2, chloride 101, CO2 27, BUN 55, creatinine 1.2. Glucose 100. Lactic acid 5.80. Troponin 0.038. Urinalysis showed 4+ protein, positive nitrite, 3+ leukocyte esterase with 5 to 10 wbc's. ASSESSMENT: This is an 83-year-old female. 1. Probable sepsis. 2. Left-sided pneumonia. 3. Acute renal failure. 4. Urinary tract infection. 5. History of cerebrovascular accident. 6. Right hemiplegia. 7. Dysphagia. 8. Alzheimer dementia. 9. Hypertension. 10. Stage IV decubitus ulcer. TREATMENT: 1. Sepsis/urinary tract infection/pneumonia. The patient has been started empirically on intravenous amikacin and vancomycin. An Infectious Disease consultation has been obtained with Dr. Larson. We will follow recommendations of Infectious Disease. Urine, blood, and sputum cultures are pending. 2. History of cerebrovascular accident and resultant right hemiplegia. 3. Dysphagia. The patient is status post PEG placement. 4. Alzheimer dementia. 5. Hypertension. The patient is currently hypotensive. 6. Stage IV decubitus ulcer, present on admission. Osbaldo Pope M.D. DR: BRITNEY JOB#: [id number] CC:
[2019-06-23] MEDS ORDERED: Miralax 17gm pkt GT PRN (17:15)
--- NOTE | 2019-06-23 17:32 | Internal Med Progress Note ---
Subjective Date of Service: Jun 23, 2019 Physician Name Pope,Osbaldo Attending Physician Solo Macdonald MD Current Medications Medications (Trade) Dose Ordered Sig/Familia Route PRN Reason Start Time Stop Time Status Last Admin Dose Admin Acetaminophen (Tylenol) 650 mg Q6H PRN GT Mild Pain/Temp > 100.5 06/22/19 17:15 07/22/19 17:14 Albuterol/ Ipratropium (Albuterol/ Ipratropium) 3 ml Q4H PRN HHN Shortness of Breath 06/22/19 17:15 06/27/19 17:14 Amikacin Protocol (Amikacin pharmacy to dose) 1 ea DAILY PRN MISC Per rx protocol 06/22/19 17:15 07/22/19 17:14 Amikacin Sulfate 750 mg/Sodium Chloride 113 ml @ 113 mls/hr Q36H IV 06/24/19 00:00 07/01/19 00:00 Ascorbic Acid (Vitamin C) 500 mg DAILY GT 06/23/19 09:00 07/23/19 08:59 06/23/19 08:44 Aspirin (ASA) 81 mg DAILY GT 06/23/19 09:00 07/23/19 08:59 06/23/19 08:44 Benazepril HCl (Lotensin) 20 mg DAILY GT 06/23/19 09:00 07/23/19 08:59 Dextrose/Sodium Chloride 1,000 ml @ 75 mls/hr [id number] IV 06/22/19 17:15 07/22/19 08:59 06/23/19 17:22 Heparin Sodium (Porcine) (Heparin 5000 units/ml) 5,000 units EVERY 12 HOURS SUBQ 06/22/19 21:00 07/22/19 20:59 Meropenem 1 gm/ Sodium Chloride 55 ml @ 110 mls/hr Q12HR IVPB 06/22/19 21:00 06/27/19 20:59 06/23/19 08:45 Morphine Sulfate (Morphine Sulfate) 2 mg Q4H PRN IVP Moderate Pain (Pain Scale 4-6) 06/22/19 17:15 06/29/19 17:14 Ondansetron HCl (Zofran) 4 mg Q6H PRN IVP Nausea & Vomiting 06/22/19 17:15 07/22/19 17:14 Phenazopyridine HCl (Pyridium) 100 mg DAILYPRN PRN GT dysuria 06/23/19 17:15 07/22/19 17:14 Polyethylene Glycol (Miralax) 17 gm DAILYPRN PRN GT Constipation 06/23/19 17:15 07/22/19 17:14 Temazepam (Restoril) 15 mg HSPRN PRN GT Insomnia 06/22/19 21:00 06/29/19 20:59 Vancomycin HCl 750 mg/Sodium Chloride 275 ml @ 183.333 mls/hr Q24H IVPB 06/23/19 10:00 06/28/19 09:59 06/23/19 10:00 Zinc Sulfate (Zinc Sulfate) 220 mg BID GT 06/22/19 18:00 07/22/19 17:59 06/23/19 17:22 Allergies: Coded Allergies: No Known Allergies (Unverified , 05/01/19) ROS Limited/Unobtainable: Yes Subjective 83 YO F admitted with fever. Now sepsis and UTI. Cover for Int Med-Dr Macdonald Objective Last Vital Signs Date Time Temp Pulse Resp B/P (MAP) Pulse Ox O2 Delivery O2 Flow Rate FiO2 06/23/19 16:00 98.1 98 17 127/73 (91) 98 06/23/19 16:00 Room Air Laboratory Tests Test 06/23/19 00:10 06/23/19 05:30 Random Amikacin Level 10.8 ug/mL White Blood Count 15.8 K/UL (4.8-10.8) H Red Blood Count 3.00 M/UL (4.20-5.40) L Hemoglobin 9.4 G/DL (12.0-16.0) L Hematocrit 28.7 % (37.0-47.0) L Mean Corpuscular Volume 96 FL (80-99) Mean Corpuscular Hemoglobin 31.4 PG (27.0-31.0) H Mean Corpuscular Hemoglobin Concent 32.7 G/DL (32.0-36.0) Red Cell Distribution Width 13.1 % (11.6-14.8) Platelet Count 191 K/UL (150-450) Mean Platelet Volume 6.9 FL (6.5-10.1) Neutrophils (%) (Auto) % (45.0-75.0) Lymphocytes (%) (Auto) % (20.0-45.0) Monocytes (%) (Auto) % (1.0-10.0) Eosinophils (%) (Auto) % (0.0-3.0) Basophils (%) (Auto) % (0.0-2.0) Differential Total Cells Counted 100 Neutrophils % (Manual) 87 % (45-75) H Lymphocytes % (Manual) 7 % (20-45) L Monocytes % (Manual) 4 % (1-10) Eosinophils % (Manual) 2 % (0-3) Basophils % (Manual) 0 % (0-2) Band Neutrophils 0 % (0-8) Platelet Estimate Adequate Platelet Morphology Normal Erythrocyte Sedimentation Rate 57 MM/HR (0-30) H Sodium Level 144 MMOL/L (136-145) Potassium Level 3.3 MMOL/L (3.5-5.1) L Chloride Level 111 MMOL/L (98-107) H Carbon Dioxide Level 22 MMOL/L (21-32) Anion Gap 11 mmol/L (5-15) Blood Urea Nitrogen 29 mg/dL (7-18) H Creatinine 0.5 MG/DL (0.55-1.30) L Estimat Glomerular Filtration Rate mL/min (>60) Glucose Level 121 MG/DL (74-106) H Lactic Acid Level 1.60 mmol/L (0.4-2.0) Calcium Level 8.3 MG/DL (8.5-10.1) L Phosphorus Level 2.0 MG/DL (2.5-4.9) L Magnesium Level 1.8 MG/DL (1.8-2.4) Total Bilirubin 0.3 MG/DL (0.2-1.0) Aspartate Amino Transf (AST/SGOT) 51 U/L (15-37) H Alanine Aminotransferase (ALT/SGPT) 39 U/L (12-78) Alkaline Phosphatase 76 U/L (46-116) C-Reactive Protein, Quantitative 39.6 mg/dL (0.00-0.90) H Total Protein 5.2 G/DL (6.4-8.2) L Albumin 2.1 G/DL (3.4-5.0) L Globulin 3.1 g/dL Albumin/Globulin Ratio 0.7 (1.0-2.7) L Microbiology Date/Time Source Procedure Growth Status 8/26/19 09:15 Blood Blood Culture - Preliminary Resulted 06/22/19 09:05 Blood Blood Culture - Preliminary Resulted 06/21/19 21:30 Blood Blood Culture - Preliminary Gram Negative Bacillus 1 Resulted 06/21/19 21:15 Blood Blood Culture - Preliminary Gram Negative Bacillus 1 Resulted 06/21/19 22:30 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 Complete 06/22/19 12:00 Urine,Clean Catch Urine Culture - Preliminary Resulted 06/21/19 21:30 Urine,Clean Catch Urine Culture - Preliminary Gram Negative Bacillus 1 Resulted 06/21/19 22:30 Rectum Received Intake and Output 06/22/19 06/23/19 19:00 07:00 Intake Total 515 ml 995 ml Output Total 650 ml Balance -135 ml 995 ml Intake Free Water 50 ml 100 ml IV Total 375 ml 375 ml Tube Feeding 90 ml 520 ml Output Urine Total 650 ml # Bowel Movements 1 Objective PHYSICAL EXAMINATION: GENERALLY: The patient is well-nourished female, who is nonverbal. HEENT: Eyes, pupils are equal and responsive to light and accommodation. Extraocular movements are intact. NECK: Supple without lymphadenopathy. CHEST: Decreased breath sounds at bilateral bases with cracles otherwise without wheezing or rales. CARDIOVASCULAR: Regular rhythm and rate. S1 and S2 are normal without murmurs, rubs, or gallops. ABDOMEN: Soft, nontender, and nondistended. Positive bowel sounds. No evidence of hepatosplenomegaly. Currently, no rebound or guarding noted. EXTREMITIES: Negative for clubbing, cyanosis, or edema. RECTAL/GENITAL: Not performed. NEUROLOGIC: Cranial nerves II through XII are grossly intact without focal deficits. Motor strength is 5/5 bilaterally. Deep tendon reflexes are 2+ plantar. Assessment/Plan Assessment/Plan ASSESSMENT: This is an 83-year-old female. 1. Sepsis=gram neg nabil 2. Left-sided pneumonia. 3. Acute renal failure. 4. Urinary tract infection=gram neg nabil. 5. History of cerebrovascular accident. 6. Right hemiplegia. 7. Dysphagia. 8. Alzheimer dementia. 9. Hypertension. 10. Stage IV decubitus ulcer. TREATMENT: 1. Sepsis/urinary tract infection/pneumonia. ABX= amikacin, meropenem and vancomycin. An Infectious Disease consultation has been obtained with Dr. Freeman. We will follow recommendations of Infectious Disease. Urine, blood, and sputum cultures are pending. Pulmonary = Dr Nash 2. History of cerebrovascular accident and resultant right hemiplegia. 3. Dysphagia. The patient is status post PEG placement. 4. Alzheimer dementia. 5. Hypertension. The patient is currently hypotensive. 6. Stage IV decubitus ulcer, present on admission-surgery=Osbaldo Camacho MD Jun 23, 2019 17:32
--- NOTE | 2019-06-23 19:36 | NUR ---
HAND-OFF: Report given to VARUN Broussard.
--- NOTE | 2019-06-23 19:37 | NUR ---
Received report from VARUN Engle. Patient in bed, awake and alert x1. On room air with no signs of distress or SOB. Both IVs intact with the left FA running D5 1/2 NS @75 cc/hr. G-tube intact and running Osmolite 1.2 @ 50 ml/Hr. Tolerating well with no residual. Increased to 60 ml/hr towards the goal of 65. Villagomez is intact and draining hematuria. Bed locked and in lowest position with bed alarm on. Call light in reach. Will continue to monitor.
[2019-06-23 20:00] VITALS: BP 139/78
--- NOTE | 2019-06-23 20:50 | NUR ---
NURSE NOTES: Patient's temperature noted to be 102.2. Administered PRN Tylenol 650 at 2049. Charge nurse made aware. Will continue to monitor the patient closely.
--- NOTE | 2019-06-23 22:00 | NUR ---
NURSE NOTES: Temperature is now 100.8
[2019-06-24] VITALS: BP 133/72
[2019-06-24] MEDS ORDERED: Amikacin 750 MG in NS 110 ML IV SCH ×4
[2019-06-24 04:00] VITALS: BP 140/83
[2019-06-24 07:02] LABS: BASOPHILS % (AUTO) 0.5 % (0.0-2.0); EOSINOPHILS % (AUTO) 2.9 % (0.0-3.0); HEMATOCRIT 30.3 % (37.0-47.0); HEMOGLOBIN 9.9 G/DL (12.0-16.0); LYMPHOCYTES % (AUTO) 10.7 % (20.0-45.0); MEAN CORPUSCULAR VOLUME 95 FL (80-99); MONOCYTES % (AUTO) 4.1 % (1.0-10.0); NEUTROPHILS % (AUTO) 81.8 % (45.0-75.0); PLATELET COUNT 205 K/UL (150-450); RED BLOOD COUNT 3.19 M/UL (4.20-5.40); RED CELL DISTRIBUTION WIDTH 12.8 % (11.6-14.8); WHITE BLOOD COUNT 11.5 K/UL (4.8-10.8)
[2019-06-24 07:47] LABS: ALANINE AMINOTRANSFERASE 46 U/L (12-78); ALBUMIN 2.1 G/DL (3.4-5.0); ALBUMIN/GLOBULIN RATIO 0.6 (1.0-2.7); ALKALINE PHOSPHATASE 110 U/L (46-116); ANION GAP 9 mmol/L (5-15); ASPARTATE AMINO TRANSFERASE 44 U/L (15-37); BILIRUBIN,TOTAL 0.3 MG/DL (0.2-1.0); BLOOD UREA NITROGEN 13 mg/dL (7-18); CALCIUM 8.1 MG/DL (8.5-10.1); CARBON DIOXIDE 25 MMOL/L (21-32); CHLORIDE 107 MMOL/L (98-107); CREATININE 0.4 MG/DL (0.55-1.30); PHOSPHORUS 1.6 MG/DL (2.5-4.9); SODIUM 141 MMOL/L (136-145)
--- NOTE | 2019-06-24 07:48 | NUR ---
HAND-OFF: Report given to VARUN Cho.
[2019-06-24 08:00] VITALS: BP 142/77
[2019-06-24] MEDS: Meropenem 1 GM in NS 55 ML IVPB SCH ×2 (08:54→20:17)
[2019-06-24] MEDS: Aspirin Baby 81mg GT SCH (08:55)
[2019-06-24] MEDS: Ascorbic Acid 500mg tab GT SCH (08:55)
[2019-06-24] MEDS: Benazepril 10mg tab GT SCH (08:55)
[2019-06-24] MEDS: Zinc Sulfate 220mg cap GT SCH ×2 (08:55→17:49)
[2019-06-24] MEDS: D5 1/2NS 1,000 ML IV SCH ×2 (08:56→23:09)
[2019-06-24] MEDS: Heparin 5000 units/ml inj SUBQ SCH ×2 (09:04→20:40)
--- NOTE | 2019-06-24 09:36 | NUR ---
NURSE NOTES: Received pt from VARUN CAPUTO at 0730. pt is [id number] and nonverbal. pt has g tube in place is running well with no residual. pt has Villgaomez cath in place is running well. pt has intact iv access LFA 22G is running well. K 3, Dr argueta notified and ordered KCL 40meq once via g tube, noted and carried out. all needs attended, bed is locked and is in the lowest position. call light within easy reach. will [id number] to monitor.
[2019-06-24] MEDS: Vancomycin 750 MG in NS 275 ML IVPB SCH (10:19)
[2019-06-24 12:00] VITALS: BP 117/80
--- NOTE | 2019-06-24 12:05 | Internal Med Progress Note ---
Subjective Date of Service: Jun 24, 2019 Physician Name Pope,Osbaldo Attending Physician Solo Macdonald MD Current Medications Medications (Trade) Dose Ordered Sig/Familia Route PRN Reason Start Time Stop Time Status Last Admin Dose Admin Acetaminophen (Tylenol) 650 mg Q6H PRN GT Mild Pain/Temp > 100.5 06/22/19 17:15 07/22/19 17:14 06/23/19 20:49 Albuterol/ Ipratropium (Albuterol/ Ipratropium) 3 ml Q4H PRN HHN Shortness of Breath 06/22/19 17:15 06/27/19 17:14 Amikacin Protocol (Amikacin pharmacy to dose) 1 ea DAILY PRN MISC Per rx protocol 06/22/19 17:15 07/22/19 17:14 Amikacin Sulfate 750 mg/Sodium Chloride 113 ml @ 113 mls/hr Q36H IV 06/24/19 00:00 07/01/19 00:00 06/24/19 00:15 Ascorbic Acid (Vitamin C) 500 mg DAILY GT 06/23/19 09:00 07/23/19 08:59 06/24/19 08:55 Aspirin (ASA) 81 mg DAILY GT 06/23/19 09:00 07/23/19 08:59 06/24/19 08:55 Benazepril HCl (Lotensin) 20 mg DAILY GT 06/23/19 09:00 07/23/19 08:59 06/24/19 08:55 Dextrose/Sodium Chloride 1,000 ml @ 75 mls/hr [id number] IV 06/22/19 17:15 07/22/19 08:59 06/24/19 08:56 Heparin Sodium (Porcine) (Heparin 5000 units/ml) 5,000 units EVERY 12 HOURS SUBQ 06/22/19 21:00 07/22/19 20:59 06/24/19 09:04 Meropenem 1 gm/ Sodium Chloride 55 ml @ 110 mls/hr Q12HR IVPB 06/22/19 21:00 06/27/19 20:59 06/24/19 08:54 Morphine Sulfate (Morphine Sulfate) 2 mg Q4H PRN IVP Moderate Pain (Pain Scale 4-6) 06/22/19 17:15 06/29/19 17:14 Ondansetron HCl (Zofran) 4 mg Q6H PRN IVP Nausea & Vomiting 06/22/19 17:15 07/22/19 17:14 Phenazopyridine HCl (Pyridium) 100 mg DAILYPRN PRN GT dysuria 06/23/19 17:15 07/22/19 17:14 Polyethylene Glycol (Miralax) 17 gm DAILYPRN PRN GT Constipation 06/23/19 17:15 07/22/19 17:14 Temazepam (Restoril) 15 mg HSPRN PRN GT Insomnia 06/22/19 21:00 06/29/19 20:59 Vancomycin HCl 750 mg/Sodium Chloride 275 ml @ 183.333 mls/hr Q24H IVPB 06/23/19 10:00 06/28/19 09:59 06/24/19 10:19 Zinc Sulfate (Zinc Sulfate) 220 mg BID GT 06/22/19 18:00 07/22/19 17:59 06/24/19 08:55 Allergies: Coded Allergies: No Known Allergies (Unverified , 05/01/19) ROS Limited/Unobtainable: Yes Subjective 83 YO F admitted with fever. Now sepsis and UTI. Cover for Int Med-Dr Macdonald Objective Last Vital Signs Date Time Temp Pulse Resp B/P (MAP) Pulse Ox O2 Delivery O2 Flow Rate FiO2 06/24/19 08:55 142/77 06/24/19 08:00 Room Air 06/24/19 08:00 98.6 95 18 97 06/24/19 07:25 21 Laboratory Tests Test 06/24/19 05:58 White Blood Count 11.5 K/UL (4.8-10.8) H Red Blood Count 3.19 M/UL (4.20-5.40) L Hemoglobin 9.9 G/DL (12.0-16.0) L Hematocrit 30.3 % (37.0-47.0) L Mean Corpuscular Volume 95 FL (80-99) Mean Corpuscular Hemoglobin 31.1 PG (27.0-31.0) H Mean Corpuscular Hemoglobin Concent 32.8 G/DL (32.0-36.0) Red Cell Distribution Width 12.8 % (11.6-14.8) Platelet Count 205 K/UL (150-450) Mean Platelet Volume 6.6 FL (6.5-10.1) Neutrophils (%) (Auto) 81.8 % (45.0-75.0) H Lymphocytes (%) (Auto) 10.7 % (20.0-45.0) L Monocytes (%) (Auto) 4.1 % (1.0-10.0) Eosinophils (%) (Auto) 2.9 % (0.0-3.0) Basophils (%) (Auto) 0.5 % (0.0-2.0) Erythrocyte Sedimentation Rate 60 MM/HR (0-30) H Sodium Level 141 MMOL/L (136-145) Potassium Level 3.0 MMOL/L (3.5-5.1) L Chloride Level 107 MMOL/L (98-107) Carbon Dioxide Level 25 MMOL/L (21-32) Anion Gap 9 mmol/L (5-15) Blood Urea Nitrogen 13 mg/dL (7-18) Creatinine 0.4 MG/DL (0.55-1.30) L Estimat Glomerular Filtration Rate mL/min (>60) Glucose Level 140 MG/DL (74-106) H Calcium Level 8.1 MG/DL (8.5-10.1) L Phosphorus Level 1.6 MG/DL (2.5-4.9) L Magnesium Level 1.5 MG/DL (1.8-2.4) L Total Bilirubin 0.3 MG/DL (0.2-1.0) Aspartate Amino Transf (AST/SGOT) 44 U/L (15-37) H Alanine Aminotransferase (ALT/SGPT) 46 U/L (12-78) Alkaline Phosphatase 110 U/L (46-116) C-Reactive Protein, Quantitative 8.7 mg/dL (0.00-0.90) H Total Protein 5.4 G/DL (6.4-8.2) L Albumin 2.1 G/DL (3.4-5.0) L Globulin 3.3 g/dL Albumin/Globulin Ratio 0.6 (1.0-2.7) L Microbiology Date/Time Source Procedure Growth Status 06/22/19 09:15 Blood Blood Culture - Preliminary Gram Negative Bacillus 1 Resulted 06/22/19 09:05 Blood Blood Culture - Preliminary Gram Negative Bacillus 1 Resulted 06/21/19 21:30 Blood Blood Culture - Preliminary Proteus Mirabilis Resulted 06/21/19 21:15 Blood Blood Culture - Preliminary Proteus Mirabilis Resulted 06/21/19 22:30 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 Complete 06/22/19 12:00 Urine,Clean Catch Urine Culture - Preliminary Resulted 06/21/19 21:30 Urine,Clean Catch Urine Culture - Preliminary Proteus Mirabilis Resulted 06/21/19 22:30 Rectum - Final NO CARBAPENEM-RESISTANT ENTEROBACTERI... Complete 06/21/19 22:30 Rectum VRE Culture - Final NO VANCOMYCIN RESISTANT ENTEROCOCCUS ... Complete Intake and Output 06/23/19 06/24/19 19:00 07:00 Intake Total 2126.666 ml 1910 ml Balance 2126.666 ml 1910 ml Intake Free Water 300 ml 270 ml IV Total 1226.666 ml 900 ml Tube Feeding 600 ml 740 ml Objective PHYSICAL EXAMINATION: GENERALLY: The patient is well-nourished female, who is nonverbal. HEENT: Eyes, pupils are equal and responsive to light and accommodation. Extraocular movements are intact. NECK: Supple without lymphadenopathy. CHEST: Decreased breath sounds at bilateral bases with cracles otherwise without wheezing or rales. CARDIOVASCULAR: Regular rhythm and rate. S1 and S2 are normal without murmurs, rubs, or gallops. ABDOMEN: Soft, nontender, and nondistended. Positive bowel sounds. No evidence of hepatosplenomegaly. Currently, no rebound or guarding noted. EXTREMITIES: Negative for clubbing, cyanosis, or edema. RECTAL/GENITAL: Not performed. NEUROLOGIC: Cranial nerves II through XII are grossly intact without focal deficits. Motor strength is 5/5 bilaterally. Deep tendon reflexes are 2+ plantar. Assessment/Plan Assessment/Plan ASSESSMENT: This is an 83-year-old female. 1. Sepsis=Proteus mirabilis 2. Left-sided pneumonia. 3. Acute renal failure. 4. Urinary tract infection=Proteus Mirabilis 5. History of cerebrovascular accident. 6. Right hemiplegia. 7. Dysphagia. 8. Alzheimer dementia. 9. Hypertension. 10. Stage IV decubitus ulcer. TREATMENT: 1. Sepsis/urinary tract infection/pneumonia. ABX= amikacin, meropenem and vancomycin. An Infectious Disease consultation has been obtained with Dr. Freeman. We will follow recommendations of Infectious Disease. Urine, blood, and sputum cultures are pending. Pulmonary = Dr Nash 2. History of cerebrovascular accident and resultant right hemiplegia. 3. Dysphagia. The patient is status post PEG placement. 4. Alzheimer dementia. 5. Hypertension. The patient is currently hypotensive. 6. Stage IV decubitus ulcer, present on admission-surgery=Osbaldo Camacho MD Jun 24, 2019 12:05
[2019-06-24] MEDS: Phospha 250 Neutral tab ORAL SCH ×2 (12:34→17:49)
[2019-06-24] MEDS: Magnesium Oxide 400mg tab ORAL SCH ×2 (12:34→17:49)
--- NOTE | 2019-06-24 12:38 | Pulmonology Progress Note ---
Assessment/Plan Problems: (1) Sepsis (2) Decubitus ulcer of sacral region, stage 4 (3) Hemiparesis (4) Severe protein-calorie malnutrition (5) Advanced dementia (6) History of CVA with residual deficit (7) History of hypertension (8) Feeding by G-tube Assessment/Plan open eyes family members at the bed site BC are positive for GNB again wbc lower continue antibiotics monitor BP aspiration precaution Subjective ROS Limited/Unobtainable: No Constitutional: Reports: no symptoms HEENT: Repors: no symptoms Allergies: Coded Allergies: No Known Allergies (Unverified , 05/01/19) Objective Last 24 Hour Vital Signs Date Time Temp Pulse Resp B/P (MAP) Pulse Ox O2 Delivery O2 Flow Rate FiO2 06/24/19 08:55 142/77 06/24/19 08:00 Room Air 06/24/19 08:00 98.6 95 18 142/77 (98) 97 06/24/19 07:25 95 18 96 Room Air 21 06/24/19 04:00 98.1 93 19 140/83 (102) 96 06/24/19 03:54 Room Air 06/24/19 00:00 99.5 89 19 133/72 (92) 98 06/24/19 00:00 Room Air 06/23/19 21:30 100.8 06/23/19 21:19 100.8 06/23/19 20:00 Room Air 06/23/19 20:00 102.2 101 20 139/78 (98) 97 06/23/19 19:40 91 18 96 Room Air 21 06/23/19 16:00 98.1 98 17 127/73 (91) 98 06/23/19 16:00 Room Air Intake and Output 06/23/19 06/24/19 19:00 07:00 Intake Total 2126.666 ml 1910 ml Balance 2126.666 ml 1910 ml Intake Free Water 300 ml 270 ml IV Total 1226.666 ml 900 ml Tube Feeding 600 ml 740 ml General Appearance: WD/WN HEENT: normocephalic Respiratory/Chest: chest wall non-tender, lungs clear Cardiovascular: normal peripheral pulses, regular rhythm Abdomen: normal bowel sounds, soft, non tender, no scars Extremities: no clubbing Skin: no rash Microbiology Date/Time Source Procedure Growth Status 06/22/19 09:15 Blood Blood Culture - Preliminary Gram Negative Bacillus 1 Resulted 06/22/19 09:05 Blood Blood Culture - Preliminary Gram Negative Bacillus 1 Resulted 06/21/19 21:30 Blood Blood Culture - Preliminary Proteus Mirabilis Resulted 06/21/19 21:15 Blood Blood Culture - Preliminary Proteus Mirabilis Resulted 06/21/19 22:30 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 Complete 06/22/19 12:00 Urine,Clean Catch Urine Culture - Preliminary Resulted 06/21/19 21:30 Urine,Clean Catch Urine Culture - Preliminary Proteus Mirabilis Resulted 06/21/19 22:30 Rectum - Final NO CARBAPENEM-RESISTANT ENTEROBACTERI... Complete 06/21/19 22:30 Rectum VRE Culture - Final NO VANCOMYCIN RESISTANT ENTEROCOCCUS ... Complete Laboratory Tests 06/24/19 05:58: White Blood Count 11.5H, Red Blood Count 3.19L, Hemoglobin 9.9L, Hematocrit 30.3L, Mean Corpuscular Volume 95, Mean Corpuscular Hemoglobin 31.1H, Mean Corpuscular Hemoglobin Concent 32.8, Red Cell Distribution Width 12.8, Platelet Count 205, Mean Platelet Volume 6.6, Neutrophils (%) (Auto) 81.8H, Lymphocytes ( %) (Auto) 10.7L, Monocytes (%) (Auto) 4.1, Eosinophils (%) (Auto) 2.9, Basophils (%) (Auto) 0.5, Erythrocyte Sedimentation Rate 60H, Sodium Level 141, Potassium Level 3.0L, Chloride Level 107, Carbon Dioxide Level 25, Anion Gap 9, Blood Urea Nitrogen 13, Creatinine 0.4L, Estimat Glomerular Filtration Rate , Glucose Level 140H, Calcium Level 8.1L, Phosphorus Level 1.6L, Magnesium Level 1.5L, Total Bilirubin 0.3, Aspartate Amino Transf (AST/SGOT) 44H, Alanine Aminotransferase (ALT/SGPT) 46, Alkaline Phosphatase 110, C-Reactive Protein, Quantitative 8.7H, Total Protein 5.4L, Albumin 2.1L, Globulin 3.3, Albumin/ Globulin Ratio 0.6L Current Medications Medications (Trade) Dose Ordered Sig/Familia Route PRN Reason Start Time Stop Time Status Last Admin Dose Admin Acetaminophen (Tylenol) 650 mg Q6H PRN GT Mild Pain/Temp > 100.5 8/26/19 17:15 07/22/19 17:14 06/23/19 20:49 Albuterol/ Ipratropium (Albuterol/ Ipratropium) 3 ml Q4H PRN HHN Shortness of Breath 06/22/19 17:15 06/27/19 17:14 Amikacin Protocol (Amikacin pharmacy to dose) 1 ea DAILY PRN MISC Per rx protocol 06/22/19 17:15 07/22/19 17:14 Amikacin Sulfate 750 mg/Sodium Chloride 113 ml @ 113 mls/hr Q36H IV 06/24/19 00:00 07/01/19 00:00 06/24/19 00:15 Ascorbic Acid (Vitamin C) 500 mg DAILY GT 06/23/19 09:00 07/23/19 08:59 06/24/19 08:55 Aspirin (ASA) 81 mg DAILY GT 06/23/19 09:00 07/23/19 08:59 06/24/19 08:55 Benazepril HCl (Lotensin) 20 mg DAILY GT 06/23/19 09:00 07/23/19 08:59 06/24/19 08:55 Dextrose/Sodium Chloride 1,000 ml @ 75 mls/hr [id number] IV 06/22/19 17:15 07/22/19 08:59 06/24/19 08:56 Heparin Sodium (Porcine) (Heparin 5000 units/ml) 5,000 units EVERY 12 HOURS SUBQ 06/22/19 21:00 07/22/19 20:59 06/24/19 09:04 Magnesium Oxide (Mag-Ox 400mg) 400 mg THREE TIMES A DAY ORAL 06/24/19 13:00 06/26/19 12:59 06/24/19 12:34 Meropenem 1 gm/ Sodium Chloride 55 ml @ 110 mls/hr Q12HR IVPB 06/22/19 21:00 06/27/19 20:59 06/24/19 08:54 Morphine Sulfate (Morphine Sulfate) 2 mg Q4H PRN IVP Moderate Pain (Pain Scale 4-6) 06/22/19 17:15 06/29/19 17:14 Ondansetron HCl (Zofran) 4 mg Q6H PRN IVP Nausea & Vomiting 06/22/19 17:15 07/22/19 17:14 Phenazopyridine HCl (Pyridium) 100 mg DAILYPRN PRN GT dysuria 06/23/19 17:15 07/22/19 17:14 Phosphorus (Phospha 250 Neutral) 250 mg THREE TIMES A DAY ORAL 06/24/19 13:00 06/26/19 12:59 06/24/19 12:34 Polyethylene Glycol (Miralax) 17 gm DAILYPRN PRN GT Constipation 06/23/19 17:15 07/22/19 17:14 Temazepam (Restoril) 15 mg HSPRN PRN GT Insomnia 06/22/19 21:00 06/29/19 20:59 Vancomycin HCl 750 mg/Sodium Chloride 275 ml @ 183.333 mls/hr Q24H IVPB 06/23/19 10:00 06/28/19 09:59 06/24/19 10:19 Zinc Sulfate (Zinc Sulfate) 220 mg BID GT 06/22/19 18:00 07/22/19 17:59 06/24/19 08:55 Adilene Nash MD Jun 24, 2019 12:38
--- NOTE | 2019-06-24 13:12 | NUR ---
CASE MANAGEMENT: REVIEW 06/24/2019 SI:SEPSIS. UTI. T 97.8 HR 71 RR 16 B/P 117/80 SATS 96% ON RA WBC 11.5 K 3 CR 0.4 GLU 140 CA 8.1 PHOS 1.6 MG 1.5 AST 44 IS: IVF @ 75 mL/HR ASA GT QD LOTENSIN GT QD MEROPENEM IV Q12H VANCO IV Q12H AMIKACIN IV Q36H SDU DCP: PATIENT TO BE DISCHARGED TO [facility] ONCE MEDICALLY CLEARED.
--- NOTE | 2019-06-24 13:46 | Infectious Diseases Prog Note ---
Assessment/Plan Assessment/Plan Assessment: Sepsis 2ry to UTI and bacteremia- -06/21 4/ ESBL P. mirabilis (S Ertapenem, ZOsyn); 06/22 BCx 4/ GNR; 06/23 Bcx p -u/a wbc 10-15, nit +, leuk +3; ucx >100K ESBL P. mirabilis (S Ertapenem, Zosyn) -CXR: No acute findings -2d Echo: no vegetations Fever; improving Leukocytosis; worsened, now improving Dyspnea/hypoxia Lactic acidosis, SP ABRAM, SP HTN CVA/TIA w/ hemiplegia Gtube feeding malnutrition bed bound multiple decubiti ulcers longterm resident Plan: -D/c empiric IV Vancomycin and AMikacin #4 -Contiue MEropenem #01/08 for ESBL UTI and bacteremia -06/22 SP Cefepime #2 -06/21 SP Levaquin x1 -f/u cx -Monitor CBC/CMP, temperatures -repeat Bcx x2 Thank you for this consultation. Will continue to follow along with you. Discussed with RN Subjective Allergies: Coded Allergies: No Known Allergies (Unverified , 05/01/19) Subjective Tm 102.2; afebrile >12hrs leukocytosis improving repeat Bcx p Objective Vital Signs Last 24 Hour Vital Signs Date Time Temp Pulse Resp B/P (MAP) Pulse Ox O2 Delivery O2 Flow Rate FiO2 06/24/19 12:00 97.8 71 16 117/80 (92) 96 06/24/19 12:00 Room Air 06/24/19 08:55 142/77 06/24/19 08:00 Room Air 06/24/19 08:00 98.6 95 18 142/77 (98) 97 06/24/19 07:25 95 18 96 Room Air 21 06/24/19 04:00 98.1 93 19 140/83 (102) 96 06/24/19 03:54 Room Air 06/24/19 00:00 99.5 89 19 133/72 (92) 98 06/24/19 00:00 Room Air 06/23/19 21:30 100.8 06/23/19 21:19 100.8 06/23/19 20:00 Room Air 06/23/19 20:00 102.2 101 20 139/78 (98) 97 06/23/19 19:40 91 18 96 Room Air 21 06/23/19 16:00 98.1 98 17 127/73 (91) 98 06/23/19 16:00 Room Air Height (Feet): 5 Height (Inches): 2.00 Weight (Pounds): 137 Objective General Appearance: no apparent distress Lines, tubes and drains: peripheral HEENT: mucous membranes moist Neck: normal inspection Respiratory/Chest: decreased breath sounds Cardiovascular/Chest: normal rate Abdomen: soft, no organomegaly, no mass, feeding tube Extremities: slow capillary refill, other Skin Exam: warm/dry Microbiology Date/Time Source Procedure Growth Status 06/22/19 09:15 Blood Blood Culture - Preliminary Gram Negative Bacillus 1 Resulted 06/22/19 09:05 Blood Blood Culture - Preliminary Gram Negative Bacillus 1 Resulted 06/21/19 21:30 Blood Blood Culture - Preliminary Proteus Mirabilis Resulted 06/21/19 21:15 Blood Blood Culture - Preliminary Proteus Mirabilis Resulted 06/21/19 22:30 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 Complete 06/22/19 12:00 Urine,Clean Catch Urine Culture - Preliminary Resulted 06/21/19 21:30 Urine,Clean Catch Urine Culture - Preliminary Proteus Mirabilis Resulted 06/21/19 22:30 Rectum - Final NO CARBAPENEM-RESISTANT ENTEROBACTERI... Complete 06/21/19 22:30 Rectum VRE Culture - Final NO VANCOMYCIN RESISTANT ENTEROCOCCUS ... Complete Laboratory Tests Test 06/24/19 05:58 White Blood Count 11.5 K/UL (4.8-10.8) H Red Blood Count 3.19 M/UL (4.20-5.40) L Hemoglobin 9.9 G/DL (12.0-16.0) L Hematocrit 30.3 % (37.0-47.0) L Mean Corpuscular Volume 95 FL (80-99) Mean Corpuscular Hemoglobin 31.1 PG (27.0-31.0) H Mean Corpuscular Hemoglobin Concent 32.8 G/DL (32.0-36.0) Red Cell Distribution Width 12.8 % (11.6-14.8) Platelet Count 205 K/UL (150-450) Mean Platelet Volume 6.6 FL (6.5-10.1) Neutrophils (%) (Auto) 81.8 % (45.0-75.0) H Lymphocytes (%) (Auto) 10.7 % (20.0-45.0) L Monocytes (%) (Auto) 4.1 % (1.0-10.0) Eosinophils (%) (Auto) 2.9 % (0.0-3.0) Basophils (%) (Auto) 0.5 % (0.0-2.0) Erythrocyte Sedimentation Rate 60 MM/HR (0-30) H Sodium Level 141 MMOL/L (136-145) Potassium Level 3.0 MMOL/L (3.5-5.1) L Chloride Level 107 MMOL/L (98-107) Carbon Dioxide Level 25 MMOL/L (21-32) Anion Gap 9 mmol/L (5-15) Blood Urea Nitrogen 13 mg/dL (7-18) Creatinine 0.4 MG/DL (0.55-1.30) L Estimat Glomerular Filtration Rate mL/min (>60) Glucose Level 140 MG/DL (74-106) H Calcium Level 8.1 MG/DL (8.5-10.1) L Phosphorus Level 1.6 MG/DL (2.5-4.9) L Magnesium Level 1.5 MG/DL (1.8-2.4) L Total Bilirubin 0.3 MG/DL (0.2-1.0) Aspartate Amino Transf (AST/SGOT) 44 U/L (15-37) H Alanine Aminotransferase (ALT/SGPT) 46 U/L (12-78) Alkaline Phosphatase 110 U/L (46-116) C-Reactive Protein, Quantitative 8.7 mg/dL (0.00-0.90) H Total Protein 5.4 G/DL (6.4-8.2) L Albumin 2.1 G/DL (3.4-5.0) L Globulin 3.3 g/dL Albumin/Globulin Ratio 0.6 (1.0-2.7) L Current Medications Medications (Trade) Dose Ordered Sig/Familia Route PRN Reason Start Time Stop Time Status Last Admin Dose Admin Acetaminophen (Tylenol) 650 mg Q6H PRN GT Mild Pain/Temp > 100.5 06/22/19 17:15 07/22/19 17:14 06/23/19 20:49 Albuterol/ Ipratropium (Albuterol/ Ipratropium) 3 ml Q4H PRN HHN Shortness of Breath 06/22/19 17:15 06/27/19 17:14 Amikacin Protocol (Amikacin pharmacy to dose) 1 ea DAILY PRN MISC Per rx protocol 06/22/19 17:15 07/22/19 17:14 Amikacin Sulfate 750 mg/Sodium Chloride 113 ml @ 113 mls/hr Q36H IV 06/24/19 00:00 07/01/19 00:00 06/24/19 00:15 Ascorbic Acid (Vitamin C) 500 mg DAILY GT 06/23/19 09:00 07/23/19 08:59 06/24/19 08:55 Aspirin (ASA) 81 mg DAILY GT 06/23/19 09:00 07/23/19 08:59 06/24/19 08:55 Benazepril HCl (Lotensin) 20 mg DAILY GT 06/23/19 09:00 07/23/19 08:59 06/24/19 08:55 Dextrose/Sodium Chloride 1,000 ml @ 75 mls/hr [id number] IV 06/22/19 17:15 07/22/19 08:59 06/24/19 08:56 Heparin Sodium (Porcine) (Heparin 5000 units/ml) 5,000 units EVERY 12 HOURS SUBQ 06/22/19 21:00 07/22/19 20:59 06/24/19 09:04 Magnesium Oxide (Mag-Ox 400mg) 400 mg THREE TIMES A DAY ORAL 06/24/19 13:00 06/26/19 12:59 06/24/19 12:34 Meropenem 1 gm/ Sodium Chloride 55 ml @ 110 mls/hr Q12HR IVPB 06/22/19 21:00 06/27/19 20:59 06/24/19 08:54 Morphine Sulfate (Morphine Sulfate) 2 mg Q4H PRN IVP Moderate Pain (Pain Scale 4-6) 06/22/19 17:15 06/29/19 17:14 Ondansetron HCl (Zofran) 4 mg Q6H PRN IVP Nausea & Vomiting 06/22/19 17:15 07/22/19 17:14 Phenazopyridine HCl (Pyridium) 100 mg DAILYPRN PRN GT dysuria 06/23/19 17:15 07/22/19 17:14 Phosphorus (Phospha 250 Neutral) 250 mg THREE TIMES A DAY ORAL 06/24/19 13:00 06/26/19 12:59 06/24/19 12:34 Polyethylene Glycol (Miralax) 17 gm DAILYPRN PRN GT Constipation 06/23/19 17:15 07/22/19 17:14 Temazepam (Restoril) 15 mg HSPRN PRN GT Insomnia 06/22/19 21:00 06/29/19 20:59 Vancomycin HCl 750 mg/Sodium Chloride 275 ml @ 183.333 mls/hr Q24H IVPB 06/23/19 10:00 06/28/19 09:59 06/24/19 10:19 Zinc Sulfate (Zinc Sulfate) 220 mg BID GT 06/22/19 18:00 07/22/19 17:59 06/24/19 08:55 Luba Freeman M.D. Jun 24, 2019 13:46
--- NOTE | 2019-06-24 15:06 | Surgery Progress Note ---
Surgery Progress Note Subjective Additional Comments no acute events comfortable stable exam unchanged labs noted Objective Last 24 Hour Vital Signs Date Time Temp Pulse Resp B/P (MAP) Pulse Ox O2 Delivery O2 Flow Rate FiO2 06/24/19 12:00 97.8 71 16 117/80 (92) 96 06/24/19 12:00 Room Air 06/24/19 08:55 142/77 06/24/19 08:00 Room Air 06/24/19 08:00 98.6 95 18 142/77 (98) 97 06/24/19 07:25 95 18 96 Room Air 21 06/24/19 04:00 98.1 93 19 140/83 (102) 96 06/24/19 03:54 Room Air 06/24/19 00:00 99.5 89 19 133/72 (92) 98 06/24/19 00:00 Room Air 06/23/19 21:30 100.8 06/23/19 21:19 100.8 06/23/19 20:00 Room Air 06/23/19 20:00 102.2 101 20 139/78 (98) 97 06/23/19 19:40 91 18 96 Room Air 21 06/23/19 16:00 98.1 98 17 127/73 (91) 98 06/23/19 16:00 Room Air I&O Intake and Output 06/23/19 06/24/19 19:00 07:00 Intake Total 2126.666 ml 1910 ml Balance 2126.666 ml 1910 ml Intake Free Water 300 ml 270 ml IV Total 1226.666 ml 900 ml Tube Feeding 600 ml 740 ml Dressing: other Wound: other Drains: other Cardiovascular: RSR Respiratory: clear Abdomen: soft, non-tender, present bowel sounds Extremities: no cyanosis Laboratory Tests Test 06/24/19 05:58 White Blood Count 11.5 K/UL (4.8-10.8) H Red Blood Count 3.19 M/UL (4.20-5.40) L Hemoglobin 9.9 G/DL (12.0-16.0) L Hematocrit 30.3 % (37.0-47.0) L Mean Corpuscular Volume 95 FL (80-99) Mean Corpuscular Hemoglobin 31.1 PG (27.0-31.0) H Mean Corpuscular Hemoglobin Concent 32.8 G/DL (32.0-36.0) Red Cell Distribution Width 12.8 % (11.6-14.8) Platelet Count 205 K/UL (150-450) Mean Platelet Volume 6.6 FL (6.5-10.1) Neutrophils (%) (Auto) 81.8 % (45.0-75.0) H Lymphocytes (%) (Auto) 10.7 % (20.0-45.0) L Monocytes (%) (Auto) 4.1 % (1.0-10.0) Eosinophils (%) (Auto) 2.9 % (0.0-3.0) Basophils (%) (Auto) 0.5 % (0.0-2.0) Erythrocyte Sedimentation Rate 60 MM/HR (0-30) H Sodium Level 141 MMOL/L (136-145) Potassium Level 3.0 MMOL/L (3.5-5.1) L Chloride Level 107 MMOL/L (98-107) Carbon Dioxide Level 25 MMOL/L (21-32) Anion Gap 9 mmol/L (5-15) Blood Urea Nitrogen 13 mg/dL (7-18) Creatinine 0.4 MG/DL (0.55-1.30) L Estimat Glomerular Filtration Rate mL/min (>60) Glucose Level 140 MG/DL (74-106) H Calcium Level 8.1 MG/DL (8.5-10.1) L Phosphorus Level 1.6 MG/DL (2.5-4.9) L Magnesium Level 1.5 MG/DL (1.8-2.4) L Total Bilirubin 0.3 MG/DL (0.2-1.0) Aspartate Amino Transf (AST/SGOT) 44 U/L (15-37) H Alanine Aminotransferase (ALT/SGPT) 46 U/L (12-78) Alkaline Phosphatase 110 U/L (46-116) C-Reactive Protein, Quantitative 8.7 mg/dL (0.00-0.90) H Total Protein 5.4 G/DL (6.4-8.2) L Albumin 2.1 G/DL (3.4-5.0) L Globulin 3.3 g/dL Albumin/Globulin Ratio 0.6 (1.0-2.7) L Plan Problems: (1) Decubitus ulcer of sacral region, stage 4 Assessment & Plan: Pt presented on admission with contractures and multiple pressure injuries. Full thickness sacral pressure injury (L)2cm x (W)1.5cm. Base of wound 90% viable ,10% necrotic along borders. Bone is palpable. (+) epibole. Edges are dark with surrounding hyperpigmentation. Small amt non-odorous brown exudate noted.(L)2cm x (W)1.5cm. Partial thickness pressure injury R trochanter. Base of wound is moist/viable. Edges are macerated. Small amt non-odorous serous exudate. (L)1cm x (W)2.5cm. Intact serous blister noted to R ischium (L)1.5cm x (W)1.5cm. Second pressure injury R ischium inferior but in close proximity to blister. Base of wound is moist -viable. Edges are macerated.non-blanchable erythema without induration periwound.(L)3.5cm x (W)3cm. Hyperpigmentation from previous wound L trochanter/L Hip. Partially opened serous blister medial L tibia. Base of wound is moist viable with 50% skin flap. Small amt non-odorous serous exudate noted. DTPI medial R foot. Base of wound is maroon and fluctuant.(L)1.9cm x (W)2.3cm. Full thickness ulcer R hallux. Base of wound is a 100% necrotic. Erythematous Borders and periwound. Mild odor noted.No exudate noted. (L)1.7cm x (W)2cm. Maroon discoloration that is fluctuant at the base with red and indurated margins noted to L achilles/L heel.(L)3cm x (W)1.5cm. Tx.Plan: Cleanse wounds R trochanter and R Ischium with Saline. Apply Therahoney.Apply Moisture Barrier Paste periwound. Cover each wound with Optifoam drsg. Change every 3 days and prn. Cleanse Sacral wound with saline. Apply Therahoney. Apply Moisture Barrier Paste periwound. Cover with Optifoam Drsg. Change every 3 days and prn. Cleanse wound R hallux with Saline.Apply Therahoney. Apply Cavilon Skin Barrier periwound. Cover with ABD pad. Wrap with kerlix Daily and prn. Cleanse wound medial L tibia with Saline. Apply Therahoney. Apply Cavilon periwound. Cover with Optifoam drsg every 3 days and prn. Apply Cavilon Skin Barrier to L achilles/L heel. Cover with Optifoam drsg. Change every 7 Days and prn. Apply Cavilon Skin Barrier to distal/lateral R foot. Cover with Optifoam drsg. Change every 7 days and prn. Reposition at least every 2hours or as tolerated. APM/YO mattress overlay. Off-load heel with pillow. Place pillow between knees. (2) Sepsis Assessment & Plan: leukocytosis anemia lactic acidosis respiratory insufficiency labs noted micro pending on IV abx resuscitation IV fluids AM labs AM cxr will follow with recs (3) Severe protein-calorie malnutrition (4) Feeding by G-tube Carroll Smith Jun 24, 2019 15:06
[2019-06-24 16:00] VITALS: BP 131/73
--- NOTE | 2019-06-24 19:06 | NUR ---
HAND-OFF: Report given to VARUN ZEE.
--- NOTE | 2019-06-24 19:10 | NUR ---
NURSE NOTES: Received report from VARUN Cho. Patient speaks [place]. Awake and verbally responsive with delayed speech to say 'yes' in [place]. Breathing unlabored without distress, discomfort, or sob. Denies pain at this time. Gtube patent running feeding as ordered. No residual noted. IV intact on left forearm and right forearm. Running ordered fluid on left forearm. Villagomez cath noted intact and patent draining wilfredo urine. Bed placed at the lowest with alarm, brake, and siderails up for safety. Call light placed within reach. Will continue to monitor and provided care as ordered.
[2019-06-24 20:00] VITALS: BP 150/94
[2019-06-24] MEDS ORDERED: Tubing IV Secondary IV ONE (20:38)
[2019-06-24] MEDS ORDERED: D5 1/2NS 1000ml IV ONE (20:38)
[2019-06-25] VITALS: BP 155/90
[2019-06-25 04:00] VITALS: BP 127/83
--- NOTE | 2019-06-25 06:27 | NUR ---
NURSE NOTES: Received call from Sean Bashir from microbiology with new final results from the pending blood cultures. Sean said blood culture final result is positive for ESBL. Confirmed that it is updated result and have not been notified. Called Dr. Freeman to inform the updated final result. Was not able to reach Dr. Freeman at this time and left a message to call back. Will wait for a call back.
[2019-06-25 07:09] LABS: BASOPHILS % (AUTO) 1.6 % (0.0-2.0); EOSINOPHILS % (AUTO) 2.8 % (0.0-3.0); HEMOGLOBIN 9.6 G/DL (12.0-16.0); LYMPHOCYTES % (AUTO) 19.9 % (20.0-45.0); MEAN CORPUSCULAR VOLUME 93 FL (80-99); MONOCYTES % (AUTO) 7.3 % (1.0-10.0); NEUTROPHILS % (AUTO) 68.4 % (45.0-75.0); PLATELET COUNT 227 K/UL (150-450); RED BLOOD COUNT 3.12 M/UL (4.20-5.40); RED CELL DISTRIBUTION WIDTH 13.8 % (11.6-14.8); WHITE BLOOD COUNT 9.6 K/UL (4.8-10.8)
[2019-06-25 07:19] LABS: ALANINE AMINOTRANSFERASE 45 U/L (12-78); ALBUMIN 1.9 G/DL (3.4-5.0); ALBUMIN/GLOBULIN RATIO 0.6 (1.0-2.7); ALKALINE PHOSPHATASE 116 U/L (46-116); ANION GAP 5 mmol/L (5-15); ASPARTATE AMINO TRANSFERASE 34 U/L (15-37); BILIRUBIN,TOTAL 0.2 MG/DL (0.2-1.0); BLOOD UREA NITROGEN 11 mg/dL (7-18); CARBON DIOXIDE 28 MMOL/L (21-32); CHLORIDE 104 MMOL/L (98-107); CREATININE 0.4 MG/DL (0.55-1.30); POTASSIUM 3.2 MMOL/L (3.5-5.1); SODIUM 137 MMOL/L (136-145)
--- NOTE | 2019-06-25 07:37 | NUR ---
HAND-OFF: Report given to VARUN Morin.
--- NOTE | 2019-06-25 07:40 | NUR ---
NURSE NOTES: Patient received in stable condition, sleeping in bed. Breathing unlabored on room air, no signs of respiratory distress or pain observed. G-tube is patent and intact, feeding running well at 65cc/hr. Villagomez catheter patent and intact, draining orange colored urine. Patient repositioned. HOB elevated for aspiration precautions. Bed is locked. Call light placed within reach. Will continue to monitor.
[2019-06-25 08:00] VITALS: BP 125/87
[2019-06-25] MEDS: Magnesium Oxide 400mg tab ORAL SCH ×3 (08:07→16:55)
[2019-06-25] MEDS: Zinc Sulfate 220mg cap GT SCH ×2 (08:07→16:55)
[2019-06-25] MEDS: Ascorbic Acid 500mg tab GT SCH (08:07)
[2019-06-25] MEDS: Phospha 250 Neutral tab ORAL SCH ×3 (08:07→16:55)
[2019-06-25] MEDS: Benazepril 10mg tab GT SCH (08:07)
[2019-06-25] MEDS: Meropenem 1 GM in NS 55 ML IVPB SCH (08:07)
[2019-06-25] MEDS: Aspirin Baby 81mg GT SCH (08:07)
[2019-06-25] MEDS: Heparin 5000 units/ml inj SUBQ SCH ×2 (08:08→22:00)
--- NOTE | 2019-06-25 10:20 | Pulmonology Progress Note ---
Assessment/Plan Problems: (1) Sepsis (2) Decubitus ulcer of sacral region, stage 4 (3) Hemiparesis (4) Severe protein-calorie malnutrition (5) Advanced dementia (6) History of CVA with residual deficit (7) History of hypertension (8) Feeding by G-tube Assessment/Plan open eyes BC are positive for GNB again from 06/23, another set pending wbc lower continue antibiotics monitor BP aspiration precaution Subjective ROS Limited/Unobtainable: No Interval Events: open eyes, looks comfortable Allergies: Coded Allergies: No Known Allergies (Unverified , 05/01/19) Objective Last 24 Hour Vital Signs Date Time Temp Pulse Resp B/P (MAP) Pulse Ox O2 Delivery O2 Flow Rate FiO2 06/25/19 08:07 127/83 06/25/19 08:00 Room Air 06/25/19 04:00 98.6 96 24 127/83 (98) 96 06/25/19 04:00 Room Air 06/25/19 00:00 Room Air 06/25/19 00:00 99.0 105 21 155/90 (111) 95 06/24/19 20:02 85 18 95 Room Air 21 06/24/19 20:00 99.6 99 21 150/94 (112) 96 06/24/19 20:00 Room Air 06/24/19 16:00 Room Air 06/24/19 16:00 97.7 100 16 131/73 (92) 93 06/24/19 12:00 97.8 71 16 117/80 (92) 96 06/24/19 12:00 Room Air Intake and Output 06/24/19 06/25/19 19:00 07:00 Intake Total 2210.000 ml 6570 ml Output Total 1800 ml 1000 ml Balance 410.000 ml 5570 ml Intake Free Water 200 ml 200 ml IV Total 1230.000 ml 5655 ml Tube Feeding 780 ml 715 ml Output Urine Total 1800 ml 1000 ml # Bowel Movements 1 General Appearance: cachetic HEENT: normocephalic, atraumatic Respiratory/Chest: chest wall non-tender, normal breath sounds Cardiovascular: normal peripheral pulses, normal rate Abdomen: normal bowel sounds, soft, non tender Genitourinary: normal external genitalia Extremities: no clubbing Skin: no rash Microbiology Date/Time Source Procedure Growth Status 06/23/19 14:14 Blood Blood Culture - Preliminary NO GROWTH AFTER 24 HOURS Resulted 06/23/19 14:00 Blood Blood Culture - Preliminary NO GROWTH AFTER 24 HOURS Resulted 06/22/19 12:00 Urine,Clean Catch Urine Culture - Final Complete Laboratory Tests 06/25/19 05:52: White Blood Count 9.6, Red Blood Count 3.12L, Hemoglobin 9.6L, Hematocrit 29.0L , Mean Corpuscular Volume 93, Mean Corpuscular Hemoglobin 30.9, Mean Corpuscular Hemoglobin Concent 33.2, Red Cell Distribution Width 13.8, Platelet Count 227, Mean Platelet Volume 6.3L, Neutrophils (%) (Auto) 68.4, Lymphocytes ( %) (Auto) 19.9L, Monocytes (%) (Auto) 7.3, Eosinophils (%) (Auto) 2.8, Basophils (%) (Auto) 1.6, Sodium Level 137, Potassium Level 3.2L, Chloride Level 104, Carbon Dioxide Level 28, Anion Gap 5, Blood Urea Nitrogen 11, Creatinine 0.4L, Estimat Glomerular Filtration Rate , Glucose Level 137H, Calcium Level 8.0L, Total Bilirubin 0.2, Aspartate Amino Transf (AST/SGOT) 34, Alanine Aminotransferase (ALT/SGPT) 45, Alkaline Phosphatase 116, Total Protein 5.1L, Albumin 1.9L, Globulin 3.2, Albumin/Globulin Ratio 0.6L Current Medications Medications (Trade) Dose Ordered Sig/Familia Route PRN Reason Start Time Stop Time Status Last Admin Dose Admin Acetaminophen (Tylenol) 650 mg Q6H PRN GT Mild Pain/Temp > 100.5 06/22/19 17:15 07/22/19 17:14 06/23/19 20:49 Albuterol/ Ipratropium (Albuterol/ Ipratropium) 3 ml Q4H PRN HHN Shortness of Breath 06/22/19 17:15 06/27/19 17:14 Ascorbic Acid (Vitamin C) 500 mg DAILY GT 06/23/19 09:00 07/23/19 08:59 06/25/19 08:07 Aspirin (ASA) 81 mg DAILY GT 06/23/19 09:00 07/23/19 08:59 06/25/19 08:07 Benazepril HCl (Lotensin) 20 mg DAILY GT 06/23/19 09:00 07/23/19 08:59 06/25/19 08:07 Dextrose/Sodium Chloride 1,000 ml @ 75 mls/hr [id number] IV 06/22/19 17:15 07/22/19 08:59 06/24/19 23:09 Heparin Sodium (Porcine) (Heparin 5000 units/ml) 5,000 units EVERY 12 HOURS SUBQ 06/22/19 21:00 07/22/19 20:59 06/25/19 08:08 Magnesium Oxide (Mag-Ox 400mg) 400 mg THREE TIMES A DAY ORAL 06/24/19 13:00 06/26/19 12:59 06/25/19 08:07 Meropenem 1 gm/ Sodium Chloride 55 ml @ 110 mls/hr Q12HR IVPB 06/22/19 21:00 06/27/19 20:59 06/25/19 08:07 Morphine Sulfate (Morphine Sulfate) 2 mg Q4H PRN IVP Moderate Pain (Pain Scale 4-6) 06/22/19 17:15 06/29/19 17:14 Ondansetron HCl (Zofran) 4 mg Q6H PRN IVP Nausea & Vomiting 06/22/19 17:15 07/22/19 17:14 Phenazopyridine HCl (Pyridium) 100 mg DAILYPRN PRN GT dysuria 06/23/19 17:15 07/22/19 17:14 Phosphorus (Phospha 250 Neutral) 250 mg THREE TIMES A DAY ORAL 06/24/19 13:00 06/26/19 12:59 06/25/19 08:07 Polyethylene Glycol (Miralax) 17 gm DAILYPRN PRN GT Constipation 06/23/19 17:15 07/22/19 17:14 Temazepam (Restoril) 15 mg HSPRN PRN GT Insomnia 06/22/19 21:00 06/29/19 20:59 Zinc Sulfate (Zinc Sulfate) 220 mg BID GT 06/22/19 18:00 07/22/19 17:59 06/25/19 08:07 Adilene Nash MD Jun 25, 2019 10:19
[2019-06-25 11:47] VITALS: BP 131/80
[2019-06-25] MEDS: D5 1/2NS 1,000 ML IV SCH (12:04)
--- NOTE | 2019-06-25 12:30 | Surgery Progress Note ---
Surgery Progress Note Subjective Additional Comments afebrile, HD stable leukocytosis resolved exam stable doing well Objective Last 24 Hour Vital Signs Date Time Temp Pulse Resp B/P (MAP) Pulse Ox O2 Delivery O2 Flow Rate FiO2 06/25/19 11:47 97.5 99 17 131/80 (97) 90 06/25/19 08:07 127/83 06/25/19 08:00 Room Air 06/25/19 08:00 98.6 104 19 125/87 (100) 97 06/25/19 04:00 98.6 96 24 127/83 (98) 96 06/25/19 04:00 Room Air 06/25/19 00:00 Room Air 06/25/19 00:00 99.0 105 21 155/90 (111) 95 06/24/19 20:02 85 18 95 Room Air 21 06/24/19 20:00 99.6 99 21 150/94 (112) 96 06/24/19 20:00 Room Air 06/24/19 16:00 Room Air 06/24/19 16:00 97.7 100 16 131/73 (92) 93 I&O Intake and Output 06/24/19 06/25/19 19:00 07:00 Intake Total 2210.000 ml 6570 ml Output Total 1800 ml 1000 ml Balance 410.000 ml 5570 ml Intake Free Water 200 ml 200 ml IV Total 1230.000 ml 5655 ml Tube Feeding 780 ml 715 ml Output Urine Total 1800 ml 1000 ml # Bowel Movements 1 Dressing: saturated Wound: clean Drains: other Cardiovascular: RSR Respiratory: clear, decreased breath sounds Abdomen: soft, non-tender, present bowel sounds, non-distended Extremities: no cyanosis, other Laboratory Tests Test 06/25/19 05:52 White Blood Count 9.6 K/UL (4.8-10.8) Red Blood Count 3.12 M/UL (4.20-5.40) L Hemoglobin 9.6 G/DL (12.0-16.0) L Hematocrit 29.0 % (37.0-47.0) L Mean Corpuscular Volume 93 FL (80-99) Mean Corpuscular Hemoglobin 30.9 PG (27.0-31.0) Mean Corpuscular Hemoglobin Concent 33.2 G/DL (32.0-36.0) Red Cell Distribution Width 13.8 % (11.6-14.8) Platelet Count 227 K/UL (150-450) Mean Platelet Volume 6.3 FL (6.5-10.1) L Neutrophils (%) (Auto) 68.4 % (45.0-75.0) Lymphocytes (%) (Auto) 19.9 % (20.0-45.0) L Monocytes (%) (Auto) 7.3 % (1.0-10.0) Eosinophils (%) (Auto) 2.8 % (0.0-3.0) Basophils (%) (Auto) 1.6 % (0.0-2.0) Sodium Level 137 MMOL/L (136-145) Potassium Level 3.2 MMOL/L (3.5-5.1) L Chloride Level 104 MMOL/L (98-107) Carbon Dioxide Level 28 MMOL/L (21-32) Anion Gap 5 mmol/L (5-15) Blood Urea Nitrogen 11 mg/dL (7-18) Creatinine 0.4 MG/DL (0.55-1.30) L Estimat Glomerular Filtration Rate mL/min (>60) Glucose Level 137 MG/DL (74-106) H Calcium Level 8.0 MG/DL (8.5-10.1) L Total Bilirubin 0.2 MG/DL (0.2-1.0) Aspartate Amino Transf (AST/SGOT) 34 U/L (15-37) Alanine Aminotransferase (ALT/SGPT) 45 U/L (12-78) Alkaline Phosphatase 116 U/L (46-116) Total Protein 5.1 G/DL (6.4-8.2) L Albumin 1.9 G/DL (3.4-5.0) L Globulin 3.2 g/dL Albumin/Globulin Ratio 0.6 (1.0-2.7) L Plan Problems: (1) Decubitus ulcer of sacral region, stage 4 Assessment & Plan: Pt presented on admission with contractures and multiple pressure injuries. Full thickness sacral pressure injury (L)2cm x (W)1.5cm. Base of wound 90% viable ,10% necrotic along borders. Bone is palpable. (+) epibole. Edges are dark with surrounding hyperpigmentation. Small amt non-odorous brown exudate noted.(L)2cm x (W)1.5cm. Partial thickness pressure injury R trochanter. Base of wound is moist/viable. Edges are macerated. Small amt non-odorous serous exudate. (L)1cm x (W)2.5cm. Intact serous blister noted to R ischium (L)1.5cm x (W)1.5cm. Second pressure injury R ischium inferior but in close proximity to blister. Base of wound is moist -viable. Edges are macerated.non-blanchable erythema without induration periwound.(L)3.5cm x (W)3cm. Hyperpigmentation from previous wound L trochanter/L Hip. Partially opened serous blister medial L tibia. Base of wound is moist viable with 50% skin flap. Small amt non-odorous serous exudate noted. DTPI medial R foot. Base of wound is maroon and fluctuant.(L)1.9cm x (W)2.3cm. Full thickness ulcer R hallux. Base of wound is a 100% necrotic. Erythematous Borders and periwound. Mild odor noted.No exudate noted. (L)1.7cm x (W)2cm. Maroon discoloration that is fluctuant at the base with red and indurated margins noted to L achilles/L heel.(L)3cm x (W)1.5cm. Tx.Plan: Cleanse wounds R trochanter and R Ischium with Saline. Apply Therahoney.Apply Moisture Barrier Paste periwound. Cover each wound with Optifoam drsg. Change every 3 days and prn. Cleanse Sacral wound with saline. Apply Therahoney. Apply Moisture Barrier Paste periwound. Cover with Optifoam Drsg. Change every 3 days and prn. Cleanse wound R hallux with Saline.Apply Therahoney. Apply Cavilon Skin Barrier periwound. Cover with ABD pad. Wrap with kerlix Daily and prn. Cleanse wound medial L tibia with Saline. Apply Therahoney. Apply Cavilon periwound. Cover with Optifoam drsg every 3 days and prn. Apply Cavilon Skin Barrier to L achilles/L heel. Cover with Optifoam drsg. Change every 7 Days and prn. Apply Cavilon Skin Barrier to distal/lateral R foot. Cover with Optifoam drsg. Change every 7 days and prn. Reposition at least every 2hours or as tolerated. APM/YO mattress overlay. Off-load heel with pillow. Place pillow between knees. (2) Sepsis Assessment & Plan: leukocytosis resolved anemia lactic acidosis resolved respiratory insufficiency labs noted on IV abx IV fluids AM labs will follow with recs (3) Severe protein-calorie malnutrition (4) Feeding by G-tube Carroll Smith Jun 25, 2019 12:30
[2019-06-25 16:00] VITALS: BP 127/81
--- NOTE | 2019-06-25 16:32 | Infectious Diseases Prog Note ---
Assessment/Plan Assessment/Plan Assessment: Sepsis 2ry to UTI and bacteremia- -06/21 4/ ESBL P. mirabilis (S Ertapenem, ZOsyn); 06/22 BCx 4/ ESBL P. mirabilis; 06/23 Bcx NTD -u/a wbc 10-15, nit +, leuk +3; ucx >100K ESBL P. mirabilis (S Ertapenem, Zosyn) -CXR: No acute findings -2d Echo: no vegetations Fever; improving Leukocytosis; SP Dyspnea/hypoxia Lactic acidosis, SP ABRAM, SP HTN CVA/TIA w/ hemiplegia Gtube feeding malnutrition bed bound multiple decubiti ulcers halfway resident Plan: -Switch MEropenem #02/08 to Ertapenem for ESBL UTI and bacteremia -06/24 SP IV Vancomycin, AMikacin #4 -06/22 SP Cefepime #2 -06/21 SP Levaquin x1 -f/u cx -Monitor CBC/CMP, temperatures -f/u repeat Bcx x2 Thank you for this consultation. Will continue to follow along with you. Discussed with RN Subjective Allergies: Coded Allergies: No Known Allergies (Unverified , 05/01/19) Subjective afebrile >36hrs leukocytosis resolved repeat Bcx NTD Objective Vital Signs Last 24 Hour Vital Signs Date Time Temp Pulse Resp B/P (MAP) Pulse Ox O2 Delivery O2 Flow Rate FiO2 06/25/19 16:00 Room Air 06/25/19 12:39 89 20 96 Room Air 21 06/25/19 12:00 Room Air 06/25/19 11:47 97.5 99 17 131/80 (97) 90 06/25/19 08:07 127/83 06/25/19 08:00 Room Air 06/25/19 08:00 98.6 104 19 125/87 (100) 97 06/25/19 04:00 98.6 96 24 127/83 (98) 96 06/25/19 04:00 Room Air 06/25/19 00:00 Room Air 06/25/19 00:00 99.0 105 21 155/90 (111) 95 06/24/19 20:02 85 18 95 Room Air 21 06/24/19 20:00 99.6 99 21 150/94 (112) 96 06/24/19 20:00 Room Air Height (Feet): 5 Height (Inches): 2.00 Weight (Pounds): 137 Objective General Appearance: no apparent distress Lines, tubes and drains: peripheral HEENT: mucous membranes moist Neck: normal inspection Respiratory/Chest: decreased breath sounds Cardiovascular/Chest: normal rate Abdomen: soft, no organomegaly, no mass, feeding tube Extremities: slow capillary refill, other Skin Exam: warm/dry Microbiology Date/Time Source Procedure Growth Status 06/23/19 14:14 Blood Blood Culture - Preliminary NO GROWTH AFTER 24 HOURS Resulted 06/23/19 14:00 Blood Blood Culture - Preliminary NO GROWTH AFTER 24 HOURS Resulted Laboratory Tests Test 06/25/19 05:52 White Blood Count 9.6 K/UL (4.8-10.8) Red Blood Count 3.12 M/UL (4.20-5.40) L Hemoglobin 9.6 G/DL (12.0-16.0) L Hematocrit 29.0 % (37.0-47.0) L Mean Corpuscular Volume 93 FL (80-99) Mean Corpuscular Hemoglobin 30.9 PG (27.0-31.0) Mean Corpuscular Hemoglobin Concent 33.2 G/DL (32.0-36.0) Red Cell Distribution Width 13.8 % (11.6-14.8) Platelet Count 227 K/UL (150-450) Mean Platelet Volume 6.3 FL (6.5-10.1) L Neutrophils (%) (Auto) 68.4 % (45.0-75.0) Lymphocytes (%) (Auto) 19.9 % (20.0-45.0) L Monocytes (%) (Auto) 7.3 % (1.0-10.0) Eosinophils (%) (Auto) 2.8 % (0.0-3.0) Basophils (%) (Auto) 1.6 % (0.0-2.0) Sodium Level 137 MMOL/L (136-145) Potassium Level 3.2 MMOL/L (3.5-5.1) L Chloride Level 104 MMOL/L (98-107) Carbon Dioxide Level 28 MMOL/L (21-32) Anion Gap 5 mmol/L (5-15) Blood Urea Nitrogen 11 mg/dL (7-18) Creatinine 0.4 MG/DL (0.55-1.30) L Estimat Glomerular Filtration Rate mL/min (>60) Glucose Level 137 MG/DL (74-106) H Calcium Level 8.0 MG/DL (8.5-10.1) L Total Bilirubin 0.2 MG/DL (0.2-1.0) Aspartate Amino Transf (AST/SGOT) 34 U/L (15-37) Alanine Aminotransferase (ALT/SGPT) 45 U/L (12-78) Alkaline Phosphatase 116 U/L (46-116) Total Protein 5.1 G/DL (6.4-8.2) L Albumin 1.9 G/DL (3.4-5.0) L Globulin 3.2 g/dL Albumin/Globulin Ratio 0.6 (1.0-2.7) L Current Medications Medications (Trade) Dose Ordered Sig/Familia Route PRN Reason Start Time Stop Time Status Last Admin Dose Admin Acetaminophen (Tylenol) 650 mg Q6H PRN GT Mild Pain/Temp > 100.5 06/22/19 17:15 07/22/19 17:14 06/23/19 20:49 Albuterol/ Ipratropium (Albuterol/ Ipratropium) 3 ml Q4H PRN HHN Shortness of Breath 06/22/19 17:15 06/27/19 17:14 Ascorbic Acid (Vitamin C) 500 mg DAILY GT 06/23/19 09:00 07/23/19 08:59 06/25/19 08:07 Aspirin (ASA) 81 mg DAILY GT 06/23/19 09:00 07/23/19 08:59 06/25/19 08:07 Benazepril HCl (Lotensin) 20 mg DAILY GT 06/23/19 09:00 07/23/19 08:59 06/25/19 08:07 Dextrose/Sodium Chloride 1,000 ml @ 75 mls/hr [id number] IV 06/22/19 17:15 07/22/19 08:59 06/25/19 12:04 Heparin Sodium (Porcine) (Heparin 5000 units/ml) 5,000 units EVERY 12 HOURS SUBQ 06/22/19 21:00 07/22/19 20:59 06/25/19 08:08 Magnesium Oxide (Mag-Ox 400mg) 400 mg THREE TIMES A DAY ORAL 06/24/19 13:00 06/26/19 12:59 06/25/19 12:04 Meropenem 1 gm/ Sodium Chloride 55 ml @ 110 mls/hr Q12HR IVPB 06/22/19 21:00 06/27/19 20:59 06/25/19 08:07 Morphine Sulfate (Morphine Sulfate) 2 mg Q4H PRN IVP Moderate Pain (Pain Scale 4-6) 06/22/19 17:15 06/29/19 17:14 Ondansetron HCl (Zofran) 4 mg Q6H PRN IVP Nausea & Vomiting 06/22/19 17:15 07/22/19 17:14 Phenazopyridine HCl (Pyridium) 100 mg DAILYPRN PRN GT dysuria 06/23/19 17:15 07/22/19 17:14 Phosphorus (Phospha 250 Neutral) 250 mg THREE TIMES A DAY ORAL 06/24/19 13:00 06/26/19 12:59 06/25/19 12:04 Polyethylene Glycol (Miralax) 17 gm DAILYPRN PRN GT Constipation 06/23/19 17:15 07/22/19 17:14 Potassium Chloride (K-Dur) 40 meq Q4H ORAL 06/25/19 11:00 06/25/19 19:01 06/25/19 14:51 Temazepam (Restoril) 15 mg HSPRN PRN GT Insomnia 06/22/19 21:00 06/29/19 20:59 Zinc Sulfate (Zinc Sulfate) 220 mg BID GT 06/22/19 18:00 07/22/19 17:59 06/25/19 08:07 Luba Freeman M.D. Jun 25, 2019 16:32
--- NOTE | 2019-06-25 16:56 | Internal Med Progress Note ---
Subjective Date of Service: Jun 25, 2019 Physician Name Pope,Osbaldo Attending Physician Solo Macdonald MD Current Medications Medications (Trade) Dose Ordered Sig/Familia Route PRN Reason Start Time Stop Time Status Last Admin Dose Admin Acetaminophen (Tylenol) 650 mg Q6H PRN GT Mild Pain/Temp > 100.5 06/22/19 17:15 07/22/19 17:14 06/23/19 20:49 Albuterol/ Ipratropium (Albuterol/ Ipratropium) 3 ml Q4H PRN HHN Shortness of Breath 06/22/19 17:15 06/27/19 17:14 Ascorbic Acid (Vitamin C) 500 mg DAILY GT 06/23/19 09:00 07/23/19 08:59 06/25/19 08:07 Aspirin (ASA) 81 mg DAILY GT 06/23/19 09:00 07/23/19 08:59 06/25/19 08:07 Benazepril HCl (Lotensin) 20 mg DAILY GT 06/23/19 09:00 07/23/19 08:59 06/25/19 08:07 Dextrose/Sodium Chloride 1,000 ml @ 75 mls/hr [id number] IV 06/22/19 17:15 07/22/19 08:59 06/25/19 12:04 Ertapenem 1 gm/ Sodium Chloride 55 ml @ 110 mls/hr Q24H IVPB 06/25/19 20:00 06/30/19 19:59 Heparin Sodium (Porcine) (Heparin 5000 units/ml) 5,000 units EVERY 12 HOURS SUBQ 06/22/19 21:00 07/22/19 20:59 06/25/19 08:08 Magnesium Oxide (Mag-Ox 400mg) 400 mg THREE TIMES A DAY ORAL 06/24/19 13:00 06/26/19 12:59 06/25/19 12:04 Morphine Sulfate (Morphine Sulfate) 2 mg Q4H PRN IVP Moderate Pain (Pain Scale 4-6) 06/22/19 17:15 06/29/19 17:14 Ondansetron HCl (Zofran) 4 mg Q6H PRN IVP Nausea & Vomiting 06/22/19 17:15 07/22/19 17:14 Phenazopyridine HCl (Pyridium) 100 mg DAILYPRN PRN GT dysuria 06/23/19 17:15 07/22/19 17:14 Phosphorus (Phospha 250 Neutral) 250 mg THREE TIMES A DAY ORAL 06/24/19 13:00 06/26/19 12:59 06/25/19 12:04 Polyethylene Glycol (Miralax) 17 gm DAILYPRN PRN GT Constipation 06/23/19 17:15 07/22/19 17:14 Potassium Chloride (K-Dur) 40 meq Q4H ORAL 06/25/19 11:00 06/25/19 19:01 06/25/19 14:51 Temazepam (Restoril) 15 mg HSPRN PRN GT Insomnia 06/22/19 21:00 06/29/19 20:59 Zinc Sulfate (Zinc Sulfate) 220 mg BID GT 06/22/19 18:00 07/22/19 17:59 06/25/19 08:07 Allergies: Coded Allergies: No Known Allergies (Unverified , 05/01/19) ROS Limited/Unobtainable: Yes Subjective 83 YO F admitted with fever. Now sepsis and UTI. Cover for Int Med-Dr Macdonald Objective Last Vital Signs Date Time Temp Pulse Resp B/P (MAP) Pulse Ox O2 Delivery O2 Flow Rate FiO2 06/25/19 16:00 Room Air 06/25/19 16:00 98.0 96 18 127/81 (96) 97 06/25/19 12:39 21 Laboratory Tests Test 06/25/19 05:52 White Blood Count 9.6 K/UL (4.8-10.8) Red Blood Count 3.12 M/UL (4.20-5.40) L Hemoglobin 9.6 G/DL (12.0-16.0) L Hematocrit 29.0 % (37.0-47.0) L Mean Corpuscular Volume 93 FL (80-99) Mean Corpuscular Hemoglobin 30.9 PG (27.0-31.0) Mean Corpuscular Hemoglobin Concent 33.2 G/DL (32.0-36.0) Red Cell Distribution Width 13.8 % (11.6-14.8) Platelet Count 227 K/UL (150-450) Mean Platelet Volume 6.3 FL (6.5-10.1) L Neutrophils (%) (Auto) 68.4 % (45.0-75.0) Lymphocytes (%) (Auto) 19.9 % (20.0-45.0) L Monocytes (%) (Auto) 7.3 % (1.0-10.0) Eosinophils (%) (Auto) 2.8 % (0.0-3.0) Basophils (%) (Auto) 1.6 % (0.0-2.0) Sodium Level 137 MMOL/L (136-145) Potassium Level 3.2 MMOL/L (3.5-5.1) L Chloride Level 104 MMOL/L (98-107) Carbon Dioxide Level 28 MMOL/L (21-32) Anion Gap 5 mmol/L (5-15) Blood Urea Nitrogen 11 mg/dL (7-18) Creatinine 0.4 MG/DL (0.55-1.30) L Estimat Glomerular Filtration Rate mL/min (>60) Glucose Level 137 MG/DL (74-106) H Calcium Level 8.0 MG/DL (8.5-10.1) L Total Bilirubin 0.2 MG/DL (0.2-1.0) Aspartate Amino Transf (AST/SGOT) 34 U/L (15-37) Alanine Aminotransferase (ALT/SGPT) 45 U/L (12-78) Alkaline Phosphatase 116 U/L (46-116) Total Protein 5.1 G/DL (6.4-8.2) L Albumin 1.9 G/DL (3.4-5.0) L Globulin 3.2 g/dL Albumin/Globulin Ratio 0.6 (1.0-2.7) L Microbiology Date/Time Source Procedure Growth Status 06/23/19 14:14 Blood Blood Culture - Preliminary NO GROWTH AFTER 24 HOURS Resulted 06/23/19 14:00 Blood Blood Culture - Preliminary NO GROWTH AFTER 24 HOURS Resulted Intake and Output 06/24/19 06/25/19 19:00 07:00 Intake Total 2210.000 ml 6635 ml Output Total 1800 ml 1000 ml Balance 410.000 ml 5635 ml Intake Free Water 200 ml 200 ml IV Total 1230.000 ml 5655 ml Tube Feeding 780 ml 780 ml Output Urine Total 1800 ml 1000 ml # Bowel Movements 1 Objective PHYSICAL EXAMINATION: GENERALLY: The patient is well-nourished female, who is nonverbal. HEENT: Eyes, pupils are equal and responsive to light and accommodation. Extraocular movements are intact. NECK: Supple without lymphadenopathy. CHEST: Decreased breath sounds at bilateral bases with cracles otherwise without wheezing or rales. CARDIOVASCULAR: Regular rhythm and rate. S1 and S2 are normal without murmurs, rubs, or gallops. ABDOMEN: Soft, nontender, and nondistended. Positive bowel sounds. No evidence of hepatosplenomegaly. Currently, no rebound or guarding noted. EXTREMITIES: Negative for clubbing, cyanosis, or edema. RECTAL/GENITAL: Not performed. NEUROLOGIC: Cranial nerves II through XII are grossly intact without focal deficits. Motor strength is 5/5 bilaterally. Deep tendon reflexes are 2+ plantar. Assessment/Plan Assessment/Plan ASSESSMENT: This is an 83-year-old female. 1. Sepsis=Proteus mirabilis 2. Left-sided pneumonia. 3. Acute renal failure. 4. Urinary tract infection=Proteus Mirabilis 5. History of cerebrovascular accident. 6. Right hemiplegia. 7. Dysphagia. 8. Alzheimer dementia. 9. Hypertension. 10. Stage IV decubitus ulcer. TREATMENT: 1. Sepsis/urinary tract infection/pneumonia. ABX= Ertapenem. An Infectious Disease consultation has been obtained with Dr. Freeman-follow recommendations of Infectious Disease. Urine, blood, and sputum cultures are pending. Pulmonary = Dr Nash 2. History of cerebrovascular accident and resultant right hemiplegia. 3. Dysphagia. The patient is status post PEG placement. 4. Alzheimer dementia. 5. Hypertension. The patient is currently hypotensive. 6. Stage IV decubitus ulcer, present on admission-surgery=Osbaldo Camacho MD Jun 25, 2019 16:56
--- NOTE | 2019-06-25 19:25 | NUR ---
HAND-OFF: Report given to Julianne CHAN.
--- NOTE | 2019-06-25 19:30 | NUR ---
NURSE NOTES: RECEIVED PATIENT LYING IN BED, AWAKE, EYES OPEN, NON VERBAL, HEAD OF BED ELEVATED/ASPIRATION PRECAUTIONS, NO SIGNS AND SYMPTOMS OF ACUTE CARDIO RESPIRATORY DISTRESS/SHORTNESS OF BREATH, NO EDEMA NOTED. ABDOMEN SOFT/NON DISTENDED, G TUBE INTACT TO MID ABDOMEN, TOLERATING FEEDING, NO GASTRIC RESIDUAL ASPIRATED VIA G TUBE, FLUSHED WITH H20 FOR PATENCY, TOLERATED WELL. BOBO CATHETER INTACT/PATENT, DRAINING BLOOD TINGED URINE VIA GRAVITY, MD AWARE. NOTED WITH MULTIPLE DECUBITUS,DRESSINGS DRY AND INTACT, PER AM NURSE, CHANGED 06/24, KERLIX TO RIGHT FOOT DRY AND INTACT, OPTIFOAM TO LEFT FOOT/PROPHYLAXIS, P200 MATTRESS FOR WOUND MANAGEMENT. REPOSITIONED FOR COMFORT/PRESSURE RELIEF, TOLERATED WELL. SIDE RAILS UP X3/BED IN LOWEST POSITION FOR SAFETY. FREQUENT ROUNDING FOR SAFETY/NEEDS.
[2019-06-25 20:00] VITALS: BP 124/73
[2019-06-25] MEDS: Ertapenem 1 GM in NS 55 ML IVPB SCH (20:57)
[2019-06-26] VITALS: BP 138/81
[2019-06-26] MEDS: D5 1/2NS 1,000 ML IV SCH ×3 (01:15→18:11)
--- NOTE | 2019-06-26 03:30 | NUR ---
HAND-OFF: Report given to VARUN MCWILLIAMS.
--- NOTE | 2019-06-26 03:57 | NUR ---
NURSE NOTES: Received report from Julianne. Patient in bed, asleep, no s/s of distress noted. Villagomez catheter noted. Skin is warm, with multiple dressings, clean. Abdomen is soft. IV site is noted, iv fluid is infusing as ordered. Kept clean and comfortable. GT site noted, feeding is infusing as ordered. Flushed, patent. Bed in low and locked position. Call light is at bedside. Frequent visual checks. Will continue plan of care.
[2019-06-26 04:00] VITALS: BP 139/82
[2019-06-26 06:13] LABS: BASOPHILS % (AUTO) 0.9 % (0.0-2.0); EOSINOPHILS % (AUTO) 3.7 % (0.0-3.0); LYMPHOCYTES % (AUTO) 20.5 % (20.0-45.0); MEAN CORPUSCULAR VOLUME 94 FL (80-99); NEUTROPHILS % (AUTO) 64.9 % (45.0-75.0); PLATELET COUNT 247 K/UL (150-450); RED BLOOD COUNT 3.29 M/UL (4.20-5.40); WHITE BLOOD COUNT 9.6 K/UL (4.8-10.8)
[2019-06-26 06:25] LABS: ALANINE AMINOTRANSFERASE 70 U/L (12-78); ALBUMIN 2.1 G/DL (3.4-5.0); ALBUMIN/GLOBULIN RATIO 0.6 (1.0-2.7); ALKALINE PHOSPHATASE 121 U/L (46-116); ANION GAP 6 mmol/L (5-15); ASPARTATE AMINO TRANSFERASE 44 U/L (15-37); BILIRUBIN,TOTAL 0.2 MG/DL (0.2-1.0); BLOOD UREA NITROGEN 11 mg/dL (7-18); CALCIUM 8.3 MG/DL (8.5-10.1); CARBON DIOXIDE 27 MMOL/L (21-32); CHLORIDE 104 MMOL/L (98-107); CREATININE 0.4 MG/DL (0.55-1.30); PHOSPHORUS 2.3 MG/DL (2.5-4.9); POTASSIUM 4.7 MMOL/L (3.5-5.1); SODIUM 137 MMOL/L (136-145)
--- NOTE | 2019-06-26 07:17 | NUR ---
HAND-OFF: Report given to Brian Cho.
--- NOTE | 2019-06-26 07:30 | NUR ---
NURSE NOTES: Received pt from VARUN AMES. pt is confused and nonverbal.Pt is in RA, no SOB or acute respiratory distress noted. pt has g tube in place is running well with no residual. pt has Villagomez cath in place is running well. pt has intact iv access LFA 22G LH 22g is running well. all needs attended, bed is locked and is in the lowest position. call light within easy reach. will [id number] to monitor.
[2019-06-26 08:00] VITALS: BP 137/69
[2019-06-26] MEDS: Magnesium Oxide 400mg tab ORAL SCH (08:51)
[2019-06-26] MEDS: Aspirin Baby 81mg GT SCH (08:51)
[2019-06-26] MEDS: Benazepril 10mg tab GT SCH (08:51)
[2019-06-26] MEDS: Ascorbic Acid 500mg tab GT SCH (08:51)
[2019-06-26] MEDS: Phospha 250 Neutral tab ORAL SCH (08:51)
[2019-06-26] MEDS: Zinc Sulfate 220mg cap GT SCH ×2 (08:51→18:11)
[2019-06-26] MEDS: Heparin 5000 units/ml inj SUBQ SCH ×2 (08:54→21:00)
--- NOTE | 2019-06-26 09:52 | Surgery Progress Note ---
Surgery Progress Note Subjective Additional Comments no acute events comfortable stable feeds going well dressings being changed Objective Last 24 Hour Vital Signs Date Time Temp Pulse Resp B/P (MAP) Pulse Ox O2 Delivery O2 Flow Rate FiO2 06/26/19 08:51 137/69 06/26/19 08:00 98.4 69 18 137/69 (91) 98 06/26/19 04:00 98.1 94 20 139/82 (101) 97 06/26/19 00:00 98.2 93 20 138/81 (100) 97 06/25/19 20:32 Room Air 06/25/19 20:04 86 20 96 Room Air 21 06/25/19 20:00 99.5 101 20 124/73 (90) 97 06/25/19 16:00 Room Air 06/25/19 16:00 98.0 96 18 127/81 (96) 97 06/25/19 12:39 89 20 96 Room Air 21 06/25/19 12:00 Room Air 06/25/19 11:47 97.5 99 17 131/80 (97) 90 I&O Intake and Output 06/25/19 06/26/19 18:59 06:59 Intake Total 780 ml 1820 ml Output Total 1800 ml 1800 ml Balance -1020 ml 20 ml Intake Free Water 160 ml IV Total 880 ml Tube Feeding 780 ml 780 ml Output Urine Total 1800 ml 1800 ml # Bowel Movements 1 1 Dressing: saturated Wound: other Cardiovascular: RSR Respiratory: clear Abdomen: soft, flat, non-tender, present bowel sounds Extremities: no cyanosis, other Laboratory Tests Test 06/26/19 05:30 White Blood Count 9.6 K/UL (4.8-10.8) Red Blood Count 3.29 M/UL (4.20-5.40) L Hemoglobin 10.0 G/DL (12.0-16.0) L Hematocrit 31.0 % (37.0-47.0) L Mean Corpuscular Volume 94 FL (80-99) Mean Corpuscular Hemoglobin 30.4 PG (27.0-31.0) Mean Corpuscular Hemoglobin Concent 32.2 G/DL (32.0-36.0) Red Cell Distribution Width 13.0 % (11.6-14.8) Platelet Count 247 K/UL (150-450) Mean Platelet Volume 6.2 FL (6.5-10.1) L Neutrophils (%) (Auto) 64.9 % (45.0-75.0) Lymphocytes (%) (Auto) 20.5 % (20.0-45.0) Monocytes (%) (Auto) 10.0 % (1.0-10.0) Eosinophils (%) (Auto) 3.7 % (0.0-3.0) H Basophils (%) (Auto) 0.9 % (0.0-2.0) Erythrocyte Sedimentation Rate 60 MM/HR (0-30) H Sodium Level 137 MMOL/L (136-145) Potassium Level 4.7 MMOL/L (3.5-5.1) Chloride Level 104 MMOL/L (98-107) Carbon Dioxide Level 27 MMOL/L (21-32) Anion Gap 6 mmol/L (5-15) Blood Urea Nitrogen 11 mg/dL (7-18) Creatinine 0.4 MG/DL (0.55-1.30) L Estimat Glomerular Filtration Rate mL/min (>60) Glucose Level 131 MG/DL (74-106) H Calcium Level 8.3 MG/DL (8.5-10.1) L Phosphorus Level 2.3 MG/DL (2.5-4.9) L Magnesium Level 1.8 MG/DL (1.8-2.4) Total Bilirubin 0.2 MG/DL (0.2-1.0) Aspartate Amino Transf (AST/SGOT) 44 U/L (15-37) H Alanine Aminotransferase (ALT/SGPT) 70 U/L (12-78) Alkaline Phosphatase 121 U/L (46-116) H C-Reactive Protein, Quantitative 4.1 mg/dL (0.00-0.90) H Total Protein 5.7 G/DL (6.4-8.2) L Albumin 2.1 G/DL (3.4-5.0) L Globulin 3.6 g/dL Albumin/Globulin Ratio 0.6 (1.0-2.7) L Plan Problems: (1) Decubitus ulcer of sacral region, stage 4 Assessment & Plan: Pt presented on admission with contractures and multiple pressure injuries. Full thickness sacral pressure injury (L)2cm x (W)1.5cm. Base of wound 90% viable ,10% necrotic along borders. Bone is palpable. (+) epibole. Edges are dark with surrounding hyperpigmentation. Small amt non-odorous brown exudate noted.(L)2cm x (W)1.5cm. Partial thickness pressure injury R trochanter. Base of wound is moist/viable. Edges are macerated. Small amt non-odorous serous exudate. (L)1cm x (W)2.5cm. Intact serous blister noted to R ischium (L)1.5cm x (W)1.5cm. Second pressure injury R ischium inferior but in close proximity to blister. Base of wound is moist -viable. Edges are macerated.non-blanchable erythema without induration periwound.(L)3.5cm x (W)3cm. Hyperpigmentation from previous wound L trochanter/L Hip. Partially opened serous blister medial L tibia. Base of wound is moist viable with 50% skin flap. Small amt non-odorous serous exudate noted. DTPI medial R foot. Base of wound is maroon and fluctuant.(L)1.9cm x (W)2.3cm. Full thickness ulcer R hallux. Base of wound is a 100% necrotic. Erythematous Borders and periwound. Mild odor noted.No exudate noted. (L)1.7cm x (W)2cm. Maroon discoloration that is fluctuant at the base with red and indurated margins noted to L achilles/L heel.(L)3cm x (W)1.5cm. Tx.Plan: Cleanse wounds R trochanter and R Ischium with Saline. Apply Therahoney.Apply Moisture Barrier Paste periwound. Cover each wound with Optifoam drsg. Change every 3 days and prn. Cleanse Sacral wound with saline. Apply Therahoney. Apply Moisture Barrier Paste periwound. Cover with Optifoam Drsg. Change every 3 days and prn. Cleanse wound R hallux with Saline.Apply Therahoney. Apply Cavilon Skin Barrier periwound. Cover with ABD pad. Wrap with kerlix Daily and prn. Cleanse wound medial L tibia with Saline. Apply Therahoney. Apply Cavilon periwound. Cover with Optifoam drsg every 3 days and prn. Apply Cavilon Skin Barrier to L achilles/L heel. Cover with Optifoam drsg. Change every 7 Days and prn. Apply Cavilon Skin Barrier to distal/lateral R foot. Cover with Optifoam drsg. Change every 7 days and prn. Reposition at least every 2hours or as tolerated. APM/YO mattress overlay. Off-load heel with pillow. Place pillow between knees. (2) Sepsis Assessment & Plan: leukocytosis resolved anemia lactic acidosis resolved respiratory insufficiency labs noted on IV abx IV fluids AM labs will follow with recs (3) Severe protein-calorie malnutrition Assessment & Plan: DAILY ESTIMATED NEEDS: Needs based on Wound, underweight, sepsis/ 41kg 35-40 kcals/kg 0326-7994 total kcals 1.5-2.0 g protein/kg 62-82 g total protein 25-30 mL/kg 8625-6297 total fluid mLs NUTRITION DIAGNOSIS: * Increased kcal/prot intake needs R/T wound healing, underweight status as evidenced by pt admitted w/ multiple wounds including stage 4 sacral wound, BMI of 17.1. * Swallowing difficulty R/T dysphagia, h/o CVA as evidenced by s/p recent PEG placement, on GT feeding. CURRENT TF:Osmolite 1.2 @ 65ml/hr x 24 hrs PO DIET RECOMMENDATIONS: Oral grat as appropriate -> liberalized regular/ texture per [employer] ENTERAL NUTRITION RECOMMENDATIONS: Osmolite 1.2 @ 55ml/hr x 24 hrs to provide 1320ml, 1584kcal, 73g prog, 1082ml freew ater - Decrease goal rate to 55ml/hr x 24 hrs- meets 100% est kcal/prot needs (Provides 38kcal/1.8g prot per kg actual body wt) - Flush per MD. CLAROS over 30 degrees. (4) Feeding by G-tube Carroll Smith Jun 26, 2019 09:52
--- NOTE | 2019-06-26 10:26 | NUR ---
RD ASSESSMENT & RECOMMENDATIONS SEE CARE ACTIVITY FOR COMPLETE ASSESSMENT DAILY ESTIMATED NEEDS: Needs based on Wound, underweight, sepsis/ 41kg 35-40 kcals/kg 9746-3879 total kcals 1.5-2.0 g protein/kg 62-82 g total protein 25-30 mL/kg 8021-7725 total fluid mLs NUTRITION DIAGNOSIS: * Increased kcal/prot intake needs R/T wound healing, underweight status as evidenced by pt admitted w/ multiple wounds including stage 4 sacral wound, BMI of 17.1. * Swallowing difficulty R/T dysphagia, h/o CVA as evidenced by s/p recent PEG placement, on GT feeding. CURRENT TF:Osmolite 1.2 @ 65ml/hr x 24 hrs PO DIET RECOMMENDATIONS: Oral grat as appropriate -> liberalized regular/ texture per [employer] ENTERAL NUTRITION RECOMMENDATIONS: Osmolite 1.2 @ 55ml/hr x 24 hrs to provide 1320ml, 1584kcal, 73g prog, 1082ml freew ater - Decrease goal rate to 55ml/hr x 24 hrs- meets 100% est kcal/prot needs (Provides 38kcal/1.8g prot per kg actual body wt) - Flush per . HOB over 30 degrees. ADDITIONAL RECOMMENDATIONS: * CALIBRATED bedscale wt for accurate CBW, weekly wt monitoring -> bed with P200 mattress + Pump * Wound healing: Continue Vit C and ZnSO4. : Add Jeronimo 1pkt BID * DIRECTOR INTEGRATED eval for oral grat if appropriate: pt on oral grat of pureed/NTL ABSORPTION AND ADSORPTION ENGINEER * Monitor lytes daily, replete as needed (low phos) * DC D5 IVF for BG control: TF @ goal
[2019-06-26 12:00] VITALS: BP 151/98
[2019-06-26] MEDS ORDERED: INVANZ1 G1 IM (13:19)
--- NOTE | 2019-06-26 13:22 | Pulmonology Progress Note ---
Assessment/Plan Problems: (1) Sepsis (2) Decubitus ulcer of sacral region, stage 4 (3) Hemiparesis (4) Severe protein-calorie malnutrition (5) Advanced dementia (6) History of CVA with residual deficit (7) History of hypertension (8) Feeding by G-tube Assessment/Plan family members at the bed site last BC are negative wbc lower, afebrile continue antibiotics monitor BP aspiration precaution dc to retirement with 10 more days of Ertapenem Subjective ROS Limited/Unobtainable: No Constitutional: Reports: no symptoms HEENT: Repors: no symptoms Respiratory: Reports: no symptoms Allergies: Coded Allergies: No Known Allergies (Unverified , 05/01/19) Objective Last 24 Hour Vital Signs Date Time Temp Pulse Resp B/P (MAP) Pulse Ox O2 Delivery O2 Flow Rate FiO2 06/26/19 09:00 Room Air 06/26/19 08:57 92 18 98 Room Air 21 06/26/19 08:51 137/69 06/26/19 08:00 98.4 69 18 137/69 (91) 98 06/26/19 04:00 98.1 94 20 139/82 (101) 97 06/26/19 00:00 98.2 93 20 138/81 (100) 97 06/25/19 20:32 Room Air 06/25/19 20:04 86 20 96 Room Air 21 06/25/19 20:00 99.5 101 20 124/73 (90) 97 06/25/19 16:00 Room Air 06/25/19 16:00 98.0 96 18 127/81 (96) 97 Intake and Output 06/25/19 06/26/19 19:00 07:00 Intake Total 915 ml 1620 ml Output Total 1800 ml 1800 ml Balance -885 ml -180 ml Intake Free Water 60 ml 100 ml IV Total 75 ml 805 ml Tube Feeding 780 ml 715 ml Output Urine Total 1800 ml 1800 ml # Bowel Movements 1 1 General Appearance: WD/WN HEENT: normocephalic, atraumatic Respiratory/Chest: chest wall non-tender, lungs clear Breasts: no masses Cardiovascular: normal peripheral pulses Abdomen: normal bowel sounds, soft, non tender Genitourinary: normal external genitalia Extremities: no clubbing Skin: no rash Microbiology Date/Time Source Procedure Growth Status 06/23/19 14:14 Blood Blood Culture - Preliminary NO GROWTH AFTER 48 HOURS Resulted 06/23/19 14:00 Blood Blood Culture - Preliminary NO GROWTH AFTER 48 HOURS Resulted Laboratory Tests 06/26/19 05:30: White Blood Count 9.6, Red Blood Count 3.29L, Hemoglobin 10.0L, Hematocrit 31.0L , Mean Corpuscular Volume 94, Mean Corpuscular Hemoglobin 30.4, Mean Corpuscular Hemoglobin Concent 32.2, Red Cell Distribution Width 13.0, Platelet Count 247, Mean Platelet Volume 6.2L, Neutrophils (%) (Auto) 64.9, Lymphocytes ( %) (Auto) 20.5, Monocytes (%) (Auto) 10.0, Eosinophils (%) (Auto) 3.7H, Basophils (%) (Auto) 0.9, Erythrocyte Sedimentation Rate 60H, Sodium Level 137, Potassium Level 4.7, Chloride Level 104, Carbon Dioxide Level 27, Anion Gap 6, Blood Urea Nitrogen 11, Creatinine 0.4L, Estimat Glomerular Filtration Rate , Glucose Level 131H, Calcium Level 8.3L, Phosphorus Level 2.3L, Magnesium Level 1.8, Total Bilirubin 0.2, Aspartate Amino Transf (AST/SGOT) 44H, Alanine Aminotransferase (ALT/SGPT) 70, Alkaline Phosphatase 121H, C-Reactive Protein, Quantitative 4.1H, Total Protein 5.7L, Albumin 2.1L, Globulin 3.6, Albumin/ Globulin Ratio 0.6L Current Medications Medications (Trade) Dose Ordered Sig/Familia Route PRN Reason Start Time Stop Time Status Last Admin Dose Admin Acetaminophen (Tylenol) 650 mg Q6H PRN GT Mild Pain/Temp > 100.5 06/22/19 17:15 07/22/19 17:14 06/23/19 20:49 Albuterol/ Ipratropium (Albuterol/ Ipratropium) 3 ml Q4H PRN HHN Shortness of Breath 06/22/19 17:15 06/27/19 17:14 Ascorbic Acid (Vitamin C) 500 mg DAILY GT 06/23/19 09:00 07/23/19 08:59 06/26/19 08:51 Aspirin (ASA) 81 mg DAILY GT 06/23/19 09:00 07/23/19 08:59 06/26/19 08:51 Benazepril HCl (Lotensin) 20 mg DAILY GT 06/23/19 09:00 07/23/19 08:59 06/26/19 08:51 Dextrose/Sodium Chloride 1,000 ml @ 75 mls/hr [id number] IV 06/22/19 17:15 07/22/19 08:59 06/26/19 02:32 Ertapenem 1 gm/ Sodium Chloride 55 ml @ 110 mls/hr Q24H IVPB 06/25/19 20:00 06/30/19 19:59 06/25/19 20:57 Heparin Sodium (Porcine) (Heparin 5000 units/ml) 5,000 units EVERY 12 HOURS SUBQ 06/22/19 21:00 07/22/19 20:59 06/26/19 08:54 Morphine Sulfate (Morphine Sulfate) 2 mg Q4H PRN IVP Moderate Pain (Pain Scale 4-6) 06/22/19 17:15 06/29/19 17:14 Ondansetron HCl (Zofran) 4 mg Q6H PRN IVP Nausea & Vomiting 06/22/19 17:15 07/22/19 17:14 Phenazopyridine HCl (Pyridium) 100 mg DAILYPRN PRN GT dysuria 06/23/19 17:15 07/22/19 17:14 Polyethylene Glycol (Miralax) 17 gm DAILYPRN PRN GT Constipation 06/23/19 17:15 07/22/19 17:14 Temazepam (Restoril) 15 mg HSPRN PRN GT Insomnia 06/22/19 21:00 06/29/19 20:59 Zinc Sulfate (Zinc Sulfate) 220 mg BID GT 06/22/19 18:00 07/22/19 17:59 06/26/19 08:51 Adilene Nash MD Jun 26, 2019 13:22
--- NOTE | 2019-06-26 14:54 | Infectious Diseases Prog Note ---
Assessment/Plan Assessment/Plan Assessment: Sepsis 2ry to UTI and bacteremia- -06/21 4/ ESBL P. mirabilis (S Ertapenem, ZOsyn); 06/22 BCx 4/ ESBL P. mirabilis; 06/23 Bcx NTD -u/a wbc 10-15, nit +, leuk +3; ucx >100K ESBL P. mirabilis (S Ertapenem, Zosyn) -CXR: No acute findings -2d Echo: no vegetations Fever; improving Leukocytosis; SP Dyspnea/hypoxia Lactic acidosis, SP ABRAM, SP HTN CVA/TIA w/ hemiplegia Gtube feeding malnutrition bed bound multiple decubiti ulcers detention resident Plan: -Continue Ertapenem #2 (abx d #03/10) for ESBL UTI and bacteremia -06/24 SP IV Vancomycin, AMikacin #4 -06/22 SP Cefepime #2 -06/21 SP Levaquin x1 -f/u cx -Monitor CBC/CMP, temperatures -f/u repeat Bcx x2 Thank you for this consultation. Will continue to follow along with you. Discussed with RN Subjective Allergies: Coded Allergies: No Known Allergies (Unverified , 05/01/19) Subjective afebrile >48 hrs no leukocytosis repeat Bcx NTD Objective Vital Signs Last 24 Hour Vital Signs Date Time Temp Pulse Resp B/P (MAP) Pulse Ox O2 Delivery O2 Flow Rate FiO2 06/26/19 12:00 97.5 94 19 151/98 (115) 98 06/26/19 09:00 Room Air 06/26/19 08:57 92 18 98 Room Air 06/26/19 08:51 137/69 06/26/19 08:00 98.4 69 18 137/69 (91) 98 06/26/19 04:00 98.1 94 20 139/82 (101) 97 06/26/19 00:00 98.2 93 20 138/81 (100) 97 06/25/19 20:32 Room Air 06/25/19 20:04 86 20 96 Room Air 21 06/25/19 20:00 99.5 101 20 124/73 (90) 97 06/25/19 16:00 Room Air 06/25/19 16:00 98.0 96 18 127/81 (96) 97 Height (Feet): 5 Height (Inches): 2.00 Weight (Pounds): 137 Objective General Appearance: no apparent distress Lines, tubes and drains: peripheral HEENT: mucous membranes moist Neck: normal inspection Respiratory/Chest: decreased breath sounds Cardiovascular/Chest: normal rate Abdomen: soft, no organomegaly, no mass, feeding tube Extremities: slow capillary refill, other Skin Exam: warm/dry Laboratory Tests Test 06/26/19 05:30 White Blood Count 9.6 K/UL (4.8-10.8) Red Blood Count 3.29 M/UL (4.20-5.40) L Hemoglobin 10.0 G/DL (12.0-16.0) L Hematocrit 31.0 % (37.0-47.0) L Mean Corpuscular Volume 94 FL (80-99) Mean Corpuscular Hemoglobin 30.4 PG (27.0-31.0) Mean Corpuscular Hemoglobin Concent 32.2 G/DL (32.0-36.0) Red Cell Distribution Width 13.0 % (11.6-14.8) Platelet Count 247 K/UL (150-450) Mean Platelet Volume 6.2 FL (6.5-10.1) L Neutrophils (%) (Auto) 64.9 % (45.0-75.0) Lymphocytes (%) (Auto) 20.5 % (20.0-45.0) Monocytes (%) (Auto) 10.0 % (1.0-10.0) Eosinophils (%) (Auto) 3.7 % (0.0-3.0) H Basophils (%) (Auto) 0.9 % (0.0-2.0) Erythrocyte Sedimentation Rate 60 MM/HR (0-30) H Sodium Level 137 MMOL/L (136-145) Potassium Level 4.7 MMOL/L (3.5-5.1) Chloride Level 104 MMOL/L (98-107) Carbon Dioxide Level 27 MMOL/L (21-32) Anion Gap 6 mmol/L (5-15) Blood Urea Nitrogen 11 mg/dL (7-18) Creatinine 0.4 MG/DL (0.55-1.30) L Estimat Glomerular Filtration Rate mL/min (>60) Glucose Level 131 MG/DL (74-106) H Calcium Level 8.3 MG/DL (8.5-10.1) L Phosphorus Level 2.3 MG/DL (2.5-4.9) L Magnesium Level 1.8 MG/DL (1.8-2.4) Total Bilirubin 0.2 MG/DL (0.2-1.0) Aspartate Amino Transf (AST/SGOT) 44 U/L (15-37) H Alanine Aminotransferase (ALT/SGPT) 70 U/L (12-78) Alkaline Phosphatase 121 U/L (46-116) H C-Reactive Protein, Quantitative 4.1 mg/dL (0.00-0.90) H Total Protein 5.7 G/DL (6.4-8.2) L Albumin 2.1 G/DL (3.4-5.0) L Globulin 3.6 g/dL Albumin/Globulin Ratio 0.6 (1.0-2.7) L Current Medications Medications (Trade) Dose Ordered Sig/Familia Route PRN Reason Start Time Stop Time Status Last Admin Dose Admin Acetaminophen (Tylenol) 650 mg Q6H PRN GT Mild Pain/Temp > 100.5 06/22/19 17:15 07/22/19 17:14 06/23/19 20:49 Albuterol/ Ipratropium (Albuterol/ Ipratropium) 3 ml Q4H PRN HHN Shortness of Breath 06/22/19 17:15 06/27/19 17:14 Ascorbic Acid (Vitamin C) 500 mg DAILY GT 06/23/19 09:00 07/23/19 08:59 06/26/19 08:51 Aspirin (ASA) 81 mg DAILY GT 06/23/19 09:00 07/23/19 08:59 06/26/19 08:51 Benazepril HCl (Lotensin) 20 mg DAILY GT 06/23/19 09:00 07/23/19 08:59 06/26/19 08:51 Dextrose/Sodium Chloride 1,000 ml @ 75 mls/hr [id number] IV 06/22/19 17:15 07/22/19 08:59 06/26/19 02:32 Ertapenem 1 gm/ Sodium Chloride 55 ml @ 110 mls/hr Q24H IVPB 06/25/19 20:00 06/30/19 19:59 06/25/19 20:57 Heparin Sodium (Porcine) (Heparin 5000 units/ml) 5,000 units EVERY 12 HOURS SUBQ 06/22/19 21:00 07/22/19 20:59 06/26/19 08:54 Morphine Sulfate (Morphine Sulfate) 2 mg Q4H PRN IVP Moderate Pain (Pain Scale 4-6) 06/22/19 17:15 06/29/19 17:14 Ondansetron HCl (Zofran) 4 mg Q6H PRN IVP Nausea & Vomiting 06/22/19 17:15 07/22/19 17:14 Phenazopyridine HCl (Pyridium) 100 mg DAILYPRN PRN GT dysuria 06/23/19 17:15 07/22/19 17:14 Polyethylene Glycol (Miralax) 17 gm DAILYPRN PRN GT Constipation 06/23/19 17:15 07/22/19 17:14 Temazepam (Restoril) 15 mg HSPRN PRN GT Insomnia 06/22/19 21:00 06/29/19 20:59 Zinc Sulfate (Zinc Sulfate) 220 mg BID GT 06/22/19 18:00 07/22/19 17:59 06/26/19 08:51 Luba Freeman M.D. Jun 26, 2019 14:54
--- NOTE | 2019-06-26 14:57 | NUR ---
DISCHARGE PLANNING DISCHARGE ORDER NOTED Patient has been accepted to; [facility] [address] [address] Bed: 4-B Skilled [phone] for Nurse to Nurse report [facility] ETA for transportation: 16:00
[2019-06-26 16:00] VITALS: BP 142/82
--- NOTE | 2019-06-26 17:09 | Discharge Summary ---
Discharge Summary Hospital Course Date of Admission Jun 21, 2019 at 22:30 Date of Discharge Admitting Diagnosis sepsis HPI Marycarmen Leyva is a 83 year old female who was admitted on Jun 21, 2019 at 22:30 for Sepsis/Urinary Tract Infection Hospital Course Last 24 Hour Vital Signs Date Time Temp Pulse Resp B/P (MAP) Pulse Ox O2 Delivery O2 Flow Rate FiO2 06/26/19 16:00 97.6 92 18 142/82 (102) 98 06/26/19 12:00 97.5 94 19 151/98 (115) 98 06/26/19 09:00 Room Air 06/26/19 08:57 92 18 98 Room Air 21 06/26/19 08:51 137/69 06/26/19 08:00 98.4 69 18 137/69 (91) 98 06/26/19 04:00 98.1 94 20 139/82 (101) 97 06/26/19 00:00 98.2 93 20 138/81 (100) 97 06/25/19 20:32 Room Air 06/25/19 20:04 86 20 96 Room Air 21 06/25/19 20:00 99.5 101 20 124/73 (90) 97 General: No acute distress, awake and alert HEENT: NCAT, sclera anicteric, PERRL, EOMI. Neck: Supple, no significant jugular venous distention, Lungs: Decreased air at the bases, clear to auscultation bilaterally, no Wheeze or Rales. Heart: Regular rate and rhythm, normal S1/S2, no murmurs/gallops Abdomen: soft, nontender, nondistended. Normoactive bowel sounds, PEG site is clean. Extremities: No Cyanosis , clubbing or edema. Neuro: A&O x 3, Able to move upper extremities, back to lower extremities Skin: warm, no rash, multiple sacral ulcer stage IV. Discharge summary dictated: [id number] Discharge Discharge Disposition Patient was discharged to [facility] Macdonald MD Jun 26, 2019 17:09
[2019-06-26] MEDS: Ertapenem 1 GM in NS 55 ML IVPB SCH (19:18)
--- NOTE | 2019-06-26 19:30 | NUR ---
NURSE NOTES: pt has discharge order, all discharge assessments and instructions done. pt is stable. V/S stable. Report given to [facility] and she is aware ambulance will supervisor opening and picking pt at [address] POON visited pt and he is aware about PH 2.3 and other lab results, no new order. pt will D/C with mujica as order. taken pictures from all wounds and downloaded and all wounds treatment done as order. belongings list is signed by adrian CAMACHO. Waiting for ambulance. Report given to VARUN JOSHI.
--- NOTE | 2019-06-26 19:35 | NUR ---
NURSE NOTES: Received pt from VARUN Cho. pt is confused and nonverbal.Pt is on RA, no SOB or acute respiratory distress noted. pt has g tube in place is running well with no residual. pt has Villagomez cath in place is running well. pt has intact iv access LFA 22G LH 22g is running well. all needs attended, bed is locked and is in the lowest position. call light within easy reach. will continue to monitor. Pt is going to be discharged and report already given to nurse Lorenzo by VARUN Cho
[2019-06-26 20:00] VITALS: BP 141/92
--- NOTE | 2019-06-26 21:45 | Discharge Summary ---
DATE OF ADMISSION: 06/21/2019 DATE OF DISCHARGE: 06/26/2019 HOSPITAL COURSE: This is an 83-year-old female with past medical history significant for history of CVA with right-sided hemiparesis; dysphagia, status post PEG; Alzheimer's dementia; hypertension; and history of sacral decubitus ulcer, stage IV, who had presented to the hospital from the nursing facility of [facility] in [place] after was noted to have altered mental status and shortness of breath. Shortly after initial evaluation, the patient was admitted to the hospital with sepsis possible due to the pneumonia as well as acute kidney failure with severe dehydration and UTI. Throughout the hospital course, the patient was followed by Dr. Freeman from Infectious Disease, Dr. Nash from Pulmonary Critical Care, and Dr. Smith from General Surgery for wound care. The patient's status gradually improved. They started broad spectrum antibiotics with cefepime and vancomycin and then meropenem was added. The patient's status gradually improved and subsequently after aggressive hydration was discharged back to the nursing facility to be followed as outpatient. Throughout the hospital course, the patient had an echocardiogram showed ejection fraction of 65% to 70% with mild left ventricular hypertrophy with thickening mitral valve leaflet, focal aortic valve sclerosis with adequate excursion. The patient will be discharged back to the [facility] in [place] to be followed as outpatient with Dr. Jhony Brown. FINAL DIAGNOSES: 1. Sepsis secondary to acute urinary tract infection. 2. Acute kidney injury. 3. Hypertension. 4. History of CVA with right-sided hemiparesis. 5. Dysphagia, status post PEG. 6. Bed-bound. 7. Stage IV multiple decubitus ulcer. MEDICATIONS ON DISCHARGE: Continue discharge medication list. ACTIVITY: As tolerated. DIET: G-tube feeding. Solo Macdonald M.D. DR: UDAY JOB#: [id number] CC:
--- NOTE | 2019-06-26 23:00 | NUR ---
NURSE NOTES: GT flushed and clamped. All IV access lines were dc'd. Villagomez catheter emptied and pt sent with catheter in due to wounds
--- NOTE | 2019-06-26 23:02 | NUR ---
NURSE NOTES: [facility] came and picked up the pt. Pt in stable condition, on room air no s/sx of distress nor SOB.. Pt went with mujica catheter in place as ordered by . Pt was transported via gurney
--- NOTE | 2019-06-28 21:50 | Cardiology Report ---
APPROVED REPORT EKG Measurement Heart [id number] Sinus tachycardia Possible Anteroseptal infarct, age undetermined Abnormal ECG
== END 2019-06-26 23:00 | DRG 871 ==
LOC: EDUNIT# 21:08 → EDBD 21:08 → EMR 22:15 → EDBEDREQ 22:23 → 2E 22:30 → EDBEDREQ 23:13 → 2W 06-22 01:37 → 4E 06-22 17:00
DX: A41.9 Sepsis, unspecified organism (principal); L89.154 Pressure ulcer of sacral region, stage 4; J18.9 Pneumonia, unspecified organism; E43 Unspecified severe protein-calorie malnutrition; N39.0 Urinary tract infection, site not specified; N17.9 Acute kidney failure, unspecified; I69.351 Hemiplegia and hemiparesis following cerebral infarction affecting right dominant side; Z43.1 Encounter for attention to gastrostomy; Z68.1 Body mass index [BMI] 19.9 or less, adult; B96.4 Proteus (mirabilis) (morganii) as the cause of diseases classified elsewhere; Z16.12 Extended spectrum beta lactamase (ESBL) resistance; R13.10 Dysphagia, unspecified; I10 Essential (primary) hypertension; G30.9 Alzheimer's disease, unspecified; F02.80 Dementia in other diseases classified elsewhere, unspecified severity, without behavioral disturbance, psychotic disturbance, mood disturbance, and anxiety; Z79.82 Long term (current) use of aspirin
CPT/HCPCS: 36415; 71045; 80053; 80150; 81001; 81003; 82550; 82553; 83605; 83735; 84100; 84484; 85007; 85025; 85651; 86140; 86703; 86803; 87040; 87081; 87086; 87181; 87517; 93005; 93306; 94664; 96361; 96365; 96368; 99291; C9399; J8499